=== PATIENT | female | born 1985 | race Caucasian/White ===

== ENCOUNTER 2020-05-28 06:46 | Outpatient (REF) | payer OTHER, SELFPAY ==
[2020-05-28 08:05] LABS: Alanine Aminotransferase 46 U/L (0-31); Albumin Level 3.4 g/dL (3.5-5.0); Alkaline Phosphatase 104 U/L (39-117); Anion Gap 12 (12-20); Aspartate Amino Transferase 66 U/L (5-31); Bilirubin Total 5.3 mg/dL (0.0-1.0); Blood Urea Nitrogen 8 mg/dL (9-16); Calcium 8.4 mg/dL (8.4-10.2); Carbon Dioxide 28 mmol/L (22-29); Chloride 104 mmol/L (96-108); Cholesterol 114 mg/dL; Estimated Glomerular Filt Rate > 60; Glucose Fasting 129 mg/dL (60-99); HDL Cholesterol 36 mg/dL; LDL Cholesterol Calculated 52 mg/dl; Potassium 3.7 mmol/l (3.3-5.1); Sodium 140 mmol/L (135-145); Total Protein 7.5 g/dL (6.5-8.0); Triglycerides 133 mg/dL
== END 2020-05-28 06:47 | disposition home or self-care (01) ==
LOC: HO.LAB 06:46
PROVIDERS: PCP Internal Medicine; Visit Provider Internal Medicine
DX: E66.09 Other obesity due to excess calories (principal)
CPT/HCPCS: 80053; 80061

== ENCOUNTER 2020-10-31 08:31 | Outpatient (REF) | payer OTHER, SELFPAY ==
--- NOTE | ~2020-10-31 | XR_ITS ---
EXAMINATION: XR foot RT min 3V, XR ankle RT min 3V CLINICAL INFORMATION: Right foot and ankle pain. COMPARISON: None. TECHNIQUE: Right ankle 3 views. Right foot 3 views. FINDINGS: RIGHT ANKLE: There is a small avulsion fracture fragment of the tip of the fibula. The small fracture fragment is distracted and rotated. No other bony abnormality. Alignment of the ankle mortise is anatomic. RIGHT FOOT: 3 views of the right foot are normal. XR/XR foot RT min 3V IMPRESSION: Avulsion fracture at the tip of the lateral malleolus.
--- NOTE | ~2020-10-31 | XR_ITS ---
EXAMINATION: XR foot RT min 3V, XR ankle RT min 3V CLINICAL INFORMATION: Right foot and ankle pain. COMPARISON: None. TECHNIQUE: Right ankle 3 views. Right foot 3 views. FINDINGS: RIGHT ANKLE: There is a small avulsion fracture fragment of the tip of the fibula. The small fracture fragment is distracted and rotated. No other bony abnormality. Alignment of the ankle mortise is anatomic. RIGHT FOOT: 3 views of the right foot are normal. XR/XR ankle RT min 3V IMPRESSION: Avulsion fracture at the tip of the lateral malleolus.
== END 2020-10-31 08:32 | disposition home or self-care (01) ==
LOC: HO.HOSX 08:31
PROVIDERS: Visit Provider Physician Assistant
DX: M25.571 Pain in right ankle and joints of right foot (principal); S92.151A Displaced avulsion fracture (chip fracture) of right talus, initial encounter for closed fracture; W10.9XXA Fall (on) (from) unspecified stairs and steps, initial encounter; Y93.01 Activity, walking, marching and hiking; Y92.009 Unspecified place in unspecified non-institutional (private) residence as the place of occurrence of the external cause; Y99.8 Other external cause status; F17.210 Nicotine dependence, cigarettes, uncomplicated; Z88.8 Allergy status to other drugs, medicaments and biological substances
CPT/HCPCS: 73610; 73630; 99202

== ENCOUNTER 2021-02-11 06:39 | Outpatient (REF) | payer OTHER, SELFPAY ==
[2021-02-11 07:59] LABS: Alanine Aminotransferase 50 U/L (0-31); Albumin Level 3.5 g/dL (3.5-5.0); Alkaline Phosphatase 95 U/L (39-117); Anion Gap 15 (12-20); Aspartate Amino Transferase 48 U/L (5-31); Bilirubin Total 6.5 mg/dL (0.0-1.0); Blood Urea Nitrogen 9 mg/dL (9-16); Calcium 8.9 mg/dL (8.4-10.2); Carbon Dioxide 26 mmol/L (22-29); Chloride 103 mmol/L (96-108); Estimated Glomerular Filt Rate > 60; Glucose Fasting 89 mg/dL (60-99); Potassium 3.5 mmol/L (3.3-5.1); Sodium 140 mmol/L (135-145); Total Protein 7.1 g/dL (6.5-8.0)
== END 2021-02-11 06:40 | disposition home or self-care (01) ==
LOC: HO.LAB 06:39
PROVIDERS: PCP Internal Medicine; Visit Provider Internal Medicine
DX: R73.02 Impaired glucose tolerance (oral) (principal)
CPT/HCPCS: 36415; 80053

== ENCOUNTER 2021-07-03 06:33 | Outpatient (REF) | payer OTHER, SELFPAY ==
[2021-07-03 07:35] LABS: Alanine Aminotransferase 25 U/L (0-31); Albumin Level 3.9 g/dL (3.5-5.0); Alkaline Phosphatase 95 U/L (39-117); Anion Gap 10 (12-20); Aspartate Amino Transferase 36 U/L (5-31); Bilirubin Total 3.5 mg/dL (0.0-1.0); Blood Urea Nitrogen 7 mg/dL (9-16); Calcium 9.2 mg/dL (8.4-10.2); Carbon Dioxide 28 mmol/L (22-29); Chloride 109 mmol/L (96-108); Cholesterol 82 mg/dL; Estimated Glomerular Filt Rate > 60; Glucose Fasting 102 mg/dL (60-99); HDL Cholesterol 30 mg/dL; LDL Cholesterol Calculated 35 mg/dl; Potassium 4.3 mmol/L (3.3-5.1); Sodium 143 mmol/L (135-145); Total Protein 7.3 g/dL (6.5-8.0); Triglycerides 86 mg/dL
== END 2021-07-03 06:34 | disposition home or self-care (01) ==
LOC: HO.LAB 06:33
PROVIDERS: PCP Internal Medicine; Visit Provider Internal Medicine
DX: E78.5 Hyperlipidemia, unspecified (principal); R73.02 Impaired glucose tolerance (oral)
CPT/HCPCS: 36415; 80053; 80061

== ENCOUNTER 2021-08-31 13:42 | Outpatient (REF) | payer OTHER, SELFPAY ==
[2021-08-31 16:52] LABS: Alanine Aminotransferase 25 U/L (0-31); Albumin Level 4.2 g/dL (3.5-5.0); Alkaline Phosphatase 93 U/L (39-117); Anion Gap 15 (12-20); Aspartate Amino Transferase 41 U/L (5-31); Bilirubin Direct 1.3 mg/dL (0.0-0.5); Bilirubin Total 8.3 mg/dL (0.0-1.0); Blood Urea Nitrogen 9 mg/dL (9-16); Calcium 9.5 mg/dL (8.4-10.2); Carbon Dioxide 25 mmol/L (22-29); Chloride 104 mmol/L (96-108); Estimated Glomerular Filt Rate > 60; Glucose Random 97 mg/dL (60-115); Potassium 3.5 mmol/L (3.3-5.1); Sodium 140 mmol/L (135-145); Total Protein 8.4 g/dL (6.5-8.0)
== END 2021-08-31 13:43 | disposition home or self-care (01) ==
LOC: HO.HMGCLDS 13:42
PROVIDERS: PCP Internal Medicine; Visit Provider Internal Medicine
DX: K70.9 Alcoholic liver disease, unspecified (principal)
CPT/HCPCS: 36415; 80048; 80076

== ENCOUNTER 2021-09-04 11:37 | Outpatient (REF) | payer OTHER, SELFPAY ==
[2021-09-04 12:14] LABS: COVID-19 Test Negative (Negative)
== END 2021-09-04 11:38 | disposition home or self-care (01) ==
LOC: HO.LAB 11:37
PROVIDERS: Visit Provider Internal Medicine
DX: Z20.822 Contact with and (suspected) exposure to COVID-19 (principal)
CPT/HCPCS: 87635; C9803

== ENCOUNTER 2021-09-21 10:34 | Outpatient (REF) | payer OTHER, SELFPAY ==
[2021-09-21 12:27] LABS: Alanine Aminotransferase 23 U/L (0-31); Alkaline Phosphatase 84 U/L (39-117); Aspartate Amino Transferase 32 U/L (5-31); Bilirubin Total 5.3 mg/dL (0.0-1.0); Total Protein 7.3 g/dL (6.5-8.0)
== END 2021-09-21 10:35 | disposition home or self-care (01) ==
LOC: HO.HMGCLDS 10:34
PROVIDERS: PCP Internal Medicine; Visit Provider Internal Medicine
DX: K70.9 Alcoholic liver disease, unspecified (principal)
CPT/HCPCS: 36415; 80076

== ENCOUNTER 2021-11-12 16:46 | Inpatient (IN) | payer OTHER, SELFPAY ==
--- NOTE | ~2021-11-12 | US_ITS ---
EXAMINATION: US ABDOMEN LIMITED CLINICAL INFORMATION: Jaundice, vomiting. COMPARISON: CT abdomen pelvis 10/01/2019 TECHNIQUE: Real-time imaging of the right upper quadrant abdominal viscera. FINDINGS: PANCREAS: Visualized portions of the pancreas are unremarkable. The pancreatic tail is obscured by bowel gas. LIVER: Nodular hepatic contour suggestive of cirrhosis. Coarsened echogenic hepatic parenchyma suggesting underlying liver disease. Liver is mildly enlarged measuring 17 cm in span. No focal hepatic lesion. There is no intrahepatic biliary duct dilatation seen. GALLBLADDER: Normal. The gallbladder is physiologically distended without evidence of stones, sludge, polyps, wall thickening or pericholecystic fluid. COMMON BILE DUCT: Normal in caliber measuring 0.8 cm in diameter. RIGHT KIDNEY: Normal. No hydronephrosis. No renal calculi or focal parenchymal lesions. The kidney measures 11.4 cm in maximum dimension. FREE FLUID: None. US/US abdomen limited IMPRESSION: Mild extrahepatic biliary duct dilatation with the common bile duct measuring 0.8 cm with no definite intrahepatic biliary duct dilatation. Gallbladder also appears mildly distended however without cholelithiasis or other findings to suggest acute cholecystitis. Consider further evaluation with MRCP. Heterogeneous, echogenic hepatic parenchyma suggestive of underlying liver disease with a nodular hepatic contour suggesting cirrhosis. Liver measures mildly enlarged. Visualized portions of the pancreas are unremarkable. The pancreatic tail is obscured by bowel gas.
--- NOTE | 2021-11-12 16:53 | ED.PSYCH ---
HPI - Psych General Chief Complaint: Psychiatric Symptoms Stated Complaint: Section 12 Time Seen by Provider: 11/12/21 16:53 Source: patient and EMS Mode of arrival: EMS Limitations: no limitations History of Present Illness HPI Narrative: 36 yo female with history of PTSD, alcoholic liver disease, opioid use disorder on methadone, anxiety, formerly sober from alcohol for x10 months until 18 days ago who presents to the ER with suicidal ideation. She reports she was triggered 18 days ago and relapsed, drinking 1-2 sleeves (10-20) nips of strawberry vodka per day. She cannot say why she relapsed. She is depressed and wants to . She cut her left forearm with a nail the other day because she wanted to harm herself. She reports a history of alcohol induced liver failure x3 last year and required hospitalization. She also reports a history of severe ETOH withdrawal in the past - required intubation, medically induced coma and seizures. She also reports Fentanyl OD x2. She denies and current Fentanyl or heroin use - compliant with her 30 mg of methadone per day. She reports slow onset of jaundice over the last 2 weeks. No RUQ pain. She has been vomiting intermittently, last at 730am with blood streaks. Unable to characterize if bright red, coffee ground or quantity. She reportedly attempted to grab the police officers gun today and arrives to the ER with police present. MD complaint: suicidal ideation, feels depressed, substance abuse and alcohol abuse Onset (ago): day(s) (18) Duration: constant History of same: Yes Relieving factors: none Exacerbating factors: alcohol Context: recent alcohol abuse Associated psychiatric symptoms: depression and suicidal ideation Associated symptoms: nausea and vomiting Treatments prior to arrival: none If self harm: admits thoughts of self harm Related Data Home Medications Medication Instructions Recorded Confirmed methadone 10 mg/mL oral concentrate 30 mg PO DAILY ml 02/16/21 11/12/21 Previous Rx's Medication Instructions Recorded alprazolam 0.5 mg tablet 0.5 mg PO TID PRN 30 Days #90 tab 10/26/21 Allergies Allergy/AdvReac Type Severity Reaction Status Date / Time pentoxifylline Allergy Intermediate Rash Verified 08/31/21 13:21 phenobarbital Allergy Diarrhea Verified 11/12/21 19:49 Review of Systems Review of Systems: Constitutional: No Fever, No Chills ENT/Mouth: No sore throat, No Rhinorrhea, No Swallowing Difficulty Eyes: No Eye Pain, No Swelling, No Redness Cardiovascular: No Chest Pain, No SOB, No Orthopnea, No Edema Respiratory: No Cough, No Sputum, No Wheezing, No dyspnea Gastrointestinal: + Nausea, + Vomiting, No Diarrhea, No abdominal Pain, No Hematochezia, No Melena Genitourinary: No Dysuria, No Urinary Frequency, No Hematuria Musculoskeletal: No joint pain, No Myalgias Skin: No Skin Lesions, + rash Neuro: No Weakness, No Numbness, No Dizziness, No Headache Psych: + Anxiety/Panic, +Depression, +SI, No HI, No VH, No AH Heme/Lymph: No Bruising, No Lymphadenopathy Endocrine: No Polyuria, No Polydipsia PMFSH Past Medical History Medical History Alcoholic liver disease Anxiety Impaired glucose tolerance Insomnia Left ankle pain Opioid dependence on agonist therapy Physical exam Smoker Surgical History (Updated 07/07/21 @ 07:53 by Samantha Mohan MD) H/O right wrist surgery History of arthroplasty of left knee Family History Family History Father Hypertension Substance use disorder Mother Medical history unknown Maternal Grandfather Cancer Family/Other FH: mental illness Mental health disorder Social History Social History Housing: Apartment Alcohol intake: former Patient Tobacco Use Status: Current everyday Tobacco user Tobacco use type: Cigarette Cigarettes Per Day: 5 e-Cigarette/Vaping Use: Never Used Second Hand Smoke Exposure: No Advance Directives: No Advance Directives Information Provided: No service: No 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al status: unemployed and disabled Physical Exam Vital Signs: Vital Signs: Last Vital Signs Temp 98.4 F 11/12/21 19:14 Pulse 105 H 11/12/21 19:14 Resp 18 11/12/21 19:14 BP 121/71 11/12/21 19:14 Pulse Ox 96 11/12/21 19:14 BMI result Body Mass Index 22.9 Appearance: Young female sitting in the bed crying, mild jaundice Eyes: Pupils equal, round and reactive to light. Scleral icterus present ENT: Pharynx normal. No upper dentition Neck: Normal inspection. Neck supple. CVS: Normal heart rate and rhythm. Pulses normal. Respiratory: No respiratory distress. Breath sounds normal. Abdomen: Soft and nontender. +BS x4 Skin: Skin warm and dry. Normal skin color. Normal skin turgor. No rashes. Extremities: No lower extremity edema. Right forearm with long superficial ecchymosis and abrasion consistent with nail injury. Neuro/psych: Oriented X 3. No motor deficit. No sensory deficit. CN II-XII intact. Makes eye contact, tearful, suicidal. Course Course Course Narrative: 36-year-old female with history of alcohol abuse and dependence, recent relapse 18 days ago, opioid use disorder on methadone, PTSD, anxiety who presents to the ER with worsening depression, suicidal ideation after she relapsed on alcohol 18 days ago, drinking 10-20 nips per day for the last 18 days. On arrival to the ER she is tachycardic to 122, she has jaundice skin and scleral icterus. She has no tenderness in the right upper quadrant. She reports intermittent nausea and vomiting, blood streaked, unable to characterize or quantify. Concern for acute alcoholic hepatitis. Will check LFTs, coags, U tox, ETOH level. Will get RUQ U/S, doubt biliary obstruction given lack of pain. She has history of alcoholic hepatitis in the past as well as severe alcohol withdrawal requiring ICU level of care and intubation. Will closely monitor her CIWA scores and start empiric phenobarbital. Anticipate admission. Reevaluation(s) Reevaluation #1: Labs are showing a bilirubin of 8.1, direct bilirubin 2.3, mild transaminitis and mildly elevated alk-phos. Right upper quadrant ultrasound showing CBD 0.8 without intrahepatic duct dilatation. She has a coagulopathy with INR 1.7. Her discriminant function is calculated at 36, she may benefit from glucocorticoids. Will need to rule out infection 1st. Reevaluation #2: Spoke with Dr. Yen via [facility] - fernanda to start prednisolone for treatment of acute alcoholic hepatitis. No evidence of infection at this time. She has had blood-streaked vomitus that is most consistent with a Fiorella-Pop tear. This does not contraindicate steroids, will start prednisolone. She is dry heaving despite IV Zofran. IV reglan ordered. CIWA 8. Reports allergy to phenobarbital and is refusing to take it saying it gives her diarrhea. Will give IV Ativan for now, she would likely benefit from ongoing Librium. Will admit to medicine. Dr. Hinkle aware. Consultations Consultation #1: GI - Dr. Yen MDM - Psych Lab Data Attestation: I reviewed the patient's lab results. Result diagrams: 11/12/21 18:53 11/12/21 18:24 Labs: Lab Results 11/12/21 11/12/21 11/12/21 Range/Units 17:18 17:19 17:21 WBC (4.8-10.8) X10*3/uL RBC (4.20-5.50) X10*6/uL Hgb (12.0-16.0) g/dl Hct (37.0-47.0) % MCV (80.0-98.0) fL MCH (27.0-33.0) pg MCHC (31.0-35.0) g/dl RDW (11.0-16.0) % Plt Count (160-400) X10*3/uL MPV (9.4-12.3) fL Immature Gran % (Auto) (0.0-0.4) % Neut % (Auto) (45-73) % Lymph % (Auto) (20-40) % [place] % (Auto) (2-11) % Eos % (Auto) (0-4) % Baso % (Auto) (0-2) % Lymph # (Auto) (1.2-4.9) X10*3/uL [place] # (Auto) (0.1-1.2) X10*3/uL Eos # (Auto) (0.0-0.4) X10*3/uL Baso # (Auto) (0.0-0.2) X10*3/uL Abs Immat Gran (auto) (0.00-0.03) X10*3/uL Absolute Neuts (auto) (2.0-8.3) x10*3/uL Absolute Nucleated RBC (0.0-0.012) X10*3/uL Nucleated RBC % (auto) (0.0-0.2) /100WBC Smear Tech's Comments PT (9.9-13.0) SEC INR (0.9-1.1) APTT (24.1-38.0) SEC Sodium (135-145) mmol/L Potassium (3.3-5.1) mmol/L Chloride (96-108) mmol/L Carbon Dioxide (22-29) mmol/L Anion Gap (12-20) BUN (9-16) mg/dL Creatinine (0.5-1.4) mg/dL Estim Creat Clear Calc Estimated GFR Random Glucose (60-115) mg/dL Calcium (8.4-10.2) mg/dL Magnesium (1.6-2.6) mg/dL Total Bilirubin (0.0-1.0) mg/dL Direct Bilirubin (0.0-0.5) mg/dL AST (5-31) U/L ALT (0-31) U/L Alkaline Phosphatase (39-117) U/L Total Protein (6.5-8.0) g/dL Albumin (3.5-5.0) g/dL Urine Color YELLOW Urine Appearance CLEAR Urine pH 7.0 (5.0-8.0) Ur Specific [place] <= 1.005 (1.005-1.025) Urine Protein NEG (NEG-TRACE) MG/DL Urine Glucose (UA) NEG (NEG) MG/DL Urine Ketones NEG (NEG) MG/DL Urine Blood NEG (NEG) Urine Nitrite NEG (NEG) Ur Leukocyte Esterase NEG (NEG) Urine Opiates Screen Not Detected (Not Detect) Urine Fentanyl Screen POSITIVE H (Not Detect) Ur Barbiturates Screen Not Detected (Not Detect) Ur Phencyclidine Scrn Not Detected (Not Detect) Ur Amphetamines Screen Not Detected (Not Detect) U Benzodiazepines Scrn POSITIVE H (Not Detect) Urine Cocaine Screen Not Detected (Not Detect) U Marijuana (THC) Screen Not Detected (Not Detect) Ethyl Alcohol mg/dL COVID-19 (LARRY) Negative (Negative) COVID-19 Clin Com See Note 11/12/21 11/12/21 11/12/21 Range/Units 18:24 18:24 18:24 WBC (4.8-10.8) X10*3/uL RBC (4.20-5.50) X10*6/uL Hgb (12.0-16.0) g/dl Hct (37.0-47.0) % MCV (80.0-98.0) fL MCH (27.0-33.0) pg MCHC (31.0-35.0) g/dl RDW (11.0-16.0) % Plt Count (160-400) X10*3/uL MPV (9.4-12.3) fL Immature Gran % (Auto) (0.0-0.4) % Neut % (Auto) (45-73) % Lymph % (Auto) (20-40) % [place] % (Auto) (2-11) % Eos % (Auto) (0-4) % Baso % (Auto) (0-2) % Lymph # (Auto) (1.2-4.9) X10*3/uL [place] # (Auto) (0.1-1.2) X10*3/uL Eos # (Auto) (0.0-0.4) X10*3/uL Baso # (Auto) (0.0-0.2) X10*3/uL Abs Immat Gran (auto) (0.00-0.03) X10*3/uL Absolute Neuts (auto) (2.0-8.3) x10*3/uL Absolute Nucleated RBC (0.0-0.012) X10*3/uL Nucleated RBC % (auto) (0.0-0.2) /100WBC Smear Tech's Comments PT 18.3 H (9.9-13.0) SEC INR 1.6 H (0.9-1.1) APTT 24.2 (24.1-38.0) SEC Sodium 144 (135-145) mmol/L Potassium 3.1 L (3.3-5.1) mmol/L Chloride 107 (96-108) mmol/L Carbon Dioxide 27 (22-29) mmol/L Anion Gap 13 (12-20) BUN 4 L D (9-16) mg/dL Creatinine 0.61 (0.5-1.4) mg/dL Estim Creat Clear Calc 140.5 Estimated GFR > 60 Random Glucose 127 H (60-115) mg/dL Calcium 8.4 D (8.4-10.2) mg/dL Magnesium 1.8 (1.6-2.6) mg/dL Total Bilirubin 8.1 H (0.0-1.0) mg/dL Direct Bilirubin 2.3 H (0.0-0.5) mg/dL AST 115 H (5-31) U/L ALT 51 H (0-31) U/L Alkaline Phosphatase 119 H D (39-117) U/L Total Protein 7.1 (6.5-8.0) g/dL Albumin 3.5 (3.5-5.0) g/dL Urine Color Urine Appearance Urine pH (5.0-8.0) Ur Specific [place] (1.005-1.025) Urine Protein (NEG-TRACE) MG/DL Urine Glucose (UA) (NEG) MG/DL Urine Ketones (NEG) MG/DL Urine Blood (NEG) Urine Nitrite (NEG) Ur Leukocyte Esterase (NEG) Urine Opiates Screen (Not Detect) Urine Fentanyl Screen (Not Detect) Ur Barbiturates Screen (Not Detect) Ur Phencyclidine Scrn (Not Detect) Ur Amphetamines Screen (Not Detect) U Benzodiazepines Scrn (Not Detect) Urine Cocaine Screen (Not Detect) U Marijuana (THC) Screen (Not Detect) Ethyl Alcohol 300 H* mg/dL COVID-19 ([facility]ARRY) (Negative) COVID-19 Clin Com 11/12/21 Range/Units 18:53 WBC 7.6 (4.8-10.8) X10*3/uL RBC 4.30 (4.20-5.50) X10*6/uL Hgb 15.0 (12.0-16.0) g/dl Hct 41.0 (37.0-47.0) % MCV 95.3 (80.0-98.0) fL MCH 34.9 H (27.0-33.0) pg MCHC 36.6 H (31.0-35.0) g/dl RDW 19.2 H (11.0-16.0) % Plt Count 30 L (160-400) X10*3/uL MPV 11.9 (9.4-12.3) fL Immature Gran % (Auto) 0.7 H (0.0-0.4) % Neut % (Auto) 64.6 (45-73) % Lymph % (Auto) 25.8 (20-40) % [place] % (Auto) 7.1 (2-11) % Eos % (Auto) 1.1 (0-4) % Baso % (Auto) 0.7 (0-2) % Lymph # (Auto) 2.0 (1.2-4.9) X10*3/uL [place] # (Auto) 0.5 (0.1-1.2) X10*3/uL Eos # (Auto) 0.1 (0.0-0.4) X10*3/uL Baso # (Auto) 0.1 (0.0-0.2) X10*3/uL Abs Immat Gran (auto) 0.05 H (0.00-0.03) X10*3/uL Absolute Neuts (auto) 4.9 (2.0-8.3) x10*3/uL Absolute Nucleated RBC 0.020 H (0.0-0.012) X10*3/uL Nucleated RBC % (auto) 0.3 H (0.0-0.2) /100WBC Smear Tech's Comments VERIFIED PT (9.9-13.0) SEC INR (0.9-1.1) APTT (24.1-38.0) SEC Sodium (135-145) mmol/L Potassium (3.3-5.1) mmol/L Chloride (96-108) mmol/L Carbon Dioxide (22-29) mmol/L Anion Gap (12-20) BUN (9-16) mg/dL Creatinine (0.5-1.4) mg/dL Estim Creat Clear Calc Estimated GFR Random Glucose (60-115) mg/dL Calcium (8.4-10.2) mg/dL Magnesium (1.6-2.6) mg/dL Total Bilirubin (0.0-1.0) mg/dL Direct Bilirubin (0.0-0.5) mg/dL AST (5-31) U/L ALT (0-31) U/L Alkaline Phosphatase (39-117) U/L Total Protein (6.5-8.0) g/dL Albumin (3.5-5.0) g/dL Urine Color Urine Appearance Urine pH (5.0-8.0) Ur Specific [place] (1.005-1.025) Urine Protein (NEG-TRACE) MG/DL Urine Glucose (UA) (NEG) MG/DL Urine Ketones (NEG) MG/DL Urine Blood (NEG) Urine Nitrite (NEG) Ur Leukocyte Esterase (NEG) Urine Opiates Screen (Not Detect) Urine Fentanyl Screen (Not Detect) Ur Barbiturates Screen (Not Detect) Ur Phencyclidine Scrn (Not Detect) Ur Amphetamines Screen (Not Detect) U Benzodiazepines Scrn (Not Detect) Urine Cocaine Screen (Not Detect) U Marijuana (THC) Screen (Not Detect) Ethyl Alcohol mg/dL COVID-19 ([facility]ARRY) (Negative) COVID-19 Clin Com ECG Data Attestation: I personally reviewed and interpreted this ECG as follows: ECG interpretation date: 11/12/21 ECG interpretation time: 20:14 Interpretation: Sinus tachycardia, heart rate 102 beats per minute, normal [place] interval, normal QTC, no ST segment elevations or depressions. Critical Care Time Critical Care Time Critical Care Time: Yes Total Critical Care Time: 48 Attestation: I have personally provided critical care time exclusive of time spent on separately billable procedures. Time includes review of lab data, radiology results, discussion with consultants, and monitoring for potential decompensation. Intervention performed as documented. Discharge Plan Discharge Clinical Impression: Acute alcoholic hepatitis, Acute hypokalemia, Alcohol intoxication, Nausea & vomiting, Thrombocytopenia, Suicidal ideation Patient Disposition: Admitted As Inpatient
[2021-11-12 16:59] VITALS: BP 122/97; PULSE 122; RESP 19; TEMP 37.8; O2SAT 95; BMI 22.9
[2021-11-12 17:35] LABS: Appearance Urine CLEAR; Color Urine YELLOW; Glucose Urine UA NEG (NEG); Leukocyte Esterase Urine NEG (NEG); Nitrite Urine NEG (NEG); Specific Gravity - Urine <= 1.005 (1.005-1.025); Urine Blood NEG (NEG); Urine Ketones NEG (NEG); Urine Protein NEG (NEG-TRACE)
[2021-11-12 17:49] LABS: Amphetamine Screen Urine Not Detected (Not Detect); Barbiturates, Urine Not Detected (Not Detect); Benzodiazepines Screen Urine POSITIVE (Not Detect); Cannabinoid Screen Urine Not Detected (Not Detect); Cocaine Screen Urine Not Detected (Not Detect); Fentanyl, urine POSITIVE (Not Detect); Opiate Screen Urine Not Detected (Not Detect); Phencyclidine Screen Urine Not Detected (Not Detect)
[2021-11-12 17:51] LABS: COVID-19 Test Negative (Negative); IDNOW Serial# 9DB6401D
[2021-11-12 18:44] LABS: Ethanol 300 mg/dL
[2021-11-12 18:47] LABS: Alanine Aminotransferase 51 U/L (0-31); Albumin Level 3.5 g/dL (3.5-5.0); Alkaline Phosphatase 119 U/L (39-117); Anion Gap 13 (12-20); Aspartate Amino Transferase 115 U/L (5-31); Bilirubin Direct 2.3 mg/dL (0.0-0.5); Bilirubin Total 8.1 mg/dL (0.0-1.0); Blood Urea Nitrogen 4 mg/dL (9-16); Calcium 8.4 mg/dL (8.4-10.2); Carbon Dioxide 27 mmol/L (22-29); Chloride 107 mmol/L (96-108); Creatinine Clr Calc Pharmacy 140.5; Estimated Glomerular Filt Rate > 60; Glucose Random 127 mg/dL (60-115); Magnesium 1.8 mg/dL (1.6-2.6); Potassium 3.1 mmol/L (3.3-5.1); Sodium 144 mmol/L (135-145); Total Protein 7.1 g/dL (6.5-8.0)
[2021-11-12] MEDS: ondansetron HCL 4 MG/2 ML VIAL IVPUSH (18:56)
[2021-11-12] MEDS: chlordiazePOXIDE HCl 25 MG CAPSULE PO (18:56)
[2021-11-12 18:57] LABS: Basophils Absolute Auto 0.1 X10*3/uL (0.0-0.2); Basophils Percent Auto 0.7 % (0-2); Eosinophils Absolute Auto 0.1 X10*3/uL (0.0-0.4); Eosinophils Percent Auto 1.1 % (0-4); Imm Gran Abs Auto 0.05 X10*3/uL (0.00-0.03); Imm Gran Pct Auto 0.7 % (0.0-0.4); Lymphocytes Percent Auto 25.8 % (20-40); Mean Corpuscular HGB Conc 36.6 g/dl (31.0-35.0); Mean Corpuscular Hemoglobin 34.9 pg (27.0-33.0); Mean Corpuscular Volume 95.3 fL (80.0-98.0); Mean Platelet Volume 11.9 fL (9.4-12.3); Monocytes Absolute Auto 0.5 X10*3/uL (0.1-1.2); Monocytes Percent Auto 7.1 % (2-11); NRBC Pct Auto 0.3 /100WBC (0.0-0.2); Neutrophils Absolute Auto 4.9 x10*3/uL (2.0-8.3); Neutrophils Percent Auto 64.6 % (45-73); Red Cell Distribution Width 19.2 % (11.0-16.0); White Blood Count 7.6 X10*3/uL (4.8-10.8)
[2021-11-12] MEDS: 0.9 % Sodium Chloride 1,000 ML 999 ML IVCONT (18:57)
[2021-11-12 18:58] LABS: Platelet Count 30 X10*3/uL (160-400)
[2021-11-12 19:00] LABS: MANUAL DIFF FLAG SCAN
[2021-11-12 19:12] LABS: INTERNATIONAL NORM RATIO 1.6 (0.9-1.1); Prothrombin Time 18.3 SEC (9.9-13.0)
[2021-11-12 19:14] VITALS: BP 121/71; PULSE 105; RESP 18; TEMP 36.9; O2SAT 96
[2021-11-12 19:15] LABS: Partial Thromboplastin Time 24.2 SEC (24.1-38.0)
[2021-11-12 19:17] LABS: SLIDE REVIEW VERIFIED
--- NOTE | 2021-11-12 19:29 | MHC.CARE ---
Pt presented to ED on a section 12. It appears that pt will be medically admitted, one cleared please consult the CARE Team
--- NOTE | 2021-11-12 19:38 | PC.NURSE ---
Addendum entered by Lulú Joya 11/13/21 06:57: report given to MAXIMUS Stauffer Original Note: report received from MAXIMUS Huff. pt is alert and oriented. CIWA score 14, provider made aware. pt report increase nausea, provider made aware. denies any chest pain or sob
[2021-11-12] MEDS: Metoclopramide HCl 10 MG/2 ML VIAL IVPUSH (19:45)
[2021-11-12] MEDS: Potassium Chloride ER 20 MEQ TAB.ER.PRT 40 MEQ PO (19:45)
--- NOTE | 2021-11-12 19:53 | ECG_ITS ---
Test Reason : TACHY Blood Pressure : / mmHG Vent. Rate : 102 BPM Atrial Rate : 102 BPM P-R Int : 154 ms QRS Dur : 092 ms QT Int : 348 ms P-R-T Axes : 053 043 029 degrees QTc Int : 453 ms Sinus tachycardia Nonspecific T wave abnormality Abnormal ECG When compared with ECG of 02-OCT-2019 22:29, QT has shortened Referred By: Marilyn Choi Electronically Signed By:AMINA GANT
[2021-11-12] MEDS: LORazepam 2 MG/ML VIAL IVPUSH (19:56)
--- NOTE | 2021-11-12 20:15 | PM.IMHP ---
History of Present Illness Date of Service: 11/12/21 Chief Complaint: suicidal ideation 36 year old female with history of opiod dependence including past use of IV opioiod on Methadone, history of alcoholic liver cirrhosis and has been sober since January last year and yet unforunately started drinking non-stop the last 18 days drinking a sleeve of Vodka a day, she is not quite sure what triggered her to start drinking again but as result has been depressed and having suicide thoughts. Work has revealed acute alcoholic hepatitis with jaundice(Tbili of 8), transaminitis, EToh level of 300 and dicriminant function of 36. She has prior history of alchol withdrawal complicated by seizures and intubations. She did report an episode of vomitus with blood streak. At the present no obvious signs of withdrawal yet. Given Librium and being loaded with Phenobarb orally. She does tell me not suicidal at the time of my eval. Review of Systems Review of Systems: Gen: no fever Resp: no sob, no cough CV: no chest, no HERNANDEZ, no leg edema GI: No n/v, no abd pain Neuro: No confusion, no tremors Yes all other systems are reviewed and are negative [facility] Medical History Alcoholic liver disease Anxiety Impaired glucose tolerance Insomnia Left ankle pain Opioid dependence on agonist therapy Physical exam Smoker Family History Father Hypertension Substance use disorder Mother Medical history unknown Maternal Grandfather Cancer Family/Other FH: mental illness Mental health disorder Surgical History H/O right wrist surgery History of arthroplasty of left knee Social History Housing: Apartment Alcohol intake: former Patient Tobacco Use Status: Current everyday Tobacco user Tobacco use type: Cigarette Cigarettes Per Day: 5 e-Cigarette/Vaping Use: Never Used Second Hand Smoke Exposure: No Advance Directives: No Advance Directives Information Provided: No service: No 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al status: unemployed and disabled Meds Allergies Allergy/AdvReac Type Severity Reaction Status Date / Time pentoxifylline Allergy Intermediate Rash Verified 08/31/21 13:21 phenobarbital Allergy Diarrhea Verified 11/12/21 19:49 Active Medications: Current Medications Methadone HCl (Methadone Hcl 20 Mg/2 Ml Oral.Conc) 30 mg PO DAILY [facility] Pharmacy Consult (Consult Rx Etoh Phenob Po Dose) 0 each MISCELLANE ONCE PRN; Protocol PRN Reason: Consult order Pharmacy Consult (Consult Rx Perform Med Rec) 1 each MISCELLANE ONCE PRN PRN Reason: Consult order Phenobarbital 100 mg/ (Phenobarbital 60 mg) 160 mg PO Q3H [facility] Stop: 11/13/21 02:01 Phenobarbital (Phenobarbital 15 Mg Tablet) 45 mg PO BID [facility] Stop: 11/14/21 21:01 Phenobarbital (Phenobarbital 15 Mg Tablet) 15 mg PO BID [facility] Stop: 11/16/21 21:01 Phenobarbital (Phenobarbital 15 Mg Tablet) 15 mg PO DAILY [facility] Stop: 11/18/21 09:01 Prednisolone Sodium Phosphate (Prednisolone Sodium Phosphate 15 Mg/5 Ml Solution) 40 mg PO DAILY [facility] Home Medications Medication Instructions Recorded Confirmed Last Taken Type methadone 10 mg/mL oral concentrate 30 mg PO DAILY ml 02/16/21 11/12/21 11/12/21 03:00 History Lactobacillus acidophilus 10 10,000 mmu cells PO DAILY 11/12/21 11/12/21 Unknown History billion cell capsule (Probiotic) diphenhydramine HCl 25 mg capsule 25 mg PO BEDTIME PRN 11/12/21 11/12/21 Unknown History (Sleep Aid (diphenhydramine)) multivitamin with minerals 1 tab PO DAILY 11/12/21 11/12/21 Unknown History (Hair,Skin and Nails) Physical Exam Vital Signs and Narrative: Vital Signs: Last Vital Signs Temp 98.4 F 11/12/21 19:14 Pulse 105 H 11/12/21 19:14 Resp 18 11/12/21 19:14 BP 121/71 11/12/21 19:14 Pulse Ox 96 11/12/21 19:14 BMI result Body Mass Index 22.9 Const: Other: Constitutional: Alert, in no distress Mental Status: Oriented to person, place and time. Eyes: Pupils are equal, round and reactive to light. Sclear icteris Ear, Nose and Throat: Oropharynx clear, mucous membranes moist. Respiratory: Clear to auscultation. No wheezing, rales or rhonchi. Cardiovascular: S1 S2 regular. No murmurs, rubs or gallops. Gastrointestinal: Abdomen soft, non-tender, non-distended. Normal bowel sounds.? Neurologic: Cranial nerves II-XII grossly intact. No focal neurological deficits. Moves all extremities spontaneously.? Skin: No rashes or lesions.? Musculoskeletal: No cyanosis or clubbing. Psychiatric: Normal mood and affect? Results Labs CBC and Chem 7: 11/12/21 18:53 11/12/21 18:24 Labs: Laboratory Results - last 24 hr 11/12/21 11/12/21 11/12/21 17:18 17:19 17:21 MCV MCH MCHC RDW Plt Count MPV Immature Gran % (Auto) Neut % (Auto) Lymph % (Auto) Sampson % (Auto) Eos % (Auto) Baso % (Auto) Lymph # (Auto) Sampson # (Auto) Eos # (Auto) Baso # (Auto) Abs Immat Gran (auto) Absolute Neuts (auto) Absolute Nucleated RBC Nucleated RBC % (auto) Smear Tech's Comments PT INR APTT Anion Gap Estim Creat Clear Calc Estimated GFR Random Glucose Calcium Magnesium Total Bilirubin Direct Bilirubin AST ALT Alkaline Phosphatase Total Protein Albumin Urine Color YELLOW Urine Appearance CLEAR Urine pH 7.0 Ur Specific [place] <= 1.005 Urine Protein NEG Urine Glucose (UA) NEG Urine Ketones NEG Urine Blood NEG Urine Nitrite NEG Ur Leukocyte Esterase NEG Urine Opiates Screen Not Detected Urine Fentanyl Screen POSITIVE H Ur Barbiturates Screen Not Detected Ur Phencyclidine Scrn Not Detected Ur Amphetamines Screen Not Detected U Benzodiazepines Scrn POSITIVE H Urine Cocaine Screen Not Detected U Marijuana (THC) Screen Not Detected Ethyl Alcohol COVID-19 (LARRY) Negative COVID-19 Clin Com See Note 11/12/21 11/12/21 11/12/21 18:24 18:24 18:24 MCV MCH MCHC RDW Plt Count MPV Immature Gran % (Auto) Neut % (Auto) Lymph % (Auto) Sampson % (Auto) Eos % (Auto) Baso % (Auto) Lymph # (Auto) Sampson # (Auto) Eos # (Auto) Baso # (Auto) Abs Immat Gran (auto) Absolute Neuts (auto) Absolute Nucleated RBC Nucleated RBC % (auto) Smear Tech's Comments PT 18.3 H INR 1.6 H APTT 24.2 Anion Gap 13 Estim Creat Clear Calc 140.5 Estimated GFR > 60 Random Glucose 127 H Calcium 8.4 D Magnesium 1.8 Total Bilirubin 8.1 H Direct Bilirubin 2.3 H AST 115 H ALT 51 H Alkaline Phosphatase 119 H D Total Protein 7.1 Albumin 3.5 Urine Color Urine Appearance Urine pH Ur Specific [place] Urine Protein Urine Glucose (UA) Urine Ketones Urine Blood Urine Nitrite Ur Leukocyte Esterase Urine Opiates Screen Urine Fentanyl Screen Ur Barbiturates Screen Ur Phencyclidine Scrn Ur Amphetamines Screen U Benzodiazepines Scrn Urine Cocaine Screen U Marijuana (THC) Screen Ethyl Alcohol 300 H* COVID-19 (LARRY) COVID-19 [employer] Com 11/12/21 18:53 MCV 95.3 MCH 34.9 H MCHC 36.6 H RDW 19.2 H Plt Count 30 L MPV 11.9 Immature Gran % (Auto) 0.7 H Neut % (Auto) 64.6 Lymph % (Auto) 25.8 Sampson % (Auto) 7.1 Eos % (Auto) 1.1 Baso % (Auto) 0.7 Lymph # (Auto) 2.0 Sampson # (Auto) 0.5 Eos # (Auto) 0.1 Baso # (Auto) 0.1 Abs Immat Gran (auto) 0.05 H Absolute Neuts (auto) 4.9 Absolute Nucleated RBC 0.020 H Nucleated RBC % (auto) 0.3 H Smear Tech's Comments VERIFIED PT INR APTT Anion Gap Estim Creat Clear Calc Estimated GFR Random Glucose Calcium Magnesium Total Bilirubin Direct Bilirubin AST ALT Alkaline Phosphatase Total Protein Albumin Urine Color Urine Appearance Urine pH Ur Specific [place] Urine Protein Urine Glucose (UA) Urine Ketones Urine Blood Urine Nitrite Ur Leukocyte Esterase Urine Opiates Screen Urine Fentanyl Screen Ur Barbiturates Screen Ur Phencyclidine Scrn Ur Amphetamines Screen U Benzodiazepines Scrn Urine Cocaine Screen U Marijuana (THC) Screen Ethyl Alcohol COVID-19 (LARRY) COVID-19 Clin Com Imaging Radiologist's Impressions: Impressions Abdomen Ultrasound 11/12/21 16:10 IMPRESSION: Mild extrahepatic biliary duct dilatation with the common bile duct measuring 0.8 cm with no definite intrahepatic biliary duct dilatation. Gallbladder also appears mildly distended however without cholelithiasis or other findings to suggest acute cholecystitis. Consider further evaluation with MRCP. Heterogeneous, echogenic hepatic parenchyma suggestive of underlying liver disease with a nodular hepatic contour suggesting cirrhosis. Liver measures mildly enlarged. Visualized portions of the pancreas are unremarkable. The pancreatic tail is obscured by bowel gas. Assessment and Plan (1) Acute alcoholic hepatitis: Status: Acute (2) Acute hypokalemia: Status: Acute (3) Alcohol intoxication: Status: Acute (4) Suicidal ideation: Status: Acute (5) Thrombocytopenia: Status: Acute (6) Nausea & vomiting: Status: Acute Plan 36 year female with opioid dependence, alcoholic liver cirrhosis here with depression/SI and found to have acute alcoholic hepatitis. #Acute alcoholic hepatitis, discriminant function is 36 and candidate for steroid, no sepsis and not active GI bleed -Give Prednisone 40 and have GI assess in the morning (She's followed by Dr. Pop) #Alcohol dependence and high riks for withdrawal, Depression with SI--needs 1:1 observation and BHN eval once medically stable #Cogaulopathy--high risk for bleeding. -Give Vitamin K x3 days #Hypokalemia--Oral replacement and follow level, mag is normal #Jaundice d/t liver failure--monitor Bili #Thrombocytopenia--likely from hypersplenism from cirrhosis of liver DVT proph: low risk d/t high INR from liver failure and marked Thrombocytopenia Admission will span at least 2 midnights to treat acute alcoholic hepatitis with high discriminant function and high risk of fulminant liver failurre, and need 1:1 observation for suicidal ideation Quality Stroke Does the patient have a stroke diagnosis?: No VTE Prior VTE?: No VTE Risk Level:: Medical - low VTE Device Contraindication: Treatment Not Indicated VTE Drug Contraindication: Treatment Not Indicated
--- NOTE | 2021-11-12 20:21 | PHA.MEDREC ---
Pharmacy Consult ? Medication Reconciliation Pharmacy has completed the medication reconciliation. Spoke with patient in ED. Methadone clinic = [facility] [phone]
[2021-11-12] MEDS: Dextrose 5 % and 0.45 % NaCl 1,000 ML 100 ML IVCONT (21:04)
[2021-11-12] MEDS: Phytonadione (Vit K1) Oral 10 MG/ML AMPUL PO (21:14)
[2021-11-12] MEDS: ALPRAZolam 0.5 MG TABLET PO (21:14)
[2021-11-12] MEDS: prednisoLONE sodium phosphate 15 MG/5 ML SOLUTION 40 MG PO (21:26)
[2021-11-12 22:18] VITALS: BP 122/69; PULSE 97; RESP 16; TEMP 37.2; O2SAT 93
[2021-11-12 22:22] VITALS: BP 100/62; PULSE 116; RESP 17; TEMP 36.9; O2SAT 98
[2021-11-13] MEDS: diphenhydrAMINE HCL 25 MG TABLET PO ×2 (01:18→20:57)
[2021-11-13] MEDS: chlordiazePOXIDE HCl 5 MG CAPSULE 10 MG PO ×4 (01:18→20:57)
[2021-11-13 04:00] VITALS: BP 135/76; PULSE 93; RESP 18; TEMP 37.1; O2SAT 94
[2021-11-13 05:07] LABS: HBc Num1 0.29 S/CO (0.00-0.79); HBsAGNum1 0.28 S/CO (0.00-0.99); Hepatitis A Antibody IgM 0.27 Index (0-0.79); Hepatitis B Core Antibody Nonreactive (Nonreactive); Hepatitis B Surface Antigen Negative (Negative); ~HepC Num1 12.66 S/CO (0.00-0.79); ~Hepatitis A Antibody IgM Nonreactive (Nonreactive); ~Hepatitis B Surface Antibody REACTIVE (Nonreactive); ~Hepatitis C Antibody Reactive (Nonreactive)
[2021-11-13] MEDS: diphenhydrAMINE HCL 25 MG TABLET 50 MG PO (06:19)
[2021-11-13] MEDS: ALPRAZolam 0.5 MG TABLET PO ×3 (06:19→17:34)
[2021-11-13 07:44] VITALS: BP 156/77; PULSE 97; RESP 15; O2SAT 97
[2021-11-13] MEDS: prednisoLONE sodium phosphate 15 MG/5 ML SOLUTION 40 MG PO (07:56)
[2021-11-13] MEDS: methADONE HCl 20 MG/2 ML ORAL.CONC 30 MG PO (07:56)
[2021-11-13] MEDS: Multivitamin TABLET 1 TAB PO (07:57)
--- NOTE | 2021-11-13 08:06 | PC.NURSE ---
pt refused pheno. discussion about waiting for xanax d/t only 2 left for today. pt to hold off for now.
--- NOTE | 2021-11-13 08:15 | HO.PM.IMPN ---
Subjective Subjective Date of Service: 11/13/21 Interval History: thrombocytopenia , alcohol withdrawal. Review of Systems Still looks tremulous, denies any any bleed or any shortness of breath or nausea or vomiting or fever or diarrhea Physical Exam Vital Signs: Vital Signs: Last Vital Signs Temp 98.7 F 11/13/21 04:00 Pulse 97 11/13/21 07:44 Resp 15 11/13/21 07:44 BP 156/77 H 11/13/21 07:44 Pulse Ox 97 11/13/21 07:44 BMI result Body Mass Index 22.9 Appearance: Alert.? Oriented X3.? not in distress.? cvs: rrr, [id number]. res: clear to auscultation ,no rhonchii or wheezing abd: no rebound or guarding ,nt, bs present. ext pulses present , no cyanosis . neuro: axo3 , nonfocal. Anxious, mild tremor. Objective Data Active Medications Alprazolam (Alprazolam 0.5 Mg Tablet) 0.5 mg PO TID PRN PRN Reason: anxiety Last Admin: 11/13/21 06:19 Dose: 0.5 mg Documented by: Chlordiazepoxide HCl (Chlordiazepoxide Hcl 5 Mg Capsule) 10 mg PO TID [facility] Last Admin: 11/13/21 07:56 Dose: 10 mg Documented by: QUETA Diphenhydramine HCl (Diphenhydramine Hcl 25 Mg Tablet) 25 mg PO BEDTIME PRN PRN Reason: Sleep Last Admin: 11/13/21 01:18 Dose: 25 mg Documented by: ANDRÉS-CAROLINEICL Dextrose/Sodium Chloride (D51/2ns) 1,000 mls @ 100 mls/hr IVCONT .Q10H [facility] Last Admin: 11/13/21 06:40 Dose: Not Given Documented by: ANDRÉS-ANICL Non-Admin Reason: IV Running Magnesium Hydroxide (Milk Of Magnesia 30 Ml Oral.Susp) 30 ml PO DAILY PRN PRN Reason: Constipation Magnesium Oxide (Magnesium Oxide 400 Mg Tablet) 400 mg PO BIDPC [facility] Melatonin (Melatonin 3 Mg Tablet) 6 mg PO BEDTIME PRN PRN Reason: Insomnia Methadone HCl (Methadone Hcl 20 Mg/2 Ml Oral.Conc) 30 mg PO DAILY [facility] Last Admin: 11/13/21 07:56 Dose: 30 mg Documented by: QUETA Multivitamins/Vitamin C (Multivitamin Tablet) 1 tab PO DAILY [facility] Last Admin: 11/13/21 07:57 Dose: 1 tab Documented by: QUETA Pharmacy Consult (Consult Rx Etoh Phenob Po Dose) 0 each MISCELLANE ONCE PRN; Protocol PRN Reason: Consult order Pharmacy Consult (Consult Rx Perform Med Rec) 1 each MISCELLANE ONCE PRN PRN Reason: Consult order Phenobarbital (Phenobarbital 15 Mg Tablet) 45 mg PO BID [facility] Stop: 11/14/21 21:01 Last Admin: 11/13/21 07:59 Dose: Not Given Documented by: QUETA Non-Admin Reason: Patient Refused Phenobarbital (Phenobarbital 15 Mg Tablet) 15 mg PO BID [facility] Stop: 11/16/21 21:01 Phenobarbital (Phenobarbital 15 Mg Tablet) 15 mg PO DAILY [facility] Stop: 11/18/21 09:01 Potassium Chloride (Potassium Chloride Packet 20 Meq Packet) 40 meq PO ONCE ONE Stop: 11/13/21 08:14 Prednisolone Sodium Phosphate (Prednisolone Sodium Phosphate 15 Mg/5 Ml Solution) 40 mg PO DAILY [facility] Last Admin: 11/13/21 07:56 Dose: 40 mg Documented by: QUETA Sodium Chloride (0.9 % Sodium Chloride Flush 3 Ml Syringe) 3 ml IVFLUSH QSHIFT [facility] Last Admin: 11/13/21 07:55 Dose: Not Given Documented by: QUETA Non-Admin Reason: IV Running Labs CBC & Chem 7: 11/13/21 08:32 11/13/21 08:32 Labs: Laboratory Results - last 24 hr 11/12/21 11/12/21 11/12/21 17:18 17:19 17:21 MCV MCH MCHC RDW Plt Count MPV Immature Gran % (Auto) Neut % (Auto) Lymph % (Auto) Door % (Auto) Eos % (Auto) Baso % (Auto) Lymph # (Auto) Door # (Auto) Eos # (Auto) Baso # (Auto) Abs Immat Gran (auto) Absolute Neuts (auto) Absolute Nucleated RBC Nucleated RBC % (auto) Smear Tech's Comments PT INR APTT Anion Gap Estim Creat Clear Calc Estimated GFR Random Glucose Calcium Magnesium Total Bilirubin Direct Bilirubin AST ALT Alkaline Phosphatase Total Protein Albumin Urine Color YELLOW Urine Appearance CLEAR Urine pH 7.0 Ur Specific [place] <= 1.005 Urine Protein NEG Urine Glucose (UA) NEG Urine Ketones NEG Urine Blood NEG Urine Nitrite NEG Ur Leukocyte Esterase NEG Urine Opiates Screen Not Detected Urine Fentanyl Screen POSITIVE H Ur Barbiturates Screen Not Detected Ur Phencyclidine Scrn Not Detected Ur Amphetamines Screen Not Detected U Benzodiazepines Scrn POSITIVE H Urine Cocaine Screen Not Detected U Marijuana (THC) Screen Not Detected Ethyl Alcohol COVID-19 (LARRY) Negative COVID-19 Clin Com See Note Hepatitis A IgM Ab Hep Bs Antigen Hep Bs Antibody Hep B Core Total Ab Hepatitis C Ab (EIA) 11/12/21 11/12/21 11/12/21 18:24 18:24 18:24 MCV MCH MCHC RDW Plt Count MPV Immature Gran % (Auto) Neut % (Auto) Lymph % (Auto) Door % (Auto) Eos % (Auto) Baso % (Auto) Lymph # (Auto) Door # (Auto) Eos # (Auto) Baso # (Auto) Abs Immat Gran (auto) Absolute Neuts (auto) Absolute Nucleated RBC Nucleated RBC % (auto) Smear Tech's Comments PT 18.3 H INR 1.6 H APTT 24.2 Anion Gap 13 Estim Creat Clear Calc 140.5 Estimated GFR > 60 Random Glucose 127 H Calcium 8.4 D Magnesium 1.8 Total Bilirubin 8.1 H Direct Bilirubin 2.3 H AST 115 H ALT 51 H Alkaline Phosphatase 119 H D Total Protein 7.1 Albumin 3.5 Urine Color Urine Appearance Urine pH Ur Specific [place] Urine Protein Urine Glucose (UA) Urine Ketones Urine Blood Urine Nitrite Ur Leukocyte Esterase Urine Opiates Screen Urine Fentanyl Screen Ur Barbiturates Screen Ur Phencyclidine Scrn Ur Amphetamines Screen U Benzodiazepines Scrn Urine Cocaine Screen U Marijuana (THC) Screen Ethyl Alcohol 300 H* COVID-19 (LARRY) COVID-19 Clin Com Hepatitis A IgM Ab Hep Bs Antigen Hep Bs Antibody Hep B Core Total Ab Hepatitis C Ab (EIA) 11/12/21 11/12/21 18:24 18:53 MCV 95.3 MCH 34.9 H MCHC 36.6 H RDW 19.2 H Plt Count 30 L MPV 11.9 Immature Gran % (Auto) 0.7 H Neut % (Auto) 64.6 Lymph % (Auto) 25.8 Door % (Auto) 7.1 Eos % (Auto) 1.1 Baso % (Auto) 0.7 Lymph # (Auto) 2.0 Door # (Auto) 0.5 Eos # (Auto) 0.1 Baso # (Auto) 0.1 Abs Immat Gran (auto) 0.05 H Absolute Neuts (auto) 4.9 Absolute Nucleated RBC 0.020 H Nucleated RBC % (auto) 0.3 H Smear Tech's Comments VERIFIED PT INR APTT Anion Gap Estim Creat Clear Calc Estimated GFR Random Glucose Calcium Magnesium Total Bilirubin Direct Bilirubin AST ALT Alkaline Phosphatase Total Protein Albumin Urine Color Urine Appearance Urine pH Ur Specific [place] Urine Protein Urine Glucose (UA) Urine Ketones Urine Blood Urine Nitrite Ur Leukocyte Esterase Urine Opiates Screen Urine Fentanyl Screen Ur Barbiturates Screen Ur Phencyclidine Scrn Ur Amphetamines Screen U Benzodiazepines Scrn Urine Cocaine Screen U Marijuana (THC) Screen Ethyl Alcohol COVID-19 (LARRY) COVID-19 Clin Com Hepatitis A IgM Ab Nonreactive Hep Bs Antigen Negative Hep Bs Antibody REACTIVE Hep B Core Total Ab Nonreactive Hepatitis C Ab (EIA) Reactive H Assessment and Plan (1) Acute hypokalemia: Status: Acute (2) Alcohol intoxication: Status: Acute Plan 36 year female with opioid dependence, alcoholic liver cirrhosis here with depression/SI and found to have acute alcoholic hepatitis. elevated lft:s Improving Discussed with GI-hold prednisone for now. Alcohol dependence and high riks for withdrawal, Depression with SI--needs 1:1 observation and BHN eval once medically stable Cogaulopathy/thrombocytopenia worsening(? chronic)--high risk for bleeding. -Give Vitamin K x3 days hematolgy eval Hypokalemia--Oral replacement and follow level, mag is normal Jaundice d/t liver failure--monitor Bili Thrombocytopenia--likely from hypersplenism from cirrhosis of liver DVT proph: low risk d/t high INR from liver failure and marked Thrombocytopenia Need for inpatient: Alcohol withdrawal, thrombocytopenia Quality Stroke Does the patient have a stroke diagnosis?: No VTE Prior VTE?: No VTE Risk Level:: Medical - low VTE Device Contraindication: Treatment Not Indicated VTE Drug Contraindication: Treatment Not Indicated
--- NOTE | 2021-11-13 08:32 | PM.EVENT ---
Event Note Date of Service: 11/13/21 Event Note: GI Consult-Full note dictated Imp: 36 yo female with EtOH-related cirrhosis with sobriety since 01/2021, but presenting after 18 days of binge drinking. She reports that she is now followed by [facility] and is s/p an ERCP in 08/2021 for a CBD stone. She came to the ER primarily for detox. She denies any abdominal pain, fevers, bleeding, increasing abdominal girth, edema, nor confusion. She does not use drugs, Tylenol, nor NSAIDs. She does have an elevated TBili, but predominantly indirect. Clinically she appears very well. Her abdominal exam and RUQ U/S are negative for obvious ascites. There is no asterixis on her exam. She is A&O x 3. Her labs are c/w EtOH-induced hepatitis. Rec: Recheck labs this AM(I ordered F/U labs). Supportive care. Avoid hepatotoxic meds. PO PPI. Given her good clinical appearance, I would hold off on prednisolone for the time being and see what her labs do over the next 24-48 hours. We reviewed the need to remain abstinent from EtOH fci and to F/U with her [facility] MD's as she has been doing. Thanks
[2021-11-13 08:38] LABS: MANUAL DIFF FLAG NO
[2021-11-13 08:43] LABS: Basophils Percent Auto 0.3 % (0-2); Eosinophils Percent Auto 0.1 % (0-4); Hematocrit 36.5 % (37.0-47.0); Hemoglobin 13.3 g/dl (12.0-16.0); Imm Gran Abs Auto 0.04 X10*3/uL (0.00-0.03); Imm Gran Pct Auto 0.5 % (0.0-0.4); Lymphocytes Absolute Auto 1.2 X10*3/uL (1.2-4.9); Lymphocytes Percent Auto 16.7 % (20-40); Mean Corpuscular HGB Conc 36.4 g/dl (31.0-35.0); Mean Corpuscular Hemoglobin 35.7 pg (27.0-33.0); Mean Corpuscular Volume 97.9 fL (80.0-98.0); Mean Platelet Volume 8.9 fL (9.4-12.3); Monocytes Absolute Auto 0.5 X10*3/uL (0.1-1.2); Monocytes Percent Auto 7.3 % (2-11); NRBC Pct Auto 0.4 /100WBC (0.0-0.2); Neutrophils Absolute Auto 5.5 x10*3/uL (2.0-8.3); Neutrophils Percent Auto 75.1 % (45-73); Red Blood Count 3.73 X10*6/uL (4.20-5.50); Red Cell Distribution Width 18.8 % (11.0-16.0); White Blood Count 7.4 X10*3/uL (4.8-10.8)
[2021-11-13 08:44] LABS: Platelet Count 24 X10*3/uL (160-400)
--- NOTE | 2021-11-13 08:47 | PC.NURSE ---
pt denies md cheryl states he still wants a sitter
[2021-11-13 08:49] LABS: Ammonia 48 umol/L (13-55); INTERNATIONAL NORM RATIO 1.7 (0.9-1.1); Prothrombin Time 19.4 SEC (9.9-13.0)
[2021-11-13 08:59] LABS: Alanine Aminotransferase 50 U/L (0-31); Albumin Level 3.6 g/dL (3.5-5.0); Alkaline Phosphatase 128 U/L (39-117); Anion Gap 10 (12-20); Aspartate Amino Transferase 109 U/L (5-31); Bilirubin Direct 1.8 mg/dL (0.0-0.5); Bilirubin Total 6.5 mg/dL (0.0-1.0); Blood Urea Nitrogen 4 mg/dL (9-16); Calcium 8.6 mg/dL (8.4-10.2); Carbon Dioxide 28 mmol/L (22-29); Chloride 103 mmol/L (96-108); Estimated Glomerular Filt Rate > 60; Glucose Random 126 mg/dL (60-115); Potassium 3.8 mmol/L (3.3-5.1); Sodium 137 mmol/L (135-145)
[2021-11-13 09:07] VITALS: BP 135/80; PULSE 95; RESP 16; O2SAT 97
[2021-11-13] MEDS: Potassium Chloride Packet 20 MEQ PACKET 40 MEQ PO (09:11)
[2021-11-13] MEDS: Magnesium Oxide 400 MG TABLET PO ×2 (09:11→17:34)
[2021-11-13] MEDS: PHENobarbitaL 15 MG TABLET 45 MG PO ×2 (09:18→20:57)
--- NOTE | 2021-11-13 09:18 | PC.NURSE ---
PT NOW REQUESTING PHENO
--- NOTE | 2021-11-13 09:31 | MHC.CM.PN ---
PT REPORTS SHE LIVES AT HOME WITH HER PARENTS SHE REPORTS SHE IS [id number] WITH CARE AND USES NO DME OR HOME SERVICES PT DOES NOT HAVE A HCP AND DECLINES TO COMPLETE ONE TODAY PT IS NOT COVID-19 VACCINATED, SHE HAS RECEIVED ONLY ONE DOSE OF MODERNA (08/20/21) PCP: JEAN MARIE MARTINEZ PT CAME IN ON A SECTION 12 AND WILL NEED A CRISIS EVAL ONCE MEDICALLY CLEARED DC PLAN TBD: HOME VS IPLOC VS DETOX/CSS FOR ETOH TREATMENT TRANSPORT TBD BY DISPOSITION
--- NOTE | 2021-11-13 10:19 | MHC.CARE ---
Please consult CARE Team for assessment when Pt is medically cleared for discharged.
[2021-11-13 11:19] VITALS: BP 125/66; PULSE 83; RESP 14; O2SAT 98
[2021-11-13 14:07] VITALS: BP 131/68; PULSE 83; RESP 13; TEMP 37.2; O2SAT 96
[2021-11-13 15:42] VITALS: BP 134/74; PULSE 86; RESP 14; TEMP 37.2; O2SAT 99
--- NOTE | 2021-11-13 17:14 | PM.HEMONCCN ---
Subjective - Subjective Chief complaint: Consult for: Thrombocytopenia. Patient: new to practice Consult date: 11/13/21 Requesting Physician: Rodrigo. Primary Care Provider: Samantha Mohan MD Medical Summary: CONSULT FOR: THROMBOCYTOPENIA. HPI - Consult Narrative Reason for consult: consult for: Thrombocytopenia. Narrative: Lilly José is a pleasant 36 year old lady, EtOH-related cirrhosis, who presented after a couple of weeks of binge drinking.She came to the ER primarily for detox. She says she had been sober since 01/2021. Lately, she has been depressed and having suicide thoughts. Work up has revealed acute alcoholic hepatitis with jaundice(Tbili of 8), transaminitis, EToh level of 300 and dicriminant function of 36. She did report an episode of vomitus with blood streak. No obvious signs of withdrawal yet. She was given Librium and then loaded with Phenobarb orally. She did not appear suicidal. ROS: No headache dizziness, nor confusion. She denies any abdominal pain, fevers, bleeding, increasing abdominal girth, edema. She does not use drugs, Tylenol, nor NSAIDs. She does have an elevated TBili, but predominantly indirect. Her abdominal exam. Her labs are c/w EtOH-induced hepatitis. Her labs are c/w EtOH-induced hepatitis. RUQ U/S are negative for obvious ascites. Past medical history: Alcoholic liver disease: She has prior history of alchol withdrawal complicated by seizures and intubations. She is now followed by [facility] GI and is s/p an ERCP in 08/2021 for a CBD stone. Anxiety Impaired glucose tolerance Insomnia Left ankle pain Opioid dependence on agonist therapy Physical exam Smoker Surgical History: H/O right wrist surgery History of arthroplasty of left knee. Family History: Father Hypertension Substance use disorder Mother Medical history unknown Maternal Grandfather Cancer Family/Other FH: mental illness Mental health disorder Social History: Housing: Apartment Alcohol intake: former Patient Tobacco Use Status: Current everyday Tobacco user Tobacco use type: Cigarette Cigarettes Per Day: 5 Review of Systems - Constitutional Reports system reviewed and no additional complaints, except as documented, Reports difficulty sleeping, Reports malaise, Reports weight gain - Eyes Reports system reviewed and no additional complaints, except as documented - ENT Reports system reviewed and no additional complaints, except as documented - Cardiovascular Reports system reviewed and no additional complaints, except as documented - Respiratory Reports no additional respiratory complaints - Gastrointestinal Reports system reviewed and no additional complaints, except as documented - Genitourinary Reports no additional female genitourinary complaints - Musculoskeletal Reports system reviewed and no additional complaints, except as documented - Integumentary/Breasts Skin/Breast: Reports no additional skin complaints - Neurologic Reports system reviewed and no additional complaints, except as documented - Psychiatric Reports system reviewed and no additional complaints, except as documented - Endocrine Reports no additional endocrine complaints - Hematologic/Lymphatic Reports system reviewed and no additional complaints, except as documented - Allergic/Immunologic Reports system reviewed and no additional complaints, except as documented Oncology Screenings - ECOG Performance Status ECOG Performance Status: 1 [facility] Medical History: Medical History (Last Reviewed 11/12/21 @ 20:35 by Oswaldo Hinkle MD) Alcoholic liver disease Anxiety Impaired glucose tolerance Insomnia Left ankle pain Opioid dependence on agonist therapy Physical exam Smoker Functional capacity: independent ambulation Patient : No Family History: Family History (Last Reviewed 11/12/21 @ 20:35 by Oswaldo Hinkle MD) Father Hypertension Substance use disorder Mother Medical history unknown Maternal Grandfather Cancer Family/Other FH: mental illness Mental health disorder Surgical History: Surgical History (Last Reviewed 11/12/21 @ 20:35 by Oswaldo Hinkle MD) H/O right wrist surgery History of arthroplasty of left knee Social History: Social History (Last Reviewed 11/12/21 @ 20:35 by Oswaldo Hinkle MD) Living Situation History: Household Members: Family Housing: House Tobacco History: Patient Tobacco Use Status: Former Tobacco user Tobacco use type: Cigarette e-Cigarette/Vaping Use: Never Used Second Hand Smoke Exposure: No Occupation Assessmet: service: No 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al status: unemployed 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al status: disabled Home Medications and Allergies Current Medications: Current Medications Alprazolam (Alprazolam 0.5 Mg Tablet) 0.5 mg PO TID PRN PRN Reason: anxiety Last Admin: 11/13/21 12:07 Dose: 0.5 mg Documented by: Chlordiazepoxide HCl (Chlordiazepoxide Hcl 5 Mg Capsule) 10 mg PO TID PITA Last Admin: 11/13/21 14:50 Dose: 10 mg Documented by: Diphenhydramine HCl (Diphenhydramine Hcl 25 Mg Tablet) 25 mg PO BEDTIME PRN PRN Reason: Sleep Last Admin: 11/13/21 01:18 Dose: 25 mg Documented by: Dextrose/Sodium Chloride (D51/2ns) 1,000 mls @ 100 mls/hr IVCONT .Q10H [facility] Last Admin: 11/13/21 16:36 Dose: Not Given Documented by: Magnesium Hydroxide (Milk Of Magnesia 30 Ml Oral.Susp) 30 ml PO DAILY PRN PRN Reason: Constipation Magnesium Oxide (Magnesium Oxide 400 Mg Tablet) 400 mg PO BIDPC [facility] Last Admin: 11/13/21 09:11 Dose: 400 mg Documented by: Melatonin (Melatonin 3 Mg Tablet) 6 mg PO BEDTIME PRN PRN Reason: Insomnia Methadone HCl (Methadone Hcl 20 Mg/2 Ml Oral.Conc) 30 mg PO DAILY [facility] Last Admin: 11/13/21 07:56 Dose: 30 mg Documented by: Multivitamins/Vitamin C (Multivitamin Tablet) 1 tab PO DAILY [facility] Last Admin: 11/13/21 07:57 Dose: 1 tab Documented by: Pharmacy Consult (Consult Rx Etoh Phenob Po Dose) 0 each MISCELLANE ONCE PRN; Protocol PRN Reason: Consult order Pharmacy Consult (Consult Rx Perform Med Rec) 1 each MISCELLANE ONCE PRN PRN Reason: Consult order Phenobarbital (Phenobarbital 15 Mg Tablet) 45 mg PO BID [facility] Stop: 11/14/21 21:01 Last Admin: 11/13/21 09:18 Dose: 45 mg Documented by: Phenobarbital (Phenobarbital 15 Mg Tablet) 15 mg PO BID [facility] Stop: 11/16/21 21:01 Phenobarbital (Phenobarbital 15 Mg Tablet) 15 mg PO DAILY [facility] Stop: 11/18/21 09:01 Prednisolone Sodium Phosphate (Prednisolone Sodium Phosphate 15 Mg/5 Ml Solution) 40 mg PO DAILY [facility] Last Admin: 11/13/21 07:56 Dose: 40 mg Documented by: Sodium Chloride (0.9 % Sodium Chloride Flush 3 Ml Syringe) 3 ml IVFLUSH QSHIFT [facility] Last Admin: 11/13/21 15:21 Dose: Not Given Documented by: Home Medications Medication Instructions Recorded Confirmed Type methadone 10 mg/mL oral concentrate 30 mg PO DAILY ml 02/16/21 11/12/21 History Lactobacillus acidophilus 10 10,000 mmu cells PO DAILY 11/12/21 11/12/21 History billion cell capsule (Probiotic) diphenhydramine HCl 25 mg capsule 25 mg PO BEDTIME PRN 11/12/21 11/12/21 History (Sleep Aid (diphenhydramine)) multivitamin with minerals 1 tab PO DAILY 11/12/21 11/12/21 History (Hair,Skin and Nails) Allergies Allergy/AdvReac Type Severity Reaction Status Date / Time pentoxifylline Allergy Intermediate Rash Verified 08/31/21 13:21 phenobarbital Allergy Diarrhea Verified 11/12/21 19:49 Physical Exam Vital signs: Vital Signs Temp 98.9 F 11/13/21 15:42 Pulse 86 11/13/21 15:42 Resp 14 11/13/21 15:42 BP 134/74 11/13/21 15:42 Pulse Ox 99 11/13/21 15:42 Intake & Output 11/12/21 11/13/21 11/13/21 18:59 06:59 18:59 Intake Total 240 / 240 Balance 240 / 240 Intake: Intake, Oral Amount 240 / 240 Other: Number of Unmeasured Voids 1 Weight 72.575 kg Weight 72.575 kg - Constitutional Present: mild distress - Routine HEENT Exam Head: Present: normal inspection Eye: Present: normal appearance, scleral icterus ENT: Present: mucous membranes moist - Routine Neck Exam Present: supple - Routine Respiratory Exam Present: CTAB - Routine Cardiovascular Exam Cardiovascular: Present: RRR, S1, S2 - Routine Abdominal Exam Present: hyperactive bowel sounds, tenderness - Routine Extremities Exam Present: nontender Hem/Onc Consult Result - Labs CBC & Chem 7: 11/16/21 06:29 11/16/21 06:29 Labs: Short CBC 11/12/21 11/13/21 Range/Units 18:53 08:32 WBC 7.6 7.4 (4.8-10.8) X10*3/uL Hgb 15.0 13.3 (12.0-16.0) g/dl Hct 41.0 36.5 L (37.0-47.0) % Plt Count 30 L 24 L (160-400) X10*3/uL BMP 11/12/21 11/13/21 18:24 08:32 Sodium 144 137 Potassium 3.1 L 3.8 D Chloride 107 103 Carbon Dioxide 27 28 BUN 4 L D 4 L Creatinine 0.61 0.56 Calcium 8.4 D 8.6 Liver Function 11/12/21 11/13/21 Range/Units 18:24 08:32 Total Bilirubin 8.1 H 6.5 H (0.0-1.0) mg/dL Direct Bilirubin 2.3 H 1.8 H (0.0-0.5) mg/dL AST 115 H 109 H (5-31) U/L ALT 51 H 50 H (0-31) U/L Alkaline Phosphatase 119 H D 128 H (39-117) U/L Albumin 3.5 3.6 (3.5-5.0) g/dL Urine 11/12/21 Range/Units 17:19 Urine Color YELLOW Urine Appearance CLEAR Urine pH 7.0 (5.0-8.0) Ur Specific Meno <= 1.005 (1.005-1.025) Urine Protein NEG (NEG-TRACE) MG/DL Urine Glucose (UA) NEG (NEG) MG/DL Assessment and Plan Patient Active problem list reviewed?: Yes (1) Thrombocytopenia Status: Acute Assessment and plan: 86-year-old lady with cirrhosis of the liver alcohol abuse. She has been noted to have significant thrombocytopenia. There is no obvious major bleeding. Her platelet count has been in this range since 2019. DIFFERENTIAL DIAGNOSIS: 1. HYPERSPLENISM: Thrombocytopenia is most likely because of her liver disease and cirrhosis. 2. ITP: Is in the differential. 3. DRUG-INDUCED: Could be super added. 4. MYELO INFILTRATIVE DISORDER: MDS versus lymphoma versus multiple myeloma. Not likely. PLAN: Is to continue Supportive care. Monitor counts carefully. Continue oral PPI. Would try to avoid hepatotoxic medications. Would hold off on prednisone for now. Would transfuse platelets only if platelets drop to less than 10, or for bleeding. Thank you for this consult, Will follow along with you, Cc: saravanan moses, Addendum: Discharge summary: Patient admitted for alcohol withdrawal, thrombocytopenia, hypokalemia, elevated LFT, also with had suicidal ideation initially. Patient was treated with phenobarb protocol for alcohol withdrawal, electrolyte lip related, and with supportive care patient LFTs are improving, also hypokalemia also improved. elevated LFt's seems possible related to alcohol use -seen by Gi : no need for steriods ,moniter lft's outpatient with pcp. Patient was seen by care team for suicidal ideation patient does not seem to be offering any suicidal idea any more , does need BH and as per care team. Thrombocytopenia: platelets are improving in the range of high 24s now, no signs of bleeding, Monitor CBC. Patient was advised in detail to abstain from alcohol. - Time Spent With Patient Time Spent with Patient (in minutes): 30
[2021-11-13] MEDS: Dextrose 5 % and 0.45 % NaCl 1,000 ML 100 ML IVCONT (20:31)
[2021-11-13] MEDS: Omeprazole 20 MG CAPSULE.DR PO (20:57)
[2021-11-13] MEDS: Melatonin 3 MG TABLET 6 MG PO (22:32)
[2021-11-14] VITALS (7 sets, daily range): BP systolic 120–146; BP diastolic 66–93; PULSE 70–100; RESP 14–20; TEMP 36.2–37.4; O2SAT 97–100; BMI 27.4
--- NOTE | 2021-11-14 03:33 | CONS_ITS ---
DATE OF SERVICE: 11/13/2021 REASON FOR CONSULTATION: Alcohol related liver disease including alcohol-induced hepatitis and alcohol- induced cirrhosis. HISTORY OF PRESENT ILLNESS: The patient is a 36-year-old female, known to me from previous office visits, although I have not seen her since June 2019. She informs me that she is now followed by the [facility] GI Department. The patient has an unfortunate longstanding history of intermittent alcohol use. However, she had been sober since last January 2021 but unfortunately relapsed about 18 days ago with binge drinking on a daily basis since then. She does have an underlying history of cirrhosis and previous episodes of alcohol-induced hepatitis with total bilirubins as high as the mid-40s. She also has a previous history of hepatitis C, although this appears to have cleared spontaneously. A liver biopsy in 2018 described fatty liver with associated steatohepatitis and cirrhosis. She came to the ER primarily for detox as she has been drinking heavily. She denies any associated abdominal pain, fevers, evidence of bleeding, increasing abdominal girth, edema, nor any confusion. She has not been using any drugs, acetaminophen, nor NSAIDs. She did have some vomiting yesterday, but without any hematemesis nor coffee-grounds emesis. She has been tolerating a diet today and has had no further vomiting. MEDICATIONS: At home included only methadone and alprazolam p.r.n. Her medications in the hospital include alprazolam p.r.n., Librium, prednisone 40mg, diphenhydramine p.r.n., magnesium, melatonin, methadone, milk of magnesia p.r.n., multivitamin, phenobarbital. She did receive a dose of vitamin K. PAST MEDICAL HISTORY: Alcohol abuse. Cirrhosis. Previous history of hepatitis C with spontaneous clearance. She describes undergoing ERCP with removal of a common duct stone at [facility] back in August of 2021. Panic attacks and PTSD. She has a previous history of substance abuse which involved previous intravenous drug use. She denies history of UT, diabetes, stroke, lung disease, nor kidney disease. SOCIAL HISTORY: Substance abuse and alcohol abuse as above. She does smoke. FAMILY HISTORY: Noncontributory, although her father did have alcohol-related liver disease as well. REVIEW OF SYSTEMS: CONSTITUTIONAL: She has been feeling poorly at home in relation to her heavy drinking. SKIN: No rash. No pruritus. CARDIAC: No chest pain, PULMONARY: No coughing, no hemoptysis. GI: As above. PHYSICAL EXAMINATION: GENERAL: The patient is presently alert and comfortable in appearance. She answers all questions appropriately and is oriented. SKIN: Warm and dry. NECK: Supple. Slightly icteric sclerae. Moist mucous membranes. CARDIAC: Normal S1, S2. ABDOMEN: Soft. Normal bowel sounds. Nondistended, and no obvious ascites. There is no focal mass or rebound. EXTREMITIES: Without edema. NEUROLOGIC: She is alert and oriented, and there is no obvious asterixis. LABORATORY DATA: White blood cell count 7.6, hemoglobin 15.0, platelets 30,000. PT 18.3 with INR 1.6. Sodium 144, potassium 3.1, chloride 107, CO2 27, BUN 4, creatinine 0.6. Total bilirubin 8.1 with direct bilirubin of only 2.3, AST 115, ALT 51, alkaline phosphatase 119, albumin 3.5. Her urine tox screen revealed fentanyl and benzodiazepines. Alcohol level was 300. Hepatitis A IgM was negative. Hepatitis B antigen was negative. Hepatitis C antibody was positive. Hepatitis B surface antibody was positive. She did have an abdominal ultrasound, limited to the right upper quadrant, describing evidence of cirrhosis, normal appearing gallbladder, common bile duct of 8 mm, and no obvious ascites. IMPRESSION: The patient is a 36-year-old female with an unfortunate long-standing history of alcohol abuse and subsequent development of cirrhosis. She now presents for detox and is noted to have some elevation of the LFTs consistent with alcohol- induced hepatitis. She appears quite stable at the present time without any signs of liver failure based on her good mental status with no asterixis and no obvious ascites. She clearly has some component of cirrhosis and liver dysfunction, however. At this point, I do not think she needs to be on prednisolone immediately given her stable clinical appearance and I would prefer that we follow up laboratories in the next 24 to 48 hours to see if things worsen, and eventually start her on prednisolone at that time if need be. I did order repeat laboratories for today including a liver profile, PT with INR, ammonia level, chemistries and CBC. Interestingly, her total bilirubin is predominantly indirect, and therefore she may have a component of Gilbert syndrome and/or a component of hemolysis as opposed to worsening liver function with elevated total bilirubin on that basis. In addition to repeating her laboratories, I would otherwise continue general supportive care. Avoid hepatotoxic medications. I would start her on an oral PPI given her significant thrombocytopenia. Again, we may need to start her on prednisolone depending upon the results of her laboratories over the next 24 to 48 hours. I did advise her to certainly continue to remain abstinent long-term from alcohol and to follow up with her [facility] GI physician. She was comfortable with this plan. Thank you for the consultation. MD RACHEL Toussaint/KEVIN / [id number] MTDD
[2021-11-14] MEDS: Omeprazole 20 MG CAPSULE.DR PO (05:54)
[2021-11-14 07:14] LABS: Hemoglobin 13.3 g/dl (12.0-16.0); Mean Corpuscular Volume 101.6 fL (80.0-98.0); PLT CLUMP 1; Red Cell Distribution Width 19.9 % (11.0-16.0)
[2021-11-14 07:16] LABS: Hematocrit 37.2 % (37.0-47.0); Mean Corpuscular HGB Conc 35.8 g/dl (31.0-35.0); Mean Corpuscular Hemoglobin 36.3 pg (27.0-33.0); Mean Platelet Volume 9.5 fL (9.4-12.3); Red Blood Count 3.66 X10*6/uL (4.20-5.50)
[2021-11-14 07:22] LABS: INTERNATIONAL NORM RATIO 1.6 (0.9-1.1); Platelet Count 21 X10*3/uL (160-400); Prothrombin Time 18.6 SEC (9.9-13.0); White Blood Count 5.2 X10*3/uL (4.8-10.8)
[2021-11-14 07:51] LABS: Alanine Aminotransferase 46 U/L (0-31); Albumin Level 3.4 g/dL (3.5-5.0); Alkaline Phosphatase 133 U/L (39-117); Anion Gap 11 (12-20); Aspartate Amino Transferase 80 U/L (5-31); Bilirubin Direct 1.5 mg/dL (0.0-0.5); Bilirubin Total 5.6 mg/dL (0.0-1.0); Blood Urea Nitrogen 4 mg/dL (9-16); Calcium 8.7 mg/dL (8.4-10.2); Carbon Dioxide 26 mmol/L (22-29); Chloride 104 mmol/L (96-108); Creatinine Clr Calc Pharmacy 175.7; Estimated Glomerular Filt Rate > 60; Glucose Random 94 mg/dL (60-115); Potassium 3.2 mmol/L (3.3-5.1); Sodium 138 mmol/L (135-145); Total Protein 6.9 g/dL (6.5-8.0)
--- NOTE | 2021-11-14 08:32 | P.PNIM_ITS ---
Subjective Subjective Date of Service: 11/14/21 Interval History: Alcohol withdrawal, thrombocytopenia Review of Systems Patient seems anxious and still has tremors Denies any chest pain or shortness of breath or abdominal pain Physical Exam Vital Signs: Vital Signs: Last Vital Signs Temp 99.1 F 11/14/21 08:00 Pulse 74 11/14/21 08:00 Resp 18 11/14/21 08:00 BP 145/80 H 11/14/21 08:00 Pulse Ox 97 11/14/21 08:00 BMI result Body Mass Index 27.4 Appearance: Alert.? Oriented X3.? not in distress.? cvs: rrr, [id number]. res: clear to auscultation ,no rhonchii or wheezing abd: no rebound or guarding ,nt, bs present. ext pulses present , no cyanosis . neuro: axo3 , nonfocal.? Anxious, mild tremor. Objective Data Active Medications Alprazolam (Alprazolam 0.5 Mg Tablet) 0.5 mg PO TID PRN PRN Reason: anxiety Last Admin: 11/13/21 17:34 Dose: 0.5 mg Documented by: ALICIA Chlordiazepoxide HCl (Chlordiazepoxide Hcl 5 Mg Capsule) 10 mg PO TID [facility] Last Admin: 11/13/21 20:57 Dose: 10 mg Documented by: NNAMDI Diphenhydramine HCl (Diphenhydramine Hcl 25 Mg Tablet) 25 mg PO BEDTIME PRN PRN Reason: Sleep Last Admin: 11/13/21 20:57 Dose: 25 mg Documented by: NNAMDI Dextrose/Sodium Chloride (D51/2ns) 1,000 mls @ 100 mls/hr IVCONT .Q10H [facility] Last Infusion: 11/14/21 06:46 Dose: 0 mls/hr Documented by: TOMMIE Magnesium Hydroxide (Milk Of Magnesia 30 Ml Oral.Susp) 30 ml PO DAILY PRN PRN Reason: Constipation Magnesium Oxide (Magnesium Oxide 400 Mg Tablet) 400 mg PO BIDPC [facility] Last Admin: 11/13/21 17:34 Dose: 400 mg Documented by: ALICIA Melatonin (Melatonin 3 Mg Tablet) 6 mg PO BEDTIME PRN PRN Reason: Insomnia Last Admin: 11/13/21 22:32 Dose: 6 mg Documented by: NNAMDI Methadone HCl (Methadone Hcl 20 Mg/2 Ml Oral.Conc) 30 mg PO DAILY [facility] Last Admin: 11/13/21 07:56 Dose: 30 mg Documented by: QUETA Multivitamins/Vitamin C (Multivitamin Tablet) 1 tab PO DAILY [facility] Last Admin: 11/13/21 07:57 Dose: 1 tab Documented by: QUETA Omeprazole (Omeprazole 20 Mg Capsule.Dr) 20 mg PO DAILY@0630 [facility] Last Admin: 11/14/21 05:54 Dose: 20 mg Documented by: TOMMIE Pharmacy Consult (Consult Rx Etoh Phenob Po Dose) 0 each MISCELLANE ONCE PRN; Protocol PRN Reason: Consult order Pharmacy Consult (Consult Rx Perform Med Rec) 1 each MISCELLANE ONCE PRN PRN Reason: Consult order Phenobarbital (Phenobarbital 15 Mg Tablet) 45 mg PO BID [facility] Stop: 11/14/21 21:01 Last Admin: 11/13/21 20:57 Dose: 45 mg Documented by: NNAMDI Phenobarbital (Phenobarbital 15 Mg Tablet) 15 mg PO BID [facility] Stop: 11/16/21 21:01 Phenobarbital (Phenobarbital 15 Mg Tablet) 15 mg PO DAILY [facility] Stop: 11/18/21 09:01 Sodium Chloride (0.9 % Sodium Chloride Flush 3 Ml Syringe) 3 ml IVFLUSH QSHIFT [facility] Last Admin: 11/13/21 20:57 Dose: Not Given Documented by: NNAMDI Non-Admin Reason: IV Running Labs CBC & Chem 7: 11/14/21 05:56 11/14/21 05:56 Labs: Laboratory Results - last 24 hr 11/13/21 11/13/21 11/13/21 08:32 08:32 08:32 MCV 97.9 MCH 35.7 H MCHC 36.4 H RDW 18.8 H Plt Count 24 L MPV 8.9 L Immature Gran % (Auto) 0.5 H Neut % (Auto) 75.1 H Lymph % (Auto) 16.7 L [place] % (Auto) 7.3 Eos % (Auto) 0.1 Baso % (Auto) 0.3 Lymph # (Auto) 1.2 [place] # (Auto) 0.5 Eos # (Auto) 0.0 Baso # (Auto) 0.0 Abs Immat Gran (auto) 0.04 H Absolute Neuts (auto) 5.5 Absolute Nucleated RBC 0.030 H Nucleated RBC % (auto) 0.4 H PT 19.4 H INR 1.7 H Anion Gap 10 L Estim Creat Clear Calc 153.0 Estimated GFR > 60 Random Glucose 126 H Calcium 8.6 Total Bilirubin 6.5 H Direct Bilirubin 1.8 H AST 109 H ALT 50 H Alkaline Phosphatase 128 H Ammonia Total Protein 7.0 Albumin 3.6 11/13/21 11/14/21 11/14/21 08:32 05:56 05:56 MCV 101.6 H MCH 36.3 H MCHC 35.8 H RDW 19.9 H Plt Count 21 L MPV 9.5 Immature Gran % (Auto) Neut % (Auto) Lymph % (Auto) [place] % (Auto) Eos % (Auto) Baso % (Auto) Lymph # (Auto) [place] # (Auto) Eos # (Auto) Baso # (Auto) Abs Immat Gran (auto) Absolute Neuts (auto) Absolute Nucleated RBC 0.000 Nucleated RBC % (auto) 0.0 PT INR Anion Gap 11 L Estim Creat Clear Calc 175.7 Estimated GFR > 60 Random Glucose 94 Calcium 8.7 Total Bilirubin 5.6 H Direct Bilirubin 1.5 H AST 80 H ALT 46 H Alkaline Phosphatase 133 H Ammonia 48 Total Protein 6.9 Albumin 3.4 L 11/14/21 05:56 MCV MCH MCHC RDW Plt Count MPV Immature Gran % (Auto) Neut % (Auto) Lymph % (Auto) [place] % (Auto) Eos % (Auto) Baso % (Auto) Lymph # (Auto) [place] # (Auto) Eos # (Auto) Baso # (Auto) Abs Immat Gran (auto) Absolute Neuts (auto) Absolute Nucleated RBC Nucleated RBC % (auto) PT 18.6 H INR 1.6 H Anion Gap Estim Creat Clear Calc Estimated GFR Random Glucose Calcium Total Bilirubin Direct Bilirubin AST ALT Alkaline Phosphatase Ammonia Total Protein Albumin Assessment and Plan (1) Acute hypokalemia: Status: Acute (2) Alcohol intoxication: Status: Acute Plan 36 year female with opioid dependence, alcoholic liver cirrhosis here with depression/SI and found to have acute alcoholic hepatitis. Elevated lft's Improving Discussed with GI-hold prednisone for now. Alcohol dependence and high riks for withdrawal, Depression with SI--needs 1:1 observation and BHN eval once medically stable Cogaulopathy/thrombocytopenia worsening(? chronic)--high risk for bleeding. -Give Vitamin K x3 days hematolgy eval Hypokalemia--Oral replacement and follow level, mag is normal Jaundice d/t liver failure--monitor Bili trending down Thrombocytopenia--likely from hypersplenism from cirrhosis of liver platlets trending down -from 30-24-21. DVT proph: low risk d/t high INR from liver failure and marked Thrombocytopenia Need for inpatient: Alcohol withdrawal, thrombocytopenia Quality Stroke Does the patient have a stroke diagnosis?: No VTE Prior VTE?: No VTE Risk Level:: Medical - low VTE Device Contraindication: Treatment Not Indicated VTE Drug Contraindication: Treatment Not Indicated
[2021-11-14] MEDS: 0.9 % Sodium Chloride Flush 3 ML SYRINGE IVFLUSH ×3 (08:37→20:09)
[2021-11-14] MEDS: PHENobarbitaL 15 MG TABLET 45 MG PO ×2 (08:38→20:08)
[2021-11-14] MEDS: Magnesium Oxide 400 MG TABLET PO ×2 (08:39→17:48)
[2021-11-14] MEDS: methADONE HCl 20 MG/2 ML ORAL.CONC 30 MG PO (08:39)
[2021-11-14] MEDS: Multivitamin TABLET 1 TAB PO (08:39)
[2021-11-14] MEDS: ALPRAZolam 0.5 MG TABLET PO ×2 (08:46→15:52)
--- NOTE | 2021-11-14 09:20 | MHC.CARE ---
CARE Team met with Pt on the med floor , who self presented to [facility] on [address] for SI and alcohol intoxication. Pts BAL was notably 300 upon arrival . Pt currently presents as alert, orienated and engaged. Pt currently denies SI/HI/VH/AH. Pt reports she does not recall the specific events PREP PERSON though does acknowledge expressing SI when intoxicated in the past. Pt reports no history of SA or gestures. Pt reports one prior [facility] admission 5/6 years after stating she was suicidal due to wanting a break from her substance use. Pt reports she has a current therapist through [facility]. Pt has a acid recovery operator through [facility]. Pt is on methadone through [facility]. Pt declines needing further mental health support or interventions at this time. CARE Team reviewed [facility] Crisis information with Pt and provided it to Pt. CARE Team reviewed risk assessment with Dr. Wallace. Plan for recovery team to follow up with Pt prior to discharge.
--- NOTE | 2021-11-14 10:24 | MHC.RECOVSUP ---
Recovery Support note: Patient is a 36 year old Marshallese speaking female who presented to [facility] ED under the influence of alcohol, making SI statements. This technical report writer met with patient in 483 to discuss substance use and recovery supports. Patient reports she was sober for almost a year and relapsed 2-3 weeks ago. Patient cannot pinpoint a cause to her relapse however attributes it in part to life stressors building up. Patient has a strong support network including a trauma therapist, a counselor through her OTP and a assistant boys track coach through [employer]. In addition, patient reports her friends and families are supportive and that her father is also in recovery. Patient reports that the methadone program has been helpful however she does want to get off of the medication in the future. Patient does not remember using opiates however states that she likely snorted some while under the influence of alcohol which is why it is in her system. Discussed recovery supports including AA and virtual supports with patient. Patient reports no questions or concerns at this time.
[2021-11-14] MEDS: Potassium Chloride Packet 20 MEQ PACKET 40 MEQ PO (13:14)
[2021-11-14] MEDS: chlordiazePOXIDE HCl 5 MG CAPSULE 10 MG PO ×2 (13:14→20:08)
[2021-11-14] MEDS: Phytonadione (Vit K1) 10 MG in 0.9 % Sodium Chloride 50 ML 51 MG IV (17:53)
[2021-11-15 03:22] VITALS: BP 119/63; PULSE 74; RESP 15; TEMP 36.7; O2SAT 98
[2021-11-15] MEDS: Omeprazole 20 MG CAPSULE.DR PO (05:53)
[2021-11-15 08:00] VITALS: BP 133/63; PULSE 80; RESP 18; TEMP 36.6; O2SAT 96
--- NOTE | 2021-11-15 08:37 | P.PNIM_ITS ---
Subjective Subjective Date of Service: 11/15/21 Interval History: Alcohol withdrawal, thrombocytopenia Review of Systems Patient seems anxious and still has tremors Denies any chest pain or shortness of breath or abdominal pain Physical Exam Vital Signs: Vital Signs: Last Vital Signs Temp 97.9 F 11/15/21 08:00 Pulse 80 11/15/21 08:00 Resp 18 11/15/21 08:00 BP 133/63 11/15/21 08:00 Pulse Ox 96 11/15/21 08:00 BMI result Body Mass Index 27.4 Appearance: Alert.? Oriented X3.? not in distress.? cvs: rrr, [id number]. res: clear to auscultation ,no rhonchii or wheezing abd: no rebound or guarding ,nt, bs present. ext pulses present , no cyanosis . neuro: axo3 , nonfocal.? Anxious, mild tremor. Objective Data Active Medications Alprazolam (Alprazolam 0.5 Mg Tablet) 0.5 mg PO TID PRN PRN Reason: anxiety Last Admin: 11/14/21 15:52 Dose: 0.5 mg Documented by: GABRIEL Chlordiazepoxide HCl (Chlordiazepoxide Hcl 5 Mg Capsule) 10 mg PO TID [facility] Last Admin: 11/14/21 20:08 Dose: 10 mg Documented by: NNAMDI Diphenhydramine HCl (Diphenhydramine Hcl 25 Mg Tablet) 25 mg PO BEDTIME PRN PRN Reason: Sleep Last Admin: 11/13/21 20:57 Dose: 25 mg Documented by: NNAMDI Magnesium Hydroxide (Milk Of Magnesia 30 Ml Oral.Susp) 30 ml PO DAILY PRN PRN Reason: Constipation Magnesium Oxide (Magnesium Oxide 400 Mg Tablet) 400 mg PO BIDPC [facility] Last Admin: 11/14/21 17:48 Dose: 400 mg Documented by: GABRIEL Melatonin (Melatonin 3 Mg Tablet) 6 mg PO BEDTIME PRN PRN Reason: Insomnia Last Admin: 11/13/21 22:32 Dose: 6 mg Documented by: NNAMDI Methadone HCl (Methadone Hcl 20 Mg/2 Ml Oral.Conc) 30 mg PO DAILY [facility] Last Admin: 11/14/21 08:39 Dose: 30 mg Documented by: SANCHO Multivitamins/Vitamin C (Multivitamin Tablet) 1 tab PO DAILY [facility] Last Admin: 11/14/21 08:39 Dose: 1 tab Documented by: SANCHO Omeprazole (Omeprazole 20 Mg Capsule.) 20 mg PO DAILY@0630 [facility] Last Admin: 11/15/21 05:53 Dose: 20 mg Documented by: NNAMDI Pharmacy Consult (Consult Rx Etoh Phenob Po Dose) 0 each MISCELLANE ONCE PRN; Protocol PRN Reason: Consult order Pharmacy Consult (Consult Rx Perform Med Rec) 1 each MISCELLANE ONCE PRN PRN Reason: Consult order Phenobarbital (Phenobarbital 15 Mg Tablet) 15 mg PO BID [facility] Stop: 11/16/21 21:01 Phenobarbital (Phenobarbital 15 Mg Tablet) 15 mg PO DAILY [facility] Stop: 11/18/21 09:01 Sodium Chloride (0.9 % Sodium Chloride Flush 3 Ml Syringe) 3 ml IVFLUSH QSHIFT [facility] Last Admin: 11/14/21 20:09 Dose: 3 ml Documented by: NNAMDI Labs CBC & Chem 7: 11/15/21 11:52 11/15/21 08:59 Assessment and Plan (1) Thrombocytopenia: Status: Acute (2) Alcohol withdrawal: Status: Acute Plan 36 year female with opioid dependence, alcoholic liver cirrhosis here with depression/SI and found to have acute alcoholic hepatitis. Elevated lft's Improving Discussed with GI-hold prednisone for now. Alcohol dependence and high riks for withdrawal, has tremer, anxious continue pheobarbital Depression with SI-spoke to care team -does not need sitter , no need further bhn eval. Cogaulopathy/thrombocytopenia worsening(? chronic)--high risk for bleeding. -Give Vitamin K x3 days hematolgy eval noted - improving ,moniter cbc no bleedin Hypokalemia--Oral replacement and follow level, mag is normal Jaundice d/t liver failure--monitor Bili trending down Thrombocytopenia--likely from hypersplenism from cirrhosis of liver platlets trending down -from 30-24-21-24. DVT proph: low risk d/t high INR from liver failure and marked Thrombocytopenia Need for inpatient: Alcohol withdrawal, thrombocytopenia Quality Stroke Does the patient have a stroke diagnosis?: No VTE Prior VTE?: No VTE Risk Level:: Medical - low VTE Device Contraindication: Treatment Not Indicated VTE Drug Contraindication: Treatment Not Indicated
[2021-11-15] MEDS: Magnesium Oxide 400 MG TABLET PO ×2 (08:51→16:38)
[2021-11-15] MEDS: PHENobarbitaL 15 MG TABLET PO ×2 (08:51→21:51)
[2021-11-15] MEDS: chlordiazePOXIDE HCl 5 MG CAPSULE 10 MG PO ×3 (08:51→21:52)
[2021-11-15] MEDS: Multivitamin TABLET 1 TAB PO (08:51)
[2021-11-15] MEDS: methADONE HCl 20 MG/2 ML ORAL.CONC 30 MG PO (08:52)
[2021-11-15] MEDS: 0.9 % Sodium Chloride Flush 3 ML SYRINGE IVFLUSH ×3 (08:53→21:52)
[2021-11-15] MEDS: ALPRAZolam 0.5 MG TABLET PO ×3 (09:01→21:51)
[2021-11-15] MEDS: Phytonadione (Vit K1) Oral 10 MG/ML AMPUL PO (09:02)
[2021-11-15 09:29] LABS: Anion Gap 9 (12-20); Blood Urea Nitrogen 8 mg/dL (9-16); Calcium 8.5 mg/dL (8.4-10.2); Carbon Dioxide 27 mmol/L (22-29); Chloride 105 mmol/L (96-108); Creatinine Clr Calc Pharmacy 169.4; Estimated Glomerular Filt Rate > 60; Glucose Random 125 mg/dL (60-115); Potassium 3.9 mmol/L (3.3-5.1); Sodium 137 mmol/L (135-145)
[2021-11-15 11:59] VITALS: BP 135/77; PULSE 92; RESP 18; TEMP 36.3; O2SAT 99
[2021-11-15 12:08] LABS: Hemoglobin 12.6 g/dl (12.0-16.0); Mean Corpuscular Volume 101.1 fL (80.0-98.0); PLT CLUMP 1
[2021-11-15 12:09] LABS: Hematocrit 35.5 % (37.0-47.0); Mean Corpuscular HGB Conc 35.5 g/dl (31.0-35.0); Mean Corpuscular Hemoglobin 35.9 pg (27.0-33.0); Red Blood Count 3.51 X10*6/uL (4.20-5.50)
[2021-11-15 12:16] LABS: Platelet Count 24 X10*3/uL (160-400); White Blood Count 4.8 X10*3/uL (4.8-10.8)
[2021-11-15 14:57] VITALS: BP 130/72; PULSE 80; RESP 18; TEMP 36.6; O2SAT 96
--- NOTE | 2021-11-15 16:24 | PM.EVENT ---
Event Note Date of Service: 11/15/21 Event Note: Addiction consult Please see Recovery Support note from 11/14/21
[2021-11-15] MEDS: ondansetron HCL 4 MG/2 ML VIAL IVPUSH (17:15)
[2021-11-15 19:33] VITALS: BP 127/73; PULSE 94; RESP 18; TEMP 36.6; O2SAT 95
[2021-11-15] MEDS: diphenhydrAMINE HCL 25 MG TABLET PO (21:52)
[2021-11-16] VITALS: BP 118/56; PULSE 65; RESP 18; TEMP 36.1; O2SAT 99
[2021-11-16 03:11] VITALS: BP 119/71; PULSE 72; RESP 18; TEMP 36.2; O2SAT 97
[2021-11-16] MEDS: Omeprazole 20 MG CAPSULE.DR PO (04:50)
[2021-11-16 07:09] LABS: Hematocrit 35.6 % (37.0-47.0); Hemoglobin 12.6 g/dl (12.0-16.0); Mean Corpuscular HGB Conc 35.4 g/dl (31.0-35.0); Mean Corpuscular Hemoglobin 36.5 pg (27.0-33.0); Mean Corpuscular Volume 103.2 fL (80.0-98.0); Mean Platelet Volume 12.5 fL (9.4-12.3); Red Blood Count 3.45 X10*6/uL (4.20-5.50); Red Cell Distribution Width 19.9 % (11.0-16.0); White Blood Count 4.3 X10*3/uL (4.8-10.8)
[2021-11-16 07:17] VITALS: BP 113/67; PULSE 83; RESP 18; TEMP 36.2; O2SAT 98
[2021-11-16 07:31] LABS: Platelet Count 24 X10*3/uL (160-400)
[2021-11-16 07:33] LABS: Anion Gap 10 (12-20); Blood Urea Nitrogen 7 mg/dL (9-16); Calcium 8.1 mg/dL (8.4-10.2); Carbon Dioxide 21 mmol/L (22-29); Chloride 109 mmol/L (96-108); Creatinine Clr Calc Pharmacy 182.4; Estimated Glomerular Filt Rate > 60; Glucose Random 123 mg/dL (60-115); Potassium 3.5 mmol/L (3.3-5.1); Sodium 136 mmol/L (135-145)
[2021-11-16 07:46] LABS: Alanine Aminotransferase 41 U/L (0-31); Albumin Level 3.1 g/dL (3.5-5.0); Alkaline Phosphatase 93 U/L (39-117); Aspartate Amino Transferase 74 U/L (5-31); Bilirubin Total 3.6 mg/dL (0.0-1.0); Total Protein 6.5 g/dL (6.5-8.0)
[2021-11-16] MEDS: Magnesium Oxide 400 MG TABLET PO (08:35)
[2021-11-16] MEDS: chlordiazePOXIDE HCl 5 MG CAPSULE 10 MG PO ×2 (08:35→14:07)
[2021-11-16] MEDS: ALPRAZolam 0.5 MG TABLET PO ×2 (08:35→14:07)
[2021-11-16] MEDS: PHENobarbitaL 15 MG TABLET PO (08:36)
[2021-11-16] MEDS: Multivitamin TABLET 1 TAB PO (08:36)
[2021-11-16] MEDS: methADONE HCl 20 MG/2 ML ORAL.CONC 30 MG PO (08:36)
[2021-11-16] MEDS: 0.9 % Sodium Chloride Flush 3 ML SYRINGE IVFLUSH (08:36)
[2021-11-16 11:37] VITALS: BP 146/68; PULSE 77; RESP 18; TEMP 36.2; O2SAT 100
--- NOTE | 2021-11-16 11:38 | MHC.RECOVSUP ---
Addendum entered by Kris Guzman [facility] 11/16/21 11:52: Medications for alcohol use disorder discussed briefly with patient. Patient expressed interest in meeting with the Recover Support RN to discuss this further. Discussed case with RSRN. Original Note: Recovery Support note: Patient provided with last dose letter. RN aware.
--- NOTE | 2021-11-16 11:38 | MHC.CM.PN ---
NURSE CREDIT RISK ANALYTICS MANAGER NOTE, ELECTRONIC MEDICAL RECORD REVIEWED ALONG WITH CASE DISCUSSED WITH STAFF NURSE AND HOSPITLSIDT , PATIENT WILL BE ISCHARGED HOME TODAY SHE LIVES WITH HER PARENTS AND IS INDPENEDNT IN ALL ADLS AND MOBILITY . F/U NTES READ BY THE CARE TEAM AND AUTO CLUB TRAVEL COUNSELOR . (PATIENT WAS SOBER FROM ETOH INTAKE FOR QBOUT A YEAR AND RLAPSED A FEW SWEEKS AGO AND CANOT PINPOINT STRESSES/ DISCHARGE PLAN HOME WITH FAMILY - WHOM SHE LIVES WITH SELF RESUMPITON OF HER METHADONE PROGRAM PER DOCUMENTAITON SHE HAS STRONG NETWORK OF SUPPORT INCLUDING TRAUMA THERAPIST, A COUNSELOR THROUGH HER OTP AND RECOVERY COUAH THROUGH N, ALONG WITH FRIENDS AND FAMILY TH AUTO CLUB TRAVEL COUNSELOR/CARE TEAM HAS ALSO GIVEN HER COMMUNITY SUPPORTS INCLUDING AA AND V[facility] P[facility] RICARDO GASTON MEDICARE IMM UPDATED
--- NOTE | 2021-11-16 13:09 | PM.DS ---
DS: Providers Provider Date of Service: 11/16/21 Date of admission: 11/12/21 20:38 Primary care physician: Samantha Mohan MD Consults: 11/12/21 20:40 Consult for Sitter Routine Reason for consultation: SI Consult to Gastroenterology Routine Consulting Provider: Cem Pop Reason for consultation: acute alcoholic hepatits Has provider been notified: No 11/12/21 20:42 Addiction Medicine Routine Consulting Provider: Rosa Locke Reason for consultation: opioid dependence Has provider been notified: No 11/13/21 08:14 Consult to Hematology / Oncology Routine Consulting Provider: [facility] Oncology/Hematology Reason for consultation: worsening thrombocytopenia DS: Diagnosis Discharge Diagnosis (1) Thrombocytopenia: Status: Acute (2) Alcohol withdrawal: Status: Acute DS: Summary Hospital Course Hospital Course: 36 year old female with history of opiod dependence including past use of IV opioiod on Methadone, history of alcoholic liver cirrhosis and has been sober since January last year and yet unforunately started drinking non-stop the last 18 days drinking a sleeve of Vodka a day, she is not quite sure what triggered her to start drinking again but as result has been depressed and having suicide thoughts. Work has revealed acute alcoholic hepatitis with jaundice(Tbili of 8), transaminitis, EToh level of 300 and dicriminant function of 36. She has prior history of alchol withdrawal complicated by seizures and intubations. She did report an episode of vomitus with blood streak. At the present no obvious signs of withdrawal yet. Given Librium and being loaded with Phenobarb orally. She does tell me not suicidal at the time of my eval. Hospital course: Patient admitted for alcohol withdrawal, thrombocytopenia, hypokalemia, elevated LFT, also with had suicidal ideation initially. Patient was treated with phenobarb protocol for alcohol withdrawal, electrolyte lip related, and with supportive care patient LFTs are improving, also hypokalemia also improved. elevated LFt's seems possible related to alcohol use -seen by Gi : no need for steriods ,moniter lft's outpatient with pcp. Patient was seen by care team for suicidal ideation patient does not seem to be offering any suicidal idea any more , does need BH and as per care team. Thrombocytopenia: Seen by Hematology patient's platelets are improving in the range of high 24s now, no signs of bleeding, Monitor CBC and follow-up with Hematology for further management outpatient. Patient was advised in detail to abstain from alcohol. Patient is to monitor CBC, BMP and LFTs out patiently with PCP in 1 week and further management outpatient as per PCP. Follow-up with Hematology outpatient . Above management discussed with the patient in detail length she understand and in agreement with the above plan, time spent 50 minutes and 50% time spent on counseling. Significant findings: As above. Procedures performed: None. Treatment and response: As above. Complications: None. Time Spent with Patient Time attestation: Total time spent providing and/or coordinating discharge services: Discharge coordination time: Greater than 30 minutes Quality: Safe Use of Opioids Does Pt have an Active Cancer Diagnosis on the Problem List?: No Quality: Stroke Does the patient have a stroke diagnosis?: No Physical Exam Vital Signs: Vital Signs: Last Vital Signs Temp 97.2 F 11/16/21 11:37 Pulse 77 11/16/21 11:37 Resp 18 11/16/21 11:37 BP 146/68 H 11/16/21 11:37 Pulse Ox 100 11/16/21 11:37 BMI result Body Mass Index 27.4 Appearance: Alert.? Oriented X3.? not in distress.? cvs: rrr, [id number]. res: clear to auscultation ,no rhonchii or wheezing abd: no rebound or guarding ,nt, bs present. ext pulses present , no cyanosis . neuro: axo3 , nonfocal.? DS: Data Data Completed and Pending Labs on day of discharge: Laboratory Results - last 24 hr 11/16/21 11/16/21 06:29 06:29 WBC 4.3 L RBC 3.45 L Hgb 12.6 Hct 35.6 L MCV 103.2 H MCH 36.5 H MCHC 35.4 H RDW 19.9 H Plt Count 24 L MPV 12.5 H Absolute Nucleated RBC 0.000 Nucleated RBC % (auto) 0.0 Sodium 136 Potassium 3.5 Chloride 109 H Carbon Dioxide 21 L Anion Gap 10 L BUN 7 L Creatinine 0.52 Estim Creat Clear Calc 182.4 Estimated GFR > 60 Random Glucose 123 H Calcium 8.1 L Total Bilirubin 3.6 H Direct Bilirubin 1.0 H AST 74 H ALT 41 H Alkaline Phosphatase 93 D Total Protein 6.5 Albumin 3.1 L Additional Comments Additional comments: ?US/US abdomen limited IMPRESSION: ? Mild extrahepatic biliary duct dilatation with the common bile duct measuring 0.8 cm with no definite intrahepatic biliary duct dilatation. Gallbladder also appears mildly distended however without cholelithiasis or other findings to suggest acute cholecystitis. Consider further evaluation with MRCP. ? Heterogeneous, echogenic hepatic parenchyma suggestive of underlying liver disease with a nodular hepatic contour suggesting cirrhosis. Liver measures mildly enlarged. ? Visualized portions of the pancreas are unremarkable. The pancreatic tail is obscured by bowel gas. Discharge Plan Discharge Patient Disposition: Home, Self-Care Discharge Diagnosis: elevated lft's ,alcohol withdrawals,hypokalemia Referrals: Brian Joel MD [Physician] - 1 Week (follow up oupatiently.) Samantha Graves MD [Primary Care Provider] - 1 Week Discharge Medications: New omeprazole 20 mg capsule,delayed release(DR/EC) 20 mg PO BID Qty: 60 0RF Continued alprazolam 0.5 mg tablet 0.5 mg PO TID PRN (Reason: anxiety) 30 Days Qty: 90 0RF diphenhydramine HCl [Sleep Aid (diphenhydramine)] 25 mg Capsule 25 mg PO BEDTIME PRN (Reason: Sleep) 0RF Hair,Skin and Nails Tablet 1 tab PO DAILY 0RF Probiotic 10 billion cell Capsule 10,000 mmu cells PO DAILY 0RF methadone 10 mg/mL concentrate 30 mg PO DAILY 0RF Rx Instructions: [facility] [phone] Discharge Orders: Discharge Order (Routine); Ordered 11/16/21 Ordered By: Alon Wallace Diet: advance to usual diet Activity on Discharge: As tolerated Stand Alone Forms: Patient Portal Discharge page Care Plan Goals: Patient admitted for alcohol withdrawal, thrombocytopenia, hypokalemia, elevated LFT, also with had suicidal ideation initially. Patient was treated with phenobarb protocol for alcohol withdrawal, electrolyte lip related, and with supportive care patient LFTs are improving, also hypokalemia also improved. Patient was seen by care team for suicidal ideation patient does not seem to be offering any suicidal idea any more , does need BH and as per care team. Thrombocytopenia: Seen by Hematology patient's platelets are improving in the range of high 24s now, no signs of bleeding, Monitor CBC and follow-up with Hematology for further management outpatient. Patient was advised in detail to abstain from alcohol. Patient is to monitor CBC, BMP and LFTs out patiently with PCP in 1 week and further management outpatient as per PCP. Follow-up with Hematology outpatient . Health Concerns: As above. Plan of Treatment: As above. Assessment: As above.
== END 2021-11-16 14:43 | disposition home or self-care (01) | DRG 280 ==
LOC: HO.ED 18:59 → HO.EDOVER 20:51 → HO.IMC 11-13 23:29 → HO.S3 11-14 17:39
PROVIDERS: Internal Medicine; Physician Assistant; Admitting Provider Internal Medicine; Emergency Provider Internal Medicine; PCP Internal Medicine; Visit Provider Internal Medicine
DX: K70.10 Alcoholic hepatitis without ascites (principal); K70.30 Alcoholic cirrhosis of liver without ascites; K22.6 Gastro-esophageal laceration-hemorrhage syndrome; D68.4 Acquired coagulation factor deficiency; K72.90 Hepatic failure, unspecified without coma; D69.6 Thrombocytopenia, unspecified; R45.851 Suicidal ideations; E87.6 Hypokalemia; F11.20 Opioid dependence, uncomplicated; F41.9 Anxiety disorder, unspecified; F43.10 Post-traumatic stress disorder, unspecified; Z91.52 Personal history of nonsuicidal self-harm; Y90.8 Blood alcohol level of 240 mg/100 ml or more; F10.229 Alcohol dependence with intoxication, unspecified; E80.4 Gilbert syndrome; F10.239 Alcohol dependence with withdrawal, unspecified; F32.A Depression, unspecified; Z71.6 Tobacco abuse counseling; F17.210 Nicotine dependence, cigarettes, uncomplicated; Z86.19 Personal history of other infectious and parasitic diseases; Z20.822 Contact with and (suspected) exposure to COVID-19; Z88.8 Allergy status to other drugs, medicaments and biological substances; Z79.899 Other long term (current) drug therapy
CPT/HCPCS: 36415; 76705; 80048; 80076; 80307; 81003; 82077; 82140; 83735; 85025; 85027; 85610; 85730; 86704; 86706; 86709; 86803; 87340; 87635; 93005; 96361; 96374; 96375; 99285; 99291; J2060; J2405; J2765; J3430; Q0163

== ENCOUNTER 2022-01-07 07:09 | Emergency (ER) | payer OTHER, SELFPAY ==
[2022-01-07 07:15] VITALS: BP 162/107; BP 170/100; PULSE 120; PULSE 131; RESP 18; TEMP 36.8; O2SAT 97; BMI 24.3
--- NOTE | 2022-01-07 07:17 | ECG_ITS ---
Test Reason : etoh withdrawls Blood Pressure : / mmHG Vent. Rate : 111 BPM Atrial Rate : 111 BPM P-R Int : 000 ms QRS Dur : 088 ms QT Int : 334 ms P-R-T Axes : 000 036 044 degrees QTc Int : 454 ms Poor data quality, interpretation may be adversely affected Sinus tachycardia Nonspecific ST abnormality Abnormal ECG When compared with ECG of 12-NOV-2021 20:03, No significant changes seen Referred By: Jodi Causey Electronically Signed By:MURTAZA GAMBOA MD
--- NOTE | 2022-01-07 07:21 | ED_ITS ---
HPI - Alcohol General Chief Complaint: ETOH/Substance Use Stated Complaint: ELEV BP 170/98 PER EMS Time Seen by Provider: 01/07/22 07:13 Source: patient and old records reviewed Mode of arrival: EMS Limitations: no limitations History of Present Illness MD complaint: alcohol withdrawal Last drink: Hours (ago) (1130pm on 01/06) Amount of alcohol consumed: states she drinks two sleeves of alcohol a day Chronic alcohol use: Yes Previous visits for alcohol intoxication: Yes Recent trauma: No Associated symptoms: nausea, vomiting and tremors Treatments prior to arrival: none Related Data Home Medications Medication Instructions Recorded Confirmed methadone 10 mg/mL oral concentrate 30 mg PO DAILY 02/16/21 11/12/21 Lactobacillus acidophilus 10 10,000 mmu cells PO DAILY 11/12/21 11/12/21 billion cell capsule (Probiotic) diphenhydramine HCl 25 mg capsule 25 mg PO BEDTIME PRN Sleep 11/12/21 11/12/21 (Sleep Aid (diphenhydramine)) multivitamin with minerals 1 tab PO DAILY 11/12/21 11/12/21 (Hair,Skin and Nails) Previous Rx's Medication Instructions Recorded omeprazole 20 mg capsule,delayed 20 mg PO BID #60 caps 11/16/21 release alprazolam 0.5 mg tablet 0.5 mg PO TID PRN anxiety 30 days 12/22/21 #90 tabs Allergies Allergy/AdvReac Type Severity Reaction Status Date / Time pentoxifylline Allergy Intermediate Rash Verified 08/31/21 13:21 phenobarbital Allergy Diarrhea Verified 11/12/21 19:49 Review of Systems Review of Systems: Constitutional : No Weight loss, No Fever, No Chills ENT/Mouth : No sore throat, No Rhinorrhea Eyes: No Swelling, No Redness Cardiovascular : No Chest Pain, No SOB, NoEdema Respiratory : No Cough, No Sputum, No Wheezing Gastrointestinal : Positive Nausea, Positive Vomiting, no Diarrhea, no abdominal Pain, No Hematochezia, No Melena Genitourinary : No Dysuria, No Urinary Frequency, No Hematuria, No Urgency Musculoskeletal : No joint pain, No Myalgias, No Joint Swelling Skin : No Skin Lesions, No rash Neuro : pos Weakness, No Numbness, No Dizziness, No Headache Psych : pos Anxiety/Panic, No Depression Heme/Lymph: No Bruising, No Lymphadenopathy Endocrine : No Polyuria, No Polydipsia All other systems reviewed and are negative. [facility] Past Medical History Attestation statement: The following information was validated with the patient. Source: old records reviewed Medical History Alcoholic liver disease Anxiety Impaired glucose tolerance Insomnia Left ankle pain Opioid dependence on agonist therapy Physical exam Smoker Surgical History H/O right wrist surgery History of arthroplasty of left knee Family History Family History Father Hypertension Substance use disorder Mother Medical history unknown Maternal Grandfather Cancer Family/Other FH: mental illness Mental health disorder Social History Social History (Updated 01/07/22 @ 07:21 by Jodi Causey DO) Household Members: Family Housing: House Alcohol intake: current Patient Tobacco Use Status: Former Tobacco user Tobacco use type: Cigarette e-Cigarette/Vaping Use: Never Used Second Hand Smoke Exposure: No Advance Directives: No Advance Directives Information Provided: Yes service: No 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al status: unemployed and disabled Physical Exam ED Vital Signs: Vital Signs - 24 hr 01/07/22 07:15 01/07/22 10:38 Temperature 98.3 F Pulse Rate 131 H 109 H Respiratory Rate 18 12 Blood Pressure 162/107 H 127/82 Pulse Oximetry 97 95 Oxygen Delivery Method Room Air Room Air BMI result Body Mass Index 24.3 Appearance: Alert. Oriented X3. Mild acute distress. Anxious Eyes: Pupils equal, round and reactive to light. Scleral icterus ENT: Pharynx dry MM Neck: Normal inspection. Neck supple. CVS: tachcyardic heart rate and rhythm. Pulses normal. Respiratory: No respiratory distress. Breath sounds normal. Abdomen: Soft and non-tender. Skin: Skin warm and dry. Normal skin color. Normal skin turgor. Extremities: No lower extremity edema. No calf ttp Neuro: Oriented X 3. No motor deficit. No sensory deficit. Tremulous Course Course Course Narrative: HR down to 107 patient is improving ordered her PO methadone as well IV magnesium/ PO K / IV K ordered LFTs, coags, plts at her baseline to go to comprehensive care clinic today to start acamprosate per addiction medicine - patient agrees. looks much better at this time MDM - Alcohol MDM Narrative Medical decision making narrative: 37 yo female with hx of ETOH abuse, opiate use disorder on methadone, anxiety comes in with ETOH withdrawal symptoms hx of withdrawal seizures - at this time will give IM versed until we can get a line (hard stick) IV valium, labs, IVF, EKG, dispo per results and findings as well as clinical improvement with treatments in ED. Lab Data Result diagrams: 01/07/22 07:47 01/07/22 07:47 Labs: Lab Results 01/07/22 01/07/22 01/07/22 Range/Units 07:47 07:47 07:47 WBC 6.1 (4.8-10.8) X10*3/uL RBC 4.56 D (4.20-5.50) X10*6/uL Hgb 15.5 D (12.0-16.0) g/dl Hct 41.2 (37.0-47.0) % MCV 90.4 (80.0-98.0) fL MCH 34.0 H (27.0-33.0) pg MCHC 37.6 H (31.0-35.0) g/dl RDW 15.9 (11.0-16.0) % Plt Count 31 L D (160-400) X10*3/uL MPV 11.0 (9.4-12.3) fL Immature Gran % (Auto) 1.0 H (0.0-0.4) % Neut % (Auto) 63.4 (45-73) % Lymph % (Auto) 26.2 (20-40) % Grant % (Auto) 6.1 (2-11) % Eos % (Auto) 2.5 (0-4) % Baso % (Auto) 0.8 (0-2) % Lymph # (Auto) 1.6 (1.2-4.9) X10*3/uL Grant # (Auto) 0.4 (0.1-1.2) X10*3/uL Eos # (Auto) 0.2 (0.0-0.4) X10*3/uL Baso # (Auto) 0.1 (0.0-0.2) X10*3/uL Abs Immat Gran (auto) 0.06 H (0.00-0.03) X10*3/uL Absolute Neuts (auto) 3.9 (2.0-8.3) x10*3/uL Absolute Nucleated RBC 0.000 (0.0-0.012) X10*3/uL Nucleated RBC % (auto) 0.0 (0.0-0.2) /100WBC Smear Tech's Comments VERIFIED PT 17.6 H (10.0-13.1) SEC INR 1.5 H (0.9-1.1) Sodium 140 (135-145) mmol/L Potassium 2.9 L (3.3-5.1) mmol/L Chloride 104 (96-108) mmol/L Carbon Dioxide 25 (22-29) mmol/L Anion Gap 14 (12-20) BUN 4 L (9-16) mg/dL Creatinine 0.63 (0.5-1.4) mg/dL Estim Creat Clear Calc 134.7 Estimated GFR > 60 Random Glucose 141 H (60-115) mg/dL Calcium 7.7 L (8.4-10.2) mg/dL Magnesium 1.7 (1.6-2.6) mg/dL Total Bilirubin 5.3 H (0.0-1.0) mg/dL Direct Bilirubin 1.6 H (0.0-0.5) mg/dL AST 135 H (5-31) U/L ALT 52 H (0-31) U/L Alkaline Phosphatase 139 H D (39-117) U/L Total Protein 7.8 (6.5-8.0) g/dL Albumin 3.8 D (3.5-5.0) g/dL Lipase 29 (8-78) U/L Beta HCG, Quant mIU/mL Urine Opiates Screen (Not Detect) Urine Fentanyl Screen (Not Detect) Ur Barbiturates Screen (Not Detect) Ur Phencyclidine Scrn (Not Detect) Ur Amphetamines Screen (Not Detect) U Benzodiazepines Scrn (Not Detect) Urine Cocaine Screen (Not Detect) U Marijuana (THC) Screen (Not Detect) Ethyl Alcohol 326 H* mg/dL COVID-19 (LARRY) (Negative) COVID-19 Clin Com 01/07/22 01/07/22 01/07/22 Range/Units 07:47 07:50 11:06 WBC (4.8-10.8) X10*3/uL RBC (4.20-5.50) X10*6/uL Hgb (12.0-16.0) g/dl Hct (37.0-47.0) % MCV (80.0-98.0) fL MCH (27.0-33.0) pg MCHC (31.0-35.0) g/dl RDW (11.0-16.0) % Plt Count (160-400) X10*3/uL MPV (9.4-12.3) fL Immature Gran % (Auto) (0.0-0.4) % Neut % (Auto) (45-73) % Lymph % (Auto) (20-40) % Grant % (Auto) (2-11) % Eos % (Auto) (0-4) % Baso % (Auto) (0-2) % Lymph # (Auto) (1.2-4.9) X10*3/uL Grant # (Auto) (0.1-1.2) X10*3/uL Eos # (Auto) (0.0-0.4) X10*3/uL Baso # (Auto) (0.0-0.2) X10*3/uL Abs Immat Gran (auto) (0.00-0.03) X10*3/uL Absolute Neuts (auto) (2.0-8.3) x10*3/uL Absolute Nucleated RBC (0.0-0.012) X10*3/uL Nucleated RBC % (auto) (0.0-0.2) /100WBC Smear Tech's Comments PT (10.0-13.1) SEC INR (0.9-1.1) Sodium (135-145) mmol/L Potassium (3.3-5.1) mmol/L Chloride (96-108) mmol/L Carbon Dioxide (22-29) mmol/L Anion Gap (12-20) BUN (9-16) mg/dL Creatinine (0.5-1.4) mg/dL Estim Creat Clear Calc Estimated GFR Random Glucose (60-115) mg/dL Calcium (8.4-10.2) mg/dL Magnesium (1.6-2.6) mg/dL Total Bilirubin (0.0-1.0) mg/dL Direct Bilirubin (0.0-0.5) mg/dL AST (5-31) U/L ALT (0-31) U/L Alkaline Phosphatase (39-117) U/L Total Protein (6.5-8.0) g/dL Albumin (3.5-5.0) g/dL Lipase (8-78) U/L Beta HCG, Quant < 2 mIU/mL Urine Opiates Screen Not Detected (Not Detect) Urine Fentanyl Screen POSITIVE H (Not Detect) Ur Barbiturates Screen Not Detected (Not Detect) Ur Phencyclidine Scrn Not Detected (Not Detect) Ur Amphetamines Screen Not Detected (Not Detect) U Benzodiazepines Scrn POSITIVE H (Not Detect) Urine Cocaine Screen Not Detected (Not Detect) U Marijuana (THC) Screen Not Detected (Not Detect) Ethyl Alcohol mg/dL COVID-19 (LARRY) Negative (Negative) COVID-19 Clin Com See Note ECG Data ECG #1: Attestation: I personally reviewed and interpreted this ECG as follows: ECG interpretation date: 01/07/22 ECG interpretation time: 08:14 Interpretation: Rate: 111 Rhythm: sinus tachycardic [place]: normal Normal P waves. Normal NAVIN. Normal QRS complex. ST T wave :nonspecific no HEAVEN qTC: normal prior studies: no acute ischemia The study has been interpreted contemporaneously by me. Critical Care Time Critical Care Time Critical Care Time: Yes Total Critical Care Time: 60 Attestation: IVF, repeat meds, lyte replacement, med consult I attest to this time spent taking care of the patient Discharge Plan Discharge Clinical Impression: Acute hypokalemia, Alcoholic liver disease, Hypomagnesemia, Anxiety Alcohol intoxication Qualifiers: Complication of substance-induced condition: uncomplicated Qualified Code(s): F10.920 - Alcohol use, unspecified with intoxication, uncomplicated Patient Disposition: Home, Self-Care Instructions: Hypokalemia (ED), Hypomagnesemia (ED), Anxiety (ED), Alcohol Use Disorder (ED) Additional Instructions: return to ED for any worsening symptoms or concerns please follow up with your providers and the comprehensive care clinic today Prescriptions: No Action alprazolam 0.5 mg tablet 0.5 mg PO TID PRN (Reason: anxiety) 30 Days Qty: 90 0RF diphenhydramine HCl [Sleep Aid (diphenhydramine)] 25 mg Capsule 25 mg PO BEDTIME PRN (Reason: Sleep) Hair,Skin and Nails Tablet 1 tab PO DAILY Probiotic 10 billion cell Capsule 10,000 mmu cells PO DAILY omeprazole 20 mg capsule,delayed release(DR/EC) 20 mg PO BID Qty: 60 0RF methadone 10 mg/mL concentrate 30 mg PO DAILY Rx Instructions: [facility] [phone] Stand Alone Forms: Work/School Release
[2022-01-07] MEDS: Midazolam HCl/PF 2 MG/2 ML VIAL IM (07:23)
[2022-01-07 08:04] LABS: INTERNATIONAL NORM RATIO 1.5 (0.9-1.1); Prothrombin Time 17.6 SEC (10.0-13.1)
[2022-01-07 08:09] LABS: COVID-19 Test Negative (Negative)
[2022-01-07] MEDS: ondansetron HCL 4 MG/2 ML VIAL IVPUSH (08:13)
[2022-01-07] MEDS: diazePAM 10 MG/2 ML CARTRIDGE 2.5 MG IVPUSH (08:13)
[2022-01-07] MEDS: 0.9 % Sodium Chloride 1,000 ML 999 ML IVCONT ×2 (08:13→08:16)
[2022-01-07] MEDS: Thiamine HCL 200 MG in 0.9 % Sodium Chloride 100 ML 204 MG IV (08:14)
[2022-01-07 08:16] LABS: Eosinophils Absolute Auto 0.2 X10*3/uL (0.0-0.4); Eosinophils Percent Auto 2.5 % (0-4); Hemoglobin 15.5 g/dl (12.0-16.0); Neutrophils Percent Auto 63.4 % (45-73); PLT CLUMP 1; Red Cell Distribution Width 15.9 % (11.0-16.0); SCAN SMEAR FLAG 1
[2022-01-07 08:18] LABS: Basophils Absolute Auto 0.1 X10*3/uL (0.0-0.2); Basophils Percent Auto 0.8 % (0-2); Hematocrit 41.2 % (37.0-47.0); Imm Gran Abs Auto 0.06 X10*3/uL (0.00-0.03); Lymphocytes Absolute Auto 1.6 X10*3/uL (1.2-4.9); Lymphocytes Percent Auto 26.2 % (20-40); MANUAL DIFF FLAG SCAN; Mean Corpuscular Volume 90.4 fL (80.0-98.0); Monocytes Absolute Auto 0.4 X10*3/uL (0.1-1.2); Monocytes Percent Auto 6.1 % (2-11); Neutrophils Absolute Auto 3.9 x10*3/uL (2.0-8.3); Red Blood Count 4.56 X10*6/uL (4.20-5.50)
[2022-01-07] MEDS: LORazepam 1 MG TABLET 2 MG PO ×2 (08:19→11:34)
[2022-01-07 08:21] LABS: HCG Quantitative < 2 mIU/mL
[2022-01-07 08:24] LABS: Mean Corpuscular HGB Conc 37.6 g/dl (31.0-35.0)
[2022-01-07 08:29] LABS: White Blood Count 6.1 X10*3/uL (4.8-10.8)
[2022-01-07 08:30] LABS: Platelet Count 31 X10*3/uL (160-400)
[2022-01-07 08:32] LABS: Alanine Aminotransferase 52 U/L (0-31); Albumin Level 3.8 g/dL (3.5-5.0); Alkaline Phosphatase 139 U/L (39-117); Anion Gap 14 (12-20); Aspartate Amino Transferase 135 U/L (5-31); Bilirubin Direct 1.6 mg/dL (0.0-0.5); Bilirubin Total 5.3 mg/dL (0.0-1.0); Blood Urea Nitrogen 4 mg/dL (9-16); Calcium 7.7 mg/dL (8.4-10.2); Carbon Dioxide 25 mmol/L (22-29); Chloride 104 mmol/L (96-108); Creatinine Clr Calc Pharmacy 134.7; Estimated Glomerular Filt Rate > 60; Ethanol 326 mg/dL; Glucose Random 141 mg/dL (60-115); Lipase 29 U/L (8-78); Magnesium 1.7 mg/dL (1.6-2.6); Potassium 2.9 mmol/L (3.3-5.1); Sodium 140 mmol/L (135-145); Total Protein 7.8 g/dL (6.5-8.0)
[2022-01-07] MEDS: Potassium Chloride Packet 20 MEQ PACKET 40 MEQ PO (08:59)
[2022-01-07] MEDS: Magnesium Sulfate/H2O 2 GM/50 ML PIGGYBACK IV (09:00)
[2022-01-07] MEDS: Potassium Chloride/H20 10 MEQ/100 ML PIGGYBACK 100 MEQ IV ×2 (09:00→11:17)
--- NOTE | 2022-01-07 09:28 | MHC.RECOVRN ---
Met with pt in ED13 to discuss substance use. Pt reports discharging from [facility] on 12/15 after receiving 14 days of treatment. Pt reports that birthday was a trigger to use and drink. Pt reports sniffing one line of heroin and drinking 2 sleeves of vodka that day and continuing drinking since. Pt denies cocaine use, reports last use was 7 years ago. Pt is currently on 30 mg methadone through [facility] in [place] and is interested in decreasing dose. Pt reports receiving benzodiazepine script from PCP and taking it as prescribed. 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 Reports longest period in recovery was 8 months when at a skilled nursing house. Pt has had numerous psych and ATS admissions, one [facility] in 2006. Declines ATS or any type of residential treatment at this time. Pt currently living with both parents who are supportive and do not use substances. Pt educated regarding medications for AUD, including acamprosate. Pt interested in establishing care at the [facility] today and to initiate this medication. Discussed with ED provider and Rosa Locke APRN. Once medically clear, pt will present as walk in to the [facility].
[2022-01-07] MEDS: methADONE HCl 20 MG/2 ML ORAL.CONC 30 MG PO (09:45)
[2022-01-07 10:38] VITALS: BP 127/82; PULSE 109; RESP 12; O2SAT 95
[2022-01-07 11:03] LABS: SLIDE REVIEW VERIFIED
[2022-01-07 11:28] LABS: Amphetamine Screen Urine Not Detected (Not Detect); Barbiturates, Urine Not Detected (Not Detect); Benzodiazepines Screen Urine POSITIVE (Not Detect); Cannabinoid Screen Urine Not Detected (Not Detect); Cocaine Screen Urine Not Detected (Not Detect); Fentanyl, urine POSITIVE (Not Detect); Opiate Screen Urine Not Detected (Not Detect); Phencyclidine Screen Urine Not Detected (Not Detect)
[2022-01-07 13:42] VITALS: BP 130/86; PULSE 100; RESP 14; O2SAT 99
== END 2022-01-07 13:56 | disposition home or self-care (01) ==
PROVIDERS: Emergency Provider Emergency Medicine; PCP Internal Medicine
DX: F10.239 Alcohol dependence with withdrawal, unspecified (principal); E87.6 Hypokalemia; F41.1 Generalized anxiety disorder; K70.9 Alcoholic liver disease, unspecified; F43.0 Acute stress reaction; Z20.822 Contact with and (suspected) exposure to COVID-19; Z79.899 Other long term (current) drug therapy
CPT/HCPCS: 36415; 80048; 80076; 80307; 82077; 83690; 83735; 84702; 85025; 85610; 87635; 93005; 96365; 96366; 96367; 96372; 96375; 96376; 99202; 99212; 99284; J2250; J2405; J3360; J3411; J3475

== ENCOUNTER 2022-03-12 16:55 | Emergency (ER) | payer OTHER, SELFPAY ==
[2022-03-12 17:09] VITALS: BP 149/89; PULSE 117; O2SAT 97
--- NOTE | 2022-03-12 17:27 | ED.ALCOHOL ---
HPI - Alcohol General Chief Complaint: ETOH/Substance Use Stated Complaint: Alcohol Withdrawl Time Seen by Provider: 03/12/22 17:17 Source: patient Mode of arrival: EMS Limitations: no limitations History of Present Illness HPI narrative: Patient alcoholic drinks vodka about 10 nips a day for last few days has decreased the amount and feels in withdrawal with nausea and vomiting unable to hold any p.o. fluids no abdominal pain no fever or chills patient had a history of bed alcohol withdrawal in the past with history of seizures and was in coma 1 time been to detox last month he states over for 1 week Related Data Home Medications Medication Instructions Recorded Confirmed methadone 10 mg/mL oral concentrate 30 mg PO DAILY 02/16/21 11/12/21 Lactobacillus acidophilus 10 10,000 mmu cells PO DAILY 11/12/21 11/12/21 billion cell capsule (Probiotic) diphenhydramine HCl 25 mg capsule 25 mg PO BEDTIME PRN Sleep 11/12/21 11/12/21 (Sleep Aid (diphenhydramine)) multivitamin with minerals 1 tab PO DAILY 11/12/21 11/12/21 (Hair,Skin and Nails tablet) Previous Rx's Medication Instructions Recorded omeprazole 20 mg capsule,delayed 20 mg PO BID #60 caps 11/16/21 release acamprosate 333 mg tablet,delayed 666 mg PO TID #84 tabs 01/07/22 release alprazolam 0.5 mg tablet 0.5 mg PO TID PRN anxiety 30 days 02/15/22 #90 tabs Allergies Allergy/AdvReac Type Severity Reaction Status Date / Time pentoxifylline Allergy Intermediate Rash Verified 08/31/21 13:21 phenobarbital Allergy Diarrhea Verified 11/12/21 19:49 Review of Systems Review of Systems: Yes all other systems are reviewed and are negative [facility] Past Medical History Medical History Alcoholic liver disease Anxiety Impaired glucose tolerance Insomnia Left ankle pain Opioid dependence on agonist therapy Physical exam Smoker Surgical History H/O right wrist surgery History of arthroplasty of left knee Family History Family History Father Hypertension Substance use disorder Mother Medical history unknown Maternal Grandfather Cancer Family/Other FH: mental illness Mental health disorder Social History Social History Household Members: Family Housing: House Alcohol intake: current Patient Tobacco Use Status: Former Tobacco user Tobacco use type: Cigarette e-Cigarette/Vaping Use: Never Used Second Hand Smoke Exposure: No Advance Directives: No Advance Directives Information Provided: No service: No 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al status: unemployed and disabled Physical Exam ED Vital Signs: BMI result Body Mass Index 0.0 Appearance: Alert. Oriented X3. Anxious. Actively vomiting Eyes: PERRLA, No Nystagmus ENT: Pharynx normal. Oral Mucosa dry Neck: Normal inspection. Neck supple. CVS: Normal heart rate and rhythm. Pulses normal. Respiratory: No respiratory distress. Equal air entry bilateral, no wheezing/rales/rhonchi Abdomen: Soft and nontender. Bowel sounds are present, no mass palpable, no CVA tenderness Skin: Skin warm and dry. Normal skin color. Normal skin turgor. Extremities: No lower extremity edema. No calf tenderness Neuro: Oriented X 3. No motor deficit. No sensory deficit.No cerebellar signs , cranial nerves II-XII intact MDM - Alcohol MDM Narrative Medical decision making narrative: 2029Patient alcoholic in withdrawal with 1 nausea vomiting hypokalemic hypomagnesemic which was replaced will give IV fluids patient does not want phenobarb has had bad reaction in the past, will continue to give her Ativan p.o. according to CIWA scale at this time patient refusing go to detox says that she will to manage on Ativan and she will try to do detox herself Differential Diagnosis Differential diagnosis: Likely alcohol dependence, hypomagnesemia and alcohol withdrawal syndrome Medical Records Medical records narrative: 2029Patient alcoholic in withdrawal with 1 nausea vomiting hypokalemic hypomagnesemic which was replaced will give IV fluids patient does not want phenobarb at [facility] last night will continue to give her Ativan p.o. according to CIWA scale will get disaster recovery consultant involved to help her out in placement for detox Lab Data Attestation: I reviewed the patient's lab results. Result diagrams: 03/12/22 17:54 03/12/22 17:54 Labs: Lab Results 03/12/22 03/12/22 Range/Units 17:54 17:54 WBC 7.5 (4.8-10.8) X10*3/uL RBC 3.81 L (4.20-5.50) X10*6/uL Hgb 13.4 (12.0-16.0) g/dl Hct 36.8 L (37.0-47.0) % MCV 96.6 (80.0-98.0) fL MCH 35.2 H (27.0-33.0) pg MCHC 36.4 H (31.0-35.0) g/dl RDW 19.5 H (11.0-16.0) % Plt Count 37 L (160-400) X10*3/uL MPV 10.7 (9.4-12.3) fL Immature Gran % (Auto) 0.8 H (0.0-0.4) % Neut % (Auto) 78.3 H (45-73) % Lymph % (Auto) 14.9 L (20-40) % Buchanan % (Auto) 5.2 (2-11) % Eos % (Auto) 0.4 (0-4) % Baso % (Auto) 0.4 (0-2) % Lymph # (Auto) 1.1 L (1.2-4.9) X10*3/uL Buchanan # (Auto) 0.4 (0.1-1.2) X10*3/uL Eos # (Auto) 0.0 (0.0-0.4) X10*3/uL Baso # (Auto) 0.0 (0.0-0.2) X10*3/uL Abs Immat Gran (auto) 0.06 H (0.00-0.03) X10*3/uL Absolute Neuts (auto) 5.9 (2.0-8.3) x10*3/uL Absolute Nucleated RBC 0.030 H (0.0-0.012) X10*3/uL Nucleated RBC % (auto) 0.4 H (0.0-0.2) /100WBC Sodium 139 (135-145) mmol/L Potassium 2.9 L (3.3-5.1) mmol/L Chloride 98 (96-108) mmol/L Carbon Dioxide 25 (22-29) mmol/L Anion Gap 19 (12-20) BUN 5 L (9-16) mg/dL Creatinine 0.64 (0.5-1.4) mg/dL Estim Creat Clear Calc TNP Estimated GFR > 60 Random Glucose 92 (60-115) mg/dL Calcium 8.3 L D (8.4-10.2) mg/dL Magnesium 1.4 L* (1.6-2.6) mg/dL Total Bilirubin 6.8 H (0.0-1.0) mg/dL AST 131 H (5-31) U/L ALT 44 H (0-31) U/L Alkaline Phosphatase 159 H (39-117) U/L Total Protein 8.8 H (6.5-8.0) g/dL Albumin 3.3 L (3.5-5.0) g/dL Lipase 106 H (8-78) U/L Ethyl Alcohol 182 mg/dL ECG Data ECG #1: Attestation: I personally reviewed and interpreted this ECG as follows: Interpretation: Normal sinus rhythm heart rate 89 beats per minute LVH normal interval normal axis no acute ST-T changes no acute ischemia Discharge Plan Discharge Clinical Impression: Alcohol withdrawal, Alcohol use disorder, severe, dependence, Hypomagnesemia, Hypokalemia Patient Disposition: Still a Patient Prescriptions: No Action alprazolam 0.5 mg tablet 0.5 mg PO TID PRN (Reason: anxiety) 30 Days Qty: 90 0RF diphenhydramine HCl [Sleep Aid (diphenhydramine)] 25 mg Capsule 25 mg PO BEDTIME PRN (Reason: Sleep) Hair,Skin and Nails Tablet 1 tab PO DAILY Probiotic 10 billion cell Capsule 10,000 mmu cells PO DAILY omeprazole 20 mg capsule,delayed release(DR/EC) 20 mg PO BID Qty: 60 0RF methadone 10 mg/mL concentrate 30 mg PO DAILY Rx Instructions: [facility] [phone] acamprosate 333 mg tablet,delayed release (DR/EC) 666 mg PO TID Qty: 84 1RF
[2022-03-12 18:03] LABS: MANUAL DIFF FLAG NO
[2022-03-12 18:10] LABS: Basophils Percent Auto 0.4 % (0-2); Eosinophils Percent Auto 0.4 % (0-4); Hematocrit 36.8 % (37.0-47.0); Hemoglobin 13.4 g/dl (12.0-16.0); Imm Gran Abs Auto 0.06 X10*3/uL (0.00-0.03); Imm Gran Pct Auto 0.8 % (0.0-0.4); Lymphocytes Absolute Auto 1.1 X10*3/uL (1.2-4.9); Lymphocytes Percent Auto 14.9 % (20-40); Mean Corpuscular HGB Conc 36.4 g/dl (31.0-35.0); Mean Corpuscular Hemoglobin 35.2 pg (27.0-33.0); Mean Corpuscular Volume 96.6 fL (80.0-98.0); Mean Platelet Volume 10.7 fL (9.4-12.3); Monocytes Absolute Auto 0.4 X10*3/uL (0.1-1.2); Monocytes Percent Auto 5.2 % (2-11); NRBC Pct Auto 0.4 /100WBC (0.0-0.2); Neutrophils Absolute Auto 5.9 x10*3/uL (2.0-8.3); Neutrophils Percent Auto 78.3 % (45-73); Red Blood Count 3.81 X10*6/uL (4.20-5.50); Red Cell Distribution Width 19.5 % (11.0-16.0); White Blood Count 7.5 X10*3/uL (4.8-10.8)
[2022-03-12 18:19] LABS: Platelet Count 37 X10*3/uL (160-400)
[2022-03-12 18:33] LABS: Alanine Aminotransferase 44 U/L (0-31); Albumin Level 3.3 g/dL (3.5-5.0); Alkaline Phosphatase 159 U/L (39-117); Anion Gap 19 (12-20); Aspartate Amino Transferase 131 U/L (5-31); Bilirubin Total 6.8 mg/dL (0.0-1.0); Blood Urea Nitrogen 5 mg/dL (9-16); Calcium 8.3 mg/dL (8.4-10.2); Carbon Dioxide 25 mmol/L (22-29); Chloride 98 mmol/L (96-108); Estimated Glomerular Filt Rate > 60; Ethanol 182 mg/dL; Glucose Random 92 mg/dL (60-115); Lipase 106 U/L (8-78); Magnesium 1.4 mg/dL (1.6-2.6); Potassium 2.9 mmol/L (3.3-5.1); Sodium 139 mmol/L (135-145); Total Protein 8.8 g/dL (6.5-8.0)
--- NOTE | 2022-03-12 18:33 | MHC.RECOVSUP ---
Recovery Support note: Patient is a 37 year old [place] speaking female who presented to [facility] due to symptoms of alcohol withdrawal. This life underwriter met with patient to discuss recovery supports. Patient is known to this life underwriter from a previous consultation on the medical floor. When this life underwriter entered [facility], patient was sitting up with an emesis bag. Patient declined detox, reports she is too nauseas to discuss recovery. Encouraged patient to reach out to staff if she would like support while in the hospital. Patient acknowledged.
--- NOTE | 2022-03-12 18:50 | ECG_ITS ---
Test Reason : SOB Blood Pressure : / mmHG Vent. Rate : 089 BPM Atrial Rate : 089 BPM P-R Int : 142 ms QRS Dur : 092 ms QT Int : 388 ms P-R-T Axes : 060 042 056 degrees QTc Int : 472 ms Normal sinus rhythm Left ventricular hypertrophy with repolarization abnormality ( Sokolow-Cruz ) Nonspecific ST abnormality Abnormal ECG When compared with ECG of 07-JAN-2022 08:07, No significant change was found Referred By: Lee Carlos Electronically Signed By:EVER LITTLEJOHN
[2022-03-12] MEDS: 0.9 % Sodium Chloride 1,000 ML 999 ML IV ×2 (20:17→21:48)
[2022-03-12] MEDS: Magnesium Sulfate/H2O 2 GM/50 ML PIGGYBACK IV (20:31)
[2022-03-12 20:47] LABS: COVID-19 Test Negative (Negative); IDNOW Serial# 16C4AD1C
[2022-03-12] MEDS: Midazolam HCl/PF 2 MG/2 ML VIAL IVPUSH (20:49)
[2022-03-12] MEDS: LORazepam 1 MG TABLET 2 MG PO ×2 (20:50→21:01)
[2022-03-12] MEDS: Famotidine/PF 20 MG/2 ML VIAL IVPUSH (20:50)
[2022-03-12] MEDS: ondansetron HCL 4 MG/2 ML VIAL IVPUSH (20:50)
[2022-03-12 21:04] VITALS: BP 146/77; PULSE 78; RESP 18; TEMP 36.5; O2SAT 98
[2022-03-12] MEDS: Potassium Chloride/H20 10 MEQ/100 ML PIGGYBACK 100 MEQ IV ×2 (21:11→22:29)
[2022-03-12] MEDS: Potassium Chloride ER 20 MEQ TAB.ER.PRT PO (22:50)
[2022-03-13 01:05] LABS: Anion Gap 16 (12-20); Blood Urea Nitrogen 5 mg/dL (9-16); Calcium 7.4 mg/dL (8.4-10.2); Carbon Dioxide 24 mmol/L (22-29); Chloride 103 mmol/L (96-108); Estimated Glomerular Filt Rate > 60; Glucose Random 95 mg/dL (60-115); Magnesium 1.6 mg/dL (1.6-2.6); Potassium 3.7 mmol/L (3.3-5.1); Sodium 139 mmol/L (135-145)
[2022-03-13] MEDS: LORazepam 1 MG TABLET 2 MG PO (01:26)
== END 2022-03-13 01:00 | disposition home or self-care (01) ==
PROVIDERS: Emergency Provider Internal Medicine; PCP Internal Medicine
DX: F10.230 Alcohol dependence with withdrawal, uncomplicated (principal); Y90.6 Blood alcohol level of 120-199 mg/100 ml; E83.42 Hypomagnesemia; E87.6 Hypokalemia; R11.2 Nausea with vomiting, unspecified; F11.20 Opioid dependence, uncomplicated; K70.9 Alcoholic liver disease, unspecified; F17.200 Nicotine dependence, unspecified, uncomplicated; Z20.822 Contact with and (suspected) exposure to COVID-19; Z79.899 Other long term (current) drug therapy
CPT/HCPCS: 36415; 80048; 80053; 82077; 83690; 83735; 85025; 87635; 93005; 96361; 96365; 96375; 99284; J2250; J2405; J3475

== ENCOUNTER 2022-05-11 13:39 | Inpatient (IN) | payer OTHER, SELFPAY ==
--- NOTE | ~2022-05-11 | XR_ITS ---
EXAMINATION: XR CHEST CLINICAL INFORMATION: Chest pain COMPARISON: Chest x-ray 03/07/2019 TECHNIQUE: Frontal view of the chest was obtained. FINDINGS: The lungs are clear. No airspace consolidation, pleural effusion, or pneumothorax. The cardiomediastinal silhouette is within normal limits. No acute osseous injury. XR/XR chest 1V IMPRESSION: No acute pulmonary disease.
--- NOTE | ~2022-05-11 | US_ITS ---
EXAMINATION: US ABDOMEN LIMITED CLINICAL INFORMATION: Abdominal pain, jaundice. COMPARISON: Abdominal ultrasound 11/12/2021. TECHNIQUE: Real-time imaging of the right upper quadrant abdominal viscera. FINDINGS: PANCREAS: The visualized portions of the head and body are within normal limits. The tail is obscured by overlying bowel gas. LIVER: The liver parenchyma demonstrates increased echogenicity and heterogeneity. There is mild dilatation of intrahepatic bile ducts, not definitely identified on 11/12/2021. No discrete focal liver lesion. GALLBLADDER: The gallbladder is physiologically distended without evidence of stones, sludge, polyps, wall thickening or pericholecystic fluid. COMMON BILE DUCT: Normal in caliber measuring 0.6 cm in diameter. RIGHT KIDNEY: Normal. No hydronephrosis. No renal calculi or focal parenchymal lesions. The kidney measures 12.7 cm in maximum dimension. FREE FLUID: None. US/US abdomen limited IMPRESSION: 1. Increased echogenicity and heterogeneity of the liver parenchyma, which is nonspecific and could be seen in the setting of hepatic steatosis. 2. Mild dilatation of intrahepatic bile ducts, not definitely identified on 11/12/2021. If choledocholithiasis or other obstructive abnormalities suspected, recommend correlation with MR/MRCP. 3. Previous described dilatation of the CBD is not visualized in this examination, however some portions of the CBD are obscured by overlying bowel gas.
[2022-05-11 14:00] VITALS: BP 155/81; BP 186/108; PULSE 130; PULSE 146; RESP 18; TEMP 36.7; O2SAT 95; O2SAT 99; BMI 27.2
--- NOTE | 2022-05-11 14:22 | PC.NURSE ---
PT reports worsening vomiting, abd pain, and anxiety for 4 days. Reports being a daily drinker of 20-30 vodka nips, last drink was this AM. A&Ox4, denies SI/HI. Slight hand tremors, yellow sclera, distended firm abd. CIWA score of 9.
--- NOTE | 2022-05-11 16:37 | ECG_ITS ---
Test Reason : ETOH Blood Pressure : / mmHG Vent. Rate : 123 BPM Atrial Rate : 123 BPM P-R Int : 166 ms QRS Dur : 090 ms QT Int : 294 ms P-R-T Axes : 070 041 029 degrees QTc Int : 420 ms Sinus tachycardia Minimal voltage criteria for LVH, may be normal variant ( Sokolow-Cruz ) Nonspecific ST and T wave abnormality Abnormal ECG When compared with ECG of 12-MAR-2022 19:24, Heart rate has increased Referred By: Marilyn Choi Electronically Signed By:YASSINE DENNY MD
--- NOTE | 2022-05-11 16:43 | ED.ALCOHOL ---
HPI - Alcohol General Chief Complaint: ETOH/Substance Use Stated Complaint: ETOH WITHDRAWAL/CHEST PAINS Time Seen by Provider: 05/11/22 16:37 Source: patient and EMS Mode of arrival: EMS Limitations: no limitations History of Present Illness HPI narrative: 37 yo female with history of severe alcohol abuse and dependence, history of withdrawal seizures, opioid use disorder on methadone, history of alcoholic hepatitis, anxiety, hx CBD stone s/p ERCP in August 2021, who presents to the ER for evaluation alcohol and opiate withdrawal. She reports drinking heavily, 20-30 nips of vodka per day, last drink was yesterday morning at 07:00. She has been experiencing diffuse abdominal pain and vomiting since then. She was unable to take her methadone yesterday or today. She denies any blood in her vomitus. She also reports nonbloody diarrhea for the last 2 days and had an episode of fecal incontinence today with loose watery stool. She denies any fever or chills at home. MD complaint: alcohol withdrawal Last drink: Days (ago) (1) Amount of alcohol consumed: 20-30 nebs of vodka Chronic alcohol use: Yes Previous visits for alcohol intoxication: Yes Recent trauma: No Associated symptoms: nausea, vomiting, diaphoresis, tremors, abdominal pain and depression Treatments prior to arrival: none Related Data Home Medications Medication Instructions Recorded Confirmed methadone 10 mg/mL oral concentrate 90 mg PO DAILY 02/16/21 11/12/21 Previous Rx's Medication Instructions Recorded alprazolam 0.5 mg tablet 0.5 mg PO TID PRN anxiety 30 days 04/12/22 #90 tabs Allergies Allergy/AdvReac Type Severity Reaction Status Date / Time pentoxifylline Allergy Intermediate Rash Verified 08/31/21 13:21 phenobarbital Allergy Diarrhea Verified 11/12/21 19:49 Review of Systems Review of Systems: Constitutional: No Fever, No Chills ENT/Mouth: No sore throat, No Rhinorrhea, No Swallowing Difficulty Eyes: No Eye Pain, No Swelling, No Redness Cardiovascular: No Chest Pain, No SOB, No Orthopnea, No Edema Respiratory: No Cough, No Sputum, No Wheezing, No dyspnea Gastrointestinal: + Nausea, + Vomiting, +Diarrhea, + abdominal Pain, No Hematochezia, No Melena Genitourinary: No Dysuria, No Urinary Frequency, No Hematuria Musculoskeletal: No joint pain, No Myalgias Skin: No Skin Lesions, No rash Neuro: + Weakness, No Numbness, No Dizziness, No Headache Psych: +Anxiety/Panic, + Depression Heme/Lymph: + Bruising, No Lymphadenopathy Endocrine: No Polyuria, No Polydipsia PMF Past Medical History Medical History Alcoholic liver disease Anxiety Impaired glucose tolerance Insomnia Left ankle pain Opioid dependence on agonist therapy Physical exam Smoker Surgical History H/O right wrist surgery History of arthroplasty of left knee Family History Family History Father Hypertension Substance use disorder Mother Medical history unknown Maternal Grandfather Cancer Family/Other FH: mental illness Mental health disorder Social History Social History Household Members: Family Housing: House Alcohol intake: current Patient Tobacco Use Status: Former Tobacco user Tobacco use type: Cigarette e-Cigarette/Vaping Use: Never Used Second Hand Smoke Exposure: No Advance Directives: No Advance Directives Information Provided: No service: No 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al status: unemployed and disabled Physical Exam ED Vital Signs: Vital Signs - 24 hr 05/11/22 14:00 Temperature 98.1 F Pulse Rate 130 H Respiratory Rate 18 Blood Pressure 155/81 H Pulse Oximetry 95 Oxygen Delivery Method Room Air BMI result Body Mass Index 27.2 Appearance: Alert. Oriented X3. No acute distress. Eyes: Scleral icterus. Pupils equal, round and reactive to light. ENT: Pharynx normal. No dentition present. Neck: Normal inspection. Neck supple. CVS: Tachycardic, regular rhythm, heart rate 130. Pulses normal. Respiratory: No respiratory distress. Breath sounds normal. Abdomen: Softly distended with mild diffuse tenderness throughout, hyperactive +BS x4 Skin: Skin warm and dry. Normal skin color. Normal skin turgor. No rashes. Extremities: No lower extremity edema. Evidence of track rendon on her right forearm. Neuro: Oriented X 3. No motor deficit. No sensory deficit. CN II-XII intact. Bilateral hand tremor. No asterixis. Course Course Course Narrative: 37-year-old female with a longstanding history of alcohol abuse and dependence, history of alcohol withdrawal seizures in the past, opioid use disorder, alcoholic hepatitis in the past who presents to the ER for evaluation of alcohol and opiate withdrawal manifesting as abdominal pain, vomiting, tremors. Last alcohol intake was yesterday morning per her report. On arrival to the ER she has scleral icterus, she vomited bilious vomitus on the bed. She had episode of fecal incontinence. She is tachycardic and tremulous. IV to be established with dose of IV Versed, IV Zofran. She states ?phenobarbital does not work, it makes things worse.? She is agreeable to admission to the hospital. Reevaluation(s) Reevaluation #1: CIWA 14. Zofran and Versed helped but she still has ongoing symptoms. Repeat doses have been ordered. Her labs came back with worsening liver function tests and hypo magnesemia. Her clinical presentation is consistent with recurrent acute alcoholic hepatitis. Her discriminant function is 49. Spoke with GI provider who is in agreement with initiation of prednisolone 40 mg per day. She has no evidence of infection at this time. She has no leukocytosis or fevers. Ultrasound of her abdomen was done showing no portal vein thrombosis, no ascites or fluid to tap. also recommending high-protein, high-calorie diet as treatment for her alcoholic hepatitis. She is nauseous and vomiting so will need to improve her symptoms prior to initiation of a diet. GI also recommending PPI with steroids. This has been ordered. Patient to be admitted to the hospital for further management. Patient agrees with plan. Medications Administered Generic Name Dose Route Start Last Admin Trade Name Freq PRN Reason Stop Dose Admin Magnesium Sulfate 2 gm in 50 mls @ 25 mls/hr 05/11/22 18:53 05/11/22 19:13 Magnesium Sulfate/H2o IV 05/11/22 20:52 25 mls/hr ONCE ONE Administration Discontinued Medications Generic Name Dose Route Start Last Admin Trade Name Freq PRN Reason Stop Dose Admin Chlordiazepoxide HCl 50 mg 05/11/22 19:00 05/11/22 19:10 Chlordiazepoxide Hcl 25 Mg Capsule PO 05/11/22 19:01 50 mg ONCE ONE Administration Lactated Ringer's 1,000 mls @ 999 mls/hr 05/11/22 16:45 05/11/22 18:05 Lr IV 05/11/22 17:45 999 mls/hr .Q1H1M PITA Administration Midazolam HCl 4 mg 05/11/22 16:37 05/11/22 17:56 Midazolam Hcl/Pf 2 Mg/2 Ml Vial IVPUSH 05/11/22 16:38 4 mg ONCE ONE Administration Ondansetron HCl 4 mg 05/11/22 16:37 05/11/22 17:54 Ondansetron Hcl 4 Mg/2 Ml Vial IVPUSH 05/11/22 16:38 4 mg ONCE ONE Administration MDM - Alcohol Differential Diagnosis Differential diagnosis: Likely alcohol dependence, alcohol withdrawal delirium, hypomagnesemia, alcohol intoxication, alcohol ketoacidosis, alcohol withdrawal syndrome and alcohol withdrawal seizure Medical Records Attestation: I reviewed the patient's medical records. Lab Data Attestation: I reviewed the patient's lab results. Result diagrams: 05/11/22 18:01 05/11/22 18:01 Labs: Lab Results 05/11/22 05/11/22 05/11/22 Range/Units 18:01 18:01 18:01 WBC 8.0 (4.8-10.8) X10*3/uL RBC 4.20 (4.20-5.50) X10*6/uL Hgb 14.7 (12.0-16.0) g/dl Hct 39.3 (37.0-47.0) % MCV 93.6 (80.0-98.0) fL MCH 35.0 H (27.0-33.0) pg MCHC 37.4 H (31.0-35.0) g/dl RDW 15.9 (11.0-16.0) % Plt Count 42 L (160-400) X10*3/uL MPV 10.1 (9.4-12.3) fL Immature Gran % (Auto) 1.0 H (0.0-0.4) % Neut % (Auto) 85.7 H (45-73) % Lymph % (Auto) 8.3 L (20-40) % Garrett % (Auto) 4.5 (2-11) % Eos % (Auto) 0.0 (0-4) % Baso % (Auto) 0.5 (0-2) % Lymph # (Auto) 0.7 L (1.2-4.9) X10*3/uL Garrett # (Auto) 0.4 (0.1-1.2) X10*3/uL Eos # (Auto) 0.0 (0.0-0.4) X10*3/uL Baso # (Auto) 0.0 (0.0-0.2) X10*3/uL Abs Immat Gran (auto) 0.08 H (0.00-0.03) X10*3/uL Absolute Neuts (auto) 6.8 (2.0-8.3) x10*3/uL Absolute Nucleated RBC 0.050 H (0.0-0.012) X10*3/uL Nucleated RBC % (auto) 0.6 H (0.0-0.2) /100WBC PT 20.0 H (10.0-13.1) SEC INR 1.7 H (0.9-1.1) APTT 31.2 (26.0-36.4) SEC Sodium 138 (135-145) mmol/L Potassium 3.5 (3.3-5.1) mmol/L Chloride 95 L (96-108) mmol/L Carbon Dioxide 20 L (22-29) mmol/L Anion Gap 27 H (12-20) BUN 11 D (9-16) mg/dL Creatinine 0.58 (0.5-1.4) mg/dL Estim Creat Clear Calc 161.5 Estimated GFR > 60 Random Glucose 133 H (60-115) mg/dL Calcium 7.9 L D (8.4-10.2) mg/dL Magnesium 1.4 L* (1.6-2.6) mg/dL Total Bilirubin 12.3 H (0.0-1.0) mg/dL Direct Bilirubin 6.1 H (0.0-0.5) mg/dL AST 136 H (5-31) U/L ALT 42 H (0-31) U/L Alkaline Phosphatase 131 H (39-117) U/L Troponin I High Sens (<3.5-17.0) ng/L Total Protein 8.0 (6.5-8.0) g/dL Albumin 3.6 (3.5-5.0) g/dL Lipase 135 H (8-78) U/L Ethyl Alcohol 253 mg/dL COVID-19 (LARRY) (Negative) COVID-19 Clin Com 05/11/22 05/11/22 Range/Units 18:01 18:01 WBC (4.8-10.8) X10*3/uL RBC (4.20-5.50) X10*6/uL Hgb (12.0-16.0) g/dl Hct (37.0-47.0) % MCV (80.0-98.0) fL MCH (27.0-33.0) pg MCHC (31.0-35.0) g/dl RDW (11.0-16.0) % Plt Count (160-400) X10*3/uL MPV (9.4-12.3) fL Immature Gran % (Auto) (0.0-0.4) % Neut % (Auto) (45-73) % Lymph % (Auto) (20-40) % Garrett % (Auto) (2-11) % Eos % (Auto) (0-4) % Baso % (Auto) (0-2) % Lymph # (Auto) (1.2-4.9) X10*3/uL Garrett # (Auto) (0.1-1.2) X10*3/uL Eos # (Auto) (0.0-0.4) X10*3/uL Baso # (Auto) (0.0-0.2) X10*3/uL Abs Immat Gran (auto) (0.00-0.03) X10*3/uL Absolute Neuts (auto) (2.0-8.3) x10*3/uL Absolute Nucleated RBC (0.0-0.012) X10*3/uL Nucleated RBC % (auto) (0.0-0.2) /100WBC PT (10.0-13.1) SEC INR (0.9-1.1) APTT (26.0-36.4) SEC Sodium (135-145) mmol/L Potassium (3.3-5.1) mmol/L Chloride (96-108) mmol/L Carbon Dioxide (22-29) mmol/L Anion Gap (12-20) BUN (9-16) mg/dL Creatinine (0.5-1.4) mg/dL Estim Creat Clear Calc Estimated GFR Random Glucose (60-115) mg/dL Calcium (8.4-10.2) mg/dL Magnesium (1.6-2.6) mg/dL Total Bilirubin (0.0-1.0) mg/dL Direct Bilirubin (0.0-0.5) mg/dL AST (5-31) U/L ALT (0-31) U/L Alkaline Phosphatase (39-117) U/L Troponin I High Sens < 3.5 (<3.5-17.0) ng/L Total Protein (6.5-8.0) g/dL Albumin (3.5-5.0) g/dL Lipase (8-78) U/L Ethyl Alcohol mg/dL COVID-19 (LARRY) Negative (Negative) COVID-19 Clin Com See Note ECG Data ECG #1: Attestation: I personally reviewed and interpreted this ECG as follows: ECG interpretation date: 05/11/22 ECG interpretation time: 17:21 Prior ECG tracings: available for review Interpretation: Sinus tachycardia, ventricular rate 123 beats per minute, decreased QT, normal QTC, normal NH interval, no ST segment elevations or depressions. Critical Care Time Critical Care Time Critical Care Time: Yes Total Critical Care Time: 44 Attestation: I have personally provided critical care time exclusive of time spent on separately billable procedures. Time includes review of lab data, radiology results, discussion with consultants, and monitoring for potential decompensation. Intervention performed as documented. Discharge Plan Discharge Clinical Impression: Acute alcoholic hepatitis, Alcohol withdrawal Patient Disposition: Admitted As Inpatient
[2022-05-11] MEDS: ondansetron HCL 4 MG/2 ML VIAL IVPUSH ×2 (17:54→19:33)
[2022-05-11] MEDS: Midazolam HCl/PF 2 MG/2 ML VIAL 4 MG IVPUSH ×2 (17:56→19:33)
[2022-05-11] MEDS: Lactated Ringers 1,000 ML 999 ML IV (18:05)
[2022-05-11 18:06] LABS: MANUAL DIFF FLAG NO
[2022-05-11 18:16] LABS: Basophils Percent Auto 0.5 % (0-2); Hematocrit 39.3 % (37.0-47.0); Hemoglobin 14.7 g/dl (12.0-16.0); Imm Gran Abs Auto 0.08 X10*3/uL (0.00-0.03); Lymphocytes Absolute Auto 0.7 X10*3/uL (1.2-4.9); Lymphocytes Percent Auto 8.3 % (20-40); Mean Corpuscular HGB Conc 37.4 g/dl (31.0-35.0); Mean Corpuscular Volume 93.6 fL (80.0-98.0); Mean Platelet Volume 10.1 fL (9.4-12.3); Monocytes Absolute Auto 0.4 X10*3/uL (0.1-1.2); Monocytes Percent Auto 4.5 % (2-11); NRBC Pct Auto 0.6 /100WBC (0.0-0.2); Neutrophils Absolute Auto 6.8 x10*3/uL (2.0-8.3); Neutrophils Percent Auto 85.7 % (45-73); Red Cell Distribution Width 15.9 % (11.0-16.0)
[2022-05-11 18:24] LABS: COVID-19 Test Negative (Negative); IDNOW Serial# 9DB6401D
[2022-05-11 18:27] LABS: Platelet Count 42 X10*3/uL (160-400)
--- NOTE | 2022-05-11 18:27 | PHA.MEDREC ---
med rec complete, methadone dose needs to be verified with clinic Pharmacy Consult ? Medication Reconciliation Pharmacy has completed the medication reconciliation.
[2022-05-11 18:28] LABS: INTERNATIONAL NORM RATIO 1.7 (0.9-1.1)
[2022-05-11 18:31] LABS: Partial Thromboplastin Time 31.2 SEC (26.0-36.4)
[2022-05-11 18:39] LABS: Troponin-I High Sensitivity < 3.5 ng/L (<3.5-17.0)
[2022-05-11 18:43] LABS: Alanine Aminotransferase 42 U/L (0-31); Albumin Level 3.6 g/dL (3.5-5.0); Alkaline Phosphatase 131 U/L (39-117); Anion Gap 27 (12-20); Aspartate Amino Transferase 136 U/L (5-31); Bilirubin Direct 6.1 mg/dL (0.0-0.5); Bilirubin Total 12.3 mg/dL (0.0-1.0); Blood Urea Nitrogen 11 mg/dL (9-16); Calcium 7.9 mg/dL (8.4-10.2); Carbon Dioxide 20 mmol/L (22-29); Chloride 95 mmol/L (96-108); Creatinine Clr Calc Pharmacy 161.5; Estimated Glomerular Filt Rate > 60; Ethanol 253 mg/dL; Glucose Random 133 mg/dL (60-115); Lipase 135 U/L (8-78); Magnesium 1.4 mg/dL (1.6-2.6); Potassium 3.5 mmol/L (3.3-5.1); Sodium 138 mmol/L (135-145)
[2022-05-11] MEDS: chlordiazePOXIDE HCl 25 MG CAPSULE 50 MG PO (19:10)
[2022-05-11] MEDS: Magnesium Sulfate/H2O 2 GM/50 ML PIGGYBACK IV (19:13)
--- NOTE | 2022-05-11 19:15 | PC.NURSE ---
Meds. administered per AUG. Pt. c/o nausea - notifying provider
[2022-05-11] MEDS: Omeprazole 40 MG CAPSULE.DR PO (19:33)
--- NOTE | 2022-05-11 19:37 | MHC.RECOVSUP ---
? Reason for consult:BOTH o? Current location:ED19? o? Identified substance use concern:? -? Withdrawal -? Support ? Intervention: o? Community resources provided o? Harm reduction discussion ? Plan: o? Follow up tomorrow? ? Additional information:[facility] met with Pt discussed recovery resources and recovery coaching with pt, pt is interested, provided pt with [facility] pamphlet and card. Will follow up with pt tomorrow.
--- NOTE | 2022-05-11 19:40 | PC.NURSE ---
Pt. states that she takes Methadone daily, 90mg from [facility] on [facility] [address] [place], [place]
--- NOTE | 2022-05-11 19:43 | PC.NURSE ---
PA is ordering 40mg Methadone for now until dose 90mg n be confirmed at 05:45 on 05/12 when [facility] opens. Pt. made aware and is ok with this plan and this RN will call to confirm dose
[2022-05-11 20:00] VITALS: BP 135/73; PULSE 132; RESP 11; TEMP 37.3; O2SAT 96
[2022-05-11] MEDS: prednisoLONE sodium phosphate 15 MG/5 ML SOLUTION 40 MG PO (20:11)
[2022-05-11] MEDS: methADONE HCl 20 MG/2 ML ORAL.CONC 40 MG PO (20:53)
--- NOTE | 2022-05-11 21:57 | PC.NURSE ---
Notified provider Michael Kapadia MD re: PRN anti-emetic and that HR remains elevated
--- NOTE | 2022-05-11 21:58 | PC.NURSE ---
Pt. bladder scanned per verbal order of Michael Kapadia MD for 384mLs. Provider notified
[2022-05-11 21:59] LABS: Lactic Acid 7.7 mmol/L (0.5-2.0)
--- NOTE | 2022-05-11 22:17 | PC.NURSE ---
Criticl lab: Lactic 7.7 report to [facility]
--- NOTE | 2022-05-11 22:21 | PC.NURSE ---
Notified Michael Kapadia MD that pt.'s Lactic Acid is 7.7. Awaiting provider's response at this time.
[2022-05-11] MEDS: LORazepam 1 MG TABLET 2 MG PO (22:24)
[2022-05-11] MEDS: Enoxaparin Sodium 40 MG/0.4 ML SYRINGE SUBCUT (22:25)
[2022-05-11] MEDS: Prochlorperazine Edisylate 10 MG/2 ML VIAL 5 MG IVPUSH (22:25)
[2022-05-11 22:29] VITALS: BP 135/70; PULSE 131; RESP 19; TEMP 37.4; O2SAT 96
--- NOTE | 2022-05-11 22:37 | PC.NURSE ---
Straight cath. completed and urine sent as ordered
[2022-05-11] MEDS: Lactated Ringers 1,000 ML 100 ML IVCONT (22:55)
[2022-05-11 23:01] LABS: Appearance Urine Cloudy; Color Urine Orange; Glucose Urine UA Negative (Negative); Leukocyte Esterase Urine Small (1+) (Negative); Nitrite Urine Positive (Negative); PH 5.5 (5.0-9.0); Specific Gravity - Urine 1.025 (1.005-1.025); UMIC TRIGGER UACC YES; Urine Blood Small (1+) (Negative); Urine Ketones Negative (Negative); Urine Protein 100 (2+) mg/dL (Neg-Trace)
[2022-05-11 23:03] LABS: Bacteria Urine 4+ (None Seen); Hyaline Casts Urine 0-2 /LPF (0-2); UACC Culture Trigger YES; WBC Urine 0-5 /HPF (0-5)
[2022-05-11 23:36] LABS: Reflex Lactate? Lactic Acid Added
[2022-05-11] MEDS: LORazepam 1 MG TABLET 0.5 MG PO (23:55)
--- NOTE | 2022-05-11 23:59 | PM.IMHP ---
History of Present Illness Date of Service: 05/11/22 Chief Complaint: Alcohol withdrawal, nausea vomiting This is a 37-year-old female with past medical history of alcohol abuse, history of withdrawal seizures, opioid use disorder on methadone, history of alcoholic hepatitis, anxiety, who presents the hospital with complaints of alcohol withdrawal. Patient reports that she decided to stop drinking alcohol, on her last drink was Tuesday. She drinks about 30 nebs of vodka daily. She reports nausea vomiting, diffuse abdominal pain, diarrhea. She describes the pain in the abdomen is diffuse, 7/10, nonradiating, associated with significant nausea and vomiting, some diarrhea. The vomiting diarrhea or nonbloody. She denies any fever chills, feels hot. Denies any chest pain, no shortness of breath. Complaining of epigastric pain with movement. Reports urinary retention, she thinks because she is anxious. Denies any lower extremity edema. On arrival to the ED patient hemodynamically stable with no significant abnormal vitals except for heart rate in the 130s Labs are significant for WBC count of 8, INR of 1.7, chloride 95, lactic acid of 7.7, magnesium of 1.4, total bili of 12.3, AST of 136, ALT of 42, alk-phos of 131, troponin negative, min of 3.6, UA positive for leukocyte Estrace, nitrates, and WBC Abdominal ultrasound showed mild dilatation of intrahepatic bile ducts not definitely identified on previous imaging, improvement of CBD dilatation. Chest x-ray negative This was discussed with GI, patient will be will be admitted for further management Review of Systems Review of Systems: Yes all other systems are reviewed and are negative [facility] Medical History Alcoholic liver disease Anxiety Impaired glucose tolerance Insomnia Left ankle pain Opioid dependence on agonist therapy Physical exam Smoker Family History Father Hypertension Substance use disorder Mother Medical history unknown Maternal Grandfather Cancer Family/Other FH: mental illness Mental health disorder Surgical History H/O right wrist surgery History of arthroplasty of left knee Social History Household Members: Family Housing: House Alcohol intake: current Patient Tobacco Use Status: Former Tobacco user Tobacco use type: Cigarette e-Cigarette/Vaping Use: Never Used Second Hand Smoke Exposure: No Advance Directives: No Advance Directives Information Provided: No service: No 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al status: unemployed and disabled Meds Allergies Allergy/AdvReac Type Severity Reaction Status Date / Time pentoxifylline Allergy Intermediate Rash Verified 08/31/21 13:21 phenobarbital Allergy Diarrhea Verified 11/12/21 19:49 Active Medications: Current Medications Acetaminophen (Acetaminophen 325 Mg Tablet) 650 mg PO Q6H PRN PRN Reason: Pain, Mild (Pain Scale 1-3) Docusate Sodium (Docusate Sodium 100 Mg Capsule) 100 mg PO DAILY PRN PRN Reason: Constipation Enoxaparin Sodium (Enoxaparin Sodium 40 Mg/0.4 Ml Syringe) 40 mg SUBCUT Q24H [facility] Last Admin: 05/11/22 22:25 Dose: 40 mg Lactated Ringer's (Lr) 1,000 mls @ 100 mls/hr IVCONT .Q10H [facility] Last Admin: 05/11/22 22:55 Dose: 100 mls/hr Lorazepam (Lorazepam 1 Mg Tablet) 1 mg PO Q4H [facility]; Taper Stop: 05/15/22 23:44 Last Admin: 05/11/22 23:55 Dose: 1 mg Lorazepam (Lorazepam 1 Mg Tablet) 1 mg PO Q4H PRN PRN Reason: Breakthrough alcohol withdrawa Stop: 05/15/22 21:40 Ondansetron HCl (Ondansetron Hcl 4 Mg/2 Ml Vial) 4 mg IVPUSH Q8H PRN PRN Reason: Nausea and Vomiting Pharmacy Consult (Consult Rx Perform Med Rec) 1 each MISCELLANE ONCE PRN PRN Reason: Consult order Prednisolone Sodium Phosphate (Prednisolone Sodium Phosphate 15 Mg/5 Ml Solution) 40 mg PO DAILY [facility] Last Admin: 05/11/22 20:11 Dose: 40 mg Prednisolone Sodium Phosphate (Prednisolone Sodium Phosphate 15 Mg/5 Ml Solution) 40 mg PO DAILY [facility] Sodium Chloride (0.9 % Sodium Chloride Flush 3 Ml Syringe) 3 ml IVFLUSH QSHIFT [facility] Home Medications Medication Instructions Recorded Confirmed Last Taken Type methadone 10 mg/mL oral concentrate 90 mg PO DAILY 02/16/21 11/12/21 Unknown History Physical Exam Vital Signs and Narrative: Vital Signs: Last Vital Signs Temp 99.4 F 05/11/22 22:29 Pulse 131 H 05/11/22 22:29 Resp 19 05/11/22 22:29 BP 135/70 05/11/22 22:29 Pulse Ox 96 05/11/22 22:29 O2 Del Method 05/11/22 22:29 BMI result Body Mass Index 27.2 Const: General: cooperative and no acute distress Orientation/consciousness: patient oriented x3 Eyes: General: appearance normal, both eyes and all related structures Pupils: Equal, round and reactive pupils present Resp: Effort & Inspection: normal respiratory effort and able to speak in complete sentences Cardio: Rate: regular rate Rhythm: regular rhythm GI: Other: Abdomen is slightly distended and tender to deep palpation, no rebound or guarding Palpation (GI): Soft to palpation Auscultation: normal bowel sounds Skin: Other: Jaundice General skin exam: no rashes or lesions noted Neuro: General: patient oriented x3 Cranial nerves: Yes Equal, round and reactive pupils present Cognition (Neuro): normal cognition Extrem: General: Yes normal to inspection and Yes no pedal edema Results Labs CBC and Chem 7: 05/11/22 18:01 05/11/22 18:01 Labs: Laboratory Results - last 24 hr 05/11/22 05/11/22 05/11/22 18:01 18:01 18:01 MCV 93.6 MCH 35.0 H MCHC 37.4 H RDW 15.9 Plt Count 42 L MPV 10.1 Immature Gran % (Auto) 1.0 H Neut % (Auto) 85.7 H Lymph % (Auto) 8.3 L [place] % (Auto) 4.5 Eos % (Auto) 0.0 Baso % (Auto) 0.5 Lymph # (Auto) 0.7 L [place] # (Auto) 0.4 Eos # (Auto) 0.0 Baso # (Auto) 0.0 Abs Immat Gran (auto) 0.08 H Absolute Neuts (auto) 6.8 Absolute Nucleated RBC 0.050 H Nucleated RBC % (auto) 0.6 H PT 20.0 H INR 1.7 H APTT 31.2 Anion Gap 27 H Estim Creat Clear Calc 161.5 Estimated GFR > 60 Random Glucose 133 H Lactic Acid Calcium 7.9 L D Magnesium 1.4 L* Total Bilirubin 12.3 H Direct Bilirubin 6.1 H AST 136 H ALT 42 H Alkaline Phosphatase 131 H Troponin I High Sens Total Protein 8.0 Albumin 3.6 Lipase 135 H Urine Color Urine Appearance Urine pH Ur Specific [place] Urine Protein Urine Glucose (UA) Urine Ketones Urine Blood Urine Nitrite Ur Leukocyte Esterase Urine RBC Urine WBC Ur Squamous Epith Cells Urine Bacteria Hyaline Casts Ethyl Alcohol 253 COVID-19 (LARRY) COVID-19 Clin Com 05/11/22 05/11/22 05/11/22 18:01 18:01 21:33 MCV MCH MCHC RDW Plt Count MPV Immature Gran % (Auto) Neut % (Auto) Lymph % (Auto) [place] % (Auto) Eos % (Auto) Baso % (Auto) Lymph # (Auto) [place] # (Auto) Eos # (Auto) Baso # (Auto) Abs Immat Gran (auto) Absolute Neuts (auto) Absolute Nucleated RBC Nucleated RBC % (auto) PT INR APTT Anion Gap Estim Creat Clear Calc Estimated GFR Random Glucose Lactic Acid 7.7 H* Calcium Magnesium Total Bilirubin Direct Bilirubin AST ALT Alkaline Phosphatase Troponin I High Sens < 3.5 Total Protein Albumin Lipase Urine Color Urine Appearance Urine pH Ur Specific [place] Urine Protein Urine Glucose (UA) Urine Ketones Urine Blood Urine Nitrite Ur Leukocyte Esterase Urine RBC Urine WBC Ur Squamous Epith Cells Urine Bacteria Hyaline Casts Ethyl Alcohol COVID-19 (LARRY) Negative COVID-19 Clin Com See Note 05/11/22 22:38 MCV MCH MCHC RDW Plt Count MPV Immature Gran % (Auto) Neut % (Auto) Lymph % (Auto) [place] % (Auto) Eos % (Auto) Baso % (Auto) Lymph # (Auto) [place] # (Auto) Eos # (Auto) Baso # (Auto) Abs Immat Gran (auto) Absolute Neuts (auto) Absolute Nucleated RBC Nucleated RBC % (auto) PT INR APTT Anion Gap Estim Creat Clear Calc Estimated GFR Random Glucose Lactic Acid Calcium Magnesium Total Bilirubin Direct Bilirubin AST ALT Alkaline Phosphatase Troponin I High Sens Total Protein Albumin Lipase Urine Color [place] A Urine Appearance Cloudy Urine pH 5.5 Ur Specific [place] 1.025 Urine Protein 100 (2+) H Urine Glucose (UA) Negative Urine Ketones Negative Urine Blood Small (1+) H Urine Nitrite Positive H Ur Leukocyte Esterase Small (1+) H Urine RBC 3-5 H Urine WBC 0-5 Ur Squamous Epith Cells 3-5 Urine Bacteria 4+ Hyaline Casts 0-2 Ethyl Alcohol COVID-19 (LARRY) COVID-19 Clin Com Imaging Radiologist's Impressions: Impressions Chest X-Ray 05/11/22 17:23 IMPRESSION: No acute pulmonary disease. Abdomen Ultrasound 05/11/22 18:15 IMPRESSION: 1. Increased echogenicity and heterogeneity of the liver parenchyma, which is nonspecific and could be seen in the setting of hepatic steatosis. 2. Mild dilatation of intrahepatic bile ducts, not definitely identified on 11/12/2021. If choledocholithiasis or other obstructive abnormalities suspected, recommend correlation with MR/MRCP. 3. Previous described dilatation of the CBD is not visualized in this examination, however some portions of the CBD are obscured by overlying bowel gas. Assessment and Plan (1) Acute alcoholic hepatitis: Status: Acute (2) Alcohol use disorder, severe, dependence: Status: Acute (3) Alcohol withdrawal: Status: Acute (4) Hypomagnesemia: Status: Acute (5) Hyperbilirubinemia: Status: Acute (6) Tachycardia: Status: Acute (7) UTI (urinary tract infection): Status: Acute Plan 37-year-old female with past medical history of alcohol abuse presents to the hospital with nausea vomiting alcohol withdrawal, and abnormal LFTs in it for acute alcoholic hepatitis # acute alcoholic hepatitis - elevated bilirubin, jaundice, abdominal pain, nausea vomiting, abnormal LFTs - has in elevated maddrey score of 43 - case was discussed with Gastroenterology, recommended starting prednisolone and high-protein diet - follow LFTs - GI on consult # alcohol abuse with withdrawal - currently going through withdrawals - will treat with lorazepam protocol due to her history of side effects on phenobarb - monitor withdrawal symptoms - thiamine and folic acid # hypomagnesemia - repleted - follow Mag level # lactic acidosis - likely secondary to liver failure - does have UTI with no evidence of sepsis otherwise - I do not believe the patient has severe sepsis and lactic acid is likely due to liver failure and therefore will not be giving the 30 cc IV fluids as patient has liver cirrhosis and will likely going to volume overload - will treat with IV fluids, follow lactic acid # tachycardia - likely secondary to abdominal pain, as well as withdrawal from alcohol and opioids - not secondary to sepsis or severe sepsis - will treat underlying alcohol withdrawal, with improvement in her heart rate # acute UTI - IV antibiotics - follow cultures # history of opioid abuse - continue methadone DVT prophylaxis: Lovenox Patient require minimum 2 night inpatient hospital stay for management of acute alcoholic hepatitis Quality Stroke Does the patient have a stroke diagnosis?: No VTE Prior VTE?: No VTE Risk Level:: Medical - moderate - high VTE Device Contraindication: Treatment Not Indicated VTE Drug Contraindication: N/A - Med Ordered
[2022-05-12] VITALS (7 sets, daily range): BP systolic 124–155; BP diastolic 66–88; PULSE 84–120; RESP 16–19; TEMP 36.8–37.5; O2SAT 92–100
[2022-05-12] MEDS: cefTRIAXone sodium 1 GM in 0.9 % Sodium Chloride 50 ML IV ×2 (00:47→21:59)
[2022-05-12] MEDS: 0.9 % Sodium Chloride Flush 3 ML SYRINGE IVFLUSH ×2 (00:47→08:13)
[2022-05-12 02:05] LABS: Reflex Lactate? 2 Y
[2022-05-12] MEDS: ondansetron HCL 4 MG/2 ML VIAL IVPUSH (02:31)
[2022-05-12] MEDS: LORazepam 1 MG TABLET PO (02:31)
[2022-05-12 02:41] LABS: ~Lactic Acid-LAB USE ONLY 5.6 mmol/L (0.5-2.0)
[2022-05-12] MEDS: LORazepam 1 MG TABLET 0.5 MG PO ×5 (04:39→19:56)
--- NOTE | 2022-05-12 06:47 | PC.NURSE ---
Methadone dose confirmed with [facility]. Spoke to Mel Duran LPN and confirmed pt.'s Methadone dose of 90mg/daily. Methadone form completed by this RN and scanned to pharmacy at 06:45am.
[2022-05-12 07:05] LABS: MANUAL DIFF FLAG NO
[2022-05-12 07:18] LABS: Basophils Percent Auto 0.4 % (0-2); Eosinophils Percent Auto 0.1 % (0-4); Imm Gran Abs Auto 0.04 X10*3/uL (0.00-0.03); Imm Gran Pct Auto 0.6 % (0.0-0.4); Lymphocytes Absolute Auto 0.8 X10*3/uL (1.2-4.9); Lymphocytes Percent Auto 10.5 % (20-40); Mean Corpuscular HGB Conc 36.2 g/dl (31.0-35.0); Mean Corpuscular Hemoglobin 34.5 pg (27.0-33.0); Mean Corpuscular Volume 95.5 fL (80.0-98.0); Mean Platelet Volume 10.5 fL (9.4-12.3); Monocytes Absolute Auto 0.8 X10*3/uL (0.1-1.2); Monocytes Percent Auto 10.4 % (2-11); Neutrophils Absolute Auto 5.6 x10*3/uL (2.0-8.3); Red Cell Distribution Width 15.9 % (11.0-16.0); White Blood Count 7.2 X10*3/uL (4.8-10.8)
[2022-05-12 07:21] LABS: Hemoglobin 11.4 g/dl (12.0-16.0); Platelet Count 28 X10*3/uL (160-400)
[2022-05-12 07:22] LABS: Hematocrit 31.5 % (37.0-47.0)
[2022-05-12 07:54] LABS: Anion Gap 17 (12-20); Blood Urea Nitrogen 12 mg/dL (9-16); Calcium 7.6 mg/dL (8.4-10.2); Carbon Dioxide 26 mmol/L (22-29); Chloride 93 mmol/L (96-108); Creatinine Clr Calc Pharmacy 173.4; Estimated Glomerular Filt Rate > 60; Glucose Random 89 mg/dL (60-115); Magnesium 1.4 mg/dL (1.6-2.6); Potassium 2.8 mmol/L (3.3-5.1); Sodium 133 mmol/L (135-145)
--- NOTE | 2022-05-12 08:00 | PC.NURSE ---
pt is a/o x 4 no sob/richar noted speaks in full sentences. lungs - cta. essence scelera yellow, pt's skin slightly jaundice. abd distended, soft and non-tender., pt c./o epigrastic pain/disc and slight nausea requesting her methadone 90mg po. no edema noted.pt aware of plan of care.
--- NOTE | 2022-05-12 08:00 | PC.NURSE ---
patient refuse breakfast.
--- NOTE | 2022-05-12 08:00 | HE.PHANOTE ---
methadone verification received confirmed by Fabi Cortez at [facility] at 90 mg daily.
[2022-05-12] MEDS: Thiamine HCL 100 MG in 0.9 % Sodium Chloride 100 ML 202 MG IV ×2 (08:13→21:09)
[2022-05-12] MEDS: prednisoLONE sodium phosphate 15 MG/5 ML SOLUTION 40 MG PO (08:14)
--- NOTE | 2022-05-12 08:26 | P.CNGI_ITS ---
History of Present Illness Data of Consult Service Date: 05/12/22 Requesting physician: Beverley Kapadia Primary Care Provider: Samantha Mohan MD HPI Reason for consult: alcoholic hepatitis 37-year-old female with past medical history of alcohol abuse, history of withdrawal seizures, opioid use disorder on methadone, history of alcoholic hepatitis, anxiety, gallstones and ERCP who I am seeing for concern for alcoholic hepatitis. Patient has been drinking 30 nips of vodka daily for several months as well as intermittent use of heroin IV or by snorting (says she has been Hep c neg in past) . now last 3 d she has been having 8/10 well localized epigastric pain w/o radiation with non bilious emesis, and non bloody diarrheal stools. She has been unable to maintain PO intake. She is trying to pass urine but cant pass it. She denies fevers or chills, and no dysuria, bruising or nose bleeds. Denies any chest pain, no shortness of breath.?Denies any lower extremity edema.? Labs : WBC count of 8, INR of 1.7, chloride 95, lactic acid of 7.7, magnesium of 1.4, total bili of 12.3, AST of 136, ALT of 42, alk-phos of 131, troponin negative, UA positive for leukocyte Estrace, nitrates, and WBC IMAGING: Abdominal ultrasound showed mild dilatation of intrahepatic bile ducts Chest x-ray negative Review of Systems Review of Systems: Constitutional : No Weight loss, No Fever, No Chills ENT/Mouth : No sore throat, No Rhinorrhea Eyes: No Swelling, No Redness Cardiovascular : No Chest Pain, No SOB, No Edema Respiratory : No Cough, No Sputum, No Wheezing Gastrointestinal : see HPI Genitourinary : NO Dysuria, No Urinary Frequency, No Hematuria, + Urgency Musculoskeletal : No joint pain, No Myalgias, No Joint Swelling Skin : No Skin Lesions, No rash Neuro : No Weakness, No Numbness, No Dizziness, No Headache Psych : No Anxiety/Panic, No Depression Heme/Lymph: No Bruising, No Lymphadenopathy Endocrine : No Polyuria, No Polydipsia All other systems reviewed and are negative. [facility] Past Medical History Medical History Alcoholic liver disease Anxiety Impaired glucose tolerance Insomnia Left ankle pain Opioid dependence on agonist therapy Physical exam Smoker Family History Family History Father Hypertension Substance use disorder Mother Medical history unknown Maternal Grandfather Cancer Family/Other FH: mental illness Mental health disorder Surgical History Surgical History H/O right wrist surgery History of arthroplasty of left knee Social History Social History Household Members: Family Housing: House Do you presently have visiting nurse or other home services: No Alcohol intake: current Patient Tobacco Use Status: Former Tobacco user Tobacco use type: Cigarette e-Cigarette/Vaping Use: Never Used Second Hand Smoke Exposure: No Substance Use Type: Heroin service: No 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al status: unemployed and disabled Meds Allergies Allergy/AdvReac Type Severity Reaction Status Date / Time pentoxifylline Allergy Intermediate Rash Verified 08/31/21 13:21 phenobarbital Allergy Diarrhea Verified 11/12/21 19:49 Active Medications: Current Medications Acetaminophen (Acetaminophen 325 Mg Tablet) 650 mg PO Q12H PRN PRN Reason: Pain, Mild (Pain Scale 1-3) Docusate Sodium (Docusate Sodium 100 Mg Capsule) 100 mg PO DAILY PRN PRN Reason: Constipation Enoxaparin Sodium (Enoxaparin Sodium 40 Mg/0.4 Ml Syringe) 40 mg SUBCUT Q24H [facility] Last Admin: 05/11/22 22:25 Dose: 40 mg Lactated Ringer's (Lr) 1,000 mls @ 100 mls/hr IVCONT .Q10H [facility] Last Admin: 05/11/22 22:55 Dose: 100 mls/hr Ceftriaxone Sodium 1 gm/ (Sodium Chloride) 50 mls @ 100 mls/hr IV DAILY@2200 [facility] Last Infusion: 05/12/22 07:07 Dose: Infused Thiamine HCl 100 mg/ Sodium (Chloride) 101 mls @ 202 mls/hr IV BID [facility] Last Admin: 05/12/22 08:13 Dose: 202 mls/hr Lorazepam (Lorazepam 1 Mg Tablet) 1 mg PO Q4H PITA; Taper Stop: 05/15/22 23:44 Last Admin: 05/12/22 08:13 Dose: 1 mg Lorazepam (Lorazepam 1 Mg Tablet) 1 mg PO Q4H PRN PRN Reason: Breakthrough alcohol withdrawa Stop: 05/15/22 21:40 Last Admin: 05/12/22 02:31 Dose: 1 mg Ondansetron HCl (Ondansetron Hcl 4 Mg/2 Ml Vial) 4 mg IVPUSH Q8H PRN PRN Reason: Nausea and Vomiting Last Admin: 05/12/22 02:31 Dose: 4 mg Pharmacy Consult (Consult Rx Perform Med Rec) 1 each MISCELLANE ONCE PRN PRN Reason: Consult order Prednisolone Sodium Phosphate (Prednisolone Sodium Phosphate 15 Mg/5 Ml Soluti on) 40 mg PO DAILY [facility] Last Admin: 05/12/22 08:14 Dose: 40 mg Sodium Chloride (0.9 % Sodium Chloride Flush 3 Ml Syringe) 3 ml IVFLUSH QSHIFT [facility] Last Admin: 05/12/22 08:13 Dose: 3 ml Home Medications Medication Instructions Recorded Confirmed Last Taken Type methadone 10 mg/mL oral concentrate 90 mg PO DAILY 02/16/21 05/12/22 Unknown History Physical Exam Vital Signs: Vital Signs: Last Vital Signs Temp 98.9 F 05/12/22 06:00 Pulse 113 H 05/12/22 06:00 Resp 18 05/12/22 06:00 BP 124/66 05/12/22 06:00 Pulse Ox 93 05/12/22 06:00 O2 Del Method 05/12/22 06:00 BMI result Body Mass Index 27.2 EXAM: GENERAL: The patient is uncomfortable, jaundiced VITAL SIGNS:see workflow HEENT: icteric sclerae, PERRLA, EOMI. Oropharynx clear. Moist mucous membranes. Conjunctivae appear well perfused. No thyroid mass. CHEST: Chest wall is nontender. HEART: Regular rate and rhythm without murmurs. LUNGS: Clear to auscultation bilaterally. ABDOMEN: Soft, positive bowel sounds, mild tender epigastrium, no organomegaly.no flank tenderness SKIN: No rash, no excessive bruising, petechiae, or purpura. NEUROLOGIC: Cranial nerves II-XII intact without motor/sensory deficit. Psych-nml affect Results Labs CBC & Chem 7: 05/13/22 05:22 05/14/22 07:47 Labs: Short CBC 05/11/22 05/12/22 Range/Units 18:01 06:44 WBC 8.0 7.2 (4.8-10.8) X10*3/uL Hgb 14.7 11.4 L D (12.0-16.0) g/dl Hct 39.3 31.5 L (37.0-47.0) % Plt Count 42 L 28 L D (160-400) X10*3/uL BMP 05/11/22 05/12/22 18:01 06:44 Sodium 138 133 L Potassium 3.5 2.8 L Chloride 95 L 93 L Carbon Dioxide 20 L 26 BUN 11 D 12 Creatinine 0.58 0.54 Calcium 7.9 L D 7.6 L Liver Function 05/11/22 Range/Units 18:01 Total Bilirubin 12.3 H (0.0-1.0) mg/dL Direct Bilirubin 6.1 H (0.0-0.5) mg/dL AST 136 H (5-31) U/L ALT 42 H (0-31) U/L Alkaline Phosphatase 131 H (39-117) U/L Albumin 3.6 (3.5-5.0) g/dL Urine 05/11/22 Range/Units 22:38 Urine Color [place] A Urine Appearance Cloudy Urine pH 5.5 (5.0-9.0) Ur Specific [place] 1.025 (1.005-1.025) Urine Protein 100 (2+) H (Neg-Trace) mg/dL Urine Glucose (UA) Negative (Negative) mg/dL Assessment and Plan (1) Alcohol use disorder, severe, dependence: Status: Acute (2) Acute alcoholic hepatitis: Status: Acute Plan 1/ suspected alcoholic hepatitis, may also have alcoholic gastritis 2/ possible UTI 3/substance abuse incl heroin use PLAN: 1/ would hold steroids given pos UA and until we make sure she doesnt have acute hep b or c 2/ check hep a,b,c screen incl pcr (had pos Ab this year, no PCR) 3/ treat UTI 4/ check acetaminophen level for completeness 5/push PO nutrition, high protein intake 1.1g/kg daily, this is more important than steroids-- 6/ scheduled anti emetics and PPI -* 7/ consider addiction medicine consult +++++++++++++++++ Procedures Date of Service Date of Service: 05/15/22
--- NOTE | 2022-05-12 08:36 | PC.NURSE ---
dr. vera at bedside pt aware of plan of care.
--- NOTE | 2022-05-12 08:42 | HE.PHANOTE ---
METHADONE CONFIRMATION RECEIVED DOCUMENTATION 05/12 FROM [facility]
[2022-05-12] MEDS: methADONE HCl 20 MG/2 ML ORAL.CONC 90 MG PO (09:08)
[2022-05-12] MEDS: Folic Acid 1 MG TABLET PO (09:10)
[2022-05-12] MEDS: Potassium Chloride Packet 20 MEQ PACKET 40 MEQ PO (09:10)
[2022-05-12] MEDS: Phytonadione (Vit K1) Oral 10 MG/ML AMPUL PO (09:13)
[2022-05-12] MEDS: Magnesium Sulfate/H2O 2 GM/50 ML PIGGYBACK IV (09:15)
[2022-05-12 09:26] LABS: Alanine Aminotransferase 36 U/L (0-31); Albumin Level 3.1 g/dL (3.5-5.0); Alkaline Phosphatase 103 U/L (39-117); Aspartate Amino Transferase 104 U/L (5-31); Bilirubin Direct 5.4 mg/dL (0.0-0.5); Bilirubin Total 10.8 mg/dL (0.0-1.0); Total Protein 6.5 g/dL (6.5-8.0)
--- NOTE | 2022-05-12 10:03 | MHC.CM.PN ---
EMR REVIEWED, PT ADMITTED W/ETOH WITHDRAWAL, PT BAL 253 ON 05/11, CM MET W/PT WHO REPORTS SHE STILL LIVES W/PARENTS AND NOTHING HAS CHANGED. 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 PT REPORTS SHE IS CONSIDERING INPT ETOH TX AND RECOVERY TEAM TO FOLLOW. PT REPORTS HER MOTHER IS HER HCP FLORENCIA [phone]. DC PLAN: HOME W/PARENTS VS INPT TX PROGRAM, TRANSPORT PENDING DISPO
[2022-05-12] MEDS: Lactated Ringers 1,000 ML 100 ML IVCONT ×2 (10:31→19:59)
--- NOTE | 2022-05-12 10:32 | PC.NURSE ---
drt. chau at bedside pt aware of plan of care.
--- NOTE | 2022-05-12 11:01 | PC.NURSE ---
pt to ed overflow unit, rn to rn report given to celia.
[2022-05-12] MEDS: Potassium Chloride/H20 10 MEQ/100 ML PIGGYBACK 100 MEQ IV ×2 (11:12→12:18)
--- NOTE | 2022-05-12 17:19 | P.PNIM_ITS ---
Subjective Subjective Date of Service: 05/12/22 Interval History: Alcohol withdrawal, nausea vomiting Review of Systems patient is still anxious and tremulous, nausea vomiting is improving, denies any chest pain or shortness of breath. Physical Exam Vital Signs: Vital Signs: Last Vital Signs Temp 98.7 F 05/12/22 11:45 Pulse 98 05/12/22 11:45 Resp 18 05/12/22 11:45 BP 152/75 H 05/12/22 11:45 Pulse Ox 96 05/12/22 11:45 O2 Del Method 05/12/22 11:45 BMI result Body Mass Index 27.2 Appearance: Alert.? Oriented X3.? cvs: rrr, [id number] , no murmur res: clear to auscultation ,no rhonchii or wheezing abd: no rebound or guarding ,nt, bs present. ext pulses present , no cyanosis. neuro: axo3 , nonfocal. Tremulous and anxious Objective Data Active Medications Acetaminophen (Acetaminophen 325 Mg Tablet) 650 mg PO Q12H PRN PRN Reason: Pain, Mild (Pain Scale 1-3) Docusate Sodium (Docusate Sodium 100 Mg Capsule) 100 mg PO DAILY PRN PRN Reason: Constipation Enoxaparin Sodium (Enoxaparin Sodium 40 Mg/0.4 Ml Syringe) 40 mg SUBCUT Q24H [facility] Last Admin: 05/11/22 22:25 Dose: 40 mg Documented By: ARSH Folic Acid (Folic Acid 1 Mg Tablet) 1 mg PO DAILY [facility] Last Admin: 05/12/22 09:10 Dose: 1 mg Documented By: JANES Lactated Ringer's (Lr) 1,000 mls @ 100 mls/hr IVCONT .Q10H [facility] Last Admin: 05/12/22 10:31 Dose: 100 mls/hr Documented By: JANES Ceftriaxone Sodium 1 gm/ (Sodium Chloride) 50 mls @ 100 mls/hr IV DAILY@2200 [facility] Last Infusion: 05/12/22 07:07 Dose: 100 mls/hr Documented By: KENAN Thiamine HCl 100 mg/ Sodium (Chloride) 101 mls @ 202 mls/hr IV BID [facility] Last Infusion: 05/12/22 08:45 Dose: 0 mls/hr Documented By: JANES Lorazepam (Lorazepam 1 Mg Tablet) 1 mg PO Q4H [facility]; Taper Stop: 05/15/22 23:44 Last Admin: 05/12/22 16:52 Dose: 1 mg Documented By: DEB Lorazepam (Lorazepam 1 Mg Tablet) 1 mg PO Q4H PRN PRN Reason: Breakthrough alcohol withdrawa Stop: 05/15/22 21:40 Last Admin: 05/12/22 02:31 Dose: 1 mg Documented By: ARSH Methadone HCl (Methadone Hcl 20 Mg/2 Ml Oral.Conc) 90 mg PO DAILY [facility] Last Admin: 05/12/22 09:08 Dose: 90 mg Documented By: JANES Ondansetron HCl (Ondansetron Hcl 4 Mg/2 Ml Vial) 4 mg IVPUSH Q8H PRN PRN Reason: Nausea and Vomiting Last Admin: 05/12/22 02:31 Dose: 4 mg Documented By: ARSH Pharmacy Consult (Consult Rx Perform Med Rec) 1 each MISCELLANE ONCE PRN PRN Reason: Consult order Prednisolone Sodium Phosphate (Prednisolone Sodium Phosphate 15 Mg/5 Ml Solution) 40 mg PO DAILY [facility] Last Admin: 05/12/22 08:14 Dose: 40 mg Documented By: JANES Sodium Chloride (0.9 % Sodium Chloride Flush 3 Ml Syringe) 3 ml IVFLUSH QSHIFT [facility] Last Admin: 05/12/22 13:43 Dose: Not Given Documented By: DEB Non-Admin Reason: IV Running Labs CBC & Chem 7: 05/12/22 06:44 05/12/22 06:44 Labs: Laboratory Results - last 24 hr 05/11/22 05/11/22 05/11/22 18:01 18:01 18:01 MCV 93.6 MCH 35.0 H MCHC 37.4 H RDW 15.9 Plt Count 42 L MPV 10.1 Immature Gran % (Auto) 1.0 H Neut % (Auto) 85.7 H Lymph % (Auto) 8.3 L [place] % (Auto) 4.5 Eos % (Auto) 0.0 Baso % (Auto) 0.5 Lymph # (Auto) 0.7 L [place] # (Auto) 0.4 Eos # (Auto) 0.0 Baso # (Auto) 0.0 Abs Immat Gran (auto) 0.08 H Absolute Neuts (auto) 6.8 Absolute Nucleated RBC 0.050 H Nucleated RBC % (auto) 0.6 H PT 20.0 H INR 1.7 H APTT 31.2 Anion Gap 27 H Estim Creat Clear Calc 161.5 Estimated GFR > 60 Random Glucose 133 H Lactic Acid Lactic Acid F/U @ 2Hr Lactic Acid F/U @ 4Hr Calcium 7.9 L D Magnesium 1.4 L* Total Bilirubin 12.3 H Direct Bilirubin 6.1 H AST 136 H ALT 42 H Alkaline Phosphatase 131 H Troponin I High Sens Total Protein 8.0 Albumin 3.6 Lipase 135 H Urine Color Urine Appearance Urine pH Ur Specific [place] Urine Protein Urine Glucose (UA) Urine Ketones Urine Blood Urine Nitrite Ur Leukocyte Esterase Urine RBC Urine WBC Ur Squamous Epith Cells Urine Bacteria Hyaline Casts Ethyl Alcohol 253 COVID-19 (LARRY) [employer] 05/11/22 05/11/22 05/11/22 18:01 18:01 21:33 MCV MCH MCHC RDW Plt Count MPV Immature Gran % (Auto) Neut % (Auto) Lymph % (Auto) [place] % (Auto) Eos % (Auto) Baso % (Auto) Lymph # (Auto) [place] # (Auto) Eos # (Auto) Baso # (Auto) Abs Immat Gran (auto) Absolute Neuts (auto) Absolute Nucleated RBC Nucleated RBC % (auto) PT INR APTT Anion Gap Estim Creat Clear Calc Estimated GFR Random Glucose Lactic Acid 7.7 H* Lactic Acid F/U @ 2Hr Lactic Acid F/U @ 4Hr Calcium Magnesium Total Bilirubin Direct Bilirubin AST ALT Alkaline Phosphatase Troponin I High Sens < 3.5 Total Protein Albumin Lipase Urine Color Urine Appearance Urine pH Ur Specific [place] Urine Protein Urine Glucose (UA) Urine Ketones Urine Blood Urine Nitrite Ur Leukocyte Esterase Urine RBC Urine WBC Ur Squamous Epith Cells Urine Bacteria Hyaline Casts Ethyl Alcohol COVID-19 (LARRY) Negative [employer] See Note 05/11/22 05/12/22 05/12/22 22:38 00:01 02:21 MCV MCH MCHC RDW Plt Count MPV Immature Gran % (Auto) Neut % (Auto) Lymph % (Auto) [place] % (Auto) Eos % (Auto) Baso % (Auto) Lymph # (Auto) [place] # (Auto) Eos # (Auto) Baso # (Auto) Abs Immat Gran (auto) Absolute Neuts (auto) Absolute Nucleated RBC Nucleated RBC % (auto) PT INR APTT Anion Gap Estim Creat Clear Calc Estimated GFR Random Glucose Lactic Acid Lactic Acid F/U @ 2Hr 6.0 H* Lactic Acid F/U @ 4Hr 5.6 H* Calcium Magnesium Total Bilirubin Direct Bilirubin AST ALT Alkaline Phosphatase Troponin I High Sens Total Protein Albumin Lipase Urine Color [place] A Urine Appearance Cloudy Urine pH 5.5 Ur Specific [place] 1.025 Urine Protein 100 (2+) H Urine Glucose (UA) Negative Urine Ketones Negative Urine Blood Small (1+) H Urine Nitrite Positive H Ur Leukocyte Esterase Small (1+) H Urine RBC 3-5 H Urine WBC 0-5 Ur Squamous Epith Cells 3-5 Urine Bacteria 4+ Hyaline Casts 0-2 Ethyl Alcohol COVID-19 (LARRY) COVID-19 Clin Com 05/12/22 05/12/22 06:44 06:44 MCV 95.5 MCH 34.5 H MCHC 36.2 H RDW 15.9 Plt Count 28 L D MPV 10.5 Immature Gran % (Auto) 0.6 H Neut % (Auto) 78.0 H Lymph % (Auto) 10.5 L [place] % (Auto) 10.4 Eos % (Auto) 0.1 Baso % (Auto) 0.4 Lymph # (Auto) 0.8 L [place] # (Auto) 0.8 Eos # (Auto) 0.0 Baso # (Auto) 0.0 Abs Immat Gran (auto) 0.04 H Absolute Neuts (auto) 5.6 Absolute Nucleated RBC 0.070 H Nucleated RBC % (auto) 1.0 H PT INR APTT Anion Gap 17 Estim Creat Clear Calc 173.4 Estimated GFR > 60 Random Glucose 89 Lactic Acid Lactic Acid F/U @ 2Hr Lactic Acid F/U @ 4Hr Calcium 7.6 L Magnesium 1.4 L* Total Bilirubin 10.8 H Direct Bilirubin 5.4 H AST 104 H ALT 36 H Alkaline Phosphatase 103 D Troponin I High Sens Total Protein 6.5 Albumin 3.1 L Lipase Urine Color Urine Appearance Urine pH Ur Specific [place] Urine Protein Urine Glucose (UA) Urine Ketones Urine Blood Urine Nitrite Ur Leukocyte Esterase Urine RBC Urine WBC Ur Squamous Epith Cells Urine Bacteria Hyaline Casts Ethyl Alcohol COVID-19 (LARRY) COVID-19 Clin Com Assessment and Plan (1) UTI (urinary tract infection): Status: Acute (2) Tachycardia: Status: Acute (3) Hyperbilirubinemia: Status: Acute (4) Hypomagnesemia: Status: Acute (5) Hypokalemia: Status: Acute (6) Alcohol withdrawal: Status: Acute Plan 37-year-old female with past medical history of alcohol abuse presents to the hospital with nausea vomiting alcohol withdrawal, and abnormal LFTs in it for acute alcoholic hepatitis # acute alcoholic hepatitis - elevated bilirubin, jaundice, abdominal pain, nausea vomiting, abnormal LFTs - has in elevated maddrey score of 43 - case was discussed with Gastroenterology, recommended starting prednisolone and high-protein diet - follow LFTs - GI on consult- recommended to hold the prednisone currently the question of UTI # alcohol abuse with withdrawal - currently going through withdrawals - will treat with lorazepam protocol due to her history of side effects on phenobarb - monitor withdrawal symptoms - thiamine and folic acid # hypomagnesemia and hypokalemia - repleted p.o. and IV - follow Mag and BMP in a.m. # lactic acidosis - likely secondary to liver failure - does have UTI with no evidence of sepsis otherwise - I do not believe the patient has severe sepsis and lactic acid is likely due to liver failure and therefore will not be giving the 30 cc IV fluids as patient has liver cirrhosis and will likely going to volume overload - will treat with IV fluids, follow lactic acid # tachycardia: improving - likely secondary to abdominal pain, as well as withdrawal from alcohol - not secondary to sepsis or severe sepsis continue alcohol withdrawal treatment as above # acute UTI - IV antibiotics - follow cultures # history of opioid abuse - continue methadone DVT prophylaxis:? Lovenox on goinginpatient hospital stay for management of acute alcoholic hepatitis, UTI on IV antibiotics as well as alcohol withdrawal need CIWA monitoring as well as IV Ativan. Quality Stroke Does the patient have a stroke diagnosis?: No VTE Prior VTE?: No VTE Risk Level:: Medical - moderate - high VTE Device Contraindication: Treatment Not Indicated VTE Drug Contraindication: N/A - Med Ordered
[2022-05-12] MEDS: Enoxaparin Sodium 40 MG/0.4 ML SYRINGE SUBCUT (21:10)
[2022-05-13] VITALS (7 sets, daily range): BP systolic 129–167; BP diastolic 71–89; PULSE 80–106; RESP 16–18; TEMP 36.3–37.1; O2SAT 96–97
[2022-05-13] MEDS: LORazepam 1 MG TABLET 0.5 MG PO ×4 (00:04→17:20)
[2022-05-13] MEDS: ondansetron HCL 4 MG/2 ML VIAL IVPUSH ×3 (04:15→20:14)
[2022-05-13] MEDS: Lactated Ringers 1,000 ML 100 ML IVCONT ×2 (05:52→16:29)
[2022-05-13 06:43] LABS: Hematocrit 33.4 % (37.0-47.0); Hemoglobin 12.1 g/dl (12.0-16.0); Mean Corpuscular HGB Conc 36.2 g/dl (31.0-35.0); Mean Corpuscular Hemoglobin 35.5 pg (27.0-33.0); Mean Corpuscular Volume 97.9 fL (80.0-98.0); Mean Platelet Volume 11.7 fL (9.4-12.3); Red Blood Count 3.41 X10*6/uL (4.20-5.50); Red Cell Distribution Width 16.5 % (11.0-16.0); White Blood Count 4.4 X10*3/uL (4.8-10.8)
[2022-05-13 06:56] LABS: NRBC Pct Auto 1.1 /100WBC (0.0-0.2); Platelet Count 21 X10*3/uL (160-400)
[2022-05-13 08:04] LABS: Alanine Aminotransferase 29 U/L (0-31); Albumin Level 2.9 g/dL (3.5-5.0); Alkaline Phosphatase 97 U/L (39-117); Anion Gap 11 (12-20); Aspartate Amino Transferase 78 U/L (5-31); Bilirubin Total 9.9 mg/dL (0.0-1.0); Blood Urea Nitrogen 10 mg/dL (9-16); Calcium 7.8 mg/dL (8.4-10.2); Carbon Dioxide 28 mmol/L (22-29); Chloride 102 mmol/L (96-108); Creatinine Clr Calc Pharmacy 164.3; Estimated Glomerular Filt Rate > 60; Glucose Random 70 mg/dL (60-115); Potassium 2.8 mmol/L (3.3-5.1); Sodium 138 mmol/L (135-145); Total Protein 6.5 g/dL (6.5-8.0)
[2022-05-13] MEDS: methADONE HCl 20 MG/2 ML ORAL.CONC 90 MG PO (08:21)
[2022-05-13] MEDS: Thiamine HCL 100 MG in 0.9 % Sodium Chloride 100 ML 202 MG IV ×2 (08:22→20:14)
[2022-05-13] MEDS: Folic Acid 1 MG TABLET PO (08:22)
--- NOTE | 2022-05-13 08:41 | P.CDIC_ITS ---
CDI Concurrent Query Documentation Clarification: PHYSICIAN'S DOCUMENTATION REQUEST Date of Query: 05/13/22 0842 Patient Name: Lilly José Admit Date: 05/11/22 Dear Doctor, A review of the medical record indicates additional documentation may be needed. Please review below and update the documentation accordingly. Clinical Indicators: Risk Factors/Clinical Indicators/Treatments Labs - LA 7.7 6.0 Lactic acidosis - not septic, likely secondary to liver failure. IV fluids and follow. Based on the above, could you clarify in the Progress Notes the appropriate diagnosis, if significant, that supports the above abnormalities and additional evaluation, monitoring, and/or treatment rendered: Specifics: * Acute lactic acidosis * Other (please specify) * Unable to determine Use of terms such as suspected, likely, concern for, or probable (associated with a specific diagnosis that is being evaluated, monitored, or treated as if it exists) are acceptable and can be coded in the inpatient setting, when documented at the time of discharge. Thank you, Hillary Gomez [facility], CDIS Extension: [phone] Please use your independent medical judgment in providing your response. THIS QUERY IS PART OF THE PERMANENT MEDICAL RECORD Provider Response: Other Other Diagnosis: lactic acidosis possible acute ( since no recent lactic acid levels recent)
--- NOTE | 2022-05-13 11:12 | MHC.RECOVRN ---
Briefly met with pt in 370 after consult placed to Addiction Medicine. Pt laying in bed, awake, alert, easily engages in conversation. Pt reporting nausea, requesting medication. Pt is currently on methadone, 90 mg daily. Currently living with her parents in a safe environment. Reports drinking 30 nips of vodka daily x 4 months. Prior to that, pt had a period in recovery x 10 months. Pt plans to reengage with [facility], had spoken to a recovery agent while here and a referral has been placed. Pt had been connected to the [facility] for Campral, however, states I don't want to be on too much at once. Pt denies questions or concerns at this time. Will continue to follow. Discussed with RN.
--- NOTE | 2022-05-13 11:32 | HO.PM.IMPN ---
Subjective Subjective Date of Service: 05/13/22 Interval History: Alcohol withdrawal, nausea vomiting Review of Systems patient is still anxious and tremulous, nausea vomiting is improving, denies any chest pain or shortness of breath. Physical Exam Vital Signs: Vital Signs: Last Vital Signs Temp 98.4 F 05/13/22 08:00 Pulse 93 05/13/22 08:00 Resp 18 05/13/22 08:00 BP 167/80 H 05/13/22 08:00 Pulse Ox 97 05/13/22 08:00 O2 Del Method 05/13/22 08:00 BMI result Body Mass Index 27.2 Appearance: Alert.? Oriented X3.? cvs: rrr, [id number] , no murmur res: clear to auscultation ,no rhonchii or wheezing abd: no rebound or guarding ,nt, bs present. ext pulses present , no cyanosis. neuro: axo3 , nonfocal.? Tremulous and anxious Objective Data Active Medications Acetaminophen (Acetaminophen 325 Mg Tablet) 650 mg PO Q12H PRN PRN Reason: Pain, Mild (Pain Scale 1-3) Docusate Sodium (Docusate Sodium 100 Mg Capsule) 100 mg PO DAILY PRN PRN Reason: Constipation Enoxaparin Sodium (Enoxaparin Sodium 40 Mg/0.4 Ml Syringe) 40 mg SUBCUT Q24H [facility] Last Admin: 05/12/22 21:10 Dose: 40 mg Documented By: CHAYO Folic Acid (Folic Acid 1 Mg Tablet) 1 mg PO DAILY [facility] Last Admin: 05/13/22 08:22 Dose: 1 mg Documented By: IKE Lactated Ringer's (Lr) 1,000 mls @ 100 mls/hr IVCONT .Q10H [facility] Last Admin: 05/13/22 05:52 Dose: 100 mls/hr Documented By: CHAYO Ceftriaxone Sodium 1 gm/ (Sodium Chloride) 50 mls @ 100 mls/hr IV DAILY@2200 [facility] Last Infusion: 05/12/22 22:37 Dose: 0 mls/hr Documented By: CHAYO Thiamine HCl 100 mg/ Sodium (Chloride) 101 mls @ 202 mls/hr IV BID [facility] Last Infusion: 05/13/22 10:19 Dose: 0 mls/hr Documented By: IKE Lorazepam (Lorazepam 1 Mg Tablet) 1 mg PO Q6H [facility]; Taper Stop: 05/15/22 23:44 Last Admin: 05/13/22 05:49 Dose: 1 mg Documented By: CHAYO Lorazepam (Lorazepam 1 Mg Tablet) 1 mg PO Q4H PRN PRN Reason: Breakthrough alcohol withdrawa Stop: 05/15/22 21:40 Last Admin: 05/12/22 02:31 Dose: 1 mg Documented By: ARSH Methadone HCl (Methadone Hcl 20 Mg/2 Ml Oral.Conc) 90 mg PO DAILY [facility] Last Admin: 05/13/22 08:21 Dose: 90 mg Documented By: IKE Ondansetron HCl (Ondansetron Hcl 4 Mg/2 Ml Vial) 4 mg IVPUSH Q8H PRN PRN Reason: Nausea and Vomiting Last Admin: 05/13/22 04:15 Dose: 4 mg Documented By: CHAYO Pharmacy Consult (Consult Rx Perform Med Rec) 1 each MISCELLANE ONCE PRN PRN Reason: Consult order Potassium Chloride (Potassium Chloride Packet 20 Meq Packet) 40 meq PO ONCE ONE Stop: 05/13/22 11:31 Prednisolone Sodium Phosphate (Prednisolone Sodium Phosphate 15 Mg/5 Ml Solution) 40 mg PO DAILY [facility] Last Admin: 05/12/22 08:14 Dose: 40 mg Documented By: JANES Sodium Chloride (0.9 % Sodium Chloride Flush 3 Ml Syringe) 3 ml IVFLUSH QSHIFT [facility] Last Admin: 05/13/22 07:02 Dose: Not Given Documented By: IKE Non-Admin Reason: IV Running Labs CBC & Chem 7: 05/13/22 05:22 05/13/22 05:22 Labs: Laboratory Results - last 24 hr 05/13/22 05/13/22 05:22 05:22 MCV 97.9 MCH 35.5 H MCHC 36.2 H RDW 16.5 H Plt Count 21 L MPV 11.7 Absolute Nucleated RBC 0.050 H Nucleated RBC % (auto) 1.1 H Anion Gap 11 L Estim Creat Clear Calc 164.3 Estimated GFR > 60 Random Glucose 70 Calcium 7.8 L Magnesium 2.0 Total Bilirubin 9.9 H AST 78 H ALT 29 Alkaline Phosphatase 97 Total Protein 6.5 Albumin 2.9 L Microbiology Microbiology Results: Microbiology 05/11/22 00:00 Urine Culture - Preliminary Urine Catheterized - Straight Catheter Gram negative venkat 05/11/22 21:39 Blood Culture - Preliminary Blood - Venous No growth after 24 hours. 05/11/22 21:39 Blood Culture - Preliminary Blood - Venous No growth after 24 hours. Assessment and Plan (1) Hypokalemia: Status: Acute (2) UTI (urinary tract infection): Status: Acute (3) Alcohol withdrawal: Status: Acute (4) Thrombocytopenia: Status: Acute (5) Acute alcoholic hepatitis: Status: Acute Plan 37-year-old female with past medical history of alcohol abuse presents to the hospital with nausea vomiting alcohol withdrawal, and abnormal LFTs in it for acute alcoholic hepatitis # acute alcoholic hepatitis - elevated bilirubin, jaundice, abdominal pain, nausea vomiting, abnormal LFTs - has in elevated maddrey score of 43 - case was discussed with Gastroenterology, recommended starting prednisolone and high-protein diet - follow LFTs - GI on consult- recommended to hold the prednisone currently the question of UTI # alcohol abuse with withdrawal - currently going through withdrawals - will treat with lorazepam protocol due to her history of side effects on phenobarb - monitor withdrawal symptoms - thiamine and folic acid # hypomagnesemia and hypokalemia - repleted p.o. and IV - follow Mag and BMP? in a.m. # lactic acidosis possible acute ( Unclear since no recent value of lactic acid available) - likely secondary to liver failure - does have UTI with no evidence of sepsis otherwise improvin-no further trendin unless clinical status changes. # tachycardia: improving - likely secondary to abdominal pain, as well as withdrawal from alcoholand possible opiods - not secondary to sepsis or severe sepsis ?continue alcohol withdrawal treatment as above added addiction eval-for alcoholuse /opiods use. # acute UTI - IV antibiotics - follow cultures # history of opioid abuse - continue methadone DVT prophylaxis:? Lovenox ?ongoing inpatient hospital stay for management of acute alcoholic hepatitis,? UTI on IV antibiotics as well as alcohol withdrawal need CIWA monitoring as well as IV Ativan. Quality Stroke Does the patient have a stroke diagnosis?: No VTE Prior VTE?: No VTE Risk Level:: Medical - moderate - high VTE Device Contraindication: Treatment Not Indicated VTE Drug Contraindication: N/A - Med Ordered
[2022-05-13] MEDS: Potassium Chloride Packet 20 MEQ PACKET 40 MEQ PO (12:00)
[2022-05-13] MEDS: Magnesium Oxide 400 MG TABLET 800 MG PO (12:01)
[2022-05-13] MEDS: Potassium Chloride/H20 10 MEQ/100 ML PIGGYBACK 100 MEQ IV ×2 (12:06→13:10)
[2022-05-13] MEDS: Acetaminophen 325 MG TABLET 650 MG PO (17:20)
[2022-05-13] MEDS: Enoxaparin Sodium 40 MG/0.4 ML SYRINGE SUBCUT (21:41)
[2022-05-13] MEDS: cefTRIAXone sodium 1 GM in 0.9 % Sodium Chloride 50 ML IV (21:41)
[2022-05-14] VITALS (10 sets, daily range): BP systolic 134–143; BP diastolic 77–88; PULSE 76–104; RESP 14–19; TEMP 36.6–37.2; O2SAT 96–99
[2022-05-14] MEDS: LORazepam 1 MG TABLET 0.5 MG PO ×3 (00:03→11:05)
[2022-05-14] MEDS: ondansetron HCL 4 MG/2 ML VIAL IVPUSH ×2 (05:58→21:11)
[2022-05-14] MEDS: Thiamine HCL 100 MG in 0.9 % Sodium Chloride 100 ML 202 MG IV ×2 (08:16→19:58)
[2022-05-14] MEDS: 0.9 % Sodium Chloride Flush 3 ML SYRINGE IVFLUSH ×3 (08:17→19:58)
[2022-05-14] MEDS: Magnesium Oxide 400 MG TABLET 800 MG PO (08:17)
[2022-05-14] MEDS: methADONE HCl 20 MG/2 ML ORAL.CONC 90 MG PO (08:17)
[2022-05-14] MEDS: Folic Acid 1 MG TABLET PO (08:18)
[2022-05-14 08:35] LABS: Anion Gap 11 (12-20); Blood Urea Nitrogen 6 mg/dL (9-16); Calcium 8.4 mg/dL (8.4-10.2); Carbon Dioxide 26 mmol/L (22-29); Chloride 104 mmol/L (96-108); Creatinine Clr Calc Pharmacy 139.7; Estimated Glomerular Filt Rate > 60; Glucose Random 83 mg/dL (60-115); Potassium 3.7 mmol/L (3.3-5.1); Sodium 137 mmol/L (135-145)
--- NOTE | 2022-05-14 08:38 | HO.ADDICTPRO ---
Subjective Subjective Date of Service: 05/13/22 Reason For Visit: Acute alcoholic hepatitis Interim History: Patient seen in follow up Seen earlier by Recovery Support RN. Reporting nausea and generalized malaise, otherwise no other withdrawal sx Has been drinking heavily recently Reports using heroin 2-3 days a week Engaged in methadone treatment 90mg QD Review of Systems Constitutional: Reports as per HPI Mental Status Exam Mental Status Exam Patient Orientation: Person, Place, Time and Situation Level of Consciousness: Awake and Appropriate Patient Behavior: Appropriate Mood Description: Calm Affect Description: Calm Patient Cognition Impaired: No Judgement: Fair Diagnostics Vital Signs (24Hr): Vital Signs - 24 hr 05/13/22 11:43 05/13/22 15:28 05/13/22 19:29 Temperature 97.8 F 97.5 F 97.4 F Pulse Rate 91 80 80 Respiratory Rate 18 16 16 Blood Pressure 157/89 H 129/72 137/71 Pulse Oximetry 97 96 97 Oxygen Delivery Method Room Air Room Air Room Air 05/13/22 23:31 05/14/22 03:24 05/14/22 07:57 Temperature 98.7 F 98.5 F 98.5 F Pulse Rate 83 92 96 Respiratory Rate 18 19 18 Blood Pressure 135/72 143/79 H 142/80 H Pulse Oximetry 96 98 99 Oxygen Delivery Method Room Air Room Air Room Air BMI result Body Mass Index 27.2 Labs Results: 05/13/22 05:22 05/14/22 07:47 Labs: Laboratory Results - last 48 hr 05/12/22 05/13/22 05/13/22 06:44 05:22 05:22 WBC 4.4 L RBC 3.41 L Hgb 12.1 Hct 33.4 L MCV 97.9 MCH 35.5 H MCHC 36.2 H RDW 16.5 H Plt Count 21 L MPV 11.7 Absolute Nucleated RBC 0.050 H Nucleated RBC % (auto) 1.1 H Sodium 138 Potassium 2.8 L Chloride 102 Carbon Dioxide 28 Anion Gap 11 L BUN 10 Creatinine 0.57 Estim Creat Clear Calc 164.3 Estimated GFR > 60 Random Glucose 70 Calcium 7.8 L Magnesium 2.0 Total Bilirubin 10.8 H 9.9 H Direct Bilirubin 5.4 H AST 104 H 78 H ALT 36 H 29 Alkaline Phosphatase 103 D 97 Total Protein 6.5 6.5 Albumin 3.1 L 2.9 L 05/14/22 07:47 WBC RBC Hgb Hct MCV MCH MCHC RDW Plt Count MPV Absolute Nucleated RBC Nucleated RBC % (auto) Sodium 137 Potassium 3.7 D Chloride 104 Carbon Dioxide 26 Anion Gap 11 L BUN 6 L Creatinine 0.67 Estim Creat Clear Calc 139.7 Estimated GFR > 60 Random Glucose 83 Calcium 8.4 D Magnesium Total Bilirubin Direct Bilirubin AST ALT Alkaline Phosphatase Total Protein Albumin Imaging Radiology Impressions: ITS Impressions Chest X-Ray 05/11/22 17:23 IMPRESSION: No acute pulmonary disease. Abdomen Ultrasound 05/11/22 18:15 IMPRESSION: 1. Increased echogenicity and heterogeneity of the liver parenchyma, which is nonspecific and could be seen in the setting of hepatic steatosis. 2. Mild dilatation of intrahepatic bile ducts, not definitely identified on 11/12/2021. If choledocholithiasis or other obstructive abnormalities suspected, recommend correlation with MR/MRCP. 3. Previous described dilatation of the CBD is not visualized in this examination, however some portions of the CBD are obscured by overlying bowel gas. Medications Medications Current Medications Acetaminophen (Acetaminophen 325 Mg Tablet) 650 mg PO Q12H PRN PRN Reason: Pain, Mild (Pain Scale 1-3) Docusate Sodium (Docusate Sodium 100 Mg Capsule) 100 mg PO DAILY PRN PRN Reason: Constipation Enoxaparin Sodium (Enoxaparin Sodium 40 Mg/0.4 Ml Syringe) 40 mg SUBCUT Q24H [facility] Last Admin: 05/13/22 21:41 Dose: 40 mg Folic Acid (Folic Acid 1 Mg Tablet) 1 mg PO DAILY [facility] Last Admin: 05/14/22 08:18 Dose: 1 mg Ceftriaxone Sodium 1 gm/ (Sodium Chloride) 50 mls @ 100 mls/hr IV DAILY@2200 [facility] Last Infusion: 05/13/22 22:23 Dose: Infused Thiamine HCl 100 mg/ Sodium (Chloride) 101 mls @ 202 mls/hr IV BID [facility] Last Admin: 05/14/22 08:16 Dose: 202 mls/hr Lorazepam (Lorazepam 1 Mg Tablet) 0.5 mg PO Q6H [facility]; Taper Stop: 05/15/22 23:44 Last Admin: 05/14/22 05:55 Dose: 0.5 mg Lorazepam (Lorazepam 1 Mg Tablet) 1 mg PO Q4H PRN PRN Reason: Breakthrough alcohol withdrawa Stop: 05/15/22 21:40 Last Admin: 05/12/22 02:31 Dose: 1 mg Magnesium Oxide (Magnesium Oxide 400 Mg Tablet) 800 mg PO DAILY [facility] Last Admin: 05/14/22 08:17 Dose: 800 mg Methadone HCl (Methadone Hcl 20 Mg/2 Ml Oral.Conc) 90 mg PO DAILY [facility] Last Admin: 05/14/22 08:17 Dose: 90 mg Ondansetron HCl (Ondansetron Hcl 4 Mg/2 Ml Vial) 4 mg IVPUSH Q8H PRN PRN Reason: Nausea and Vomiting Last Admin: 05/14/22 05:58 Dose: 4 mg Pharmacy Consult (Consult Rx Perform Med Rec) 1 each MISCELLANE ONCE PRN PRN Reason: Consult order Prednisolone Sodium Phosphate (Prednisolone Sodium Phosphate 15 Mg/5 Ml Solution) 40 mg PO DAILY [facility] Last Admin: 05/12/22 08:14 Dose: 40 mg Sodium Chloride (0.9 % Sodium Chloride Flush 3 Ml Syringe) 3 ml IVFLUSH QSHIFT [facility] Last Admin: 05/14/22 08:17 Dose: 3 ml Allergies Allergies Allergy/AdvReac Type Severity Reaction Status Date / Time pentoxifylline Allergy Intermediate Rash Verified 08/31/21 13:21 phenobarbital Allergy Diarrhea Verified 11/12/21 19:49 Assessment & Plan Assessment & Plan (1) Alcohol use disorder, severe, dependence: Status: Acute Code(s): F10.20 - Alcohol dependence, uncomplicated Assessment and Plan: ativan withdrawal taper (2) Opioid use disorder: Status: Acute Code(s): F11.90 - Opioid use, unspecified, uncomplicated Assessment and Plan: no change to methadone dose patient unsure what she wants to do once medically cleared RSRN will continue to follow I spent ___25___ minutes with the patient and/or on the patient floor today, greater than?50% of which was spent counseling/coordinating care.
[2022-05-14 13:15] LABS: Hepatitis A Antibody IgM 0.24 Index (0-0.79); ~Hepatitis A Antibody IgM Nonreactive (Nonreactive)
--- NOTE | 2022-05-14 14:55 | P.PNIM_ITS ---
Subjective Subjective Date of Service: 05/14/22 Interval History: Alcohol withdrawal, nausea vomiting Review of Systems nausea since somewhat improving, still anxious and mild tremulous Physical Exam Vital Signs: Vital Signs: Last Vital Signs Temp 98.8 F 05/14/22 11:43 Pulse 104 H 05/14/22 11:43 Resp 18 05/14/22 11:43 BP 134/82 05/14/22 11:43 Pulse Ox 96 05/14/22 11:43 O2 Del Method 05/14/22 11:43 BMI result Body Mass Index 27.2 Appearance: Alert.? Oriented X3.? cvs: rrr, [id number] , no murmur res: clear to auscultation ,no rhonchii or wheezing abd: no rebound or guarding ,nt, bs present. ext pulses present , no cyanosis. neuro: axo3 , nonfocal.? Tremulous and anxious Objective Data Active Medications Acetaminophen (Acetaminophen 325 Mg Tablet) 650 mg PO Q12H PRN PRN Reason: Pain, Mild (Pain Scale 1-3) Docusate Sodium (Docusate Sodium 100 Mg Capsule) 100 mg PO DAILY PRN PRN Reason: Constipation Enoxaparin Sodium (Enoxaparin Sodium 40 Mg/0.4 Ml Syringe) 40 mg SUBCUT Q24H [facility] Last Admin: 05/13/22 21:41 Dose: 40 mg Documented By: CHAYO Folic Acid (Folic Acid 1 Mg Tablet) 1 mg PO DAILY [facility] Last Admin: 05/14/22 08:18 Dose: 1 mg Documented By: IKE Ceftriaxone Sodium 1 gm/ (Sodium Chloride) 50 mls @ 100 mls/hr IV DAILY@2200 [facility] Last Infusion: 05/13/22 22:23 Dose: 0 mls/hr Documented By: CHAYO Thiamine HCl 100 mg/ Sodium (Chloride) 101 mls @ 202 mls/hr IV BID [facility] Last Infusion: 05/14/22 08:50 Dose: 0 mls/hr Documented By: IKE Lorazepam (Lorazepam 1 Mg Tablet) 0.5 mg PO Q6H [facility]; Taper Stop: 05/15/22 23:44 Last Admin: 05/14/22 11:05 Dose: 0.5 mg Documented By: IKE Lorazepam (Lorazepam 1 Mg Tablet) 1 mg PO Q4H PRN PRN Reason: Breakthrough alcohol withdrawa Stop: 05/15/22 21:40 Last Admin: 05/12/22 02:31 Dose: 1 mg Documented By: ARSH Magnesium Oxide (Magnesium Oxide 400 Mg Tablet) 800 mg PO DAILY [facility] Last Admin: 05/14/22 08:17 Dose: 800 mg Documented By: IKE Methadone HCl (Methadone Hcl 20 Mg/2 Ml Oral.Conc) 90 mg PO DAILY [facility] Last Admin: 05/14/22 08:17 Dose: 90 mg Documented By: IKE Comments: Ondansetron HCl (Ondansetron Hcl 4 Mg/2 Ml Vial) 4 mg IVPUSH Q8H PRN PRN Reason: Nausea and Vomiting Last Admin: 05/14/22 05:58 Dose: 4 mg Documented By: CHAYO Pharmacy Consult (Consult Rx Perform Med Rec) 1 each MISCELLANE ONCE PRN PRN Reason: Consult order Prednisolone Sodium Phosphate (Prednisolone Sodium Phosphate 15 Mg/5 Ml Solution) 40 mg PO DAILY [facility] Last Admin: 05/12/22 08:14 Dose: 40 mg Documented By: JANES Sodium Chloride (0.9 % Sodium Chloride Flush 3 Ml Syringe) 3 ml IVFLUSH QSHIFT [facility] Last Admin: 05/14/22 08:17 Dose: 3 ml Documented By: IKE Labs CBC & Chem 7: 05/13/22 05:22 05/14/22 07:47 Labs: Laboratory Results - last 24 hr 05/13/22 05/14/22 15:17 07:47 Anion Gap 11 L Estim Creat Clear Calc 139.7 Estimated GFR > 60 Random Glucose 83 Calcium 8.4 D Hepatitis A IgM Ab Nonreactive Microbiology Microbiology Results: Microbiology 05/11/22 00:00 Urine Culture - Final Urine Catheterized - Straight Catheter Escherichia coli 05/11/22 21:39 Blood Culture - Preliminary Blood - Venous No growth after 48 hours. 05/11/22 21:39 Blood Culture - Preliminary Blood - Venous No growth after 48 hours. Assessment and Plan (1) UTI (urinary tract infection): Status: Acute (2) Hypokalemia: Status: Acute (3) Hypomagnesemia: Status: Acute (4) Hyperbilirubinemia: Status: Acute (5) Alcohol withdrawal: Status: Acute (6) Thrombocytopenia: Status: Acute Plan 37-year-old female with past medical history of alcohol abuse presents to the hospital with nausea vomiting alcohol withdrawal, and abnormal LFTs in it for acute alcoholic hepatitis # acute alcoholic hepatitis - elevated bilirubin, jaundice, abdominal pain, nausea vomiting, abnormal LFTs - has in elevated maddrey score of 43 - case was discussed with Gastroenterology, recommended starting prednisolone and high-protein diet - follow LFTs - GI on consult- recommended to hold the prednisone currently the question of UTI # alcohol abuse with withdrawal - currently going through withdrawals - will treat with lorazepam protocol due to her history of side effects on phenobarb - monitor withdrawal symptoms - thiamine and folic acid # hypomagnesemia and hypokalemia - repleted p.o. and IV - follow Mag and BMP? in a.m. # lactic acidosis- likely secondary to liver failure - does have UTI with no evidence of sepsis otherwise off fluids , lactic acid trended down no need to repeat unless clinical situation changes. # tachycardia: improving - likely secondary to abdominal pain, as well as withdrawal from alcohol - not secondary to sepsis or severe sepsis ?continue alcohol withdrawal treatment as above # acute UTI - IV antibiotics - follow cultures # history of opioid abuse - continue methadone DVT prophylaxis:? Lovenox ?on goinginpatient hospital stay for management of acute alcoholic hepatitis,? UTI on IV antibiotics as well as alcohol withdrawal need CIWA monitoring as well as IV Ativan. Quality Stroke Does the patient have a stroke diagnosis?: No VTE Prior VTE?: No VTE Risk Level:: Medical - moderate - high VTE Device Contraindication: Treatment Not Indicated VTE Drug Contraindication: N/A - Med Ordered
[2022-05-14] MEDS: LORazepam 1 MG TABLET PO ×3 (15:34→23:31)
[2022-05-14] MEDS: Acetaminophen 325 MG TABLET 650 MG PO (15:37)
--- NOTE | 2022-05-14 16:00 | MHC.RECOVRN ---
Met with pt to follow up and provide support. Pt sitting in bed, awake, alert, anxious, easily engages in conversation. Pt reporting feeling better, however, anxiety has not subsided. Discussed recovery resources and supports. Pt would like to reengage with the [facility]. Appt made for Tuesday (04/18) morning. Pt reporting desire to discharge tomorrow whether pt is complete with treatment or not. Pt states I'm just sitting here with nothing to do. Pt has t/w contact information if needed. Denies other questions or concerns. Plan to follow up with [facility]. Discussed with Daksha Alonso NP.
[2022-05-14] MEDS: cefTRIAXone sodium 1 GM in 0.9 % Sodium Chloride 50 ML IV (21:06)
[2022-05-14] MEDS: Enoxaparin Sodium 40 MG/0.4 ML SYRINGE SUBCUT (21:06)
[2022-05-15 03:08] VITALS: BP 130/70; PULSE 91; RESP 16; TEMP 36.6; O2SAT 96
[2022-05-15] MEDS: LORazepam 1 MG TABLET PO ×2 (03:12→10:08)
[2022-05-15 08:00] VITALS: BP 151/86; PULSE 89; RESP 20; TEMP 36.7; O2SAT 100
[2022-05-15] MEDS: methADONE HCl 20 MG/2 ML ORAL.CONC 90 MG PO (10:06)
[2022-05-15] MEDS: Folic Acid 1 MG TABLET PO (10:08)
[2022-05-15] MEDS: Thiamine HCL 100 MG in 0.9 % Sodium Chloride 100 ML 202 MG IV (10:08)
[2022-05-15] MEDS: Magnesium Oxide 400 MG TABLET 800 MG PO (10:19)
--- NOTE | 2022-05-15 11:05 | MHC.CM.PN ---
PT TO DC HOME TODAY WITH NO SERVICES PT TO ARRANGE TRANSPORT
[2022-05-15 11:39] VITALS: TEMP 37.2
--- NOTE | 2022-05-15 12:51 | P.DS_ITS ---
DS: Providers Provider Date of Service: 05/15/22 Date of admission: 05/11/22 21:42 Primary care physician: Samantha Mohan MD Consults: 05/11/22 19:01 Consult to Gastroenterology Stat Consulting Provider: Corry Hamilton Reason for consultation: Acute alcoholic hepatitis Has provider been notified: Yes 05/13/22 09:20 Addiction Medicine Routine Consulting Provider: Addiction Covering Reason for consultation: drug use/alcohol Has provider been notified: No DS: Diagnosis Discharge Diagnosis (1) UTI (urinary tract infection): Status: Acute (2) Hypokalemia: Status: Acute (3) Hypomagnesemia: Status: Acute (4) Hyperbilirubinemia: Status: Acute (5) Alcohol withdrawal: Status: Acute (6) Thrombocytopenia: Status: Acute (7) Acute alcoholic hepatitis: Status: Acute DS: Summary Hospital Course Hospital Course: 37-year-old female with past medical history of alcohol abuse, history of withdrawal seizures, opioid use disorder on methadone, history of alcoholic hepatitis, anxiety, who presents the hospital with complaints of alcohol withdrawal.? Patient reports that she decided to stop drinking alcohol, on her last drink was Tuesday.? She drinks about 30 nebs of vodka daily.? She reports nausea vomiting, diffuse abdominal pain, diarrhea.? She describes the pain in the abdomen is diffuse, 7/10, nonradiating, associated with significant nausea and vomiting, some diarrhea.? The vomiting diarrhea or nonbloody.? She denies any fever chills, feels hot.? Denies any chest pain, no shortness of breath.? Complaining of epigastric pain with movement.? Reports urinary retention, she thinks because she is anxious.? Denies any lower extremity edema.? On arrival to the ED patient hemodynamically stable with no significant abnormal vitals except for heart rate in the 130s Labs are significant for WBC count of 8, INR of 1.7, chloride 95, lactic acid of 7.7, magnesium of 1.4, total bili of 12.3, AST of 136, ALT of 42, alk-phos of 131, troponin negative, min of 3.6, UA positive for leukocyte Estrace, nitrates, and WBC Abdominal ultrasound showed mild dilatation of intrahepatic bile ducts not definitely identified on previous imaging, improvement of CBD dilatation. Chest x-ray negative This was discussed with GI, patient will be will be admitted for further management. Hospital course: patient came to the hospital admitted for alcohol withdrawal- she was started on Ativan protocol and seems to be improved. in addition patient has found to have UTI- started on IV antibiotics, which is switched to p.o. antibiotic upon discharge in addition patient has alcoholic hepatitis can start but steroids after completing antibiotic course. LFTs are already improving, hepatitis C PCR is also pending. Discussed with the GI patient is to follow-up with CBC, CMP, INR, ready C PCR outpatient. Patient was strongly advised to abstain from alcohol. thrombocytopenia: seems chronic as previous admission- Seems multifactorial hypersplenism, also alcohol use might be contributing- no Gross bleeding or bruising, patient was advised to follow-up CBC out patiently and consider outpatient hematology evaluation if needed. Time Spent with Patient Time attestation: Total time spent providing and/or coordinating discharge services: Discharge coordination time: Greater than 30 minutes Quality: Safe Use of Opioids Does Pt have an Active Cancer Diagnosis on the Problem List?: No Quality: Stroke Does the patient have a stroke diagnosis?: No Physical Exam Vital Signs: Vital Signs: Last Vital Signs Temp 98.9 F 05/15/22 11:39 Pulse 89 05/15/22 08:00 Resp 20 05/15/22 08:00 BP 151/86 H 05/15/22 08:00 Pulse Ox 100 05/15/22 08:00 O2 Del Method 05/15/22 08:00 BMI result Body Mass Index 27.2 Appearance: Alert.? Oriented X3.? not in distress.? Eyes: Pupils equal. Sclera icteric.? ENT: Pharynx normal.? Moist mucous membranes. cvs: rrr, [id number] . res: clear to auscultation ,no rhonchii or wheezing abd: no rebound or guarding ,nt, bs present. ext pulses present , no cyanosis. neuro: axo3 , nonfocal. DS: Data Data Completed and Pending Completed studies during hospitalization [Text1]: Procedures Detoxification Services for Substance Abuse Treatment (11/12/21) Labs on day of discharge: Laboratory Results - last 24 hr 05/13/22 15:17 Hepatitis A IgM Ab Nonreactive Preliminary micro results at discharge 05/11/22 21:39 Blood Culture - Preliminary Blood - Venous No growth after 48 hours. 05/11/22 21:39 Blood Culture - Preliminary Blood - Venous No growth after 48 hours. 05/13/22 05/13/22 ? 05:22 05:22 MCV ?97.9 ? MCH ?35.5 H ? MCHC ?36.2 H ? RDW ?16.5 H ? Plt Count ?21 L ? MPV ?11.7 ? Absolute Nucleated RBC ?0.050 H ? Nucleated RBC % (auto) ?1.1 H ? Anion Gap ? ?11 L Estim Creat Clear Calc ? ?164.3 Estimated GFR ? ?> 60 Random Glucose ? ?70 Calcium ? ?7.8 L Magnesium ? ?2.0 Total Bilirubin ? ?9.9 H AST ? ?78 H ALT ? ?29 Alkaline Phosphatase ? ?97 Total Protein ? ?6.5 Albumin ? ?2.9 L h/h 12.2/33.4 wbc: 4.4 Urine Culture Final 05/14/22-0757 Organism 1 Escherichia coli Quant > 100,000 cfu/mL E coli M.I.C. RX --------- --- Ampicillin <=2 S Ceftriaxone <=0.25 S Gentamicin <=1 S Levofloxacin <=0.12 S Nitrofurantoin <=16 S Trimethoprim/Sulfamethoxazole <=20 S Imaging Chest x-ray: Radiologist's impression: ITS Impressions Chest X-Ray 05/11/22 17:23 IMPRESSION: No acute pulmonary disease. Abdomen Ultrasound 05/11/22 18:15 IMPRESSION: 1. Increased echogenicity and heterogeneity of the liver parenchyma, which is nonspecific and could be seen in the setting of hepatic steatosis. 2. Mild dilatation of intrahepatic bile ducts, not definitely identified on 11/12/2021. If choledocholithiasis or other obstructive abnormalities suspected, recommend correlation with MR/MRCP. 3. Previous described dilatation of the CBD is not visualized in this examination, however some portions of the CBD are obscured by overlying bowel gas. Discharge Plan Discharge Anticipated Discharge Date/Time: 05/15/22 10:16 Patient Disposition: Home, Self-Care Discharge Diagnosis: alcohol withdrawal, possible alcoholic hepatitis Referrals: Samantha Graves MD [Primary Care Provider] - 1 Week Discharge Medications: New cefuroxime axetil 250 mg tablet 250 mg PO Q12H Qty: 10 0RF Continued alprazolam 0.5 mg tablet 0.5 mg PO TID PRN (Reason: anxiety) 30 Days Qty: 90 0RF methadone 10 mg/mL concentrate 90 mg PO DAILY Rx Instructions: [facility] [phone] Discharge Orders: Discharge Order (Routine); Ordered 05/15/22 Ordered By: Alon Wallace Diet: Advance to usual diet Activity on Discharge: As tolerated Stand Alone Forms: Patient Portal Discharge page Care Plan Goals: patient came to the hospital admitted for alcohol withdrawal- she was started on Ativan protocol and seems to be improved. in addition patient has found to have UTI- started on IV antibiotics, which is switched to p.o. antibiotic upon discharge in addition patient has alcoholic hepatitis can start but steroids after completing antibiotic course as per GI. LFTs are already improving, hepatitis C PCR is also pending. Discussed with the GI patient is to follow-up with CBC, CMP, INR, ready C PCR outpatient. Patient was strongly advised to abstain from alcohol. thrombocytopenia: seems chronic as previous admission- Seems multifactorial hypersplenism, also alcohol use might be contributing- no Gross bleeding or bruising, patient was advised to follow-up CBC out patiently and consider outpatient hematology evaluation if needed. Health Concerns: As above. Abstain from alcohol. Discussed with the GI patient is to follow-up with CBC, CMP, INR, ready C PCR outpatient. Plan of Treatment: as above. Assessment: As above.
[2022-05-15 13:14] LABS: INTERNATIONAL NORM RATIO 1.6 (0.9-1.1); Prothrombin Time 18.9 SEC (10.0-13.1)
[2022-05-17 14:16] LABS: HCV RNA PCR Qn <1.18 NOT DETECTED Log IU/mL (NOT DETECTED); HCV RNA PCR Qn <15 NOT DETECTED IU/mL (NOT DETECTED)
== END 2022-05-15 14:14 | disposition home or self-care (01) | DRG 280 ==
LOC: HO.ED 17:25 → HO.EDOVER 21:47 → HO.S3 05-12 16:57
PROVIDERS: Internal Medicine Gastroenterology; Physician Assistant; Admitting Provider Internal Medicine; Emergency Provider Internal Medicine; PCP Internal Medicine; Visit Provider Internal Medicine
DX: K70.10 Alcoholic hepatitis without ascites (principal); F10.231 Alcohol dependence with withdrawal delirium; E87.21 Acute metabolic acidosis; E83.42 Hypomagnesemia; N39.0 Urinary tract infection, site not specified; F41.9 Anxiety disorder, unspecified; E87.6 Hypokalemia; Y90.8 Blood alcohol level of 240 mg/100 ml or more; F10.229 Alcohol dependence with intoxication, unspecified; F11.20 Opioid dependence, uncomplicated; Z20.822 Contact with and (suspected) exposure to COVID-19; Z87.891 Personal history of nicotine dependence; Z88.8 Allergy status to other drugs, medicaments and biological substances; Z79.899 Other long term (current) drug therapy
CPT/HCPCS: 36415; 71045; 76705; 80048; 80053; 80076; 81001; 81003; 82077; 83605; 83690; 83735; 84484; 85025; 85027; 85610; 85730; 86709; 87040; 87086; 87088; 87186; 87635; 87902; 93005; 96361; 96365; 96375; 96376; 99285; J0696; J1650; J2250; J2405; J2550; J3411; J3475

== ENCOUNTER → 2022-05-19 10:49 | Outpatient (BNVA) | payer OTHER, SELFPAY | PROVIDERS: PCP Internal Medicine; Visit Provider Nurse Practitioner Psychiatric/Mental Health | DX: F10.20 Alcohol dependence, uncomplicated (principal) | CPT/HCPCS: 99212 ==

== ENCOUNTER → 2022-06-02 10:38 | Outpatient (BNVA) | payer OTHER, SELFPAY | PROVIDERS: PCP Internal Medicine; Visit Provider Nurse Practitioner Psychiatric/Mental Health | DX: F10.20 Alcohol dependence, uncomplicated (principal) | CPT/HCPCS: 99212 ==

== ENCOUNTER → 2022-06-16 10:42 | Outpatient (BNVA) | payer OTHER, SELFPAY | PROVIDERS: PCP Internal Medicine; Visit Provider Nurse Practitioner Psychiatric/Mental Health | DX: F10.20 Alcohol dependence, uncomplicated (principal); F11.90 Opioid use, unspecified, uncomplicated | CPT/HCPCS: 99212 ==

== ENCOUNTER 2022-06-16 11:46 | Outpatient (REF) | payer OTHER, SELFPAY ==
[2022-06-16 13:20] LABS: Appearance Urine Clear; Color Urine Dark Yellow; Glucose Urine UA Negative (Negative); Leukocyte Esterase Urine Trace (Negative); Nitrite Urine Negative (Negative); PH 6.5 (5.0-9.0); UMIC TRIGGER UACC YES; Urine Blood Negative (Negative); Urine Ketones Negative (Negative); Urine Protein Negative (Neg-Trace)
[2022-06-16 13:26] LABS: Bacteria Urine 2+ (None Seen); Hyaline Casts Urine 0-2 /LPF (0-2); RBC Urine 0-2 /HPF (0-2); WBC Urine 0-5 /HPF (0-5)
== END 2022-06-16 11:47 | disposition home or self-care (01) ==
LOC: HO.LAB 11:46
PROVIDERS: PCP Internal Medicine; Visit Provider Nurse Practitioner Family
DX: F11.20 Opioid dependence, uncomplicated (principal); F10.20 Alcohol dependence, uncomplicated; Z51.81 Encounter for therapeutic drug level monitoring; Z79.899 Other long term (current) drug therapy
CPT/HCPCS: 81001

== ENCOUNTER → 2022-06-30 10:37 | Outpatient (BNVA) | payer OTHER, SELFPAY | PROVIDERS: PCP Internal Medicine; Visit Provider Nurse Practitioner Psychiatric/Mental Health | DX: F10.20 Alcohol dependence, uncomplicated (principal) | CPT/HCPCS: 99212 ==

== ENCOUNTER → 2022-07-28 10:38 | Outpatient (BNVA) | payer OTHER, SELFPAY | PROVIDERS: PCP Internal Medicine; Visit Provider Nurse Practitioner Psychiatric/Mental Health | DX: Z51.81 Encounter for therapeutic drug level monitoring (principal); F10.20 Alcohol dependence, uncomplicated | CPT/HCPCS: 99212 ==

== ENCOUNTER 2022-08-09 06:49 | Outpatient (REF) | payer OTHER, SELFPAY ==
[2022-08-09 09:36] LABS: INTERNATIONAL NORM RATIO 1.5 (0.9-1.1); Prothrombin Time 17.1 SEC (10.0-13.1)
[2022-08-09 10:04] LABS: Alanine Aminotransferase 59 U/L (0-31); Albumin Level 3.2 g/dL (3.5-5.0); Alkaline Phosphatase 152 U/L (39-117); Anion Gap 9 (12-20); Aspartate Amino Transferase 54 U/L (5-31); Bilirubin Total 4.5 mg/dL (0.0-1.0); Blood Urea Nitrogen 7 mg/dL (9-16); Calcium 8.8 mg/dL (8.4-10.2); Carbon Dioxide 29 mmol/L (22-29); Chloride 104 mmol/L (96-108); Estimated Glomerular Filt Rate > 60; Glucose Random 138 mg/dL (60-115); Magnesium 1.7 mg/dL (1.6-2.6); Potassium 3.6 mmol/L (3.3-5.1); Sodium 138 mmol/L (135-145); Total Protein 6.4 g/dL (6.5-8.0)
== END 2022-08-09 06:50 | disposition home or self-care (01) ==
LOC: HO.LAB 06:49
PROVIDERS: PCP Internal Medicine; Visit Provider Internal Medicine
DX: K70.10 Alcoholic hepatitis without ascites (principal)
CPT/HCPCS: 36415; 80053; 83735; 84100; 85610; 85730

== ENCOUNTER → 2022-12-07 08:50 | Outpatient (BNVA) | payer OTHER, SELFPAY | PROVIDERS: PCP Internal Medicine; Visit Provider Surgery Vascular Surgery | DX: M62.242 Nontraumatic ischemic infarction of muscle, left hand (principal) | CPT/HCPCS: 99202 ==

== ENCOUNTER 2022-12-15 08:30 | Outpatient (REF) | payer OTHER, SELFPAY ==
--- NOTE | ~2022-12-15 | XR_ITS ---
EXAMINATION: XR HAND, LEFT CLINICAL INFORMATION: Pain in left hand COMPARISON: None available. TECHNIQUE: PA, lateral, and oblique views of the left hand. FINDINGS: The bones and soft tissues are normal. No fracture. Alignment is anatomic. Joint spaces are maintained. No erosions or soft tissue calcifications. XR/XR hand LT min 3V IMPRESSION: Normal left hand.
== END 2022-12-15 08:31 | disposition home or self-care (01) ==
LOC: HO.HOSX 08:30
PROVIDERS: Visit Provider Orthopaedic Surgery
DX: M62.242 Nontraumatic ischemic infarction of muscle, left hand (principal); F10.20 Alcohol dependence, uncomplicated; F11.90 Opioid use, unspecified, uncomplicated
CPT/HCPCS: 73130; 99202

== ENCOUNTER 2023-02-10 11:08 | Outpatient (AMB) | payer OTHER, SELFPAY ==
[2023-02-10 11:42] VITALS: BP 130/72; PULSE 98; TEMP 37.3; O2SAT 100; BMI 28.7
--- NOTE | 2023-02-10 11:42 | MHC.OFFWIV ---
Intake Vital Signs 02/10/23 11:42 02/10/23 11:46 Height 5 ft 10 in Weight 200 lb 1 oz BMI 28.7 BP 130/72 Blood Pressure Location Lt brachial Position Sitting Pulse 98 Pulse Source Pulse Oximeter Temp 99.1 F 99.9 F Temp Source Temporal Artery Scan Oral Pulse Oximetry (%) 100 Oxygen Delivery Method Room Air Intake Visit Reasons: EST/cut left index finger Intake Note: Pt is here c/o pain in her left iindex finger. Pt states she has had a fever and her left index finger has been in a lot of pain.Pt states she feels it may be infectied. Patient Tobacco Use Status: Current everyday Tobacco user Allergies pentoxifylline Allergy (Intermediate, Verified 02/10/23 11:45) Rash phenobarbital Allergy (Verified 02/10/23 11:45) Diarrhea HPI EST/cut left index finger HPI Details Patient is a 38-year-old female who is immunocompromised with multiple comorbidities, and who comes to the walk-in clinic complaining of increased pain to the left index finger. 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 Rehana Cornelius. Apparently they were monitoring the finger, however it is started to become increasingly swollen painful and redness now extending to the MCP on the palmar aspect. She is also developing low-grade fever, chills, tiredness/fatigue symptoms, and myalgias. She did not call the surgeon today. No nausea vomiting or diarrhea, weakness or dizziness, syncope or other significant associated symptoms. PFSH Medical History Alcoholic liver disease Anxiety Depression Impaired glucose tolerance Insomnia Left ankle pain Opioid dependence on agonist therapy Physical exam Smoker Surgical History H/O right wrist surgery History of arthroplasty of left knee Family History Father Hypertension Substance use disorder Mother Medical history unknown Maternal Grandfather Cancer Family/Other FH: mental illness Mental health disorder Social History Household Members: Family Housing: House Do you presently have visiting nurse or other home services: No Alcohol intake: current Patient Tobacco Use Status: Current everyday Tobacco user Tobacco use type: Cigarette Cigarettes Per Day: 5 e-Cigarette/Vaping Use: Never Used Second Hand Smoke Exposure: No Substance Use Type: Heroin service: No 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al status: unemployed and disabled 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: left 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 Cognitive needs: No Hearing needs: No Vision needs: No Physical Exam Vital Signs: Last Vital Signs Temp 99.9 F 02/10/23 11:46 Pulse 98 02/10/23 11:42 BP 130/72 02/10/23 11:42 Pulse Ox 100 02/10/23 11:42 Oxygen Delivery Method Room Air 02/10/23 11:42 BMI result Body Mass Index 28.7 Const General: cooperative, no acute distress, alert, awake, Physically active and well groomed; No diaphoretic, intoxicated appearing or tired appearing Nutritional Appearance: average body habitus Limitations: no limitations Cardio Rate: regular rate Rhythm: regular rhythm Extrem Other: Patient's left index finger is necrotic from the tip of the digit to proximal to the PIP joint. Extending from there it is erythematous edematous and warm down to the base of digit at the MCP on the anterior aspect. There is some streaking extending to the 3rd digit MCP. She has decreased strength and range of motion due to swelling and pain. Decreased sensation to the tip of digit, and cap refill difficult to assess due to skin sloughing and necrotic tissue. Left upper extremity: edema and hand; abnormal to inspection, ROM limited and abnormal capillary refill Psych Appearance: grossly normal Mental Status: mental status grossly normal Speech and movement: Normal speech and movement present Affect: normal affect Attitude: cooperative Thought process: Normal thought process present Insight: Good insight present (Psych) Judgement: Good judgement present (Psych) Assessment & Plan Assessment & Plan (1) Finger infection: Code(s): L08.9 - Local infection of the skin and subcutaneous tissue, unspecified Plan Discussed with [facility] reconstructive hand and wrist surgeon Dr. Cornelius help patient appears to have an infected finger, and she advised that the patient go to the emergency department to be considered for IV antibiotics. Patient consented to this, and expect was called in. Coding Level of Care Code Est Pt Level 4 (51908) Diagnoses Finger infection L08.9
[2023-02-10 11:46] VITALS: TEMP 37.7
== END 2023-02-10 12:31 | disposition home or self-care (01) ==
PROVIDERS: PCP Internal Medicine; Visit Provider Physician Assistant Medical
DX: L08.9 Local infection of the skin and subcutaneous tissue, unspecified (principal)
CPT/HCPCS: 99214

== ENCOUNTER 2023-04-08 09:02 | Outpatient (REF) | payer OTHER, SELFPAY ==
[2023-04-08 09:32] LABS: MANUAL DIFF FLAG NO
[2023-04-08 11:25] LABS: Basophils Percent Auto 0.7 % (0-2); Eosinophils Absolute Auto 0.1 X10*3/uL (0.0-0.4); Eosinophils Percent Auto 3.2 % (0-4); Hematocrit 41.4 % (37.0-47.0); Hemoglobin 14.8 g/dl (12.0-16.0); Imm Gran Abs Auto 0.01 X10*3/uL (0.00-0.03); Imm Gran Pct Auto 0.2 % (0.0-0.4); Lymphocytes Absolute Auto 0.9 X10*3/uL (1.2-4.9); Lymphocytes Percent Auto 19.9 % (20-40); Mean Corpuscular HGB Conc 35.7 g/dl (31.0-35.0); Mean Corpuscular Hemoglobin 33.6 pg (27.0-33.0); Mean Corpuscular Volume 94.1 fL (80.0-98.0); Mean Platelet Volume 12.4 fL (9.4-12.3); Monocytes Absolute Auto 0.4 X10*3/uL (0.1-1.2); Red Cell Distribution Width 15.2 % (11.0-16.0); White Blood Count 4.4 X10*3/uL (4.8-10.8)
[2023-04-08 11:53] LABS: Platelet Count 27 X10*3/uL (160-400)
== END 2023-04-08 09:03 | disposition home or self-care (01) ==
LOC: HO.LAB 09:02
PROVIDERS: PCP Internal Medicine; Visit Provider Internal Medicine
DX: D64.9 Anemia, unspecified (principal)
CPT/HCPCS: 36415; 85025

== ENCOUNTER → 2023-05-17 09:24 | Outpatient (BNV) | payer OTHER, SELFPAY | PROVIDERS: PCP Internal Medicine; Visit Provider Internal Medicine Medical Oncology | DX: D72.819 Decreased white blood cell count, unspecified (principal); B19.20 Unspecified viral hepatitis C without hepatic coma | CPT/HCPCS: 99214 ==

== ENCOUNTER 2023-05-30 10:25 | Outpatient (REF) | payer OTHER, SELFPAY ==
--- NOTE | ~2023-05-30 | US_ITS ---
EXAMINATION: US ABDOMEN COMPLETE CLINICAL INFORMATION: Cirrhosis, hepatitis C, alcohol. COMPARISON: Ultrasound abdomen limited 05/11/2022 and 11/12/2021. CT abdomen and pelvis with contrast 10/01/2019 MRI abdomen with and without contrast 06/16/2018. TECHNIQUE: Real-time imaging of the abdominal viscera. FINDINGS: PANCREAS: Obscured by bowel gas. ABDOMINAL AORTA: The proximal, mid, and distal segments are normal in caliber. INFERIOR VENA CAVA: Visualized portions are normal. LIVER: Liver parenchyma is diffusely heterogeneous and of increased echogenicity. No focal hepatic lesion. Mildly dilated intrahepatic bile ducts seen. GALLBLADDER: Gallbladder is contracted, wall measures 3 mm. No stones, pericholecystic fluid or tenderness. COMMON BILE DUCT: Normal in caliber measuring 0.6 cm in diameter. RIGHT KIDNEY: Normal. No hydronephrosis. No renal calculi or focal parenchymal lesions. The kidney measures 10.7 cm in maximum dimension. LEFT KIDNEY: Normal. No hydronephrosis. No renal calculi or focal parenchymal lesions. The kidney measures 12.7 cm in maximum dimension. SPLEEN: 2.9 x 2.8 x 3.3 cm splenule. The spleen is significantly enlarged measuring 24.0 cm in maximum dimension. FREE FLUID: None. US/US abdomen complete IMPRESSION: Redemonstration heterogeneous echogenic liver in patient with history of alcohol and hepatitis C related cirrhosis. Mild intrahepatic biliary ductal dilatation again noted. Correlate with LFTs. Splenomegaly. Contracted gallbladder. Nonvisualization of the pancreas. Should this be a region of clinical concern, consider other imaging modality such as CT.
== END 2023-05-30 10:26 | disposition home or self-care (01) ==
LOC: HO.HMGCX 10:25
PROVIDERS: PCP Internal Medicine; Visit Provider Internal Medicine Medical Oncology
DX: B19.20 Unspecified viral hepatitis C without hepatic coma (principal)
CPT/HCPCS: 76700

== ENCOUNTER 2023-07-20 15:08 | Outpatient (AMB) | payer OTHER, SELFPAY ==
[2023-07-20 15:06] VITALS: BP 126/70; BMI 27.0
--- NOTE | 2023-07-20 15:06 | A.OFFPC_ITS ---
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 Required: No Accompanied by: Self / Same As Patient Allergies pentoxifylline Allergy (Intermediate, Verified 07/20/23 15:17) Rash phenobarbital Allergy (Verified 07/20/23 15:17) Diarrhea Medication List - Last Reconciled 07/20/23 by Samantha Mohan MD alprazolam 0.5 mg PO TID PRN 30 days folic acid 1 mg PO DAILY methadone 80 mg PO DAILY thiamine HCl (vitamin B1) 100 mg PO DAILY 90 days Tobacco use date assessed: 07/20/23 Dental Screening Dental Screen Date: 07/20/23 Did you have a dental visit in the last 12 months?: Yes Did you have a dental problem in the last 6 months where you did not have access to dental care?: No Was dental information given to patient?: Patient has dentist HPI HPI Comments History of Present Illness Details This is a 38-year-old female with opioid dependence on agonist therapy and alcoholic liver disease that comes for her physical exam. Denies any chest pain or shortness of breath. Doing well on methadone. Going to AA meeting daily. Follow by Gastroenterology with alcoholic liver disease. No chest pain or shortness of breath. [facility] Medical History (Updated 07/20/23 @ 15:46 by Samantha Mohan MD) History of amputation of finger Depression Physical exam Opioid dependence on agonist therapy Left ankle pain Smoker Impaired glucose tolerance Alcoholic liver disease Insomnia Anxiety Surgical History (Updated 07/20/23 @ 15:46 by Samantha Mohan MD) Amputation of left index finger History of hernia surgery History of arthroplasty of left knee H/O right wrist surgery Family History Father Hypertension Substance use disorder Mother Medical history unknown Maternal Grandfather Cancer Family/Other FH: mental illness Mental health disorder Social History (Updated 07/20/23 @ 15:29 by Samantha Mohan MD) Household Members: Family Housing: House Do you presently have visiting nurse or other home services: No Alcohol intake: former Patient Tobacco Use Status: Current everyday Tobacco user Tobacco use type: Cigarette Cigarettes Per Day: 5 e-Cigarette/Vaping Use: Never Used Second Hand Smoke Exposure: No service: No 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al status: unemployed and disabled 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: left hand Cognitive needs: No Hearing needs: No Vision needs: No Questionnaire PHQ-9 Over the last 2 weeks, how often have you been bothered by any of the following problems? 1. Little interest or pleasure in doing things: nearly every day 2. Feeling down, depressed, or hopeless: several days 3. Trouble falling or staying asleep, or sleeping too much: not at all 4. Feeling tired or having little energy: more than half the days 5. Poor appetite or overeating: not at all 6. Feeling bad about yourself - or that you are a failure or have let yourself or your family down: not at all 7. Trouble concentrating on things, such as reading the newspaper or watching television: not at all 8. Moving or speaking so slowly that other people could have noticed. Or the opposite - being so fidgety or restless that you have been moving around a lot more than usual: not at all 9. Thoughts that you would be better off or of hurting yourself in some way: not at all Total score: 6 Depression Screening Interpretation: Positive Depression Screening Follow-up: Existing condition Depression Screening Done: Yes 21885 - PHQ-9 Billing: Yes Source: Developed by Drs. Cem Umanzor, Keely Castellon, Warren Arana and colleagues, with an educational theodore from [employer]. Thrive Questionnaire Date Thrive assessed: 07/20/23 I am a: Patient What is your living situation today?: I have a steady place to live Within the past 12 months, did the food you bought not last and you didn't have the money to get more?: Never true Within the past 12 months, did you worry whether your food would run out before you got money to buy more?: Never true Do you have trouble paying for medicines?: No Do you have trouble getting transportation to medical appointments?: No Do you have trouble paying your heating and electricity bill?: No Do you have trouble taking care of your child, family member or friend?: No Do you have trouble with day-to-day activities such as bathing, preparing meals, shopping, managing finances, etc.?: No Are you currently unemployed and looking for a job?: No Are you interested in more education?: No Please select the resources that you would like help with: None Currently or been in a relationship where the following occur: no concerns reported THRIVE Score: 0 AUDIT C Alcohol Use Questionnaire (AUDIT-C) 1. How often do you have a drink containing alcohol?: Never Total Score: 0 DONNA-7 AMB Questionnaire DONNA-7 Date DONNA - 7 assessed: 07/20/23 Feeling nervous, anxious, or on edge: 1 = Several days Not being able to stop or control worryin = Several days Worrying too much about different things: 1 = Several days Trouble relaxin = Several days Being so restless that it is hard to sit still: 1 = Several days Becoming easily annoyed or irritable: 2 = More than half the days Feeling afraid as if something awful might happen: 1 = Several days Total DONNA-7 score (0-4 normal; 5-9 mild; 10-14 moderate; 15-21 severe): 8 Source: Developed by Drs. Cem Umanzor, Keely Castellon, Warren Arnaa and colleagues, with an educational theodore from [employer]. DONNA-7 Assessment Billing DONNA-7 Assessment Tool: DONNA-7 Assessment 36123 Review of Systems Const All systems reviewed & are unremarkable except as noted in HPI and below Eyes Reports no additional complaints, Denies change in vision and Denies other visual disturbances Card Denies chest pain at rest, Denies chest pain with activity, Denies edema, Denies irregular heart rhythm, Denies claudication, Denies dyspnea, Denies dyspnea on exertion, Denies orthopnea, Denies paroxysmal nocturnal dyspnea and Denies slow heart rate Resp Denies cough, Denies dyspnea and Denies dyspnea on exertion GI Denies abdominal pain, Denies change in bowel habits, Denies excessive flatus, Denies nausea and Denies vomiting Denies urinary incontinence, Denies urinary hesitancy and Denies urinary urgency Musc Denies abnormal gait, Denies atrophy, Denies deformity and Denies limited range of motion Skin/Breast Denies bleeding lesions, Denies changing lesions and Denies rash Neuro Denies abnormal gait, Denies behavioral changes, Denies confusion and Denies lack of coordination Psych Denies behavioral changes and Denies confusion Physical exam (Primary Care) Vital Signs: Last Vital Signs BP 126/70 07/20/23 15:06 BMI result Body Mass Index 27.0 Tobacco/Smoking Status: Tobacco use Status Tobacco use date assessed 07/07/21 12/06/22 09:35 Patient Tobacco Use Status Current everyday Tobacco 02/10/23 11:46 Tobacco use type Cigarette 12/15/22 09:31 e-Cigarette/Vaping Use Never Used 12/15/22 09:31 Depression Screening Interpretation: Positive Depression Screening Follow-up: Existing condition Thrive Assessment: Date of Thrive Assessment Date Thrive assessed 07/07/21 12/06/22 09:35 Currently or been in a relationship where the following occur: no concerns reported Const General: No confusion Orientation/consciousness: patient oriented x3 and No confusion HENMT Head: Yes normal to inspection, Yes normocephalic and Yes atraumatic Ears: external ears normal General nose exam: Normal external nose present and No nasal discharge present Face and sinus: Yes sinuses nontender Mouth: lip normal Eyes General: appearance normal, both eyes and all related structures Eyelids: Yes eyelids normal Conjunctivae: conjunctivae normal Neck Neck: Yes normal visual inspection and Yes supple Resp Effort & Inspection: normal respiratory effort Auscultation: clear to auscultation bilaterally Cardio Jugular venous distension: no JVD Rate: regular rate Rhythm: regular rhythm Heart sounds: S1 normal heart sound present and S2 normal heart sound present GI Inspection: Yes normal to inspection Palpation (GI): Soft to palpation and nontender Auscultation: normal bowel sounds Skin General skin exam: no rashes or lesions noted Neuro General: patient oriented x3, no focal motor deficits and No confusion Extrem General: Yes full ROM Psych Appearance: grossly normal Assessment and Plan Assessment & Plan (1) Physical exam: Code(s): Z00.00 - Encounter for general adult medical examination without abnormal findings Plan: Repeat in a year. (2) Alcoholic liver disease: Comment: Follow by [facility] G[facility]enterology Code(s): K70.9 - Alcoholic liver disease, unspecified Plan: Follow-up with [facility] Gastroenterology. (3) Opioid dependence on agonist therapy: Code(s): F11.20 - Opioid dependence, uncomplicated Plan: Continue methadone. Orders: Orders Magnesium Today E83.42 - Hypomagnesemia Complete Blood Count Auto Diff Today D64.9 - Anemia, unspecified, D69.6 - Thrombocytopenia, unspecified IRON PROFILE Today D64.9 - Anemia, unspecified, D69.6 - Thrombocytopenia, unspecified Lipid Panel Today E78.5 - Hyperlipidemia, unspecified Comprehensive [place]. Panel Fast Today K70.10 - Alcoholic hepatitis without ascites Medications: Changed From folic acid 1 mg PO DAILY To folic acid 1 mg PO DAILY 90 days 90 tabs 1RF Refilled thiamine HCl (vitamin B1) 100 mg PO DAILY 90 days 90 tabs 1RF Coding Level of Care Code Est Pt Prev Care 18-39y(99160) Diagnoses Physical exam Z00.00 Alcoholic liver disease K70.9 Opioid dependence on agonist therapy F11.20 Additional Codes DONNA-7 Assessment Billing - DONNA-7 Assessment Tool: DONNA-7 Assessment 73139 ([id number]) Time Spent (min) 33
== END 2023-07-20 15:35 | disposition home or self-care (01) ==
PROVIDERS: PCP Internal Medicine; Visit Provider Internal Medicine
DX: Z00.00 Encounter for general adult medical examination without abnormal findings (principal); K70.9 Alcoholic liver disease, unspecified; F11.20 Opioid dependence, uncomplicated
CPT/HCPCS: 99395

== ENCOUNTER 2023-08-03 07:12 | Outpatient (REF) | payer OTHER, SELFPAY ==
[2023-08-03 08:04] LABS: Basophils Percent Auto 0.9 % (0-2); Eosinophils Absolute Auto 0.1 X10*3/uL (0.0-0.4); Eosinophils Percent Auto 3.5 % (0-4)
[2023-08-03 08:06] LABS: Hematocrit 36.6 % (37.0-47.0); Hemoglobin 12.9 g/dl (12.0-16.0); Imm Gran Abs Auto 0.02 X10*3/uL (0.00-0.03); Imm Gran Pct Auto 0.6 % (0.0-0.4); Lymphocytes Absolute Auto 0.8 X10*3/uL (1.2-4.9); Lymphocytes Percent Auto 24.7 % (20-40); Mean Corpuscular HGB Conc 35.2 g/dl (31.0-35.0); Mean Corpuscular Hemoglobin 33.9 pg (27.0-33.0); Mean Corpuscular Volume 96.3 fL (80.0-98.0); Monocytes Absolute Auto 0.3 X10*3/uL (0.1-1.2); Monocytes Percent Auto 8.9 % (2-11); Neutrophils Absolute Auto 1.9 x10*3/uL (2.0-8.3); Neutrophils Percent Auto 61.4 % (45-73); Red Cell Distribution Width 16.2 % (11.0-16.0)
[2023-08-03 08:08] LABS: White Blood Count 3.2 X10*3/uL (4.8-10.8)
[2023-08-03 08:13] LABS: Platelet Count 27 X10*3/uL (160-400)
[2023-08-03 08:26] LABS: Alanine Aminotransferase 20 U/L (0-31); Albumin Level 3.7 g/dL (3.5-5.0); Alkaline Phosphatase 76 U/L (39-117); Anion Gap 13 (12-20); Aspartate Amino Transferase 38 U/L (5-31); Bilirubin Total 2.9 mg/dL (0.0-1.0); Blood Urea Nitrogen 7 mg/dL (9-16); Calcium 8.8 mg/dL (8.4-10.2); Carbon Dioxide 26 mmol/L (22-29); Chloride 107 mmol/L (96-108); Cholesterol 99 mg/dL (<200); Estimated Glomerular Filt Rate > 60; Glucose Fasting 84 mg/dL (60-99); HDL Cholesterol 44 mg/dL (>40); Iron 66 mcg/dL (30-160); LDL Cholesterol Calculated 44 mg/dL (<100); Magnesium 1.7 mg/dL (1.6-2.6); Percent Iron Saturation 30 % (15-50); Potassium 3.9 mmol/L (3.3-5.1); Sodium 142 mmol/L (135-145); Total Iron Binding Capacity 223 mcg/dL (228-428); Total Protein 7.1 g/dL (6.5-8.0); Triglycerides 59 mg/dL (<150); Unsaturated Iron Binding 157 ug/dL
== END 2023-08-03 07:13 | disposition home or self-care (01) ==
LOC: HO.LAB 07:12
PROVIDERS: PCP Internal Medicine; Visit Provider Internal Medicine
DX: E83.42 Hypomagnesemia (principal); K70.10 Alcoholic hepatitis without ascites; D64.9 Anemia, unspecified; D69.6 Thrombocytopenia, unspecified; E78.5 Hyperlipidemia, unspecified
CPT/HCPCS: 36415; 80053; 80061; 83540; 83735; 85025

== ENCOUNTER 2023-09-18 13:40 | Emergency (ER) | payer OTHER, SELFPAY ==
[2023-09-18 13:43] VITALS: BP 143/81; PULSE 86; RESP 16; TEMP 36.8; O2SAT 100; BMI 26.3
--- NOTE | 2023-09-18 13:43 | ED.GENADULT ---
HPI - General Adult General Chief complaint: Skin/Abscess/Foreign Body Stated complaint: Insect bite Related Data Home Medications Medication Instructions Recorded Confirmed methadone 10 mg/mL oral concentrate 80 mg PO DAILY 06/07/22 08/29/23 Previous Rx's Medication Instructions Recorded folic acid 1 mg tablet 1 mg PO DAILY 90 days #90 tabs 07/20/23 thiamine HCl (vitamin B1) 100 mg 100 mg PO DAILY 90 days #90 tabs 07/20/23 tablet alprazolam 0.5 mg tablet 0.5 mg PO TID PRN anxiety 30 days 09/12/23 #90 tabs Allergies Allergy/AdvReac Type Severity Reaction Status Date / Time pentoxifylline Allergy Intermediate Rash Verified 09/18/23 13:43 phenobarbital Allergy Diarrhea Verified 09/18/23 13:43 PMFSH Past Medical History Medical History (Updated 09/18/23 @ 20:43 by ARTUR Sánchez) Depression Physical exam Opioid dependence on agonist therapy Left ankle pain Smoker Impaired glucose tolerance Alcoholic liver disease Insomnia Anxiety Surgical History (Updated 08/29/23 @ 10:47 by Hoa Yoo MD) H/O endoscopy (08/18/23) History of amputation of finger History of hernia surgery Amputation of left index finger History of arthroplasty of left knee H/O right wrist surgery Family History Family History Father Hypertension Substance use disorder Mother Medical history unknown Maternal Grandfather Cancer Family/Other FH: mental illness Mental health disorder Social History Social History Household Members: Family Housing: House Do you presently have visiting nurse or other home services: No Alcohol intake: former Patient Tobacco Use Status: Current everyday Tobacco user Tobacco use type: Cigarette e-Cigarette/Vaping Use: Never Used Second Hand Smoke Exposure: No Advance Directives: No Advance Directives Information Provided: No service: No 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al status: unemployed and disabled 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: left hand Cognitive needs: No Hearing needs: No Vision needs: No Physical Exam ED Vital Signs: Vital Signs - 24 hr 09/18/23 13:43 Temperature 98.2 F Pulse Rate 86 Respiratory Rate 16 Blood Pressure 143/81 H Pulse Oximetry 100 Oxygen Delivery Method Room Air BMI result Body Mass Index 26.3 Course Course Course Narrative: RME: 38 yo female here for eval of insect bite to left buttock x3 days. she is unsure of what bit her. admits it is erythematous and hard. pain is worsening. denies fever or rashes. denies other concerns. exam limited in triage. basic labs ordered. Full HPI, ROS and PE to be performed by the primary ED provider. Reevaluation(s) Reevaluation #1: Patient left the ED without completing treatment. Medical Decision Making Lab Data 09/18/23 13:56 09/18/23 13:56 Labs: Lab Results 09/18/23 Range/Units 13:56 WBC 6.4 (4.8-10.8) X10*3/uL RBC 4.18 L (4.20-5.50) X10*6/uL Hgb 14.4 (12.0-16.0) g/dl Hct 38.9 (37.0-47.0) % MCV 93.1 (80.0-98.0) fL MCH 34.4 H (27.0-33.0) pg MCHC 37.0 H (31.0-35.0) g/dl RDW 15.7 (11.0-16.0) % Plt Count 26 L (160-400) X10*3/uL MPV 10.3 (9.4-12.3) fL Immature Gran % (Auto) 0.5 H (0.0-0.4) % Neut % (Auto) 72.3 (45-73) % Lymph % (Auto) 15.8 L (20-40) % Gibson % (Auto) 8.8 (2-11) % Eos % (Auto) 2.0 (0-4) % Baso % (Auto) 0.6 (0-2) % Lymph # (Auto) 1.0 L (1.2-4.9) X10*3/uL Gibson # (Auto) 0.6 (0.1-1.2) X10*3/uL Eos # (Auto) 0.1 (0.0-0.4) X10*3/uL Baso # (Auto) 0.0 (0.0-0.2) X10*3/uL Abs Immat Gran (auto) 0.03 (0.00-0.03) X10*3/uL Absolute Neuts (auto) 4.6 (2.0-8.3) x10*3/uL Absolute Nucleated RBC 0.000 (0.0-0.012) X10*3/uL Nucleated RBC % (auto) 0.0 (0.0-0.2) /100WBC Smear Tech's Comments VERIFIED Sodium 141 (135-145) mmol/L Potassium 3.9 (3.3-5.1) mmol/L Chloride 109 H (96-108) mmol/L Carbon Dioxide 25 (22-29) mmol/L Anion Gap 11 L (12-20) BUN 6 L (9-16) mg/dL Creatinine 0.61 (0.5-1.4) mg/dL Estim Creat Clear Calc 149.5 Estimated GFR > 60 Random Glucose 81 (60-115) mg/dL Calcium 8.8 (8.4-10.2) mg/dL Total Bilirubin 4.0 H (0.0-1.0) mg/dL AST 26 (5-31) U/L ALT 17 (0-31) U/L Alkaline Phosphatase 74 (39-117) U/L Total Protein 7.1 (6.5-8.0) g/dL Albumin 3.8 (3.5-5.0) g/dL Discharge Plan Discharge Clinical Impression: Abscess of skin or subcutaneous tissue Patient Disposition: Left W/O Completing Treatment Prescriptions: No Action alprazolam 0.5 mg tablet 0.5 mg PO TID PRN (Reason: anxiety) 30 Days Qty: 90 0RF methadone 10 mg/mL concentrate 80 mg PO DAILY Rx Instructions: [facility] [phone] folic acid 1 mg tablet 1 mg PO DAILY 90 Days Qty: 90 1RF thiamine HCl (vitamin B1) 100 mg tablet 100 mg PO DAILY 90 Days Qty: 90 1RF Discharge Date/Time: 09/18/23 16:17
[2023-09-18 14:04] LABS: PLT CLUMP 1; Red Cell Distribution Width 15.7 % (11.0-16.0); SCAN SMEAR FLAG 1
[2023-09-18 14:06] LABS: Basophils Percent Auto 0.6 % (0-2); Eosinophils Absolute Auto 0.1 X10*3/uL (0.0-0.4); Hematocrit 38.9 % (37.0-47.0); Hemoglobin 14.4 g/dl (12.0-16.0); Imm Gran Abs Auto 0.03 X10*3/uL (0.00-0.03); Imm Gran Pct Auto 0.5 % (0.0-0.4); Lymphocytes Percent Auto 15.8 % (20-40); MANUAL DIFF FLAG SCAN; Mean Corpuscular Hemoglobin 34.4 pg (27.0-33.0); Mean Corpuscular Volume 93.1 fL (80.0-98.0); Mean Platelet Volume 10.3 fL (9.4-12.3); Monocytes Absolute Auto 0.6 X10*3/uL (0.1-1.2); Monocytes Percent Auto 8.8 % (2-11); Neutrophils Absolute Auto 4.6 x10*3/uL (2.0-8.3); Neutrophils Percent Auto 72.3 % (45-73); Red Blood Count 4.18 X10*6/uL (4.20-5.50)
[2023-09-18 14:08] LABS: Platelet Count 26 X10*3/uL (160-400); White Blood Count 6.4 X10*3/uL (4.8-10.8)
[2023-09-18 14:16] LABS: Alanine Aminotransferase 17 U/L (0-31); Albumin Level 3.8 g/dL (3.5-5.0); Alkaline Phosphatase 74 U/L (39-117); Anion Gap 11 (12-20); Aspartate Amino Transferase 26 U/L (5-31); Blood Urea Nitrogen 6 mg/dL (9-16); Calcium 8.8 mg/dL (8.4-10.2); Carbon Dioxide 25 mmol/L (22-29); Chloride 109 mmol/L (96-108); Creatinine Clr Calc Pharmacy 149.5; Estimated Glomerular Filt Rate > 60; Glucose Random 81 mg/dL (60-115); Potassium 3.9 mmol/L (3.3-5.1); Sodium 141 mmol/L (135-145); Total Protein 7.1 g/dL (6.5-8.0)
[2023-09-18 14:26] LABS: SLIDE REVIEW VERIFIED
== END 2023-09-18 16:17 | disposition left against medical advice (07) ==
PROVIDERS: Physician Assistant Medical; Emergency Provider Emergency Medicine; PCP Internal Medicine
DX: L02.31 Cutaneous abscess of buttock (principal)
CPT/HCPCS: 36415; 80053; 85025; 99281; 99283

== ENCOUNTER 2023-09-21 12:14 | Outpatient (AMB) | payer OTHER, SELFPAY ==
[2023-09-21 12:48] VITALS: BP 118/70; PULSE 82; TEMP 36.3; O2SAT 99; BMI 27.1
--- NOTE | 2023-09-21 12:48 | MHC.OFFWIV ---
Intake Vital Signs 09/21/23 12:48 Height 5 ft 10 in Weight 189 lb BMI 27.1 BP 118/70 Blood Pressure Location Lt brachial Position Sitting Pulse 82 Pulse Source Pulse Oximeter Temp 97.4 F Temp Source Temporal Artery Scan Pulse Oximetry (%) 99 Oxygen Delivery Method Room Air Intake Visit Reasons: EP Bite/pus Under buttocks Intake Note: pt is here today for bite pus under buttocks started 5 days ago Patient Tobacco Use Status: Current everyday Tobacco user Allergies pentoxifylline Allergy (Intermediate, Verified 09/21/23 12:52) Rash phenobarbital Allergy (Verified 09/21/23 12:52) Diarrhea Do you need a note to return to daycare/school/sports/work: No HPI HPI Comments History of Present Illness Details 38-year-old female presents today with a unknown bite on the left buttock. It has surrounding erythema and increasing pain. She states that she noticed 2 puncture wounds but no attached tick and the lesion did not have papule. States she has a past medical history of abscess in the past [facility] Medical History (Updated 09/21/23 @ 13:02 by ARTUR Dahl) Depression Physical exam Opioid dependence on agonist therapy Left ankle pain Smoker Impaired glucose tolerance Alcoholic liver disease Insomnia Anxiety Surgical History (Updated 08/29/23 @ 10:47 by Hoa Yoo MD) H/O endoscopy (08/18/23) History of amputation of finger History of hernia surgery Amputation of left index finger History of arthroplasty of left knee H/O right wrist surgery Family History Father Hypertension Substance use disorder Mother Medical history unknown Maternal Grandfather Cancer Family/Other FH: mental illness Mental health disorder Social History Household Members: Family Housing: House Do you presently have visiting nurse or other home services: No Alcohol intake: former Patient Tobacco Use Status: Current everyday Tobacco user Tobacco use type: Cigarette e-Cigarette/Vaping Use: Never Used Second Hand Smoke Exposure: No service: No 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al status: unemployed and disabled 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: left hand Cognitive needs: No Hearing needs: No Vision needs: No Review of Systems Const All systems reviewed & are unremarkable except as noted in HPI and below Physical Exam Vital Signs: Last Vital Signs Temp 97.4 F 09/21/23 12:48 Pulse 82 09/21/23 12:48 BP 118/70 09/21/23 12:48 Pulse Ox 99 09/21/23 12:48 Oxygen Delivery Method Room Air 09/21/23 12:48 BMI result Body Mass Index 27.1 Skin Lesions: lesion noted (abscess left buttock with surrounding erythema) Assessment & Plan Assessment & Plan (1) Rash: Code(s): R21 - Rash and other nonspecific skin eruption Plan: Put her on cephalexin for cellulitis but also draw and Lyme to be sure this was not tick bite Plan as planned Orders: Orders Lyme IgG/IgM w/reflex to WB Today R21 - Rash and other nonspecific skin eruption Medications: New cephalexin 500 mg PO BID 7 days 14 caps 0RF Coding Level of Care Code Est Pt Level 3 (71923) Diagnoses Rash R21
== END 2023-09-21 13:29 | disposition home or self-care (01) ==
PROVIDERS: PCP Internal Medicine; Visit Provider Physician Assistant Medical
DX: R21 Rash and other nonspecific skin eruption (principal)
CPT/HCPCS: 99213

== ENCOUNTER 2023-09-21 13:05 | Outpatient (REF) | payer OTHER, SELFPAY ==
[2023-09-22 11:04] LABS: Lyme Abs Screen <0.90 index
== END 2023-09-21 13:06 | disposition home or self-care (01) ==
LOC: HO.HMGCLDS 13:05
PROVIDERS: PCP Internal Medicine; Visit Provider Physician Assistant Medical
DX: R21 Rash and other nonspecific skin eruption (principal)
CPT/HCPCS: 36415; 86617; 86618

== ENCOUNTER 2023-10-03 08:50 | Emergency (ER) | payer OTHER, SELFPAY ==
--- NOTE | 2023-10-03 | ECG_ITS ---
Test Reason : chest wall pain Blood Pressure : / mmHG Vent. Rate : 102 BPM Atrial Rate : 102 BPM P-R Int : 142 ms QRS Dur : 088 ms QT Int : 332 ms P-R-T Axes : 054 035 020 degrees QTc Int : 432 ms Sinus tachycardia Minimal voltage criteria for LVH, may be normal variant ( Sokolow-Cruz ) Nonspecific T wave abnormality Abnormal ECG When compared with ECG of 11-MAY-2022 17:00, Non-specific change in ST segment in Lateral leads Nonspecific T wave abnormality, worse in Inferior leads Nonspecific T wave abnormality, worse in Anterolateral leads Referred By: Generic ED Physician Electronically Signed By:Travis Walters
--- NOTE | ~2023-10-03 | XR_ITS ---
EXAMINATION: XR CHEST CLINICAL INFORMATION: Cough and shortness of breath. COMPARISON: None available. TECHNIQUE: 2 views of the chest were obtained. FINDINGS: The lungs are well expanded. No focal consolidation. No pleural effusion. Cardiac silhouette is within normal limits. XR/XR chest 2V IMPRESSION: No acute abnormality.
[2023-10-03 09:02] VITALS: BP 132/83; PULSE 105; RESP 20; TEMP 37.7; O2SAT 97; BMI 26.4
[2023-10-03 09:44] LABS: IDNOW Serial# 08D9AD1C
[2023-10-03 09:45] LABS: Strep A Nucleic Acid Negative (Negative)
[2023-10-03 09:56] LABS: Anion Gap 9 (12-20); Blood Urea Nitrogen 5 mg/dL (9-16); Calcium 8.2 mg/dL (8.4-10.2); Carbon Dioxide 24 mmol/L (22-29); Chloride 108 mmol/L (96-108); Creatinine Clr Calc Pharmacy 142.9; Estimated Glomerular Filt Rate > 60; Glucose Random 127 mg/dL (60-115); Potassium 4.1 mmol/L (3.3-5.1); Sodium 137 mmol/L (135-145)
--- NOTE | 2023-10-03 10:08 | ED.GENADULT ---
HPI - General Adult General Chief complaint: Upper Respiratory Symptoms Stated complaint: diff breathing Time Seen by Provider: 10/03/23 10:07 Source: patient Mode of arrival: ambulatory Limitations: no limitations History of Present Illness HPI narrative: Patient is a 38 year old assigned female at with a history of AUD and OUD presenting to the emergency department today with a cough and body aches. Patient states that over the last day she has had a cough and body aches. Patient denies any dizziness, lightheadedness, abdominal pain, nausea, vomiting, fever, blurry vision, double vision, loss of vision, chest pain, difficulty breathing, shortness of breath, back pain, night sweats, pain with urination, increased urinary frequency, increased urinary urgency, blood in her urine or stool, syncope or a near syncopal episode, recent trauma or falls, bowel incontinence, bladder incontinence, bowel retention, bladder retention, or any other complaints at this time. Onset (ago): day(s) (1) Severity: mild Severity scale (1-10): 2 Relieving factors: none Exacerbating factors: none Associated symptoms: cough and fever/chills Treatments prior to arrival: none Related Data Home Medications ?Medication ?Instructions ?Recorded ?Confirmed methadone 10 mg/mL oral concentrate 80 mg PO DAILY 06/07/22 08/29/23 Previous Rx's ?Medication ?Instructions ?Recorded folic acid 1 mg tablet 1 mg PO DAILY 90 days #90 tabs 07/20/23 thiamine HCl (vitamin B1) 100 mg 100 mg PO DAILY 90 days #90 tabs 07/20/23 tablet alprazolam 0.5 mg tablet 0.5 mg PO TID PRN anxiety 30 days 09/12/23 #90 tabs cephalexin 500 mg capsule 500 mg PO BID 7 days #14 caps 09/21/23 oseltamivir 75 mg capsule (Tamiflu) 75 mg PO DAILY 5 days #5 caps 10/03/23 prednisone 20 mg tablet 20 mg PO DAILY 7 days #7 tabs 10/03/23 Allergies Allergy/AdvReac Type Severity Reaction Status Date / Time pentoxifylline Allergy Intermediate Rash Verified 10/03/23 09:06 phenobarbital Allergy Diarrhea Verified 10/03/23 09:06 Review of Systems Constitutional: Constitutional: Reports no additional constitutional complaints, Reports body ache(s), Reports chills, Denies fever(s) and Denies night sweats Eyes: Eyes: Reports no additional eye complaints, Denies blurry vision, Denies change in vision, Denies diplopia, Denies eye discharge, Denies loss of vision and Denies eye pain ENT: Denies dizziness Cardiovascular: Cardiovascular: Reports no additional cardiovascular complaints, Denies chest pain, Denies lightheadedness, Denies Loss of Consciousness and Denies dyspnea Respiratory: Respiratory: Reports no additional respiratory complaints, Reports cough and Denies dyspnea Gastrointestinal: Gastrointestinal: Reports no additional gastrointestinal complaints, Denies abdominal pain, Denies melena, Denies hematochezia, Denies change in bowel habits and Denies change in stool character Genitourinary: Genitourinary: Denies hematuria, Denies urinary frequency, Denies dysuria, Denies urinary incontinence, Denies urinary hesitancy and Denies urinary urgency Musculoskeletal: Musculoskeletal: Reports no additional musculoskeletal complaints, Denies numbness and Denies tingling Neurologic: Denies dizziness, Denies loss of vision, Denies numbness and Denies tingling Psychiatric: Psychiatric: Reports no additional psychiatric complaints Endocrine: Endocrine: Reports no additional endocrine complaints Hematologic/Lymphatic: Hematologic/Lymphatic: Reports no additional hematologic/lymphatic complaints Allergic/Immunologic: Allergic/Immunologic: Reports no additional allergic/immunologic complaints COUNT INCLUDES THE [facility] Past Medical History Attestation statement: The following information was validated with the patient. Source: old records reviewed and nursing notes reviewed Medical History Depression Physical exam Opioid dependence on agonist therapy Left ankle pain Smoker Impaired glucose tolerance Alcoholic liver disease Insomnia Anxiety Surgical History H/O endoscopy (08/18/23) History of amputation of finger History of hernia surgery Amputation of left index finger History of arthroplasty of left knee H/O right wrist surgery Family History Family History Father Hypertension Substance use disorder Mother Medical history unknown Maternal Grandfather Cancer Family/Other FH: mental illness Mental health disorder Social History Social History Household Members: Family Housing: House Do you presently have visiting nurse or other home services: No Alcohol intake: former Patient Tobacco Use Status: Current everyday Tobacco user Tobacco use type: Cigarette e-Cigarette/Vaping Use: Never Used Second Hand Smoke Exposure: No Advance Directives: No Advance Directives Information Provided: No service: No 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al status: unemployed and disabled 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: left hand Cognitive needs: No Hearing needs: No Vision needs: No Physical Exam ED Vital Signs: Vital Signs - 24 hr 10/03/23 09:02 10/03/23 11:00 10/03/23 11:18 Temperature 99.9 F 98.9 F Pulse Rate 105 H 98 98 Respiratory Rate 20 18 18 Blood Pressure 132/83 132/83 Pulse Oximetry 97 97 Oxygen Delivery Method Room Air Room Air BMI result Body Mass Index 26.4 Const General: cooperative, no acute distress, alert and awake Nutritional Appearance: well nourished Orientation/consciousness: patient oriented x3 Limitations: no limitations HENMT Head: Yes normal to inspection and Yes atraumatic Ears: hearing grossly normal bilaterally and external ears normal General nose exam: Normal external nose present, no nasal discharge noted and no epistaxis Face and sinus: Yes normal facial exam, No abrasion and No laceration Mouth: Normal oral and palatal mucosa present, no drooling and no muffled voice Eyes General: appearance normal, both eyes and all related structures Periorbital: periorbital findings normal Eyelids: Yes eyelids normal Conjunctivae: conjunctivae normal Pupils: Equal, round and reactive pupils present EOM: EOMs intact bilaterally Neck Neck: Yes normal visual inspection, Yes full ROM and Yes no lymphadenopathy Chest Chest palpation & inspection: normal inspection of the chest Resp Effort & Inspection: normal respiratory effort and able to speak in complete sentences GI Inspection: Yes normal to inspection Neuro General: patient oriented x3 and moves all extremities Cranial nerves: Yes Equal, round and reactive pupils present Cognition (Neuro): normal cognition Motor exam (neuro): 5/5 motor strength present throughout Sensory Exam: Normal double simultaneous stimulation for sensation Coordination: [id number] test normal Extrem General: Yes normal to inspection, Yes full ROM and Yes capillary refill normal Psych Appearance: grossly normal Mental Status: mental status grossly normal Affect: normal affect Attitude: cooperative Thought process: Normal thought process present Thought content: Normal thought content present Insight: Good insight present (Psych) Medications Administered Discontinued Medications Generic Name Dose Route Start Last Admin Trade Name Freq PRN Reason Stop Dose Admin Albuterol Sulfate 2 puff 10/03/23 10:29 10/03/23 10:58 Albuterol Sulfate 90 Mcg 8 Gm Inhaler INHALE 10/03/23 10:30 2 puff ONCE ONE Administration Medical Decision Making Medical Decision Making [facility] Narrative: Patient is a 38 year old assigned female at with a history of AUD and OUD presenting to the emergency department today with a cough, body aches, and chills. Patient's physical exam was unremarkable. Patient's blood work was unremarkable. Patient's chest x-ray showed no acute process. Patient's COVID-19 and RSV tests were negative. Patient's influenza test was positive. I explained my physical exam findings as well as all test results to the patient. I answered all questions asked by the patient. I stressed the importance of the patient taking her medication as prescribed. I stressed the importance of the patient following up with her primary care provider. I stressed the importance of the patient returning to the emergency department immediately if her symptoms were to worsen or if she were to develop any dizziness, shortness of breath, difficulty breathing, chest pain, blurry vision, loss of vision, nausea, vomiting, abdominal pain, fever, chills, back pain, or any other complaints. Patient verbalized agreement and understanding with this treatment plan and discharge. Differential Diagnosis Differential Diagnoses: The differential diagnosis associated with the presentation includes COVID-19 Influenza RSV Viral illness Admission/Observation Consideration of admission/observation: Escalation of care including admission/observation considered Patient would have been admitted to the hospital had her work up had any findings where hospital admission was appropriate and her clinical presentation warranted hospital admission. Lab Data [facility] Lab Attestation statement: I reviewed the patient's lab results. My interpretation of these results are in the [facility] Rationale portion of this note. 10/03/23 09:39 10/03/23 09:38 Labs: Lab Results 10/03/23 10/03/23 Range/Units 09:16 09:38 Sodium 137 (135-145) mmol/L Potassium 4.1 (3.3-5.1) mmol/L Chloride 108 (96-108) mmol/L Carbon Dioxide 24 (22-29) mmol/L Anion Gap 9 L (12-20) BUN 5 L (9-16) mg/dL Creatinine 0.64 (0.5-1.4) mg/dL Estim Creat Clear Calc 142.9 Estimated GFR > 60 Random Glucose 127 H (60-115) mg/dL Calcium 8.2 L D (8.4-10.2) mg/dL Influenza Type A (PCR) NEGATIVE (Negative) Influenza Type B (PCR) POSITIVE A (Negative) RSV RNA Qual (PCR) NEGATIVE (Negative) SARS-CoV-2 RNA (RT-PCR) NEGATIVE (Negative) S. pyogenes GrpA ADRIANA Negative (Negative) Independent Interpretation I performed an independent interpretation of an: Plain X-Ray Interpretation: My interpretation is in agreement with the radiologist's impression of this imaging study. EXAMINATION: XR CHEST CLINICAL INFORMATION: Cough and shortness of breath. COMPARISON: None available. TECHNIQUE: 2 views of the chest were obtained. FINDINGS: The lungs are well expanded. No focal consolidation. No pleural effusion. Cardiac silhouette is within normal limits. XR/XR chest 2V IMPRESSION: No acute abnormality. Dictated By: Trung Riddle MD Signed By: Electronically signed by Trung Riddle MD 10/03/23 2221 Radiology Impression Discussion of test interpretation with radiology: I have reviewed the radiologist's reading. Prescription Management I considered prescription management with: Antiviral (patient prescribed antiviral for influenza) Discharge Plan Discharge Clinical Impression: Influenza Patient Disposition: Home, Self-Care Instructions: Influenza (DC) Additional Instructions: Follow up with your primary care provider. Return to the emergency department immediately if your symptoms worsen or if you develop any dizziness, shortness of breath, difficulty breathing, chest pain, blurry vision, loss of vision, nausea, vomiting, abdominal pain, fever, chills, back pain, or any other complaints. Prescriptions: New oseltamivir [Tamiflu] 75 mg capsule 75 mg PO DAILY 5 Days Qty: 5 0RF prednisone 20 mg tablet 20 mg PO DAILY 7 Days Qty: 7 0RF No Action alprazolam 0.5 mg tablet 0.5 mg PO TID PRN (Reason: anxiety) 30 Days Qty: 90 0RF methadone 10 mg/mL concentrate 80 mg PO DAILY Rx Instructions: [facility] [phone] folic acid 1 mg tablet 1 mg PO DAILY 90 Days Qty: 90 1RF thiamine HCl (vitamin B1) 100 mg tablet 100 mg PO DAILY 90 Days Qty: 90 1RF cephalexin 500 mg capsule 500 mg PO BID 7 Days Qty: 14 0RF Referrals: Samantha Graves MD [Primary Care Provider] - Interventions: ED Discharge Assessment Last Done: 10/03/23 11:18 Discharge Date/Time: 10/03/23 11:18 Print Language: Lebanese
[2023-10-03 10:14] LABS: Influenza A PCR NEGATIVE (Negative); Influenza B PCR POSITIVE (Negative); Resp Syncy Virus RNA Qual PCR NEGATIVE (Negative); SARS COV2 PCR INHOUSE NEGATIVE (Negative)
[2023-10-03] MEDS: Albuterol Sulfate 90 MCG 8 GM INHALER 2 PUFF INHALE (10:58)
[2023-10-03 11:00] VITALS: PULSE 98; RESP 18; O2SAT 98
[2023-10-03 11:18] VITALS: BP 132/83; PULSE 98; RESP 18; TEMP 37.2; O2SAT 97
== END 2023-10-03 11:18 | disposition home or self-care (01) ==
PROVIDERS: Emergency Provider Emergency Medicine; PCP Internal Medicine
DX: J11.1 Influenza due to unidentified influenza virus with other respiratory manifestations (principal)
CPT/HCPCS: 0241U; 71046; 80048; 87651; 93005; 94640; 99284

== ENCOUNTER → 2023-10-03 09:10 | Outpatient (BNV) | payer OTHER, SELFPAY | PROVIDERS: Emergency Provider Emergency Medicine; PCP Internal Medicine; Visit Provider Internal Medicine Cardiovascular Disease | DX: R07.89 Other chest pain (principal) | CPT/HCPCS: 93010 ==

== ENCOUNTER 2024-01-07 13:04 | Inpatient (IN) | payer OTHER, SELFPAY ==
--- NOTE | ~2024-01-07 | XR_ITS ---
EXAMINATION: XR CHEST CLINICAL INFORMATION: Cough COMPARISON: Chest x-ray on 10/03/2023 TECHNIQUE: Frontal view of the chest was obtained. FINDINGS: The cardiac silhouette is normal. There is mild diffuse bronchial wall thickening. There are no areas of consolidation. There are no pleural effusions or pneumothoraces. The bones and soft tissues are unremarkable for the patient's age. XR/XR chest 1V IMPRESSION: Bronchial wall thickening may be infectious and/or inflammatory in etiology.
--- NOTE | ~2024-01-07 | CT_ITS ---
EXAMINATION: CT ABDOMEN AND PELVIS WITH CONTRAST CLINICAL INFORMATION: Abdominal pain, nausea and diarrhea COMPARISON: Ultrasound abdomen 05/30/2023, CT abdomen pelvis 10/01/2019 TECHNIQUE: Multidetector volumetric images were obtained from the superior aspect of the liver through the pubic symphysis following administration 85 mL of Omnipaque 350 intravenous contrast. Sagittal and coronal reformatted images were obtained on the technologist's workstation. Oral contrast: No This CT examination was performed using dose optimization techniques as appropriate, variously including the following: *Automated exposure control *Adjustment of mA and/or kV according to patient size (this includes techniques or standardized protocols for targeted exams where dose is matched to indication/reason for exam; i.e. extremities or head) *Use of iterative reconstruction technique DLP: 709 mGy-cm FINDINGS: LUNG BASES: The visualized lung bases are unremarkable. Right basilar atelectasis is present. LIVER, GALLBLADDER, AND BILIARY TREE: Again seen is a markedly heterogeneous liver with low attenuation and a markedly nodular border. The liver is enlarged measuring 18.2 cm in greatest length. No definite focal mass is seen aside from the presence of a small cyst at the dome of the right hemidiaphragm (3:7). No biliary ductal dilatation is present. The gallbladder is contracted and thick walled with no radiopaque gallstones with no gross pericholecystic inflammatory changes. PANCREAS: There is some mild streaky changes seen around the pancreas SPLEEN: There is marked splenic enlargement with largest single dimension of 23.5 cm. There is thrombus present in the splenic vein measuring 3.4 x 2.2 x 1.2 cm which is new when compared to the 10/01/2019 study. ADRENAL GLANDS: Unremarkable. KIDNEYS AND URETERS: The kidneys are normal in size, shape, and attenuation. No hydronephrosis, hydroureter, or calculi seen. No perinephric stranding. BLADDER: Unremarkable. GASTROINTESTINAL TRACT: The small and large bowel are unremarkable. The appendix is unremarkable. ABDOMINAL WALL: No significant hernia is appreciated. LYMPH NODES: Some shotty retroperitoneal lymph nodes are seen and some streaky changes are present in the small bowel mesentery. VASCULAR: Splenic vein thrombus as described above. The remainder of the portal venous system is patent. There is recanalization of the periumbilical vein. Large perisplenic varices are seen extending down into the pelvis. No large splenorenal shunt is seen. The aorta and iliofemoral vessels are unremarkable. PELVIC VISCERA: The uterus and adnexa are unremarkable. OSSEOUS STRUCTURES: Unremarkable. CT/CT abdomen pelvis w IV con IMPRESSION: 1. Cirrhotic liver with marked splenomegaly and large perisplenic varices. 2. There is a new splenic vein thrombus. 3. Other incidental findings as described above. Fleischner guidelines were followed.
[2024-01-07 13:19] VITALS: BP 144/81; PULSE 107; RESP 18; TEMP 36.7; O2SAT 96; BMI 27.0
--- NOTE | 2024-01-07 13:20 | ED.GENADULT ---
HPI - General Adult General Chief complaint: ETOH/Substance Use Stated complaint: Alcohol Physical Symptoms Time Seen by Provider: 01/07/24 16:00 Source: RN notes reviewed and old records reviewed History of Present Illness ED Provider: Carolina Lord PA-C HPI narrative: 39-year-old female with a past medical history of arterial insufficiency, ETOH abuse, cirrhosis, presenting to the ED complaining of abdominal bloating/discomfort, nausea, diarrhea, subjective fever/chills, cough, and scleral icterus. Admits to drinking about 40-50 nips daily, last drink around 12:00pm. Admits to history of withdrawal seizures and medically induced coma. Denies SOB, CP, dysuria/hematuria. Also reports heroin and crack cocaine use Related Data Home Medications ?Medication ?Instructions ?Recorded ?Confirmed methadone 10 mg/mL oral concentrate 80 mg PO DAILY 06/07/22 08/29/23 Previous Rx's ?Medication ?Instructions ?Recorded folic acid 1 mg tablet 1 mg PO DAILY 90 days #90 tabs 07/20/23 thiamine HCl (vitamin B1) 100 mg 100 mg PO DAILY 90 days #90 tabs 07/20/23 tablet cephalexin 500 mg capsule 500 mg PO BID 7 days #14 caps 09/21/23 oseltamivir 75 mg capsule (Tamiflu) 75 mg PO DAILY 5 days #5 caps 10/03/23 prednisone 20 mg tablet 20 mg PO DAILY 7 days #7 tabs 10/03/23 alprazolam 0.5 mg tablet 0.5 mg PO TID PRN anxiety 30 days 01/06/24 #90 tabs Allergies Allergy/AdvReac Type Severity Reaction Status Date / Time pentoxifylline Allergy Intermediate Rash Verified 01/07/24 13:25 phenobarbital Allergy Diarrhea Verified 01/07/24 13:25 Review of Systems Review of Systems: Constitutional: + Fever, +Chills ENT/Mouth: No Ear Pain, No Nasal Congestion, No sore throat, No Rhinorrhea, No Swallowing Difficulty Cardiovascular: No Chest Pain, No SOB Respiratory: +Cough, No Sputum, No Wheezing Gastrointestinal: + Nausea, No Vomiting, + Diarrhea, No Constipation, + Abdominal pain Genitourinary: No Dysuria, No Urinary Frequency, No Hematuria, No Urinary Incontinence/retention, No Flank Pain Musculoskeletal: No joint pain, No Myalgias, No Joint Swelling Skin: No Skin Lesions, No rash Neuro: No Weakness, No Numbness, No Paresthesias Yes all other systems are reviewed and are negative Constitutional: Constitutional: Reports as per [facility] Past Medical History Attestation statement: The following information was validated with the patient. Source: old records reviewed Medical History Depression Physical exam Opioid dependence on agonist therapy Left ankle pain Smoker Impaired glucose tolerance Alcoholic liver disease Insomnia Anxiety Surgical History H/O endoscopy (08/18/23) History of amputation of finger History of hernia surgery Amputation of left index finger History of arthroplasty of left knee H/O right wrist surgery Family History Family History Father Hypertension Substance use disorder Mother Medical history unknown Maternal Grandfather Cancer Family/Other FH: mental illness Mental health disorder Social History Social History Household Members: Family Housing: House Do you presently have visiting nurse or other home services: No Alcohol intake: current Alcohol intake frequency: 3 or more drinks per day Alcohol type: hard liquor Patient Tobacco Use Status: Current everyday Tobacco user Tobacco use type: Cigarette e-Cigarette/Vaping Use: Never Used Second Hand Smoke Exposure: No Use of substances other than those prescribed or required for medical reasons: Yes Substance Use Type: Heroin Substance Use Frequency: Occasionally Last Used Substance: Days (ago) Any prior treatment program specific to substance use: Yes Advance Directives: No Advance Directives Information Provided: Yes Do you have a plan to hurt others: No Plan Patient : No service: No 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al status: unemployed and disabled 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: left hand Cognitive needs: No Hearing needs: No Vision needs: No Physical Exam ED Vital Signs: Vital Signs - 24 hr 01/07/24 13:19 01/07/24 13:51 01/07/24 15:51 Temperature 98.1 F 98.5 F Pulse Rate 107 H 101 H 95 Respiratory Rate 18 18 16 Blood Pressure 144/81 H 136/69 124/68 Pulse Oximetry 96 95 95 Oxygen Delivery Method Room Air Room Air Room Air 01/07/24 18:00 01/07/24 22:49 Temperature 98.7 F 99.1 F Pulse Rate 98 91 Respiratory Rate 19 17 Blood Pressure 125/76 117/61 Pulse Oximetry 94 93 Oxygen Delivery Method Room Air Room Air BMI result Body Mass Index 27.0 Const General: cooperative and no acute distress Orientation/consciousness: patient oriented x3 Limitations: no limitations HENMT Head: Yes normal to inspection and Yes atraumatic Ears: hearing grossly normal bilaterally General nose exam: Normal external nose present Face and sinus: Yes normal facial exam Eyes Other: +scleral icterus General: appearance normal, both eyes and all related structures EOM: EOMs intact bilaterally Neck Neck: Yes normal visual inspection and Yes no meningeal signs Resp Effort & Inspection: normal respiratory effort and no respiratory distress Auscultation: clear to auscultation bilaterally, no crackles and no wheezes Cardio Rate: regular rate Heart sounds: S1 normal heart sound present and S2 normal heart sound present GI Inspection: Yes normal to inspection and Yes distended Palpation (GI): Soft to palpation, Tenderness to palpation present (GI) in the epigastrum and in the LLQ; with no rebound tenderness, no guarding and not rigid Skin Rashes: no rashes Neuro General: patient oriented x3, tone normal, no meningeal signs and CN's II-XI intact bilaterally Cranial nerves: Yes CN's II-XII intact bilaterally Gait exam (Neuro): Normal gait present Extrem General: Yes normal to inspection Course Course Course Narrative: This is an RME performed by Curtis France CNP: Additional HPI, ROS, PE not included below will be deferred to primary provider. Patient is a 39-year-old female who presents emergency department for evaluation, Reports a history of cirrhosis secondary to alcohol use disorder, admits to last drink earlier today and having 40-50 nips vodka daily, she has been experiencing since yesterday abdominal pain epistaxis, nausea with dry heaving, watery diarrhea. Plan: Labs -1710--thrombocytopenic suspected from chronic ETOH abuse. Patient denies any brbpr or melena. Potassium low at 3.2 > p.o. repletion ordered. Lactic acid 2.3 likely from ETOH abuse/cirrhosis, rather than severe sepsis. -bilirubin acute on chronically elevated to 5.2. AST/ALT elevated likely from ETOH abuse ED care discussed with Dr. Carlos who also evaluated patient & agrees with low suspicion for SBP -COVID/flu/RSV negative XR chest 1V IMPRESSION: Bronchial wall thickening may be infectious and/or inflammatory in etiology. 0021-- CT abdomen pelvis w IV con IMPRESSION: 1. Cirrhotic liver with marked splenomegaly and large perisplenic varices. 2. There is a new splenic vein thrombus. 3. Other incidental findings as described above. Fleischner guidelines were followed. > case d/w Dr. Carlos, plan for admission -case discussed with hospitalist Dr. Mathur, recommended vascular consult, Dr. Hood covering > Dr. Hood reports no vascular intervention at this time, end stage liver management -phenobarbital protocol initiated Medications Administered Discontinued Medications Generic Name Dose Route Start Last Admin Trade Name Freq PRN Reason Stop Dose Admin Sodium Chloride 1,000 mls @ 999 mls/hr 01/07/24 16:30 01/07/24 18:36 Ns IV 01/07/24 17:30 Infused .Q1H1M PITA Infusion Sodium Chloride 1,000 mls @ 999 mls/hr 01/07/24 21:30 01/08/24 00:23 Ns IV 01/07/24 22:30 Infused .Q1H1M PITA Infusion Iohexol 85 ml 01/07/24 20:48 01/07/24 20:50 Iohexol 350 Mg/Ml 100 Ml Infus..Btl IV 01/07/24 20:49 85 ml ONCE ONE Administration Lorazepam 1 mg 01/07/24 17:05 01/07/24 17:11 Lorazepam 1 Mg Tablet PO 01/07/24 17:06 1 mg ONCE ONE Administration Potassium Chloride 60 meq 01/07/24 16:49 01/07/24 17:11 Potassium Chloride Packet 20 Meq Packet PO 01/07/24 16:50 60 meq ONCE ONE Administration Medical Decision Making Medical Decision Making MDM Narrative: 39-year-old female with a past medical history of arterial insufficiency, ETOH abuse, cirrhosis, presenting to the ED complaining of abdominal bloating/discomfort, nausea, diarrhea, subjective fever/chills, cough, and scleral icterus. On exam initially tachycardic, NAD, nontoxic appearing, A&O x3, abdominal distention appreciated with epigastric and LLQ tenderness, no rebound or guarding, lungs CTA. Concern for ETOH abuse/withdrawal and cirrhosis vs hepatitis vs pancreatitis/cholecystitis/lithiasis or diverticulitis. Lower suspicion for appendicitis at this time. SBP on differential however lower. Low suspicion for severe sepsis, tachycardia likely from ETOH withdrawal Plan: labs, UA, tox screen, CXR, paracentesis, IVF Please refer to course for remaining clinical decision making, interpretation of labs/imaging results, and discussions with consultants and/or family members. Differential Diagnosis Differential Diagnoses: The differential diagnosis associated with the presentation includes As above Admission/Observation Consideration of admission/observation: Escalation of care including admission/observation considered Lab Data MDM Lab Attestation statement: I reviewed the patient's lab results. 01/07/24 16:16 01/07/24 15:11 Labs: Lab Results 01/07/24 01/07/24 01/07/24 Range/Units 15:11 16:16 16:20 WBC 8.0 (4.8-10.8) X10*3/uL RBC 3.30 L D (4.20-5.50) X10*6/uL Hgb 11.5 L D (12.0-16.0) g/dl Hct 31.5 L (37.0-47.0) % MCV 95.5 (80.0-98.0) fL MCH 34.8 H (27.0-33.0) pg MCHC 36.5 H (31.0-35.0) g/dl RDW 19.0 H (11.0-16.0) % Plt Count 45 L D (160-400) X10*3/uL MPV 11.5 (9.4-12.3) fL Immature Gran % (Auto) 2.5 H (0.0-0.4) % Neut % (Auto) 63.7 (45-73) % Lymph % (Auto) 20.0 (20-40) % Mcleod % (Auto) 10.0 (2-11) % Eos % (Auto) 3.8 (0-4) % Baso % (Auto) 0.0 (0-2) % Lymph # (Auto) 0.3 L (1.2-4.9) X10*3/uL Mcleod # (Auto) 0.2 (0.1-1.2) X10*3/uL Eos # (Auto) 0.1 (0.0-0.4) X10*3/uL Baso # (Auto) 0.0 (0.0-0.2) X10*3/uL Abs Immat Gran (auto) 0.04 H (0.00-0.03) X10*3/uL Absolute Neuts (auto) 1.0 L (2.0-8.3) x10*3/uL Absolute Nucleated RBC 0.030 H (0.0-0.012) X10*3/uL Nucleated RBC % (auto) 1.9 H (0.0-0.2) /100WBC Smear Tech's Comments VERIFIED PT (11.1-13.3) SEC INR (0.9-1.1) APTT (26.0-36.8) SEC Sodium 140 (135-145) mmol/L Potassium 3.2 L D (3.3-5.1) mmol/L Chloride 107 (96-108) mmol/L Carbon Dioxide 22 (22-29) mmol/L Anion Gap 14 (12-20) BUN 6 L (9-16) mg/dL Creatinine 0.61 (0.5-1.4) mg/dL Estim Creat Clear Calc 150.0 Estimated GFR > 60 Random Glucose 88 (60-115) mg/dL Lactic Acid (0.5-2.0) mmol/L Lactic Acid F/U @ 2Hr (0.5-2.0) mmol/L Calcium 8.7 D (8.4-10.2) mg/dL Magnesium 2.2 (1.6-2.6) mg/dL Total Bilirubin 5.2 H (0.0-1.0) mg/dL AST 109 H (5-31) U/L ALT 44 H (0-31) U/L Alkaline Phosphatase 133 H (39-117) U/L Total Protein 7.5 (6.5-8.0) g/dL Albumin 3.3 L (3.5-5.0) g/dL Lipase 39 (8-78) U/L Beta HCG, Quant < 2 mIU/mL Urine Color Dark Yellow Urine Appearance Clear Urine pH 7.5 (5.0-9.0) Ur Specific [place] 1.010 (1.005-1.025) Urine Protein Negative (Neg-Trace) mg/dL Urine Glucose (UA) Negative (Negative) mg/dL Urine Ketones Negative (Negative) mg/dL Urine Blood Negative (Negative) Urine Nitrite Negative (Negative) Ur Leukocyte Esterase Trace H (Negative) Urine RBC 0-2 (0-2) /HPF Urine WBC 0-5 (0-5) /HPF Ur Squamous Epith Cells 3-5 (0-2) /HPF Urine Bacteria None Seen (None Seen) Hyaline Casts 0-2 (0-2) /LPF Urine Opiates Screen Not Detected (Not Detect) Ur Buprenorphine Scrn Not Detected (Not Detect) ng/mL Ur Oxycodone Screen Not Detected (Not Detect) ng/mL Urine Methadone Screen Positive H (Not Detect) ng/mL Urine Fentanyl Screen POSITIVE H (Not Detect) Ur Barbiturates Screen Not Detected (Not Detect) Ur Phencyclidine Scrn Not Detected (Not Detect) Ur Amphetamines Screen Not Detected (Not Detect) U Benzodiazepines Scrn POSITIVE H (Not Detect) Urine Cocaine Screen POSITIVE H (Not Detect) U Marijuana (THC) Screen Not Detected (Not Detect) Ethyl Alcohol 172 mg/dL Influenza Type A (PCR) NEGATIVE (Negative) Influenza Type B (PCR) NEGATIVE (Negative) RSV RNA Qual (PCR) NEGATIVE (Negative) SARS-CoV-2 RNA (RT-PCR) NEGATIVE (Negative) 01/07/24 01/07/24 Range/Units 16:32 19:18 WBC (4.8-10.8) X10*3/uL RBC (4.20-5.50) X10*6/uL Hgb (12.0-16.0) g/dl Hct (37.0-47.0) % MCV (80.0-98.0) fL MCH (27.0-33.0) pg MCHC (31.0-35.0) g/dl RDW (11.0-16.0) % Plt Count (160-400) X10*3/uL MPV (9.4-12.3) fL Immature Gran % (Auto) (0.0-0.4) % Neut % (Auto) (45-73) % Lymph % (Auto) (20-40) % Mcleod % (Auto) (2-11) % Eos % (Auto) (0-4) % Baso % (Auto) (0-2) % Lymph # (Auto) (1.2-4.9) X10*3/uL Mcleod # (Auto) (0.1-1.2) X10*3/uL Eos # (Auto) (0.0-0.4) X10*3/uL Baso # (Auto) (0.0-0.2) X10*3/uL Abs Immat Gran (auto) (0.00-0.03) X10*3/uL Absolute Neuts (auto) (2.0-8.3) x10*3/uL Absolute Nucleated RBC (0.0-0.012) X10*3/uL Nucleated RBC % (auto) (0.0-0.2) /100WBC Smear Tech's Comments PT 16.5 H (11.1-13.3) SEC INR 1.4 H (0.9-1.1) APTT 31.2 (26.0-36.8) SEC Sodium (135-145) mmol/L Potassium (3.3-5.1) mmol/L Chloride (96-108) mmol/L Carbon Dioxide (22-29) mmol/L Anion Gap (12-20) BUN (9-16) mg/dL Creatinine (0.5-1.4) mg/dL Estim Creat Clear Calc Estimated GFR Random Glucose (60-115) mg/dL Lactic Acid 2.3 H* (0.5-2.0) mmol/L Lactic Acid F/U @ 2Hr 1.6 (0.5-2.0) mmol/L Calcium (8.4-10.2) mg/dL Magnesium (1.6-2.6) mg/dL Total Bilirubin (0.0-1.0) mg/dL AST (5-31) U/L ALT (0-31) U/L Alkaline Phosphatase (39-117) U/L Total Protein (6.5-8.0) g/dL Albumin (3.5-5.0) g/dL Lipase (8-78) U/L Beta HCG, Quant mIU/mL Urine Color Urine Appearance Urine pH (5.0-9.0) Ur Specific [place] (1.005-1.025) Urine Protein (Neg-Trace) mg/dL Urine Glucose (UA) (Negative) mg/dL Urine Ketones (Negative) mg/dL Urine Blood (Negative) Urine Nitrite (Negative) Ur Leukocyte Esterase (Negative) Urine RBC (0-2) /HPF Urine WBC (0-5) /HPF Ur Squamous Epith Cells (0-2) /HPF Urine Bacteria (None Seen) Hyaline Casts (0-2) /LPF Urine Opiates Screen (Not Detect) Ur Buprenorphine Scrn (Not Detect) ng/mL Ur Oxycodone Screen (Not Detect) ng/mL Urine Methadone Screen (Not Detect) ng/mL Urine Fentanyl Screen (Not Detect) Ur Barbiturates Screen (Not Detect) Ur Phencyclidine Scrn (Not Detect) Ur Amphetamines Screen (Not Detect) U Benzodiazepines Scrn (Not Detect) Urine Cocaine Screen (Not Detect) U Marijuana (THC) Screen (Not Detect) Ethyl Alcohol mg/dL Influenza Type A (PCR) (Negative) Influenza Type B (PCR) (Negative) RSV RNA Qual (PCR) (Negative) SARS-CoV-2 RNA (RT-PCR) (Negative) Independent Interpretation I performed an independent interpretation of an: Ultrasound Radiology Impression Discussion of test interpretation with radiology: I have reviewed the radiologist's reading. Independent Historian Clinical information obtained from an independent historian. History obtained from or confirmed by: Other External Record Review External record reviewed: Inpatient record, Office record, Outpatient record, Prior outpatient labs, Prior outpatient radiology, Primary care record and Outside ED record Tests considered The following testing was considered but not selected: As above Prescription Management I considered prescription management with: Pain Medication and Antibiotic Chronic Conditions Patient?s care impacted by: Other Social Determinants Patient?s care significantly limited by Social Determinants of Health including: Alcoholism and drug addiction in family and Problems related to primary support group Critical Care Time Critical Care Time Critical Care Time: Yes Total Critical Care Time: 50 Attestation: I have personally provided critical care time exclusive of time spent on separately billable procedures. Time includes review of lab data, radiology results, discussion with consultants, and monitoring for potential decompensation. Intervention performed as documented. Discharge Plan Discharge Clinical Impression: Splenic vein thrombosis, Thrombocytopenia, Splenic varices, Alcohol dependence Prescriptions: No Action alprazolam 0.5 mg tablet 0.5 mg PO TID PRN (Reason: anxiety) 30 Days Qty: 90 0RF oseltamivir [Tamiflu] 75 mg capsule 75 mg PO DAILY 5 Days Qty: 5 0RF prednisone 20 mg tablet 20 mg PO DAILY 7 Days Qty: 7 0RF methadone 10 mg/mL concentrate 80 mg PO DAILY Rx Instructions: [facility] [phone] folic acid 1 mg tablet 1 mg PO DAILY 90 Days Qty: 90 1RF thiamine HCl (vitamin B1) 100 mg tablet 100 mg PO DAILY 90 Days Qty: 90 1RF cephalexin 500 mg capsule 500 mg PO BID 7 Days Qty: 14 0RF Referrals: Angel Boston MD [Physician] - Print Language: Uzbek
[2024-01-07 13:51] VITALS: BP 136/69; PULSE 101; RESP 18; TEMP 36.9; O2SAT 95
--- NOTE | 2024-01-07 14:03 | PC.NURSE ---
Pt comes to ED to with c/o abd pain and diarrhea. States she has recently relapsed and began abusing ETOH about 2 months ago. Most recent use today. VSS and Pt is afebrile. Pt rest comfortably on stretcher.
[2024-01-07 15:35] LABS: Alanine Aminotransferase 44 U/L (0-31); Albumin Level 3.3 g/dL (3.5-5.0); Alkaline Phosphatase 133 U/L (39-117); Anion Gap 14 (12-20); Aspartate Amino Transferase 109 U/L (5-31); Bilirubin Total 5.2 mg/dL (0.0-1.0); Blood Urea Nitrogen 6 mg/dL (9-16); Calcium 8.7 mg/dL (8.4-10.2); Carbon Dioxide 22 mmol/L (22-29); Chloride 107 mmol/L (96-108); Estimated Glomerular Filt Rate > 60; Glucose Random 88 mg/dL (60-115); Lipase 39 U/L (8-78); Magnesium 2.2 mg/dL (1.6-2.6); Potassium 3.2 mmol/L (3.3-5.1); Sodium 140 mmol/L (135-145); Total Protein 7.5 g/dL (6.5-8.0)
[2024-01-07 15:51] VITALS: BP 124/68; PULSE 95; RESP 16; O2SAT 95
[2024-01-07 15:54] LABS: Influenza A PCR NEGATIVE (Negative); Influenza B PCR NEGATIVE (Negative); Resp Syncy Virus RNA Qual PCR NEGATIVE (Negative); SARS COV2 PCR INHOUSE NEGATIVE (Negative)
[2024-01-07 16:02] LABS: Appearance Urine Clear; Color Urine Dark Yellow; Glucose Urine UA Negative (Negative); Leukocyte Esterase Urine Trace (Negative); Nitrite Urine Negative (Negative); PH 7.5 (5.0-9.0); UMIC TRIGGER UACC YES; Urine Blood Negative (Negative); Urine Ketones Negative (Negative); Urine Protein Negative (Neg-Trace)
[2024-01-07] MEDS: 0.9 % Sodium Chloride 1,000 ML 999 ML IV ×2 (16:35→21:50)
[2024-01-07 16:49] LABS: INTERNATIONAL NORM RATIO 1.4 (0.9-1.1); Prothrombin Time 16.5 SEC (11.1-13.3)
[2024-01-07 16:51] LABS: Partial Thromboplastin Time 31.2 SEC (26.0-36.8)
[2024-01-07 17:02] LABS: Lactic Acid 2.3 mmol/L (0.5-2.0)
[2024-01-07] MEDS: Potassium Chloride Packet 20 MEQ PACKET 60 MEQ PO (17:11)
[2024-01-07] MEDS: LORazepam 1 MG TABLET PO (17:11)
[2024-01-07 17:17] LABS: Ethanol 172 mg/dL
[2024-01-07 17:22] LABS: Eosinophils Absolute Auto 0.1 X10*3/uL (0.0-0.4); Eosinophils Percent Auto 3.8 % (0-4); Imm Gran Abs Auto 0.04 X10*3/uL (0.00-0.03); Imm Gran Pct Auto 2.5 % (0.0-0.4); Lymphocytes Absolute Auto 0.3 X10*3/uL (1.2-4.9); MANUAL DIFF FLAG SCAN; Mean Corpuscular HGB Conc 36.5 g/dl (31.0-35.0); Mean Corpuscular Hemoglobin 34.8 pg (27.0-33.0); Mean Corpuscular Volume 95.5 fL (80.0-98.0); Mean Platelet Volume 11.5 fL (9.4-12.3); Monocytes Absolute Auto 0.2 X10*3/uL (0.1-1.2); Neutrophils Percent Auto 63.7 % (45-73); SCAN SMEAR FLAG 1
[2024-01-07 17:23] LABS: NRBC Pct Auto 1.9 /100WBC (0.0-0.2)
[2024-01-07 17:24] LABS: Hematocrit 31.5 % (37.0-47.0); Hemoglobin 11.5 g/dl (12.0-16.0)
[2024-01-07 17:25] LABS: Platelet Count 45 X10*3/uL (160-400)
[2024-01-07 17:55] LABS: Amphetamine Screen Urine Not Detected (Not Detect); Bacteria Urine None Seen (None Seen); Barbiturates, Urine Not Detected (Not Detect); Benzodiazepines Screen Urine POSITIVE (Not Detect); Buprenorphine Scr Not Detected (Not Detect); Cannabinoid Screen Urine Not Detected (Not Detect); Cocaine Screen Urine POSITIVE (Not Detect); Fentanyl, urine POSITIVE (Not Detect); Hyaline Casts Urine 0-2 /LPF (0-2); Methadone Screen, Urine Positive (Not Detect); Opiate Screen Urine Not Detected (Not Detect); Oxycodone Screen Urine Not Detected (Not Detect); Phencyclidine Screen Urine Not Detected (Not Detect); RBC Urine 0-2 /HPF (0-2); WBC Urine 0-5 /HPF (0-5)
[2024-01-07 18:00] VITALS: BP 125/76; PULSE 98; RESP 19; TEMP 37.1; O2SAT 94
[2024-01-07 18:34] LABS: Reflex Lactate? Lactic Acid Added
[2024-01-07 19:34] LABS: ~Lactic Acid-LAB USE ONLY 1.6 mmol/L (0.5-2.0)
[2024-01-07 19:50] LABS: SLIDE REVIEW VERIFIED
[2024-01-07 20:08] LABS: HCG Quantitative < 2 mIU/mL
[2024-01-07] MEDS: iohexoL 350 MG/ML 100 ML INFUS..BTL 85 ML IV (20:50)
[2024-01-07 22:49] VITALS: BP 117/61; PULSE 91; RESP 17; TEMP 37.3; O2SAT 93
[2024-01-08] MEDS: LORazepam 2 MG/ML VIAL IVPUSH (00:45)
--- NOTE | 2024-01-08 02:20 | P.HPHOSP_ITS ---
History of Present Illness Date of Service: 01/08/24 Attending physician on admission: Dejuan Lund Chief Complaint: Abdominal pain Jessika Julian is a 39 years old woman with past medical history significant for chronic liver disease, alcoholic liver cirrhosis, chronic thrombocytopenia, chronic hepatitis C infection, portal hypertensive gastropathy, esophageal varices (nonbandable),opiate abuse on methadone (ongoing heroin use and crack), anxiety on Xanax presents to the emergency department complaining of intermittent upper abdominal pain/left upper quadrant associated with nonbloody diarrhea and nonbloody emesis. She also noted increased abdominal girth. She mentioned that she relapsed drinking for a year but she relapsed about a month ago. She denied headache, chest pain or significant shortness on breath. Did not report fever or chills or any acute urinary symptoms. She uses heroin and crack (snorted). Last alcoholic beverage was this morning. In the ED, she was found to have normal vital signs. Blood workup was remarkable for hemoglobin 11.5 and hematocrit 31.5. There is no leukocytosis. Platelets are 45. INR is 1.4. Lactic acid was initially 2.3 (now 1.6), there is mild hypokalemia. LFTs are elevated. Bilirubin is 5.2 (it was 4.0), lipase is normal. test is negative. CXR showed bronchial wall thickening may be infectious and/or inflammatory in etiology. Abdominal pelvis CT scan showed cirrhotic liver with marked splenomegaly and large perisplenic varices, new splenic vein thrombosis. ED tx: NS 2 L bolus, potassium 60 mEq p.o., Ativan 1 mg p.o., lorazepam 2 mg IV Review of Systems 2 Review of Systems: All 12 systems were reviewed and normal except as noted in HPI. [facility] Medical History Depression Physical exam Opioid dependence on agonist therapy Left ankle pain Smoker Impaired glucose tolerance Alcoholic liver disease Insomnia Anxiety Family History Father Hypertension Substance use disorder Mother Medical history unknown Maternal Grandfather Cancer Family/Other FH: mental illness Mental health disorder Surgical History H/O endoscopy (08/18/23) History of amputation of finger History of hernia surgery Amputation of left index finger History of arthroplasty of left knee H/O right wrist surgery Social History Household Members: Family Housing: House Do you presently have visiting nurse or other home services: No Alcohol intake: current Alcohol intake frequency: 3 or more drinks per day Alcohol type: hard liquor Patient Tobacco Use Status: Current everyday Tobacco user Tobacco use type: Cigarette e-Cigarette/Vaping Use: Never Used Second Hand Smoke Exposure: No Use of substances other than those prescribed or required for medical reasons: Yes Substance Use Type: Heroin Substance Use Frequency: Occasionally Last Used Substance: Days (ago) Any prior treatment program specific to substance use: Yes Advance Directives: No Advance Directives Information Provided: Yes Do you have a plan to hurt others: No Plan Patient : No service: No 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al status: unemployed and disabled 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: left hand Cognitive needs: No Hearing needs: No Vision needs: No Meds Allergies Allergy/AdvReac Type Severity Reaction Status Date / Time pentoxifylline Allergy Intermediate Rash Verified 01/07/24 13:25 phenobarbital Allergy Diarrhea Verified 01/07/24 13:25 Active Medications: Current Medications Folic Acid (Folic Acid 1 Mg Tablet) 1 mg PO DAILY [facility] Hydromorphone HCl (Hydromorphone Hcl 0.5 Mg/0.5 Ml Syringe) 0.5 mg IVPUSH Q3H PRN; Protocol PRN Reason: Pain, Severe (Pain Scale 7-10) Thiamine HCl 100 mg/ Sodium (Chloride) 101 mls @ 202 mls/hr IV DAILY PITA Stop: 01/11/24 02:14 Dextrose/Sodium Chloride (D5ns) 1,000 mls @ 80 mls/hr IVCONT .[id number] PITA Lorazepam (Lorazepam 1 Mg Tablet) 1 mg PO Q4H PRN PRN Reason: Breakthrough alcohol withdrawa Stop: 01/12/24 02:14 Lorazepam (Lorazepam 1 Mg Tablet) 2 mg PO ONCE ONE Stop: 01/08/24 02:16 Lorazepam (Lorazepam 1 Mg Tablet) 0 mg PO Q4H PITA; Taper Stop: 01/12/24 04:14 Methadone HCl (Methadone Hcl 20 Mg/2 Ml Oral.Conc) 120 mg PO ONCE ONE Stop: 01/08/24 06:01 Multivitamins/Vitamin C (Multivitamin Tablet) 1 tab PO DAILY [facility] Pantoprazole Sodium (Pantoprazole Sodium 40 Mg/10 Ml Vial) 40 mg IVPUSH BID@0630,1630 [facility] Sodium Chloride (0.9 % Sodium Chloride Flush 3 Ml Syringe) 3 ml IVFLUSH QSHIFT [facility] Home Medications ?Medication ?Instructions ?Recorded ?Confirmed ?Last Taken ?Type methadone 10 mg/mL oral concentrate 80 mg PO DAILY 06/07/22 08/29/23 Unknown History Physical Exam 2 Vital Signs and Narrative: Vital Signs: Last Vital Signs Temp 99.1 F 01/07/24 22:49 Pulse 91 01/07/24 22:49 Resp 17 01/07/24 22:49 BP 117/61 01/07/24 22:49 Pulse Ox 93 01/07/24 22:49 O2 Del Method Room Air 01/07/24 22:49 BMI result Body Mass Index 27.0 Constitutional - Awake and Alert, No apparent distress. Cooperative. HEENT - PERRL, EOMI. Icteric sclerae. Heart - S1S2, RRR, No edema Lungs - Normal lung expansion, Normal respiratory effort, No respiratory distress, CTA bilaterally Abdomen - Mildly distended, soft. Increased bowel sounds. Right upper quadrant tenderness without rebound or guarding. Extremities - no calf tenderness bilaterally, no swelling Musculoskeletal - Normal inspection, normal ROM Skin - Warm/Dry. Jaundice. Neurological - Alert & oriented x3. No focal weakness. Normal speech. Psychological - Appropriate affect Results Labs 01/07/24 16:16 01/07/24 15:11 Labs: Laboratory Results - last 24 hr 01/07/24 01/07/24 01/07/24 15:11 16:16 16:20 MCV 95.5 MCH 34.8 H MCHC 36.5 H RDW 19.0 H Plt Count 45 L D MPV 11.5 Immature Gran % (Auto) 2.5 H Neut % (Auto) 63.7 Lymph % (Auto) 20.0 [place] % (Auto) 10.0 Eos % (Auto) 3.8 Baso % (Auto) 0.0 Lymph # (Auto) 0.3 L [place] # (Auto) 0.2 Eos # (Auto) 0.1 Baso # (Auto) 0.0 Abs Immat Gran (auto) 0.04 H Absolute Neuts (auto) 1.0 L Absolute Nucleated RBC 0.030 H Nucleated RBC % (auto) 1.9 H Smear Tech's Comments VERIFIED PT INR APTT Anion Gap 14 Estim Creat Clear Calc 150.0 Estimated GFR > 60 Random Glucose 88 Lactic Acid Lactic Acid F/U @ 2Hr Calcium 8.7 D Magnesium 2.2 Total Bilirubin 5.2 H AST 109 H ALT 44 H Alkaline Phosphatase 133 H Total Protein 7.5 Albumin 3.3 L Lipase 39 Beta HCG, Quant < 2 Urine Color Dark Yellow Urine Appearance Clear Urine pH 7.5 Ur Specific [place] 1.010 Urine Protein Negative Urine Glucose (UA) Negative Urine Ketones Negative Urine Blood Negative Urine Nitrite Negative Ur Leukocyte Esterase Trace H Urine RBC 0-2 Urine WBC 0-5 Ur Squamous Epith Cells 3-5 Urine Bacteria None Seen Hyaline Casts 0-2 Urine Opiates Screen Not Detected Ur Buprenorphine Scrn Not Detected Ur Oxycodone Screen Not Detected Urine Methadone Screen Positive H Urine Fentanyl Screen POSITIVE H Ur Barbiturates Screen Not Detected Ur Phencyclidine Scrn Not Detected Ur Amphetamines Screen Not Detected U Benzodiazepines Scrn POSITIVE H Urine Cocaine Screen POSITIVE H U Marijuana (THC) Screen Not Detected Ethyl Alcohol 172 Influenza Type A (PCR) NEGATIVE Influenza Type B (PCR) NEGATIVE RSV RNA Qual (PCR) NEGATIVE SARS-CoV-2 RNA (RT-PCR) NEGATIVE 01/07/24 01/07/24 16:32 19:18 MCV MCH MCHC RDW Plt Count MPV Immature Gran % (Auto) Neut % (Auto) Lymph % (Auto) [place] % (Auto) Eos % (Auto) Baso % (Auto) Lymph # (Auto) [place] # (Auto) Eos # (Auto) Baso # (Auto) Abs Immat Gran (auto) Absolute Neuts (auto) Absolute Nucleated RBC Nucleated RBC % (auto) Smear Tech's Comments PT 16.5 H INR 1.4 H APTT 31.2 Anion Gap Estim Creat Clear Calc Estimated GFR Random Glucose Lactic Acid 2.3 H* Lactic Acid F/U @ 2Hr 1.6 Calcium Magnesium Total Bilirubin AST ALT Alkaline Phosphatase Total Protein Albumin Lipase Beta HCG, Quant Urine Color Urine Appearance Urine pH Ur Specific [place] Urine Protein Urine Glucose (UA) Urine Ketones Urine Blood Urine Nitrite Ur Leukocyte Esterase Urine RBC Urine WBC Ur Squamous Epith Cells Urine Bacteria Hyaline Casts Urine Opiates Screen Ur Buprenorphine Scrn Ur Oxycodone Screen Urine Methadone Screen Urine Fentanyl Screen Ur Barbiturates Screen Ur Phencyclidine Scrn Ur Amphetamines Screen U Benzodiazepines Scrn Urine Cocaine Screen U Marijuana (THC) Screen Ethyl Alcohol Influenza Type A (PCR) Influenza Type B (PCR) RSV RNA Qual (PCR) SARS-CoV-2 RNA (RT-PCR) Imaging Radiologist's Impressions: Impressions Chest X-Ray 01/07/24 17:05 IMPRESSION: Bronchial wall thickening may be infectious and/or inflammatory in etiology. Abdomen/Pelvis CT 01/07/24 20:51 IMPRESSION: 1. Cirrhotic liver with marked splenomegaly and large perisplenic varices. 2. There is a new splenic vein thrombus. 3. Other incidental findings as described above. Fleischner guidelines were followed. Assessment and Plan (1) Splenic vein thrombosis: Status: Acute (2) Acute hypokalemia: Status: Acute Plan Jessika Julian is a 39 y/o woman with past medical history significant for chronic liver disease, alcoholic liver cirrhosis, chronic hepatitis C infection, portal hypertensive gastropathy and esophageal varices (not requiring banding) admitted with: * Abdominal pain likely multifactorial: Splenic vein thrombosis, gastritis secondary to alcohol abuse and alcoholic hepatitis. Admit to hospitalist service. Advanced diet as tolerated. Start IV fluids. Protonix 40 mg IV b.i.d. Pain control with Dilaudid as needed. Antiemetic therapy as needed. Patient was advised to abstain from alcohol consumption. GI consult. * Splenic vein thrombosis. Anticoagulation is contraindicated due to patient's marked thrombocytopenia. Vascular surgery consult. * Hypokalemia. Likely secondary to vomiting. Replete as needed. Continue to monitor K level. * Alcohol abuse. [facility] protocol: Ativan, folic acid, thiamine and multivitamins. IV fluids with D5. * Opiate abuse. Continue methadone 120 mg p.o. daily. Addiction medicine consult. * Crack abuse. Ativan as needed. * Anxiety and depression. Xanax on hold as the patient will be receiving Ativan. Continue Zoloft and Abilify. * Anemia. No evidence of acute bleeding. Continue to monitor H&H. DVT prophylaxis: SCDs Code status: Full Patient will need hospitalization for at least 2 midnights for abdominal pain treatment with IV pain meds, antireflux treatment with Protonix and evaluation by subspecialties. Quality Stroke Does the patient have a stroke diagnosis?: No VTE Prior VTE?: No VTE Risk Level:: Medical - moderate - high VTE Device Contraindication: N/A - Device Ordered VTE Drug Contraindication: Treatment Not Indicated
[2024-01-08] MEDS: Thiamine HCL 100 MG in 0.9 % Sodium Chloride 100 ML 202 MG IV (03:18)
[2024-01-08] MEDS: Pantoprazole Sodium 40 MG/10 ML VIAL IVPUSH ×2 (03:18→17:35)
[2024-01-08] MEDS: LORazepam 1 MG TABLET 2 MG PO (03:19)
[2024-01-08] MEDS: Dextrose 5 % and 0.9 % NaCl 1,000 ML 80 ML IVCONT (04:56)
[2024-01-08] MEDS: LORazepam 1 MG TABLET 0.5 MG PO ×5 (05:01→20:30)
[2024-01-08] MEDS: 0.9 % Sodium Chloride Flush 3 ML SYRINGE IVFLUSH ×2 (08:10→18:50)
--- NOTE | 2024-01-08 09:22 | HE.PHANOTE ---
METHADONE Dose: 120 mg, last dosed on 01/07/24 @1045 with 1 take home dose of 120mg per Carolee @ [facility] .
--- NOTE | 2024-01-08 09:47 | PHA.MEDREC ---
Pharmacy Consult ? Medication Reconciliation Pharmacy has completed the medication reconciliation.
[2024-01-08 09:56] LABS: MANUAL DIFF FLAG NO
--- NOTE | 2024-01-08 10:18 | PM.CNGS ---
History of Present Illness Consult details Consult date: 01/08/24 Narrative: [age] year old female with known multiple medical problems including liver cirrhosis, portal hypertension, alcohol abuse, drug abuse, admitted because of what she describes as abdominal pain over areas along with jaundice She says that she is aware of her liver issues for a while now. She says that she has noted herself to be more jaundice the past few days. She says she has chronic pain on lower abdomen as well but thought that this had been worsening. She has good oral intake She is still actively engages in alcohol intake. She also takes drugs of abuse. Review of Systems Constitutional: Constitutional: Denies chills and Denies fever(s) Cardiovascular: Cardiovascular: Denies chest pain Respiratory: Respiratory: Denies cough Gastrointestinal: Gastrointestinal: Reports abdominal pain Genitourinary: Genitourinary: Denies dysuria PMFSH Past Medical History Medical History Depression Physical exam Opioid dependence on agonist therapy Left ankle pain Smoker Impaired glucose tolerance Alcoholic liver disease Insomnia Anxiety Family History Family History Father Hypertension Substance use disorder Mother Medical history unknown Maternal Grandfather Cancer Family/Other FH: mental illness Mental health disorder Surgical History Surgical History H/O endoscopy (08/18/23) History of amputation of finger History of hernia surgery Amputation of left index finger History of arthroplasty of left knee H/O right wrist surgery Social History Social History Household Members: Family Housing: House Do you presently have visiting nurse or other home services: No Alcohol intake: current Alcohol intake frequency: 3 or more drinks per day Alcohol type: hard liquor Patient Tobacco Use Status: Current someday Tobacco user Tobacco use type: Cigarette Cigarettes Per Day: 2 e-Cigarette/Vaping Use: Never Used Second Hand Smoke Exposure: No Substance Use Type: Crack/Cocaine, Heroin, IV Drugs and Other service: No 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al status: unemployed and disabled 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: left hand Cognitive needs: No Hearing needs: No Vision needs: No Meds Allergies Allergy/AdvReac Type Severity Reaction Status Date / Time pentoxifylline Allergy Intermediate Rash Verified 01/07/24 13:25 phenobarbital Allergy Diarrhea Verified 01/07/24 13:25 Active Medications: Current Medications Folic Acid (Folic Acid 1 Mg Tablet) 1 mg PO DAILY [facility] Hydromorphone HCl (Hydromorphone Hcl 0.5 Mg/0.5 Ml Syringe) 0.5 mg IVPUSH Q3H PRN; Protocol PRN Reason: Pain, Severe (Pain Scale 7-10) Thiamine HCl 100 mg/ Sodium (Chloride) 101 mls @ 202 mls/hr IV DAILY PITA Stop: 01/11/24 02:14 Last Infusion: 01/08/24 03:48 Dose: Infused Dextrose/Sodium Chloride (D5ns) 1,000 mls @ 80 mls/hr IVCONT .[id number] [facility] Last Admin: 01/08/24 04:56 Dose: 80 mls/hr Lorazepam (Lorazepam 1 Mg Tablet) 1 mg PO Q4H PRN PRN Reason: Breakthrough alcohol withdrawa Stop: 01/12/24 02:14 Lorazepam (Lorazepam 1 Mg Tablet) 1 mg PO Q4H [facility]; Taper Stop: 01/12/24 04:14 Last Admin: 01/08/24 05:01 Dose: 1 mg Multivitamins/Vitamin C (Multivitamin Tablet) 1 tab PO DAILY [facility] Pantoprazole Sodium (Pantoprazole Sodium 40 Mg/10 Ml Vial) 40 mg IVPUSH BID@0630,1630 [facility] Last Admin: 01/08/24 03:18 Dose: 40 mg Sodium Chloride (0.9 % Sodium Chloride Flush 3 Ml Syringe) 3 ml IVFLUSH QSHIFT [facility] Home Medications ?Medication ?Instructions ?Recorded ?Confirmed ?Last Taken ?Type methadone 10 mg/mL oral concentrate 120 mg PO DAILY 06/07/22 01/08/24 01/07/24 History aripiprazole 10 mg tablet 10 mg PO DAILY depressive disorder 01/08/24 01/08/24 01/06/24 History sertraline 100 mg tablet 100 mg PO DAILY depressive disorder 01/08/24 01/08/24 01/06/24 History Physical Exam Vital Signs: Vital Signs: Last Vital Signs Temp 99.1 F 01/07/24 22:49 Pulse 91 01/07/24 22:49 Resp 17 01/07/24 22:49 BP 117/61 01/07/24 22:49 Pulse Ox 93 01/07/24 22:49 O2 Del Method Room Air 01/07/24 22:49 BMI result Body Mass Index 27.0 Const: General: comfortable and no acute distress Eyes: Other: icteric sclerae Resp: Effort & Inspection: normal respiratory effort Cardio: Rate: regular rate GI: Other: Distended, appears to have ascites, soft, no guarding, no rebound, has mild diffuse tenderness mostly in the lower abdomen Results Labs 01/10/24 07:22 01/10/24 07:23 Labs: Abnormal lab results 01/07/24 01/07/24 01/07/24 Range/Units 15:11 16:16 16:32 RBC 3.30 L D (4.20-5.50) X10*6/uL Hgb 11.5 L D (12.0-16.0) g/dl Hct 31.5 L (37.0-47.0) % MCH 34.8 H (27.0-33.0) pg MCHC 36.5 H (31.0-35.0) g/dl RDW 19.0 H (11.0-16.0) % Plt Count 45 L D (160-400) X10*3/uL Immature Gran % (Auto) 2.5 H (0.0-0.4) % Lymph # (Auto) 0.3 L (1.2-4.9) X10*3/uL Abs Immat Gran (auto) 0.04 H (0.00-0.03) X10*3/uL Absolute Neuts (auto) 1.0 L (2.0-8.3) x10*3/uL Absolute Nucleated RBC 0.030 H (0.0-0.012) X10*3/uL Nucleated RBC % (auto) 1.9 H (0.0-0.2) /100WBC PT 16.5 H (11.1-13.3) SEC INR 1.4 H (0.9-1.1) Potassium 3.2 L D (3.3-5.1) mmol/L BUN 6 L (9-16) mg/dL Lactic Acid 2.3 H* (0.5-2.0) mmol/L Total Bilirubin 5.2 H (0.0-1.0) mg/dL AST 109 H (5-31) U/L ALT 44 H (0-31) U/L Alkaline Phosphatase 133 H (39-117) U/L Albumin 3.3 L (3.5-5.0) g/dL Ur Leukocyte Esterase Trace H (Negative) Urine Methadone Screen Positive H (Not Detect) ng/mL Urine Fentanyl Screen POSITIVE H (Not Detect) U Benzodiazepines Scrn POSITIVE H (Not Detect) Urine Cocaine Screen POSITIVE H (Not Detect) Short CBC 01/07/24 Range/Units 16:16 WBC 8.0 (4.8-10.8) X10*3/uL Hgb 11.5 L D (12.0-16.0) g/dl Hct 31.5 L (37.0-47.0) % Plt Count 45 L D (160-400) X10*3/uL BMP 01/07/24 15:11 Sodium 140 Potassium 3.2 L D Chloride 107 Carbon Dioxide 22 BUN 6 L Creatinine 0.61 Calcium 8.7 D Liver Function 01/07/24 Range/Units 15:11 Total Bilirubin 5.2 H (0.0-1.0) mg/dL AST 109 H (5-31) U/L ALT 44 H (0-31) U/L Alkaline Phosphatase 133 H (39-117) U/L Albumin 3.3 L (3.5-5.0) g/dL Urine 01/07/24 Range/Units 15:11 Urine Color Dark Yellow Urine Appearance Clear Urine pH 7.5 (5.0-9.0) Ur Specific [place] 1.010 (1.005-1.025) Urine Protein Negative (Neg-Trace) mg/dL Urine Glucose (UA) Negative (Negative) mg/dL All other labs normal. Imaging Abdomen CT scan report/results: report reviewed and image reviewed CT scan - pelvis: report reviewed and image reviewed Additional studies: Laboratory Results WBC 8.0 X10*3/uL (4.8-10.8) 01/07/24 16:16 RBC 3.30 X10*6/uL (4.20-5.50) L D 01/07/24 16:16 Hgb 11.5 g/dl (12.0-16.0) L D 01/07/24 16:16 Hct 31.5 % (37.0-47.0) L 01/07/24 16:16 MCV 95.5 fL (80.0-98.0) 01/07/24 16:16 MCH 34.8 pg (27.0-33.0) H 01/07/24 16:16 MCHC 36.5 g/dl (31.0-35.0) H 01/07/24 16:16 RDW 19.0 % (11.0-16.0) H 01/07/24 16:16 Plt Count 45 X10*3/uL (160-400) L D 01/07/24 16:16 MPV 11.5 fL (9.4-12.3) 01/07/24 16:16 Immature Gran % (Auto) 2.5 % (0.0-0.4) H 01/07/24 16:16 Neut % (Auto) 63.7 % (45-73) 01/07/24 16:16 Lymph % (Auto) 20.0 % (20-40) 01/07/24 16:16 [place] % (Auto) 10.0 % (2-11) 01/07/24 16:16 Eos % (Auto) 3.8 % (0-4) 01/07/24 16:16 Baso % (Auto) 0.0 % (0-2) 01/07/24 16:16 Lymph # (Auto) 0.3 X10*3/uL (1.2-4.9) L 01/07/24 16:16 [place] # (Auto) 0.2 X10*3/uL (0.1-1.2) 01/07/24 16:16 Eos # (Auto) 0.1 X10*3/uL (0.0-0.4) 01/07/24 16:16 Baso # (Auto) 0.0 X10*3/uL (0.0-0.2) 01/07/24 16:16 Abs Immat Gran (auto) 0.04 X10*3/uL (0.00-0.03) H 01/07/24 16:16 Absolute Neuts (auto) 1.0 x10*3/uL (2.0-8.3) L 01/07/24 16:16 Absolute Nucleated RBC 0.030 X10*3/uL (0.0-0.012) H 01/07/24 16:16 Nucleated RBC % (auto) 1.9 /100WBC (0.0-0.2) H 01/07/24 16:16 Smear Tech's Comments VERIFIED 01/07/24 16:16 PT 16.5 SEC (11.1-13.3) H 01/07/24 16:32 INR 1.4 (0.9-1.1) H 01/07/24 16:32 APTT 31.2 SEC (26.0-36.8) 01/07/24 16:32 Sodium 140 mmol/L (135-145) 01/07/24 15:11 Potassium 3.2 mmol/L (3.3-5.1) L D 01/07/24 15:11 Chloride 107 mmol/L (96-108) 01/07/24 15:11 Carbon Dioxide 22 mmol/L (22-29) 01/07/24 15:11 Anion Gap 14 (12-20) 01/07/24 15:11 BUN 6 mg/dL (9-16) L 01/07/24 15:11 Creatinine 0.61 mg/dL (0.5-1.4) 01/07/24 15:11 Estim Creat Clear Calc 150.0 01/07/24 15:11 Estimated GFR > 60 01/07/24 15:11 Random Glucose 88 mg/dL (60-115) 01/07/24 15:11 Lactic Acid 2.3 mmol/L (0.5-2.0) H* 01/07/24 16:32 Lactic Acid F/U @ 2Hr 1.6 mmol/L (0.5-2.0) 01/07/24 19:18 Calcium 8.7 mg/dL (8.4-10.2) D 01/07/24 15:11 Magnesium 2.2 mg/dL (1.6-2.6) 01/07/24 15:11 Total Bilirubin 5.2 mg/dL (0.0-1.0) H 01/07/24 15:11 AST 109 U/L (5-31) H 01/07/24 15:11 ALT 44 U/L (0-31) H 01/07/24 15:11 Alkaline Phosphatase 133 U/L (39-117) H 01/07/24 15:11 Total Protein 7.5 g/dL (6.5-8.0) 01/07/24 15:11 Albumin 3.3 g/dL (3.5-5.0) L 01/07/24 15:11 Lipase 39 U/L (8-78) 01/07/24 15:11 Beta HCG, Quant < 2 mIU/mL 01/07/24 15:11 Urine Color Dark Yellow 01/07/24 15:11 Urine Appearance Clear 01/07/24 15:11 Urine pH 7.5 (5.0-9.0) 01/07/24 15:11 Ur Specific [place] 1.010 (1.005-1.025) 01/07/24 15:11 Urine Protein Negative mg/dL (Neg-Trace) 01/07/24 15:11 Urine Glucose (UA) Negative mg/dL (Negative) 01/07/24 15:11 Urine Ketones Negative mg/dL (Negative) 01/07/24 15:11 Urine Blood Negative (Negative) 01/07/24 15:11 Urine Nitrite Negative (Negative) 01/07/24 15:11 Ur Leukocyte Esterase Trace (Negative) H 01/07/24 15:11 Urine RBC 0-2 /HPF (0-2) 01/07/24 15:11 Urine WBC 0-5 /HPF (0-5) 01/07/24 15:11 Ur Squamous Epith Cells 3-5 /HPF (0-2) 01/07/24 15:11 Urine Bacteria None Seen (None Seen) 01/07/24 15:11 Hyaline Casts 0-2 /LPF (0-2) 01/07/24 15:11 Urine Opiates Screen Not Detected (Not Detect) 01/07/24 15:11 Ur Buprenorphine Scrn Not Detected ng/mL (Not Detect) 01/07/24 15:11 Ur Oxycodone Screen Not Detected ng/mL (Not Detect) 01/07/24 15:11 Urine Methadone Screen Positive ng/mL (Not Detect) H 01/07/24 15:11 Urine Fentanyl Screen POSITIVE (Not Detect) H 01/07/24 15:11 Ur Barbiturates Screen Not Detected (Not Detect) 01/07/24 15:11 Ur Phencyclidine Scrn Not Detected (Not Detect) 01/07/24 15:11 Ur Amphetamines Screen Not Detected (Not Detect) 01/07/24 15:11 U Benzodiazepines Scrn POSITIVE (Not Detect) H 01/07/24 15:11 Urine Cocaine Screen POSITIVE (Not Detect) H 01/07/24 15:11 U Marijuana (THC) Screen Not Detected (Not Detect) 01/07/24 15:11 Ethyl Alcohol 172 mg/dL 01/07/24 16:20 Influenza Type A (PCR) NEGATIVE (Negative) 01/07/24 15:11 Influenza Type B (PCR) NEGATIVE (Negative) 01/07/24 15:11 RSV RNA Qual (PCR) NEGATIVE (Negative) 01/07/24 15:11 SARS-CoV-2 RNA (RT-PCR) NEGATIVE (Negative) 01/07/24 15:11 Impressions Chest X-Ray 01/07/24 17:05 IMPRESSION: Bronchial wall thickening may be infectious and/or inflammatory in etiology. Abdomen/Pelvis CT 01/07/24 20:51 IMPRESSION: 1. Cirrhotic liver with marked splenomegaly and large perisplenic varices. 2. There is a new splenic vein thrombus. 3. Other incidental findings as described above. Fleischner guidelines were followed. Assessment and Plan (1) Splenic vein thrombosis: Status: Acute Plan She has a long history of chronic liver disease and cirrhosis. She has known portal hypertension and varices. Her CAT scan from last night shows splenic vein thrombosis which is a new finding. Unfortunately, she has significant thrombocytopenia so she is not a candidate for anticoagulation at this time She does have advanced liver disease and her options for long-term treatment are limited at this time. She is also actively engages in drug abuse as well as alcohol abuse I would recommend further follow-up with GI for input with regards to management of her cirrhosis with severe sequelae at this time I will inform Dr. Saunders of this consultation as well when he comes back tomorrow. Otherwise, there does not appear to be any surgical intervention that may benefit the patient at this time. Procedures Date of Service Date of Service: 01/11/24
[2024-01-08] MEDS: methADONE HCl 20 MG/2 ML ORAL.CONC 120 MG PO (10:22)
[2024-01-08] MEDS: Folic Acid 1 MG TABLET PO (10:22)
[2024-01-08] MEDS: Multivitamin TABLET 1 TAB PO (10:22)
[2024-01-08 10:33] LABS: Basophils Absolute Auto 0.1 X10*3/uL (0.0-0.2); Eosinophils Absolute Auto 0.2 X10*3/uL (0.0-0.4); Eosinophils Percent Auto 2.9 % (0-4); Hematocrit 31.9 % (37.0-47.0); Hemoglobin 11.8 g/dl (12.0-16.0); Imm Gran Abs Auto 0.17 X10*3/uL (0.00-0.03); Imm Gran Pct Auto 2.9 % (0.0-0.4); Lymphocytes Percent Auto 16.9 % (20-40); Mean Corpuscular Hemoglobin 35.9 pg (27.0-33.0); Mean Platelet Volume 11.2 fL (9.4-12.3); Monocytes Absolute Auto 0.6 X10*3/uL (0.1-1.2); Monocytes Percent Auto 9.9 % (2-11); Neutrophils Absolute Auto 3.9 x10*3/uL (2.0-8.3); Neutrophils Percent Auto 66.4 % (45-73); Red Blood Count 3.29 X10*6/uL (4.20-5.50); Red Cell Distribution Width 19.5 % (11.0-16.0); White Blood Count 5.9 X10*3/uL (4.8-10.8)
[2024-01-08 10:34] LABS: NRBC Pct Auto 1.4 /100WBC (0.0-0.2); Platelet Count 35 X10*3/uL (160-400)
--- NOTE | 2024-01-08 10:44 | PM.EVENT ---
Event Note Date of Service: 01/08/24 Event Note: Seen and evaluated this morning Pain is under fair control, waiting GI evaluation Hold on blood thinners given high risk for bleeding with low PLT Continue Ativan withdrawal protocol. monitor on CIWA Acute hypokalemia replaced Lactic acidosis resolved Time Spent With Patient Time: Total time managing care of this patient today ____ minutes.
[2024-01-08 10:49] LABS: Alanine Aminotransferase 35 U/L (0-31); Albumin Level 3.1 g/dL (3.5-5.0); Alkaline Phosphatase 103 U/L (39-117); Anion Gap 13 (12-20); Aspartate Amino Transferase 74 U/L (5-31); Bilirubin Total 4.7 mg/dL (0.0-1.0); Blood Urea Nitrogen 5 mg/dL (9-16); Calcium 7.3 mg/dL (8.4-10.2); Carbon Dioxide 21 mmol/L (22-29); Chloride 106 mmol/L (96-108); Creatinine Clr Calc Pharmacy 160.6; Estimated Glomerular Filt Rate > 60; Glucose Random 125 mg/dL (60-115); Magnesium 1.5 mg/dL (1.6-2.6); Total Protein 6.4 g/dL (6.5-8.0)
[2024-01-08 10:50] LABS: Potassium 2.6 mmol/L (3.3-5.1); Sodium 137 mmol/L (135-145)
[2024-01-08] MEDS: Thiamine HCL 100 MG TABLET PO (11:20)
[2024-01-08] MEDS: Potassium Chloride/H20 10 MEQ/100 ML PIGGYBACK 100 MEQ IV ×2 (11:21→14:40)
[2024-01-08] MEDS: Potassium Chloride ER 20 MEQ TAB.ER.PRT 40 MEQ PO ×3 (11:21→17:35)
[2024-01-08] MEDS: Magnesium Sulfate/H2O 2 GM/50 ML PIGGYBACK IV (11:21)
[2024-01-08] MEDS: ARIPiprazole 10 MG TABLET PO (12:24)
[2024-01-08] MEDS: Sertraline HCL 100 MG TABLET PO (12:24)
--- NOTE | 2024-01-08 13:14 | CONS_ITS ---
DATE OF SERVICE: 01/08/2024 REFERRING PHYSICIAN: Dr. Rios REASON FOR CONSULTATION: Alcoholic hepatitis and history of splenic vein thrombosis. HISTORY OF PRESENT ILLNESS: The patient is a pleasant 39-year-old woman, who was admitted to the hospital after presenting to the emergency department yesterday with multiple complaints including abdominal bloating, nausea, diarrhea, fevers, chills, cough, and jaundice. The patient has a history of alcohol abuse and has been abusing alcohol recently with large amounts of liquor. She denies any other toxic ingestions. Evaluation in the emergency department including laboratory studies and CT scanning are reviewed. These are remarkable for elevation of her liver function tests and a pattern consistent with alcohol and CT scanning changes consistent with chronic liver disease, cirrhosis, and varices. A splenic vein thrombosis was identified, which was not seen on a prior CAT scan 4 years ago. PAST MEDICAL HISTORY: 1. Alcohol abuse with cirrhosis as above. 2. Upper endoscopy demonstrating esophageal varices that did not require banding. 3. Substance abuse. 4. Common bile duct stone, status post ERCP. 5. Hepatitis C infection. CURRENT MEDICATIONS: Her current medication list is reviewed in the chart. ALLERGIES: MULTIPLE MEDICATION ALLERGIES ARE REVIEWED. FAMILY HISTORY: This is reviewed with the patient and is noncontributory. SOCIAL HISTORY: There is no substance abuse as above. REVIEW OF SYSTEMS: SKIN: No pruritus. HEENT: Negative. CARDIOPULMONARY: She denies shortness of breath or chest pain. GASTROINTESTINAL: As above. GENITOURINARY: Negative. NEUROPSYCHIATRIC: Negative. PHYSICAL EXAMINATION: GENERAL: Shows a pleasant female. SKIN: Mildly icteric. HEENT: Shows no scleral icterus. NECK: Without lymphadenopathy or thyromegaly. LUNGS: Clear. HEART: Shows a regular rate and rhythm. S1, S2. No murmur. ABDOMEN: Protuberant. Bowel sounds are present. No organomegaly is noted. EXTREMITIES: Without edema. LABORATORY DATA AND IMAGING STUDIES: Reviewed. IMPRESSION: Alcoholic hepatitis. I have recommended she continue to avoid alcohol. She has changes of cirrhosis on her CT scan, but no evidence of ascites. The timing of the splenic vein thrombosis is unclear based on her history and I do not recommend anticoagulation at this time. I would monitor her liver tests and INR, which was mildly elevated on admission. I do not recommend treatment with steroids at this time. Thank you for asking me to see her. I will follow her in the hospital with you. MD NELSY Goldstein/KEVIN / [id number] MTDD
[2024-01-08 16:36] VITALS: BP 139/78; PULSE 87; RESP 16; TEMP 36.8; O2SAT 96
[2024-01-08 16:41] LABS: Anion Gap 10 (12-20); Blood Urea Nitrogen 6 mg/dL (9-16); Calcium 7.9 mg/dL (8.4-10.2); Carbon Dioxide 22 mmol/L (22-29); Chloride 108 mmol/L (96-108); Creatinine Clr Calc Pharmacy 169.5; Estimated Glomerular Filt Rate > 60; Glucose Random 105 mg/dL (60-115); Potassium 3.2 mmol/L (3.3-5.1); Sodium 137 mmol/L (135-145)
[2024-01-08 17:37] VITALS: BP 130/75
[2024-01-08] MEDS: Magnesium Oxide 400 MG TABLET PO (18:50)
[2024-01-08 20:00] VITALS: BP 136/78; PULSE 87; RESP 18; TEMP 36.5; O2SAT 97
[2024-01-09] VITALS (7 sets, daily range): BP systolic 119–141; BP diastolic 64–83; PULSE 84–96; RESP 18–22; TEMP 36.4–37.2; O2SAT 93–96; BMI 28.7
[2024-01-09] MEDS: 0.9 % Sodium Chloride Flush 3 ML SYRINGE IVFLUSH ×3 (00:09→21:07)
[2024-01-09] MEDS: LORazepam 1 MG TABLET 0.5 MG PO ×5 (00:11→22:11)
[2024-01-09] MEDS: Pantoprazole Sodium 40 MG/10 ML VIAL IVPUSH (06:13)
--- NOTE | 2024-01-09 07:49 | PM.CNGS ---
History of Present Illness Consult details Consult date: 01/09/24 Reason for consult: other (Splenic vein thrombosis) Narrative: A 39-year-old female with a past medical history for alcoholic liver cirrhosis chronic hep C and esophageal varices presents for evaluation regarding her abdomen. She presented to the emergency room with abdominal pain and abdominal distention. She was subsequently worked up and was noted to have splenic varices on CT scan. Along with splenic vein thrombosis. She reports that she does a history of smoking alcohol abuse and drug abuse. She now presents to us for vascular evaluation. Review of Systems Review of Systems: Yes all other systems are reviewed and are negative Constitutional: Constitutional: Reports no additional constitutional complaints ENT: Reports Normal hearing present Cardiovascular: Cardiovascular: Denies chest pain, Denies chest pain at rest, Denies chest pain with activity and Denies pedal edema Respiratory: Respiratory: Denies cough Gastrointestinal: Gastrointestinal: Denies abdominal pain Musculoskeletal: Musculoskeletal: Denies abnormal gait, Denies muscle cramps and Denies radiating pain into limb Integumentary/Breasts: Skin/Breast: Denies skin ulcer and Denies wounds Neurologic: Reports Normal hearing present and Denies abnormal gait Psychiatric: Psychiatric: Reports no additional psychiatric complaints [facility] Past Medical History Medical History Depression Physical exam Opioid dependence on agonist therapy Left ankle pain Smoker Impaired glucose tolerance Alcoholic liver disease Insomnia Anxiety Family History Family History Father Hypertension Substance use disorder Mother Medical history unknown Maternal Grandfather Cancer Family/Other FH: mental illness Mental health disorder Surgical History Surgical History H/O endoscopy (08/18/23) History of amputation of finger History of hernia surgery Amputation of left index finger History of arthroplasty of left knee H/O right wrist surgery Social History Social History Household Members: Family Housing: House Do you presently have visiting nurse or other home services: No Alcohol intake: current Alcohol intake frequency: 3 or more drinks per day Alcohol type: hard liquor Patient Tobacco Use Status: Current someday Tobacco user Tobacco use type: Cigarette Cigarettes Per Day: 2 e-Cigarette/Vaping Use: Never Used Second Hand Smoke Exposure: No Substance Use Type: Crack/Cocaine, Heroin, IV Drugs and Other service: No 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al status: unemployed and disabled 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: left hand Cognitive needs: No Hearing needs: No Vision needs: No Meds Allergies Allergy/AdvReac Type Severity Reaction Status Date / Time pentoxifylline Allergy Intermediate Rash Verified 01/07/24 13:25 phenobarbital Allergy Diarrhea Verified 01/07/24 13:25 Active Medications: Current Medications Aripiprazole (Aripiprazole 10 Mg Tablet) 10 mg PO DAILY [facility] Last Admin: 01/08/24 12:24 Dose: 10 mg Folic Acid (Folic Acid 1 Mg Tablet) 1 mg PO DAILY [facility] Last Admin: 01/08/24 10:22 Dose: 1 mg Hydromorphone HCl (Hydromorphone Hcl 0.5 Mg/0.5 Ml Syringe) 0.5 mg IVPUSH Q4H PRN; Protocol PRN Reason: Pain, Severe (Pain Scale 7-10) Lorazepam (Lorazepam 1 Mg Tablet) 1 mg PO Q4H PRN PRN Reason: Breakthrough alcohol withdrawa Stop: 01/12/24 02:14 Lorazepam (Lorazepam 1 Mg Tablet) 1 mg PO Q6H [facility]; Taper Stop: 01/12/24 04:14 Last Admin: 01/09/24 04:23 Dose: 1 mg Magnesium Oxide (Magnesium Oxide 400 Mg Tablet) 400 mg PO BIDPC [facility] Last Admin: 01/08/24 18:50 Dose: 400 mg Melatonin (Melatonin 3 Mg Tablet) 6 mg PO BEDTIME PRN PRN Reason: Insomnia Methadone HCl (Methadone Hcl 20 Mg/2 Ml Oral.Conc) 120 mg PO DAILY [facility] Multivitamins/Vitamin C (Multivitamin Tablet) 1 tab PO DAILY [facility] Last Admin: 01/08/24 10:22 Dose: 1 tab Pantoprazole Sodium (Pantoprazole Sodium 40 Mg/10 Ml Vial) 40 mg IVPUSH BID@0630,1630 [facility] Last Admin: 01/09/24 06:13 Dose: 40 mg Sertraline HCl (Sertraline Hcl 100 Mg Tablet) 100 mg PO DAILY [facility] Last Admin: 01/08/24 12:24 Dose: 100 mg Sodium Chloride (0.9 % Sodium Chloride Flush 3 Ml Syringe) 3 ml IVFLUSH QSHIFT [facility] Last Admin: 01/09/24 00:09 Dose: 3 ml Thiamine HCl (Thiamine Hcl 100 Mg Tablet) 100 mg PO DAILY [facility] Last Admin: 01/08/24 11:20 Dose: 100 mg Home Medications ?Medication ?Instructions ?Recorded ?Confirmed ?Last Taken ?Type methadone 10 mg/mL oral concentrate 120 mg PO DAILY 06/07/22 01/08/24 01/07/24 History aripiprazole 10 mg tablet 10 mg PO DAILY depressive disorder 01/08/24 01/08/24 01/06/24 History sertraline 100 mg tablet 100 mg PO DAILY depressive disorder 01/08/24 01/08/24 01/06/24 History Physical Exam Vital Signs: Vital Signs: Last Vital Signs Temp 98.5 F 01/09/24 03:56 Pulse 84 01/09/24 03:56 Resp 18 01/09/24 03:56 BP 132/72 01/09/24 03:56 Pulse Ox 96 01/09/24 03:56 O2 Del Method Room Air 01/09/24 03:56 BMI result Body Mass Index 28.7 Const: General: cooperative, healthy appearing and comfortable Orientation/consciousness: oriented to person, oriented to place and oriented to time HEENT: Head: Yes normal to inspection Neck: Neck: Yes normal visual inspection Carotids: no bruits Chest: Chest palpation & inspection: normal inspection of the chest Resp: Effort & Inspection: normal respiratory effort and able to speak in complete sentences Auscultation: clear to auscultation bilaterally, no crackles, no rales, no rhonchi and no wheezes Cardio: Rate: regular rate Rhythm: regular rhythm Heart sounds: S1 normal heart sound present and S2 normal heart sound present Bruits: no carotid bruits Peripheral pulses: Peripheral pulses 2+ throughout GI: Other: Abdomen distended no significant tenderness. No evidence of rebound or guarding. No herniation noted. Inspection: Yes normal to inspection Skin: Wounds: no wounds Hair: normal Neuro: General: oriented to person, oriented to place and oriented to time Cranial nerves: Yes CN's II-XII intact bilaterally and Yes Normal hearing present Cognition (Neuro): normal cognition Motor exam (neuro): 5/5 motor strength present throughout Extrem: Other: venous exam: No significant superficial varicosities or spider telangiectasias, minimal edema General: No clubbing, No cyanosis and No edema Psych: Appearance: grossly normal Mental Status: mental status grossly normal Speech and movement: Normal speech and movement present Results Labs 01/09/24 07:48 01/09/24 07:48 Labs: Abnormal lab results 01/08/24 01/08/24 Range/Units 09:41 16:07 RBC 3.29 L (4.20-5.50) X10*6/uL Hgb 11.8 L (12.0-16.0) g/dl Hct 31.9 L (37.0-47.0) % MCH 35.9 H (27.0-33.0) pg MCHC 37.0 H (31.0-35.0) g/dl RDW 19.5 H (11.0-16.0) % Plt Count 35 L (160-400) X10*3/uL Immature Gran % (Auto) 2.9 H (0.0-0.4) % Lymph % (Auto) 16.9 L (20-40) % Lymph # (Auto) 1.0 L (1.2-4.9) X10*3/uL Abs Immat Gran (auto) 0.17 H (0.00-0.03) X10*3/uL Absolute Nucleated RBC 0.080 H (0.0-0.012) X10*3/uL Nucleated RBC % (auto) 1.4 H (0.0-0.2) /100WBC Potassium 2.6 L* 3.2 L D (3.3-5.1) mmol/L Carbon Dioxide 21 L (22-29) mmol/L Anion Gap 10 L (12-20) BUN 5 L 6 L (9-16) mg/dL Random Glucose 125 H (60-115) mg/dL Calcium 7.3 L D 7.9 L D (8.4-10.2) mg/dL Magnesium 1.5 L (1.6-2.6) mg/dL Total Bilirubin 4.7 H (0.0-1.0) mg/dL AST 74 H (5-31) U/L ALT 35 H (0-31) U/L Total Protein 6.4 L (6.5-8.0) g/dL Albumin 3.1 L (3.5-5.0) g/dL Short CBC 01/08/24 Range/Units 09:41 WBC 5.9 (4.8-10.8) X10*3/uL Hgb 11.8 L (12.0-16.0) g/dl Hct 31.9 L (37.0-47.0) % Plt Count 35 L (160-400) X10*3/uL BMP 01/08/24 01/08/24 09:41 16:07 Sodium 137 137 Potassium 2.6 L* 3.2 L D Chloride 106 108 Carbon Dioxide 21 L 22 BUN 5 L 6 L Creatinine 0.57 0.54 Calcium 7.3 L D 7.9 L D Liver Function 01/08/24 Range/Units 09:41 Total Bilirubin 4.7 H (0.0-1.0) mg/dL AST 74 H (5-31) U/L ALT 35 H (0-31) U/L Alkaline Phosphatase 103 (39-117) U/L Albumin 3.1 L (3.5-5.0) g/dL Urine 01/07/24 Range/Units 15:11 Urine Color Dark Yellow Urine Appearance Clear Urine pH 7.5 (5.0-9.0) Ur Specific Viola 1.010 (1.005-1.025) Urine Protein Negative (Neg-Trace) mg/dL Urine Glucose (UA) Negative (Negative) mg/dL All other labs normal. Assessment and Plan (1) Splenic vein thrombosis: Status: Acute Plan In short patient has cirrhotic liver with splenomegaly and large perisplenic varices. In addition splenic vein thrombosis was noted. At the current time would manage this conservatively. Unfortunately she has not a candidate for anticoagulation due to her platelets being 45. Would control her abdominal distention. Once stable stable from my perspective for discharge. No need for any intervention at the current time. She does not need to follow up with us as no intervention is required. We will follow on an as-needed basis. Thank you for allowing us to assist in her care. If there are any questions or concerns please do not hesitate to contact us Procedures Date of Service Date of Service: 01/09/24
[2024-01-09] MEDS: Folic Acid 1 MG TABLET PO (07:52)
[2024-01-09] MEDS: Multivitamin TABLET 1 TAB PO (07:52)
[2024-01-09] MEDS: Thiamine HCL 100 MG TABLET PO (07:53)
[2024-01-09] MEDS: ARIPiprazole 10 MG TABLET PO (07:53)
[2024-01-09] MEDS: Sertraline HCL 100 MG TABLET PO (07:53)
[2024-01-09] MEDS: Magnesium Oxide 400 MG TABLET PO ×2 (07:53→16:32)
[2024-01-09] MEDS: methADONE HCl 20 MG/2 ML ORAL.CONC 120 MG PO (07:53)
[2024-01-09 08:07] LABS: Hematocrit 33.5 % (37.0-47.0); Hemoglobin 12.3 g/dl (12.0-16.0); Mean Corpuscular HGB Conc 36.7 g/dl (31.0-35.0); Mean Corpuscular Hemoglobin 35.7 pg (27.0-33.0); Mean Corpuscular Volume 97.1 fL (80.0-98.0); Mean Platelet Volume 10.9 fL (9.4-12.3); NRBC Pct Auto 1.7 /100WBC (0.0-0.2); Platelet Count 35 X10*3/uL (160-400); Red Blood Count 3.45 X10*6/uL (4.20-5.50); Red Cell Distribution Width 20.2 % (11.0-16.0); White Blood Count 6.1 X10*3/uL (4.8-10.8)
[2024-01-09 08:11] LABS: INTERNATIONAL NORM RATIO 1.4 (0.9-1.1); Prothrombin Time 16.8 SEC (11.1-13.3)
[2024-01-09 08:19] LABS: Alanine Aminotransferase 33 U/L (0-31); Albumin Level 3.1 g/dL (3.5-5.0); Alkaline Phosphatase 108 U/L (39-117); Anion Gap 13 (12-20); Aspartate Amino Transferase 59 U/L (5-31); Bilirubin Direct 1.2 mg/dL (0.0-0.5); Bilirubin Total 4.7 mg/dL (0.0-1.0); Blood Urea Nitrogen 7 mg/dL (9-16); Calcium 8.2 mg/dL (8.4-10.2); Carbon Dioxide 21 mmol/L (22-29); Chloride 108 mmol/L (96-108); Estimated Glomerular Filt Rate > 60; Glucose Random 108 mg/dL (60-115); Magnesium 1.7 mg/dL (1.6-2.6); Potassium 3.4 mmol/L (3.3-5.1); Sodium 139 mmol/L (135-145); Total Protein 6.5 g/dL (6.5-8.0)
--- NOTE | 2024-01-09 08:37 | MHC.CM.PN ---
CM met with Patient at bedside. Patient lives in a house with her Parents and home/resume Methadone from [facility] in [place] is the goal. CM has initiated and will follow for dc planning. PCP is Dr. Samantha Augustine.
[2024-01-09] MEDS: Lactated Ringers 1,000 ML 100 ML IVCONT ×2 (10:13→21:07)
--- NOTE | 2024-01-09 11:40 | MHC.RECOVRN ---
Met with pt in 457 after consult placed to Addiction Medicine for substance use. Pt had presented to the ED reporting bloating, jaundice, and alcohol use. Upon evaluation, pt admitted for splenic vein thrombosis and acute hypokalemia. Pt sitting in bed, awake, alert, easily engages in conversation. Pts partner, Jorge, present with pts permission. Pt familiar with t/w from previous consults. Pt reports alcohol use, 40-50 vodka nips per day, had steadily been increasing amount since October. Pt reports prior to October she had her longest period of recovery, 16 months. Pt also reports heroin/fentanyl use, 2 bags IV, daily, as well as cocaine, INH, unknown amount. Pt is currently on methadone, 120 mg daily through [facility] in [place]. Pt reports she believes recurrence happened due to mental health. Reports she had a recent admission at [facility] (10 days) where she was started on new medications and is hopeful they will help. Pt reports during her period in recovery she participated in AA, went to tenriism, and stayed busy doing activities like mini golfing. Pt reports she plans on returning to AA. Pt has therapy and psychiatry through [facility]. Discussed other recovery resources and supports, including [facility] and recovery coaching. Pt plans to look over written resources and reach out to t/w if needed. Pt provided with folder of resources as well as t/w contact information. Pt and partner deny questions or concerns at this time.
--- NOTE | 2024-01-09 13:48 | HO.PM.IMPN ---
Subjective Subjective Date of Service: 01/09/24 Interval History: seen and evaluated this morning reporting nausea low potassium level scoring on CIWA having abd pain no other events Review of Systems Review of Systems: Yes all other systems are reviewed and are negative Physical Exam Vital Signs: Vital Signs: Last Vital Signs Temp 97.6 F 01/09/24 11:00 Pulse 96 01/09/24 11:00 Resp 18 01/09/24 11:00 BP 135/83 01/09/24 11:00 Pulse Ox 93 01/09/24 11:00 O2 Del Method Room Air 01/09/24 11:00 BMI result Body Mass Index 28.7 Const: Other: Constitutional : Awake, interactive, not in distress, mildly jaundiced Cardiovascular : RRR, no JVP, no lower extremity edema Respiratory : good bilateral air entry, no crackles, wheezes or rhonchi Gastrointestinal: soft, lax, Normal bowel sounds, Non tender, mildly distended , tympanic Skin : Warm, Dry Neurological : Alert & oriented x3, No focal deficit Objective Data Active Medications Aripiprazole (Aripiprazole 10 Mg Tablet) 10 mg PO DAILY [facility] Last Admin: 01/09/24 07:53 Dose: 10 mg Documented By: LALITA Folic Acid (Folic Acid 1 Mg Tablet) 1 mg PO DAILY [facility] Last Admin: 01/09/24 07:52 Dose: 1 mg Documented By: LALITA Hydromorphone HCl (Hydromorphone Hcl 0.5 Mg/0.5 Ml Syringe) 0.5 mg IVPUSH Q4H PRN; Protocol PRN Reason: Pain, Severe (Pain Scale 7-10) Lactated Ringer's (Lr) 1,000 mls @ 100 mls/hr IVCONT .Q10H [facility] Last Infusion: 01/09/24 12:30 Dose: 0 mls/hr Documented By: LALITA Lorazepam (Lorazepam 1 Mg Tablet) 1 mg PO Q4H PRN PRN Reason: Breakthrough alcohol withdrawa Stop: 01/12/24 02:14 Lorazepam (Lorazepam 1 Mg Tablet) 1 mg PO Q6H [facility]; Taper Stop: 01/12/24 04:14 Last Admin: 01/09/24 10:12 Dose: 1 mg Documented By: LALITA Magnesium Oxide (Magnesium Oxide 400 Mg Tablet) 400 mg PO BIDPC [facility] Last Admin: 01/09/24 07:53 Dose: 400 mg Documented By: LALITA Melatonin (Melatonin 3 Mg Tablet) 6 mg PO BEDTIME PRN PRN Reason: Insomnia Methadone HCl (Methadone Hcl 20 Mg/2 Ml Oral.Conc) 120 mg PO DAILY [facility] Last Admin: 01/09/24 07:53 Dose: 120 mg Documented By: LALITA Multivitamins/Vitamin C (Multivitamin Tablet) 1 tab PO DAILY [facility] Last Admin: 01/09/24 07:52 Dose: 1 tab Documented By: LALITA Ondansetron HCl (Ondansetron Hcl 4 Mg/2 Ml Vial) 4 mg IVPUSH Q8H PRN PRN Reason: Nausea and Vomiting Pantoprazole Sodium (Pantoprazole Sodium 40 Mg/10 Ml Vial) 40 mg IVPUSH BID@0630,1630 [facility] Last Admin: 01/09/24 06:13 Dose: 40 mg Documented By: OFELIA Sertraline HCl (Sertraline Hcl 100 Mg Tablet) 100 mg PO DAILY [facility] Last Admin: 01/09/24 07:53 Dose: 100 mg Documented By: LALITA Sodium Chloride (0.9 % Sodium Chloride Flush 3 Ml Syringe) 3 ml IVFLUSH QSHIFT [facility] Last Admin: 01/09/24 07:57 Dose: 3 ml Documented By: LALITA Thiamine HCl (Thiamine Hcl 100 Mg Tablet) 100 mg PO DAILY [facility] Last Admin: 01/09/24 07:53 Dose: 100 mg Documented By: LALITA Labs 01/09/24 07:48 01/09/24 07:48 Labs: Laboratory Results - last 24 hr 01/08/24 01/08/24 01/09/24 09:41 16:07 07:48 MCV 97.1 MCH 35.7 H MCHC 36.7 H RDW 20.2 H Plt Count 35 L MPV 10.9 Absolute Nucleated RBC 0.100 H Nucleated RBC % (auto) 1.7 H Smear Path Review PT 16.8 H INR 1.4 H Anion Gap 10 L 13 Estim Creat Clear Calc 169.5 165.0 Estimated GFR > 60 > 60 Random Glucose 105 108 Calcium 7.9 L D 8.2 L Magnesium 1.7 Total Bilirubin 4.7 H Direct Bilirubin 1.2 H AST 59 H ALT 33 H Alkaline Phosphatase 108 Total Protein 6.5 Albumin 3.1 L Microbiology Microbiology Results: Microbiology 01/07/24 16:46 Blood Culture - Preliminary Blood - Venous No growth after 24 hours. 01/07/24 16:32 Blood Culture - Preliminary Blood - Venous No growth after 24 hours. Assessment and Plan (1) Alcohol dependence: Status: Acute (2) Splenic varices: Status: Acute (3) Thrombocytopenia: Status: Acute (4) Splenic vein thrombosis: Status: Acute (5) Hypokalemia: Status: Acute Plan Jessika Julian is a 39 y/o woman with past medical history significant for chronic liver disease, alcoholic liver cirrhosis, chronic hepatitis C infection, portal hypertensive gastropathy and esophageal varices (not requiring banding) admitted with: - Abdominal pain 2/2 Splenic vein thrombosis, gastritis secondary to alcohol abuse and alcoholic hepatitis unclear if acute\chronic SVT on IVF Protonix changed to Omeprazole Pain control with Dilaudid as needed Zofran PRN Advised to abstain from alcohol consumption GI consulted, no need for prednisolone now - Splenic vein thrombosis. Anticoagulation is contraindicated due to patient's marked thrombocytopenia. Vascular surgery rec no intervention - Acute Hypokalemia. Likely secondary to vomiting. Replete as needed. Continue to monitor K level. - Alcohol abuse with withdrawal CIWA protocol: scoring low continue Ativan, folic acid, thiamine and multivitamins - Opiate abuse. Continue methadone 120 mg p.o. daily. Addiction medicine consult. - Crack abuse. Ativan as needed. - Anxiety and depression. Xanax on hold as the patient will be receiving Ativan. Continue Zoloft and Abilify. - Anemia. No evidence of acute bleeding. Continue to monitor H&H. DVT prophylaxis: SCDs Code status: Full Patient will need hospitalization overnight for abdominal pain treatment with IV pain meds, antireflux treatment with Protonix and evaluation by subspecialties. Quality Stroke Does the patient have a stroke diagnosis?: No VTE Prior VTE?: No VTE Risk Level:: Medical - moderate - high VTE Device Contraindication: N/A - Device Ordered VTE Drug Contraindication: Treatment Not Indicated
[2024-01-09] MEDS: Simethicone 80 MG TAB.CHEW 160 MG PO (15:01)
[2024-01-09] MEDS: Omeprazole 20 MG CAPSULE.DR PO (16:32)
[2024-01-09] MEDS: Simethicone 80 MG TAB.CHEW PO ×2 (16:33→21:07)
[2024-01-10 03:47] VITALS: BP 133/74; PULSE 95; RESP 18; TEMP 36.1; O2SAT 95
[2024-01-10] MEDS: LORazepam 1 MG TABLET 0.5 MG PO ×2 (04:46→09:55)
[2024-01-10] MEDS: Lactated Ringers 1,000 ML 100 ML IVCONT (05:28)
[2024-01-10] MEDS: Omeprazole 20 MG CAPSULE.DR PO (05:29)
[2024-01-10 07:33] LABS: Hematocrit 33.7 % (37.0-47.0); Hemoglobin 12.3 g/dl (12.0-16.0); Mean Corpuscular HGB Conc 36.5 g/dl (31.0-35.0); Mean Corpuscular Hemoglobin 36.3 pg (27.0-33.0); Mean Corpuscular Volume 99.4 fL (80.0-98.0); Mean Platelet Volume 9.8 fL (9.4-12.3); Platelet Count 34 X10*3/uL (160-400); Red Blood Count 3.39 X10*6/uL (4.20-5.50); Red Cell Distribution Width 21.2 % (11.0-16.0); White Blood Count 5.9 X10*3/uL (4.8-10.8)
[2024-01-10 07:46] VITALS: BP 125/73; PULSE 90; RESP 16; TEMP 36.1; O2SAT 97
[2024-01-10 07:52] LABS: Anion Gap 10 (12-20); Blood Urea Nitrogen 7 mg/dL (9-16); Carbon Dioxide 25 mmol/L (22-29); Chloride 108 mmol/L (96-108); Creatinine Clr Calc Pharmacy 167.9; Potassium 3.4 mmol/L (3.3-5.1); Sodium 140 mmol/L (135-145)
[2024-01-10 07:53] LABS: Calcium 8.3 mg/dL (8.4-10.2); Estimated Glomerular Filt Rate > 60; Glucose Random 98 mg/dL (60-115)
[2024-01-10] MEDS: methADONE HCl 20 MG/2 ML ORAL.CONC 120 MG PO (08:42)
[2024-01-10] MEDS: Multivitamin TABLET 1 TAB PO (08:45)
[2024-01-10] MEDS: ARIPiprazole 10 MG TABLET PO (08:46)
[2024-01-10] MEDS: Magnesium Oxide 400 MG TABLET PO (08:46)
[2024-01-10] MEDS: Sertraline HCL 100 MG TABLET PO (08:46)
[2024-01-10] MEDS: Thiamine HCL 100 MG TABLET PO (08:46)
[2024-01-10] MEDS: Folic Acid 1 MG TABLET PO (08:46)
[2024-01-10] MEDS: Simethicone 80 MG TAB.CHEW PO ×2 (08:46→12:03)
[2024-01-10] MEDS: Lactulose 20 GM/30 ML SOLUTION PO (09:55)
[2024-01-10 12:00] VITALS: BP 144/78; PULSE 96; RESP 16; TEMP 36.1; O2SAT 94
--- NOTE | 2024-01-10 12:21 | P.PNGI_ITS ---
Subjective Subjective Date of Service: 01/10/24 Interval History: feels better Critical Care Time (minutes): 0 Physical Exam 2 Vital Signs: Vital Signs: Last Vital Signs Temp 96.9 F 01/10/24 07:46 Pulse 90 01/10/24 07:46 Resp 16 01/10/24 07:46 BP 125/73 01/10/24 07:46 Pulse Ox 97 01/10/24 07:46 O2 Del Method Room Air 01/10/24 07:46 BMI result Body Mass Index 28.7 GI: Other: abdomen is soft and nontender Objective Data Labs 01/10/24 07:22 01/10/24 07:23 Microbiology Microbiology Results: Microbiology 01/07/24 16:46 Blood - Venous Blood Culture - Preliminary No growth after 48 hours. 01/07/24 16:32 Blood - Venous Blood Culture - Preliminary No growth after 48 hours. Procedures Date of Service Date of Service: 01/10/24 Progress Note: A&P Assessment and plan (1) Alcohol dependence: Status: Acute Assessment and Plan: lfts improving no pain continue supportive care. Time Spent With Patient Time: Total time managing care of this patient today ____ minutes. Quality Stroke Does the patient have a stroke diagnosis?: No VTE Prior VTE?: No VTE Risk Level:: Medical - moderate - high VTE Device Contraindication: N/A - Device Ordered VTE Drug Contraindication: Treatment Not Indicated
--- NOTE | 2024-01-10 13:32 | P.DS_ITS ---
DS: Providers Provider Date of Service: 01/10/24 Date of admission: 01/08/24 02:07 Primary care physician: Samantha Mohan MD Consults: 01/08/24 02:20 Addiction Medicine Routine Consulting Provider: Addiction Covering Reason for consultation: EtOH, heroin and crack abuse Has provider been notified: No 01/08/24 02:40 Consult to Gastroenterology Routine Consulting Provider: Deny Walker Reason for consultation: Alcoholic hepatitis, splenic vein thrombosis Has provider been notified: No Consult to Vascular Surgery Routine Consulting Provider: [facility] Vascular Services Reason for consultation: Splenic vein thrombosis Has provider been notified: No DS: Diagnosis Discharge Diagnosis (1) Alcohol dependence: Status: Acute (2) Splenic varices: Status: Acute (3) Thrombocytopenia: Status: Acute (4) Splenic vein thrombosis: Status: Acute DS: Summary Hospital Course Hospital Course: Admission note HPI Jessika Julina is a 39 years old woman with past medical history significant for chronic liver disease, alcoholic liver cirrhosis, chronic thrombocytopenia, chronic hepatitis C infection, portal hypertensive gastropathy, esophageal varices (nonbandable),opiate abuse on methadone (ongoing heroin use and crack), anxiety on Xanax presents to the emergency department complaining of intermittent upper abdominal pain/left upper quadrant associated with nonbloody diarrhea and nonbloody emesis. She also noted increased abdominal girth. She mentioned that she relapsed drinking for a year but she relapsed about a month ago. She denied headache, chest pain or significant shortness on breath. Did not report fever or chills or any acute urinary symptoms. She uses heroin and crack (snorted). Last alcoholic beverage was this morning. In the ED, she was found to have normal vital signs. Blood workup was remarkable for hemoglobin 11.5 and hematocrit 31.5. There is no leukocytosis. Platelets are 45. INR is 1.4. Lactic acid was initially 2.3 (now 1.6), there is mild hypokalemia. LFTs are elevated. Bilirubin is 5.2 (it was 4.0), lipase is normal. test is negative. CXR showed bronchial wall thickening may be infectious and/or inflammatory in etiology. Abdominal pelvis CT scan showed cirrhotic liver with marked splenomegaly and large perisplenic varices, new splenic vein thrombosis. ED tx: NS 2 L bolus, potassium 60 mEq p.o., Ativan 1 mg p.o., lorazepam 2 mg IV Hospital course - Abdominal pain secondary to Splenic vein thrombosis, gastritis secondary to alcohol abuse and alcoholic hepatitis. unclear if acute\chronic SVT. pain improved over the hospital stay with Methadone home dose of 120 mg only. Treated with IV fluids and IV Protonix then changed to Omeprazole. Advised to abstain from alcohol consumption. GI consulted and felt no need for prednisolone at this stage. to follow up with GI as outpatient. - Splenic vein thrombosis. Anticoagulation is contraindicated due to patient's marked thrombocytopenia. Vascular surgery evaluated the patient and recommended no intervention as well. - Acute Hypokalemia. Likely secondary to vomiting. Repleted. - Alcohol abuse with mild withdrawal symptoms as CIWA protocol: scoring low and placed on PO Ativan, folic acid, thiamine and multivitamins with good response. - Opiate and cocaine abuse. Continue methadone 120 mg p.o. daily. Addiction medicine followed the patient for outpatient plan. Discharge plan We advise you complete abstinence from Alcohol Start Omeprazole daily Magnesium supplement Follow With AA program as planned Time Attestation Discharge Coordination Time (in mins): 37 Quality: Safe Use of Opioids Does Pt have an Active Cancer Diagnosis on the Problem List?: No Quality: Stroke Does the patient have a stroke diagnosis?: No Physical Exam Vital Signs: Vital Signs: Last Vital Signs Temp 96.9 F 01/10/24 07:46 Pulse 90 01/10/24 07:46 Resp 16 01/10/24 07:46 BP 125/73 01/10/24 07:46 Pulse Ox 97 01/10/24 07:46 O2 Del Method Room Air 01/10/24 07:46 BMI result Body Mass Index 28.7 Const: Other: Constitutional : Awake, interactive, not in distress, mildly jaundiced Cardiovascular : RRR, no JVP, no lower extremity edema Respiratory : good bilateral air entry, no crackles, wheezes or rhonchi Gastrointestinal: soft, lax, Normal bowel sounds, Non tender, mildly distended Skin : Warm, Dry Neurological : Alert & oriented x3, No focal deficit DS: Data Data Completed and Pending Completed studies during hospitalization [Text1]: Procedures Detoxification Services for Substance Abuse Treatment (05/11/22) Labs on day of discharge: Laboratory Results - last 24 hr 01/10/24 01/10/24 07:22 07:23 WBC 5.9 RBC 3.39 L Hgb 12.3 Hct 33.7 L MCV 99.4 H MCH 36.3 H MCHC 36.5 H RDW 21.2 H Plt Count 34 L MPV 9.8 Absolute Nucleated RBC 0.060 H Nucleated RBC % (auto) 1.0 H Sodium 140 Potassium 3.4 Chloride 108 Carbon Dioxide 25 Anion Gap 10 L BUN 7 L Creatinine 0.56 Estim Creat Clear Calc 167.9 Estimated GFR > 60 Random Glucose 98 Calcium 8.3 L Preliminary micro results at discharge 01/07/24 16:46 Blood Culture - Preliminary Blood - Venous No growth after 48 hours. 01/07/24 16:32 Blood Culture - Preliminary Blood - Venous No growth after [address] scan - abdomen: Radiologist's impression: ITS Impressions Chest X-Ray 01/07/24 17:05 IMPRESSION: Bronchial wall thickening may be infectious and/or inflammatory in etiology. Abdomen/Pelvis CT 01/07/24 20:51 IMPRESSION: 1. Cirrhotic liver with marked splenomegaly and large perisplenic varices. 2. There is a new splenic vein thrombus. 3. Other incidental findings as described above. Fleischner guidelines were followed. Discharge Plan Discharge Anticipated Discharge Date/Time: 01/10/24 13:29 Patient Disposition: Home, Self-Care Discharge Diagnosis: Splenic vein thrombosis Alcohol abuse Referrals: Angel Boston MD [Physician] - Samantha Graves MD [Primary Care Provider] - 1 Week Discharge Medications: New magnesium oxide 400 mg (241.3 mg magnesium) Tablet 400 mg PO BIDPC Qty: 60 0RF omeprazole 20 mg Capsule,Delayed Release(Dr/Ec) 20 mg PO BID@0630,1630 Qty: 90 0RF Continued alprazolam 0.5 mg tablet 0.5 mg PO TID PRN (Reason: anxiety) 30 Days Qty: 90 0RF sertraline 100 mg tablet 100 mg PO DAILY aripiprazole 10 mg tablet 10 mg PO DAILY methadone 10 mg/mL concentrate 120 mg PO DAILY Rx Instructions: [facility] [phone] folic acid 1 mg tablet 1 mg PO DAILY 90 Days Qty: 90 1RF thiamine HCl (vitamin B1) 100 mg tablet 100 mg PO DAILY 90 Days Qty: 90 1RF Diet: Advance to usual diet Activity on Discharge: As tolerated Stand Alone Forms: Patient Portal Discharge page Print Language: Nepalese Care Plan Goals: We advise you complete abstinence from Alcohol Start Omeprazole daily Magnesium supplement Follow With AA program as planned Health Concerns: Read below Plan of Treatment: Read below Assessment: Read below
--- NOTE | 2024-01-10 14:06 | MHC.CM.PN ---
Patient has been medically cleared for dc to home today, self care.
== END 2024-01-10 14:45 | disposition home or self-care (01) | DRG 425 ==
LOC: HO.ED 01-08 00:44 → HO.EDOVER 01-08 02:13 → HO.IMC 01-08 16:03
PROVIDERS: Nurse Practitioner Family; Physician Assistant; Admitting Provider Internal Medicine; Emergency Provider Internal Medicine; PCP Internal Medicine; Visit Provider Student in an Organized Health Care Education/Training Program
DX: E87.6 Hypokalemia (principal); E87.20 Acidosis, unspecified; D69.6 Thrombocytopenia, unspecified; I82.890 Acute embolism and thrombosis of other specified veins; K76.6 Portal hypertension; K29.20 Alcoholic gastritis without bleeding; K70.30 Alcoholic cirrhosis of liver without ascites; K70.10 Alcoholic hepatitis without ascites; F10.239 Alcohol dependence with withdrawal, unspecified; D64.9 Anemia, unspecified; K31.89 Other diseases of stomach and duodenum; I86.8 Varicose veins of other specified sites; F11.20 Opioid dependence, uncomplicated; F17.210 Nicotine dependence, cigarettes, uncomplicated; Z71.6 Tobacco abuse counseling; Y90.6 Blood alcohol level of 120-199 mg/100 ml; F14.10 Cocaine abuse, uncomplicated; F41.9 Anxiety disorder, unspecified; F32.A Depression, unspecified; Z20.822 Contact with and (suspected) exposure to COVID-19; Z79.899 Other long term (current) drug therapy
CPT/HCPCS: 0241U; 36415; 71045; 74177; 80048; 80053; 80076; 80307; 81001; 81003; 83605; 83690; 83735; 84702; 85025; 85027; 85610; 85730; 87040; 99285; J2060; J2470; J3411; J3475; J3480; J7120; Q9967

== ENCOUNTER → 2024-01-08 02:07 | Outpatient (BNV) | payer OTHER, SELFPAY | PROVIDERS: Admitting Provider Internal Medicine; Emergency Provider Internal Medicine; PCP Internal Medicine; Visit Provider Internal Medicine | DX: I82.890 Acute embolism and thrombosis of other specified veins (principal); E87.6 Hypokalemia; F10.20 Alcohol dependence, uncomplicated; D69.6 Thrombocytopenia, unspecified; I86.8 Varicose veins of other specified sites | CPT/HCPCS: 99223; 99232; 99239; 99499 ==

== ENCOUNTER → 2024-01-08 02:07 | Outpatient (BNV) | payer OTHER, SELFPAY | PROVIDERS: Admitting Provider Internal Medicine; Emergency Provider Internal Medicine; PCP Internal Medicine; Visit Provider Surgery | DX: I82.890 Acute embolism and thrombosis of other specified veins (principal) | CPT/HCPCS: 99222 ==

== ENCOUNTER → 2024-01-08 02:07 | Outpatient (BNV) | payer OTHER, SELFPAY | PROVIDERS: Admitting Provider Internal Medicine; Emergency Provider Internal Medicine; PCP Internal Medicine; Visit Provider Surgery Vascular Surgery | DX: I82.890 Acute embolism and thrombosis of other specified veins (principal) | CPT/HCPCS: 99222 ==

== ENCOUNTER 2024-01-17 15:03 | Outpatient (AMB) | payer OTHER, SELFPAY ==
[2024-01-17 15:09] VITALS: BP 110/64; BMI 27.3
--- NOTE | 2024-01-17 15:09 | A.OFFPC_ITS ---
Vital Signs 01/17/24 15:09 Height 5 ft 10 in Weight 190 lb BMI 27.3 BP 110/64 Blood Pressure Location Lt brachial Position Sitting Intake Visit Reasons: anxiety Informal Waiter/Waitress Required: No Accompanied by: Self / Same As Patient Allergies pentoxifylline Allergy (Intermediate, Verified 01/17/24 15:21) Rash phenobarbital Allergy (Verified 01/17/24 15:21) Diarrhea Medication List - Last Reconciled 01/17/24 by Samantha Mohan MD alprazolam 0.5 mg PO TID PRN 30 days aripiprazole 10 mg PO DAILY folic acid 1 mg PO DAILY 90 days magnesium oxide 400 mg PO BIDPC methadone 120 mg PO DAILY omeprazole 20 mg PO BID@0630,1630 sertraline 100 mg PO DAILY thiamine HCl (vitamin B1) 100 mg PO DAILY 90 days Tobacco use date assessed: 07/20/23 Dental Screening Dental Screen Date: 07/20/23 HPI HPI Comments History of Present Illness Details This is a 39-year-old female with alcoholic liver disorder, thrombocytopenia, mild recurrent major depression, anxiety and opioid dependence on agonist therapy that comes today for follow-up on her conditions. She was recently in the ER due to abdominal pain and bloating and had CT scan of abdomen and pelvis showing splenic thrombosis but since her bladder less also low no coagulation was given. Alcoholic liver disease is follow by [facility]. Thrombocytopenia will be monitor. Had a recent relapse and was given antidepressants for her depression and needs a refill. Anxiety stable with benzodiazepines as needed which she is aware can cause addiction and sedation. On methadone clinic due to her opioid dependence. No chest pain or shortness on breath. [facility] Medical History (Updated 01/17/24 @ 20:32 by Samantha Mohan MD) Depression Physical exam Opioid dependence on agonist therapy Left ankle pain Smoker Impaired glucose tolerance Alcoholic liver disease Insomnia Anxiety Surgical History H/O endoscopy (08/18/23) History of amputation of finger History of hernia surgery Amputation of left index finger History of arthroplasty of left knee H/O right wrist surgery Family History Father Hypertension Substance use disorder Mother Medical history unknown Maternal Grandfather Cancer Family/Other FH: mental illness Mental health disorder Social History Household Members: Family Housing: House Do you presently have visiting nurse or other home services: No Alcohol intake: current Alcohol intake frequency: 3 or more drinks per day Alcohol type: hard liquor Patient Tobacco Use Status: Current someday Tobacco user Tobacco use type: Cigarette Cigarettes Per Day: 2 e-Cigarette/Vaping Use: Never Used Second Hand Smoke Exposure: No Substance Use Type: Crack/Cocaine, Heroin, IV Drugs and Other service: No 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al status: unemployed and disabled 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: left hand Cognitive needs: No Hearing needs: No Vision needs: No Questionnaire Thrive Questionnaire Date Thrive assessed: 01/09/24 DONNA-7 AMB Questionnaire DONNA-7 Date DONNA - 7 assessed: 07/20/23 Source: Developed by Drs. Cem Umanzor, Keely Castellon, Warren Arana and colleagues, with an educational theodore from [employer]. Review of Systems Const All systems reviewed & are unremarkable except as noted in HPI and below Card Denies chest pain at rest, Denies chest pain with activity, Denies edema, Denies irregular heart rhythm, Denies claudication, Denies dyspnea, Denies dyspnea on exertion, Denies orthopnea, Denies paroxysmal nocturnal dyspnea and Denies slow heart rate Resp Denies cough, Denies dyspnea and Denies dyspnea on exertion Physical exam (Primary Care) Vital Signs: Last Vital Signs BP 110/64 01/17/24 15:09 BMI result Body Mass Index 27.3 Tobacco/Smoking Status: Tobacco use Status Tobacco use date assessed 07/20/23 01/17/24 15:13 Patient Tobacco Use Status Current someday Tobacco 01/17/24 15:13 Tobacco use type Cigarette 01/17/24 15:13 e-Cigarette/Vaping Use Never Used 01/17/24 15:13 Thrive Assessment: Date of Thrive Assessment Date Thrive assessed 01/09/24 01/17/24 15:13 Resp Effort & Inspection: normal respiratory effort Auscultation: clear to auscultation bilaterally Cardio Jugular venous distension: no JVD Rate: regular rate Rhythm: regular rhythm Heart sounds: S1 normal heart sound present and S2 normal heart sound present Extrem General: Yes full ROM Assessment and Plan Assessment & Plan (1) Thrombocytopenia: Code(s): D69.6 - Thrombocytopenia, unspecified Plan: CBC will be monitor. (2) Opioid dependence on agonist therapy: Code(s): F11.20 - Opioid dependence, uncomplicated Plan: Continue methadone. (3) Alcoholic liver disease: Comment: Follow by [facility] Code(s): K70.9 - Alcoholic liver disease, unspecified Plan: Follow-up with [facility]. (4) Anxiety: Code(s): F41.9 - Anxiety disorder, unspecified Plan: Continue benzodiazepines as needed. (5) Mild recurrent major depression: Code(s): F33.0 - Major depressive disorder, recurrent, mild Plan: Continue Abilify. Orders: Orders Comprehensive Met. Panel Today F10.20 - Alcohol dependence, uncomplicated Magnesium Today E83.42 - Hypomagnesemia Phosphorus Today E83.51 - Hypocalcemia Complete Blood Count Auto Diff Today D69.6 - Thrombocytopenia, unspecified Parathyroid Hormone Intact Today E83.51 - Hypocalcemia Vitamin D 25-OH Total Today E55.9 - Vitamin D deficiency, unspecified Medications: New calcium carbonate 500 mg PO DAILY 90 tabs 1RF 90 days Changed From aripiprazole 10 mg PO DAILY depressive disorder To aripiprazole 10 mg PO DAILY 90 tabs 1RF depressive disorder 90 days From sertraline 100 mg PO DAILY depressive disorder To sertraline 100 mg PO DAILY 90 tabs 1RF depressive disorder 90 days Coding Level of Care Code Est Pt Level 4 (75891) Complex EM visit Add On G2211 Diagnoses Thrombocytopenia D69.6 Opioid dependence on agonist therapy F11.20 Alcoholic liver disease K70.9 Anxiety F41.9 Mild recurrent major depression F33.0 Time Spent (min) 23
== END 2024-01-17 15:34 | disposition home or self-care (01) ==
PROVIDERS: PCP Internal Medicine; Visit Provider Internal Medicine
DX: D69.6 Thrombocytopenia, unspecified (principal); F11.20 Opioid dependence, uncomplicated; K70.9 Alcoholic liver disease, unspecified; F33.0 Major depressive disorder, recurrent, mild; F41.9 Anxiety disorder, unspecified
CPT/HCPCS: 99214; G2211

== ENCOUNTER 2024-08-07 15:00 | Outpatient (AMB) | payer OTHER, SELFPAY ==
--- NOTE | 2024-08-07 15:21 | MHC.PC.OV ---
Vital Signs 08/07/24 15:22 Height 5 ft 10 in Weight 174 lb 6 oz BMI 25.0 BP 120/70 Blood Pressure Location Rt brachial Position Sitting Pulse 86 Pulse Source Pulse Oximeter Temp 97.1 F Temp Source Skin Pulse Oximetry (%) 96 Oxygen Delivery Method Room Air Intake Visit Reasons: PE - see comments Intake Note: Patient is here today for a physical. 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: Not Required per policy Accompanied by: Self / Same As Patient Allergies pentoxifylline Allergy (Intermediate, Verified 08/07/24 15:36) Rash phenobarbital Allergy (Verified 08/07/24 15:36) Diarrhea Medication List - Last Reconciled 08/07/24 by LUC Lopez alprazolam 0.5 mg PO TID PRN 30 days aripiprazole 10 mg PO DAILY 90 days calcium carbonate 500 mg PO DAILY 90 days folic acid 1 mg PO DAILY 90 days methadone 120 mg PO DAILY sertraline 100 mg PO DAILY 90 days thiamine HCl (vitamin B1) 100 mg PO DAILY 90 days Tobacco use date assessed: 08/07/24 Dental Screening Dental Screen Date: 08/07/24 Did you have a dental visit in the last 12 months?: Yes Did you have a dental problem in the last 6 months where you did not have access to dental care?: No Was dental information given to patient?: Patient has dentist HPI PE - see comments HPI Details Dentist: The patient has dentures. She is going to see the dentist this summer for a new set Eye: She has not have her eyes checked in awhile, reports she does not see well at night-she will make an appt Snellen: Right: Left: Corrected vision:n/a STI screening:n/a Colonoscopy: n/a pap smear: 6 months ago PHQ-9: Flu:given today in office COVID:x2 Tdap: given today in office Diet:reports that she is doing low sodium because she retains water Exercise: no exercise, she walks at time Patient is a 39-year-old female presenting for an annual physical reports that she had a blood clot in her spleen-last summer. reports lower abdomen pain intermittently she reports sometimes she feel the pain more to the left side she denies constipation and reports that the pain is not severe reports that it feels like it is in her ovaries Reports that it feels like a cramping pain like she is having her period Reports that it did not feel concerning to her and that is why she has not gone to see her OBGYN Reports new control in the summer time-discussed with patient about the risk of smoking in the setting of already having a clot in her spleen [facility] Medical History Alcohol dependence Splenic varices Thrombocytopenia Splenic vein thrombosis Depression Physical exam Opioid dependence on agonist therapy Left ankle pain Smoker Impaired glucose tolerance Alcoholic liver disease Insomnia Anxiety Surgical History H/O endoscopy (08/18/23) History of amputation of finger History of hernia surgery Amputation of left index finger History of arthroplasty of left knee H/O right wrist surgery Family History Father Hypertension Substance use disorder Mother Medical history unknown Maternal Grandfather Cancer Family/Other FH: mental illness Mental health disorder Social History Household Members: Family Housing: House Do you presently have visiting nurse or other home services: No Alcohol intake: current Alcohol intake frequency: holidays/special occasions only Alcohol type: hard liquor Patient Tobacco Use Status: Current someday Tobacco user Tobacco use type: Cigarette Cigarette Packs Per Day: 0.5 Cigarettes Per Day: 5 e-Cigarette/Vaping Use: Currently Using Second Hand Smoke Exposure: Yes Substance Use Type: Crack/Cocaine, Heroin, IV Drugs and Other service: No 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al status: unemployed and disabled 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: left hand Cognitive needs: No Hearing needs: No Vision needs: No Questionnaire PHQ-9 Over the last 2 weeks, how often have you been bothered by any of the following problems? 1. Little interest or pleasure in doing things: not at all 2. Feeling down, depressed, or hopeless: several days 3. Trouble falling or staying asleep, or sleeping too much: several days 4. Feeling tired or having little energy: several days 5. Poor appetite or overeating: several days 6. Feeling bad about yourself - or that you are a failure or have let yourself or your family down: several days 7. Trouble concentrating on things, such as reading the newspaper or watching television: not at all 8. Moving or speaking so slowly that other people could have noticed. Or the opposite - being so fidgety or restless that you have been moving around a lot more than usual: not at all 9. Thoughts that you would be better off or of hurting yourself in some way: not at all Total score: 5 Depression Screening Interpretation: Positive Depression Screening Done: Yes 01095 - PHQ-9 Billing: Yes Source: Developed by Drs. Cem Umanzor, Keely Castellon, Warren Arana and colleagues, with an educational theodore from [employer]. Thrive Questionnaire Date Thrive assessed: 08/07/24 I am a: Patient What is your living situation today?: I have a steady place to live Within the past 12 months, did the food you bought not last and you didn't have the money to get more?: Sometimes True Within the past 12 months, did you worry whether your food would run out before you got money to buy more?: Sometimes True Do you have trouble paying for medicines?: No Do you have trouble getting transportation to medical appointments?: No Do you have trouble paying your heating and electricity bill?: No Do you have trouble taking care of your child, family member or friend?: No Do you have trouble with day-to-day activities such as bathing, preparing meals, shopping, managing finances, etc.?: No Are you currently unemployed and looking for a job?: Yes Are you interested in more education?: Yes Please select the resources that you would like help with: None Currently or been in a relationship where the following occur: I choose not to answer THRIVE Score: 2 AUDIT C Alcohol Use Questionnaire (AUDIT-C) 1. How often do you have a drink containing alcohol?: Never Total Score: 0 DONNA-7 AMB Questionnaire DONNA-7 Date DONNA - 7 assessed: 08/07/24 Feeling nervous, anxious, or on edge: 2 = More than half the days Not being able to stop or control worryin = Nearly every day Worrying too much about different things: 3 = Nearly every day Trouble relaxin = Nearly every day Being so restless that it is hard to sit still: 2 = More than half the days Becoming easily annoyed or irritable: 1 = Several days Feeling afraid as if something awful might happen: 1 = Several days Total DONNA-7 score (0-4 normal; 5-9 mild; 10-14 moderate; 15-21 severe): 15 Source: Developed by Drs. Cem Umanzor, Keely Castellon, Warren Arana and colleagues, with an educational theodore from [employer]. DONNA-7 Assessment Billing DONNA-7 Assessment Tool: DONNA-7 Assessment 59635 Review of Systems Const Details: Denies chills, Denies fatigue, Denies fever(s), Denies headache(s) and Denies weakness HEENT Denies change in vision, Denies dizziness, Denies headache(s), Denies hearing loss, Denies nasal congestion, Denies sinus pain, Denies sinus pressure and Denies sore throat Card Denies chest pain, Denies lightheadedness, Denies dyspnea and Denies other (palpitations) Resp Denies cough, Denies dyspnea and Denies wheezing GI + abdominal cream intermittently in low abdomen, Denies melena, Denies hematochezia, Denies change in bowel habits, +dyspepsia infrequent depending on food and Denies nausea Denies hematuria and Denies dysuria Musc Denies abnormal gait, Denies myalgias, Denies arthralgias, Denies numbness and Denies tingling Skin/Breast Denies rash, Denies unusual bruising and Denies wounds Neuro Denies abnormal gait, Denies dizziness, Denies headache(s), Denies memory loss, Denies numbness, Denies Sensory deficit (Neuro), Denies tingling and Denies weakness Psych Denies anxiety, Denies depression and Denies memory loss Endo Denies cold intolerance, Denies fatigue, Denies heat intolerance, Denies polydipsia and Denies polyuria William/Lymph Denies easy bleeding and Denies easy bruising Aller/Immun Denies wheezing Physical exam (Primary Care) Vital Signs: Last Vital Signs Temp 97.1 F 08/07/24 15:22 Pulse 86 08/07/24 15:22 BP 120/70 08/07/24 15:22 Pulse Ox 96 08/07/24 15:22 Oxygen Delivery Method Room Air 08/07/24 15:22 BMI result Body Mass Index 25.0 Tobacco/Smoking Status: Tobacco use Status Tobacco use date assessed 08/07/24 08/07/24 15:28 Patient Tobacco Use Status Current someday Tobacco 08/07/24 15:28 Tobacco use type Cigarette 08/07/24 15:28 e-Cigarette/Vaping Use Currently Using 08/07/24 15:28 PHQ-9: PHQ-9 Score PHQ-9: Total score 5 08/07/24 16:05 Depression Screening Interpretation: Positive Thrive Assessment: Date of Thrive Assessment Date Thrive assessed 08/07/24 08/07/24 15:28 Currently or been in a relationship where the following occur: I choose not to answer Const Other: General: no acute distress, well developed, alert and awake Nutritional Appearance: well nourished Orientation/consciousness: patient oriented x3 HENMT Head: Yes normocephalic and Yes atraumatic Ears: hearing grossly normal bilaterally and TM's normal bilaterally General nose exam: Normal external nose present and Normal nares present Mouth: Normal oral and palatal mucosa present and moist mucous membranes Teeth and gingiva: dentition normal Throat: Yes oropharynx normal Eyes Pupils: Equal, round and reactive pupils present and Pupil accommodation reflex normal EOM: EOMs intact bilaterally Neck Neck: Yes normal visual inspection, Yes no lymphadenopathy and Yes trachea midline Thyroid: Thyroid normal Carotids: no bruits Lymphatic: no lymphadenopathy noted Chest Chest palpation & inspection: normal inspection of the chest Resp Effort & Inspection: normal respiratory effort Auscultation: clear to auscultation bilaterally Cardio Rate: regular rate Rhythm: regular rhythm Heart sounds: S1 normal heart sound present, S2 normal heart sound present, no gallops, no murmurs and no rubs Bruits: no abdominal aortic bruits and no carotid bruits GI Palpation (GI): No Abdominal aortic bruit present, Soft to palpation, nontender, No hepatosplenomegaly present and No Rebound tenderness present Auscultation: normal bowel sounds General: Yes no CVA tenderness Back/Spine/Pelvis Back: no CVA tenderness Cervical Spine: cervical ROM normal and No Cervical spine tenderness Thoracic/Lumbar Spine: thoraco-lumbar ROM normal, No pain with thoraco-lumbar ROM, No thoracic spinal tenderness and No lumbar spinal tenderness Skin General: warm and dry. Normal skin color. Normal skin turgor Lesions: no lesions Rashes: no rashes Trauma: no lacerations or abrasions Wounds: no wounds Nails: normal Neuro General: patient oriented x3, gait normal and CN's II-XI intact bilaterally Cranial nerves: Yes Equal, round and reactive pupils present Cognition (Neuro): normal cognition Gait exam (Neuro): Normal gait present Motor exam (neuro): 5/5 motor strength present throughout Sensory Exam: No Sensory deficit (Neuro) Deep tendon reflexes (DTR's): Right patellar reflex intensity grade: 2+ and Left patellar reflex intensity grade: 2+ Extrem General: Yes normal to inspection, No edema and No calf tenderness Psych Appearance: grossly normal Affect: normal affect Attitude: cooperative Thought process: Normal thought process present Office Procedures Flu Questionnaire Does the patient have a severe egg allergy?: No Does the patient have severe life threatening allergies?: No Does the patient have a fever or illness today?: No Has the patient ever had Guillain-[place] Syndrome?: No Has the patient ever had any past reaction to a flu shot?: No Immunizations Fluarix Triv [id number] (PF) 45 mcg (15 mcg x 3)/0.5 mL IM syringe Performing Provider: LUC Lopez Performing Location: [facility] Administered by: JANETT Haider on 08/07/24 16:03 Dose Route Admin Location Dispensed Lot Number Expiration Date [facility] Survey Superintendent 0.5 mL IM Right Deltoid 0.5 mL [id number] 12/24/24 [id number] [employer] VIS Given Date VIS Provided VIS Publication Date 08/07/24 Single Vaccine 21 Eligibility Eligibility Date Funding Source Not VFC Eligible 08/07/24 Private Boostrix Tdap 2.5 Lf unit-8 mcg-5 Lf/0.5 mL intramuscular syringe Performing Provider: LUC Lopez Performing Location: [facility] Administered by: JANETT Haider on 08/07/24 16:03 Dose Route Admin Location Dispensed Lot Number Expiration Date [facility] Survey Superintendent 0.5 mL IM Right Deltoid 0.5 mL [id number] 09/15/26 [id number] [employer] VIS Given Date VIS Provided VIS Publication Date 08/07/24 Single Vaccine 21 Eligibility Eligibility Date Funding Source Not VFC Eligible 08/07/24 Private Coding Level of Care Code Est Pt Prev Care 18-39y(27235) Diagnoses Annual physical exam Z00.00 Mild recurrent major depression F33.0 Leukopenia, unspecified type D72.819 Leukopenia type: unspecified Alcoholic hepatitis, unspecified whether ascites present K70.10 Ascites presence: unspecified Opioid use disorder F11.90 Hyperbilirubinemia E80.6 Hypomagnesemia E83.42 Alcohol use disorder, severe, dependence F10.20 Thrombocytopenia D69.6 Smoker F17.200 Impaired glucose tolerance R73.02 Anxiety F41.9 Additional Codes DONNA-7 Assessment Billing - DONNA-7 Assessment Tool: DONNA-7 Assessment 18895 ([id number]) PHQ-9 - 95902 - PHQ-9 Billing: Yes ([id number]) Assessment & Plan Assessment & Plan (1) Annual physical exam: Code(s): Z00.00 - Encounter for general adult medical examination without abnormal findings Category: Medical Plan: Patient presented for annual physical. No recent labs to review we will order labs and encourage patient to get labs done as soon as possible. Flu vaccine and a tetanus shot was given in office today. Patient was encouraged to get an eye exam. She is up-to-date on Pap smear. (2) Mild recurrent major depression: Code(s): F33.0 - Major depressive disorder, recurrent, mild Category: Medical Plan: Reports that she has been doing much better Continue sertraline 100 mg daily and aripiprazole 10 mg daily Follow up with Psychiatry as scheduled (3) Leukopenia: Code(s): D72.819 - Decreased white blood cell count, unspecified Category: Medical Qualifiers: Leukopenia type: unspecified Qualified Code(s): D72.819 - Decreased white blood cell count, unspecified Plan: No recent labs done, WBC was normal on previous lab CBC ordered (4) Alcoholic hepatitis: Code(s): K70.10 - Alcoholic hepatitis without ascites Category: Medical Qualifiers: Ascites presence: unspecified Qualified Code(s): K70.10 - Alcoholic hepatitis without ascites Plan: Reports that she had a relapse couple of months back but has been without a drink since Liver enzymes were elevated on previous lab We will continue to monitor-CMP ordered (5) Opioid use disorder: Code(s): F11.90 - Opioid use, unspecified, uncomplicated Category: Medical Plan: Denies any recent use. We will continue to monitor (6) Hyperbilirubinemia: Code(s): E80.6 - Other disorders of bilirubin metabolism Category: Medical Plan: Bilirubin was elevated on previous lab. CMP ordered (7) Hypomagnesemia: Code(s): E83.42 - Hypomagnesemia Category: Medical Plan: Magnesium normalized on previous lab We will recheck magnesium and advise (8) Alcohol use disorder, severe, dependence: Code(s): F10.20 - Alcohol dependence, uncomplicated Category: Medical Plan: Reports that she had a relapse couple of months back but has been without a drink since We will continue to monitor-CMP ordered (9) Thrombocytopenia: Code(s): D69.6 - Thrombocytopenia, unspecified Category: Medical Plan: Platelets level has been low consistently but appears to stabilized on previous labs. No evidence of bleeding noted CBC ordered (10) Smoker: Code(s): F17.200 - Nicotine dependence, unspecified, uncomplicated Category: Social Hx Plan: Encouraged smoking cessation (11) Impaired glucose tolerance: Code(s): R73.02 - Impaired glucose tolerance (oral) Category: Medical Plan: Glucose level has been normalized on the last 3 labs drawn CMP ordered (12) Anxiety: Code(s): F41.9 - Anxiety disorder, unspecified Category: Medical Plan: Continue sertraline 100 mg daily and alprazolam 0.5 mg t.i.d. p.r.n. Follow up with Psychiatry as scheduled Orders: Orders Magnesium 08/07/24 D69.6 - Thrombocytopenia, unspecified, D72.819 - Decreased white blood cell count, unspecified, E83.42 - Hypomagnesemia, F11.90 - Opioid use, unspecified, uncomplicated, F33.0 - Major depressive disorder, recurrent, mild, K70.10 - Alcoholic hepatitis without ascites, Z00.00 - Encounter for general adult medical examination without abnormal findings Influenza [id number] Immunization 08/07/24 Z23 - Encounter for immunization Complete Blood Count Auto Diff 08/07/24 D69.6 - Thrombocytopenia, unspecified, D72.819 - Decreased white blood cell count, unspecified, E83.42 - Hypomagnesemia, F11.90 - Opioid use, unspecified, uncomplicated, F33.0 - Major depressive disorder, recurrent, mild, K70.10 - Alcoholic hepatitis without ascites, Z00.00 - Encounter for general adult medical examination without abnormal findings Comprehensive [place]. Panel Fast 08/07/24 D69.6 - Thrombocytopenia, unspecified, D72.819 - Decreased white blood cell count, unspecified, E83.42 - Hypomagnesemia, F11.90 - Opioid use, unspecified, uncomplicated, F33.0 - Major depressive disorder, recurrent, mild, K70.10 - Alcoholic hepatitis without ascites, Z00.00 - Encounter for general adult medical examination without abnormal findings Lipid Panel 08/07/24 D69.6 - Thrombocytopenia, unspecified, D72.819 - Decreased white blood cell count, unspecified, E83.42 - Hypomagnesemia, F11.90 - Opioid use, unspecified, uncomplicated, F33.0 - Major depressive disorder, recurrent, mild, K70.10 - Alcoholic hepatitis without ascites, Z00.00 - Encounter for general adult medical examination without abnormal findings UA CC w/rflx Micro + Cult 08/07/24 D69.6 - Thrombocytopenia, unspecified, D72.819 - Decreased white blood cell count, unspecified, E83.42 - Hypomagnesemia, F11.90 - Opioid use, unspecified, uncomplicated, F33.0 - Major depressive disorder, recurrent, mild, K70.10 - Alcoholic hepatitis without ascites, Z00.00 - Encounter for general adult medical examination without abnormal findings Vitamin D 25-OH Total 08/07/24 D69.6 - Thrombocytopenia, unspecified, D72.819 - Decreased white blood cell count, unspecified, E83.42 - Hypomagnesemia, F11.90 - Opioid use, unspecified, uncomplicated, F33.0 - Major depressive disorder, recurrent, mild, K70.10 - Alcoholic hepatitis without ascites, Z00.00 - Encounter for general adult medical examination without abnormal findings TSH reflex Free T4 08/07/24 D69.6 - Thrombocytopenia, unspecified, D72.819 - Decreased white blood cell count, unspecified, E83.42 - Hypomagnesemia, F11.90 - Opioid use, unspecified, uncomplicated, F33.0 - Major depressive disorder, recurrent, mild, K70.10 - Alcoholic hepatitis without ascites, Z00.00 - Encounter for general adult medical examination without abnormal findings Vitamin B12 and Folate 08/07/24 D69.6 - Thrombocytopenia, unspecified, D72.819 - Decreased white blood cell count, unspecified, E83.42 - Hypomagnesemia, F11.90 - Opioid use, unspecified, uncomplicated, F33.0 - Major depressive disorder, recurrent, mild, K70.10 - Alcoholic hepatitis without ascites, Z00.00 - Encounter for general adult medical examination without abnormal findings TDaP Immunization 08/07/24 Z23 - Encounter for immunization
[2024-08-07 15:22] VITALS: BP 120/70; PULSE 86; TEMP 36.2; O2SAT 96; BMI 25.0
== END 2024-08-07 16:15 | disposition home or self-care (01) ==
PROVIDERS: PCP Internal Medicine
DX: Z23 Encounter for immunization (principal)

== ENCOUNTER → 2024-08-07 15:00 | Outpatient (BNVA) | payer OTHER, SELFPAY | PROVIDERS: PCP Internal Medicine | DX: Z00.00 Encounter for general adult medical examination without abnormal findings (principal); Z23 Encounter for immunization; D72.819 Decreased white blood cell count, unspecified; D69.6 Thrombocytopenia, unspecified; R73.02 Impaired glucose tolerance (oral); K70.10 Alcoholic hepatitis without ascites; E80.6 Other disorders of bilirubin metabolism; E83.42 Hypomagnesemia; F10.20 Alcohol dependence, uncomplicated; F11.90 Opioid use, unspecified, uncomplicated; F33.0 Major depressive disorder, recurrent, mild; F41.9 Anxiety disorder, unspecified; F17.200 Nicotine dependence, unspecified, uncomplicated; Z71.6 Tobacco abuse counseling | CPT/HCPCS: 90471; 90472; 90656; 90715; 96127; 99395 ==

== ENCOUNTER 2025-02-04 15:34 | Outpatient (AMB) | payer OTHER, SELFPAY ==
--- NOTE | 2025-02-04 15:40 | A.OFFPC_ITS ---
Vital Signs 02/04/25 15:41 Height 5 ft 10 in Weight 159 lb 8 oz BMI 22.9 BP 138/74 Blood Pressure Location Lt brachial Position Sitting Pulse 117 H Pulse Source Pulse Oximeter Oxygen Delivery Method Room Air Intake Visit Reasons: eukepenia/alcoholic hepatitis Pointer Machine Operator Required: No Accompanied by: Self / Same As Patient Allergies pentoxifylline Allergy (Intermediate, Verified 02/04/25 16:09) Rash phenobarbital Allergy (Verified 02/04/25 16:09) Diarrhea Medication List - Last Reconciled 02/04/25 by Samantha Mohan MD alprazolam 0.5 mg PO TID PRN 30 days aripiprazole 10 mg PO DAILY 90 days calcium carbonate 500 mg PO DAILY 90 days folic acid 1 mg PO DAILY 90 days methadone 120 mg PO DAILY sertraline 100 mg PO DAILY 90 days thiamine HCl (vitamin B1) 100 mg PO DAILY 90 days Tobacco use date assessed: 02/04/25 Dental Screening Dental Screen Date: 02/04/25 Did you have a dental visit in the last 12 months?: Yes Did you have a dental problem in the last 6 months where you did not have access to dental care?: No Was dental information given to patient?: Patient has dentist HPI HPI Comments History of Present Illness Details The patient is a 40-year-old female presenting with a routine check-up and management of ongoing health issues, including anxiety and gastrointestinal concerns. The patient has a history of anxiety for which she is currently prescribed alprazolam and Abilify. She reports adherence to her medication regimen and denies seeing a psychiatrist currently. The patient experiences gastrointestinal bloating, describing episodes where she appears due to abdominal distension secondary to alcoholic hepatitis. She has not followed up with gastroenterology as recommended and has not had recent blood work done. The patient has a history of alcohol use disorder but reports being 14 months sober after a brief relapse last year. She no longer consumes alcohol. On methadone due to you opioid use disorder that has been well controlled with agonist therapy. [facility] Medical History Alcohol dependence Splenic varices Thrombocytopenia Splenic vein thrombosis Depression Physical exam Opioid dependence on agonist therapy Left ankle pain Smoker Impaired glucose tolerance Alcoholic liver disease Insomnia Anxiety Surgical History H/O endoscopy (08/18/23) History of amputation of finger History of hernia surgery Amputation of left index finger History of arthroplasty of left knee H/O right wrist surgery Family History Father Hypertension Substance use disorder Mother Medical history unknown Maternal Grandfather Cancer Family/Other FH: mental illness Mental health disorder Social History (Updated 02/04/25 @ 16:15 by Samantha Mohan MD) Household Members: Family Housing: House Do you presently have visiting nurse or other home services: No Alcohol intake: former Patient Tobacco Use Status: Current everyday Tobacco user Tobacco use type: Cigarette Cigarette Packs Per Day: 0.5 Cigarettes Per Day: 5 e-Cigarette/Vaping Use: Currently Using Second Hand Smoke Exposure: Yes Substance Use Type: Crack/Cocaine, Heroin, IV Drugs and Other service: No 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al status: unemployed and disabled 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: left hand Cognitive needs: No Hearing needs: No Vision needs: No Questionnaire Thrive Questionnaire Date Thrive assessed: 02/04/25 I am a: Patient What is your living situation today?: I have a steady place to live Within the past 12 months, did the food you bought not last and you didn't have the money to get more?: Sometimes True Within the past 12 months, did you worry whether your food would run out before you got money to buy more?: Sometimes True Do you have trouble paying for medicines?: No Do you have trouble getting transportation to medical appointments?: No Do you have trouble paying your heating and electricity bill?: No Do you have trouble taking care of your child, family member or friend?: No Do you have trouble with day-to-day activities such as bathing, preparing meals, shopping, managing finances, etc.?: No Are you currently unemployed and looking for a job?: Yes Are you interested in more education?: Yes Please select the resources that you would like help with: None Currently or been in a relationship where the following occur: I choose not to answer THRIVE Score: 2 DONNA-7 AMB Questionnaire DONNA-7 Date DONNA - 7 assessed: 02/04/25 Source: Developed by Drs. Cem Umanzor, Keely Castellon, Warren Arana and colleagues, with an educational theodore from [employer]. Review of Systems Const All systems reviewed & are unremarkable except as noted in HPI and below Card Denies chest pain at rest, Denies chest pain with activity, Denies edema, Denies irregular heart rhythm, Denies claudication, Denies dyspnea, Denies dyspnea on exertion, Denies orthopnea, Denies paroxysmal nocturnal dyspnea and Denies slow heart rate Resp Denies cough, Denies dyspnea and Denies dyspnea on exertion GI Denies abdominal pain, Denies change in bowel habits, Denies excessive flatus, Denies nausea and Denies vomiting Denies urinary incontinence, Denies urinary hesitancy and Denies urinary urgency Musc Denies abnormal gait, Denies atrophy, Denies deformity and Denies limited range of motion Skin/Breast Denies bleeding lesions, Denies changing lesions and Denies rash Neuro Denies abnormal gait and Denies lack of coordination Physical exam (Primary Care) Vital Signs: Last Vital Signs Pulse 117 H 02/04/25 15:41 BP 138/74 02/04/25 15:41 Oxygen Delivery Method Room Air 02/04/25 15:41 BMI result Body Mass Index 22.9 Tobacco/Smoking Status: Tobacco use Status Tobacco use date assessed 02/04/25 02/04/25 15:42 Patient Tobacco Use Status Current everyday Tobacco 02/04/25 16:15 Tobacco use type Cigarette 02/04/25 16:15 e-Cigarette/Vaping Use Currently Using 02/04/25 16:15 Thrive Assessment: Date of Thrive Assessment Date Thrive assessed 02/04/25 02/04/25 15:42 Currently or been in a relationship where the following occur: I choose not to answer Resp Effort & Inspection: normal respiratory effort Auscultation: clear to auscultation bilaterally Cardio Jugular venous distension: no JVD Rate: regular rate Rhythm: regular rhythm Heart sounds: S1 normal heart sound present and S2 normal heart sound present Extrem General: Yes full ROM Coding Level of Care Code Est Pt Level 4 (38504) Complex EM visit Add On G2211 Diagnoses Mild recurrent major depression F33.0 Opioid dependence on agonist therapy F11.20 Alcoholic liver disease K70.9 Anxiety F41.9 Time Spent (min) 22 Assessment & Plan Assessment & Plan (1) Mild recurrent major depression: Code(s): F33.0 - Major depressive disorder, recurrent, mild Category: Medical (2) Opioid dependence on agonist therapy: Code(s): F11.20 - Opioid dependence, uncomplicated Category: Medical (3) Alcoholic liver disease: Comment: Follow by [facility] Gastroenterology Code(s): K70.9 - Alcoholic liver disease, unspecified Category: Medical (4) Anxiety: Code(s): F41.9 - Anxiety disorder, unspecified Category: Medical Plan The patient will undergo routine blood work, including fasting cholesterol levels, to assess her current health status. A referral to gastroenterology will be made to address her gastrointestinal bloating and ensure appropriate follow- up care. The patient will continue her current medication regimen for anxiety, including alprazolam and Abilify, and will be provided with vitamin B1 supplementation to prevent potential deficiencies. She is advised to maintain her sobriety and monitor her hydration status to address the issue of dark urine. Patient was informed and verbally consented to the use of an ambient scribe for clinic note documentation during this visit. Orders: Orders Magnesium Today E83.42 - Hypomagnesemia Complete Blood Count Auto Diff Today D64.9 - Anemia, unspecified Lipid Panel Today E78.5 - Hyperlipidemia, unspecified Comprehensive [employer] Panel Fast Today F11.90 - Opioid use, unspecified, uncomplicated Referrals Gastroenterology Referral K70.10 - Alcoholic hepatitis without ascites Medications: Refilled thiamine HCl (vitamin B1) 100 mg PO DAILY 90 tabs 1RF 90 days
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
--- OUTSIDE RECORDS SUMMARY | 2025-02-04 15:40 | XMS_ITS | Patient Health Record ---
Author Organization [facility] Address [address] [place] [id number] Care Team Providers Care Shroud Line Tier Name Role Phone Samantha Graves Primary Care Provider UnavailCem Menjivar Unavailable [phone] Reason For Referral No Information Medications Medication SIG (Take, Route, Frequency, Duration) Notes Start Date End Date Status Xanax 0.5 MG 1 tablet Orally three a day as needed Active Methadone HCl 10 MG/5ML 72 ml Orally Once a day Active Pentoxifylline ER 400 MG 1 tablet with meals Orally Twice a day for 30 day(s) Not-Taking Ursodiol 500 MG 2 QAM and 1 QPM Orally 2 QAM and 1 QPM 09/10/2018 Not-Taking Lasix 20 MG 1 tablet Orally Once a day for 30 day(s) 05/01/2019 Not-Taking Furosemide 20 MG 1 tablet Orally Once a day for 30 day(s) Not-Taking Triamcinolone (oint)-Silicone Not-Taking Omeprazole 20 MG 1 capsule 30 minutes before morning meal Orally Once a day for 30 day(s) Only occasional 05/01/2019 Active Omeprazole Magnesium 20 MG 1 tablet Orally Once a day/as needed Not-Taking Immunizations Vaccine Route Administration Date Status Comme nts Influenza Unknown 04/04/2018 Administered Influenza Unknown 05/27/2019 Administered Social History Tobacco Use: Social History Observation Description Date Details (start date - stop date) Current Smoker NA - NA Tobacco Use/Smoking Question Answer Notes Patient is a current smoker How often do you smoke cigarettes? every day How many cigarettes a day do you smoke? 5 or les s How soon after you wake up d o you smoke your first cigarette? after 60 minutes Are you interested in quitting? Thinking about q uitting Alcohol Screen Question Answer Notes Did you have a drink containing alcohol in the p ast year? No Points 0 Interpretation Negative Section Notes: Former IVDA---abstinent [facility] 03/2017; drinks 10 nips of vodka per day; smoker 5-10 cigs per day Former IVDA---abstinent [facility] 03/2017; had been drinking 10 nips of vodka per day--as of 07/27/18 she reports not drinking daily; smoker 5-10 cigs per day Former IVDA---abstinent [facility] 03/2017; had been drinking 10 nips of vodka per day--as of 07/27/18 she reports not drinking daily; smoker 5-10 cigs per day; As of 01/09/19 drinks 3-4 times a week. Former IVDA---abstinent [facility] 03/2017; had been drinking 10 nips of vodka per day--as of 07/27/18 she reports not drinking daily; smoker 5-10 cigs per day; As of 01/09/19 drinks 3-4 times a week; started heavy in 02/2019--abstinent since hospitalization in mid-02/2019 Former IVDA---abstinent [facility] 03/2017; had been drinking 10 nips of vodka per day--as of 07/27/18 she reports not drinking daily; smoker 5-10 cigs per day; As of 01/09/19 drinks 3-4 times a week; started heavy in 02/2019--abstinent since hospitalization in mid-02/2019 but had alcohol during holiday2019 Problems Problem Type SNOMED Code ICD Code Onset Dates Problem Status W/U Status Risk Notes Problem 5227829273322015 Alcoholic hepatitis with ascites (K70.11) Active confirmed Problem 703416041 Alcoholic cirrhosis of liver without ascites (K70.30) Active confirmed Problem 902155577 Alcoholic cirrhosis of liver with ascites (K70.31) Active confirmed Problem 295205962 Chronic hepatitis C without hepatic coma (B18.2) Active confirmed Problem 34400314 Chronic hepatitis (K73.9) Active confirmed Problem 903150515 Fatty liver (K76.0) Active confirmed Problem 431092515 Gallstones (K80.20) Active confirmed Problem 123050552 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) Active confirmed Problem 78456739848573 History of hepatitis C (Z86.19) Active confirmed Problem 48138179342480465 Abnormal computerized tomography of biliary tract (R93.2) Active confirmed Problem Alcoholic hepatitis (576948112) Alcoholic hepatitis (K70.10) Active confirmed Problem 504296225 Edema, unspecified type (R60.9) Active confirmed Plan Of Treatment Pending Test Test Name Order Date CHEM 7 PROFILE 07/12/2019 CHEM 7 PROFILE 03/19/2019 CHEM 7 PROFILE 01/09/2019 CHEM 7 PROFILE 04/17/2019 LIVER PROFILE 07/12/2019 LIVER PROFILE 03/19/2019 LIVER PROFILE 07/27/2018 LIVER PROFILE 07/27/2018 LIVER PROFILE 01/09/2019 LIVER PROFILE 04/17/2019 LIVER PROFILE 05/23/2018 AMMONIA 03/19/2019 IRON + IBC (FE) 07/27/2018 FERRITIN 07/27/2018 CBC w DIFF 07/27/2018 CBC w DIFF 07/12/2019 CBC w DIFF 07/27/2018 CBC w DIFF 03/19/2019 CBC w DIFF 01/09/2019 PROTHROMBIN TIME (PT, INR) 01/09/2019 PROTHROMBIN TIME (PT, INR) 07/27/2018 PROTHROMBIN TIME (PT, INR) 07/12/2019 PROTHROMBIN TIME (PT, INR) 07/27/2018 PROTHROMBIN TIME (PT, INR) 03/19/2019 PARTIAL THROMBOPLASTIN TIME (PTT) 2018 ALPHA-FETOPROTEIN,TUMOR MARKER 9 CERULOPLASMIN 04/27/2018 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) 07/27/2018 HEPATITIS C VIRAL LOAD 07/27/2018 HEPATITIS C VIRAL LOAD 01/09/2019 MRI ABD W&WO CONTRAST 05/23/2018 HCVVL REFLEX GENOTYPE REFLEX [id number] 2018 Insurance Providers Payer Name Payer Address Payer Phone Subscriber Number Group Number Insured Name Patient Relationship to Insured Coverage Start Date Coverage End Date [facility] [employer] [facility] [address] [address] [place], [place] [id number] THEA RUBIO Self - patient is the insured Medical (General) History Medical History History ICD Code Chronic Hepatitis C---Genoty pe 3 and viral load > 88,000; Hep B negative in 11/2017; reports neg HIV test; nondetectable Hep C viral load in 07/2018 , in November of 2018, and in 06/2019. A liver biopsy in July of 2018 revealed changes of significant fatty liver with associated steatohepatitis and cirrhosis; there was no significant stainable iron Denies MD,DM,CVA,Lung disease,renal dise ase Panic attacks/PTSD Gallstones-D/W patient on --she saw Dr. Hood and he did not recommend surgery. She had a MRCP in May 2018 that was negative for any sign of choledocholithiasis, although the bile duct was dilated up to 1.3 cm Umbilical hernia EtOH-related cirrhosis and E Liam Hepatitis in 02/2019 with TBili > 40--responed to steroids, pentoxyphylline, and abstinence Surgical History Surgery Date(Month/Year) Wrist-right 2014 Knee surgery-left 03/2017
--- OUTSIDE RECORDS SUMMARY | 2025-02-04 15:40 | XMS_ITS | Clinical Summary ---
Author Organization [facility] Address [address] [place] [phone] Phone Care Team Providers Care Apron Operator Name Role Phone Samantha Graves MD Primary Care Provid er Allergies Active Allergy Reactions Criticality Noted Date Comments Phenobarbital Sodium 11/08/2021 Medications No known medications Social History Tobacco Use Types Packs/Day Years Used Date Smoking Tobacco: Never Assessed Education Answer Date Recorded Are you interested in more education? Not on pari e 10/23/2022 Are you concerned about learning? Not on file 10/23/2022 No 10/23/2022 No 10/23/2022 Digital Access Answer Date Recorded No 11/23/2022 No 11/23/2022 Reliable internet access at home? Not on file 11/23/2022 Device with a working camera? Not on file Comments Unknown Sex and Gender Information Value Date Recorded Sex Assigned at Not on file Legal Sex Female 1:47 PM EDT Gender Identity Not on file Sexual Orientation Not on file Last Filed Vital Signs Vital Sign Reading Time Taken Comments Blood Pressure 147/90 11/08/2021 2:03 PM EDT Pulse 95 11/08/2021 2:03 PM EDT Temperature 37.7 C (99.9 F) 11/08/2021 2:03 PM EDT Respiratory Rate 18 11/08/2021 2:03 PM EDT Oxygen Saturation 97% 11/08/2021 2:03 PM EDT Inhaled Oxygen Concentration - - Weight 72.6 kg (160 lb) 11/08/2021 2:03 PM EDT Height 177.8 cm (5' 10 ) 11/08/2021 2:03 PM EDT Body Mass Index 22.96 11/08/2021 2:03 PM EDT Plan of Treatment Not on file Medical Devices Not on file Insurance [facility] [place] [address] [place] [address] [place] [address] [address] [place] [address] ACO [facility] ACO Care Teams Apron Operator Relationship Specialty Start Date End Date Samantha Graves MD [address] [place] [address] PCP - General Internal Medicine 10/25/21 Additional Source Comments The information contained in this document represents components of the legal health record. It is not the complete legal health record.[facility]
[2025-02-04 15:41] VITALS: BP 138/74; PULSE 117; BMI 22.9
== END 2025-02-04 16:23 | disposition home or self-care (01) ==
LOC: HO.HMCH 15:35
PROVIDERS: PCP Internal Medicine; Visit Provider Internal Medicine
DX: F33.0 Major depressive disorder, recurrent, mild (principal); F11.20 Opioid dependence, uncomplicated; K70.9 Alcoholic liver disease, unspecified; F41.9 Anxiety disorder, unspecified

== ENCOUNTER → 2025-02-04 15:34 | Outpatient (BNVA) | payer OTHER, SELFPAY | PROVIDERS: PCP Internal Medicine; Visit Provider Internal Medicine | DX: F11.20 Opioid dependence, uncomplicated (principal); F33.0 Major depressive disorder, recurrent, mild; K70.9 Alcoholic liver disease, unspecified; F41.9 Anxiety disorder, unspecified; E83.42 Hypomagnesemia; D64.9 Anemia, unspecified; E78.5 Hyperlipidemia, unspecified | CPT/HCPCS: 99212 ==